=== PATIENT | male | born 1960 | race Caucasian/White ===

== ENCOUNTER → 2016-05-09 | Outpatient (CLI) | payer OTHER ==
[~2016-05-09] MED LIST: AMBI10TA; AMBI10TA OR; AMIT10TA2; AMIT25TA2 OR; AVINZA; AVINZA PO; COUGH MED PO; GABA800T3; GABA800T3 OR; GEMF600T; GEMF600T OR; IBUP80TA PO; LOVA40TA OR; MIRALEX OR; MORP15TA4 OR; MS C30TA2 OR; MULTCAP PO; MULTIVIT; MULTIVIT PO; NEUR300C OR; OMEP20TA7 OR; OMEP20TA7 PO; OXYC5CAP4; OXYC5CAP4 OR; SENN8.6T14; SKEL-29 PO; SKEL800T5; SKEL800T5 OR; SOMA350T; SOMA350T OR; STOOL SOFTNER PO; TIZA2TAB; TIZA4TAB OR; TIZA4TAB3 PO; TRAZ50TA2 PO; TRAZ50TA4 PO; VOLT1GEL TOP; ZOCO80TA; ZOCO80TA OR; [UNRECOGNIZED DRUG - OTHER] PO
--- NOTE | 2016-05-16 01:26 | ECWPNPC ---
PATIENT NAME: OWEN ROSALES : 1960 GENDER: MALE VISIT DATE: 05/09/2016 DISCHARGE DATE: 05/09/16 1029 VISIT LOCKED DATE TIME: PHYSICIAN: BINU ZIMMERMAN RESOURCE: BINU ZIMMERMAN REASON FOR APPOINTMENT 1. WC, NECK HISTORY OF PRESENT ILLNESS HISTORY OF PRESENT ILLNESS: PAIN THE PATIENT DESCRIBES THE PAIN... 56 YEAR OLD MALE PATIENT WITH HISTORY OF CHRONIC NECK PAIN. PATIENT DESCRIBES THE PAIN ACHING, TENDER AND SORE WITH A PAIN SCORE OF 3/10. 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 PATIENT STATING THAT HE WAS LIFTING A 80 LB BOX WHEN HIS NECK WAS INJURED. PATIENT REPORTS THAT HE HAS PAIN STARTING IN HIS NECK AREA GOING DOWN HIS LEFT SHOULDER. PATIENT INDICATES THAT HE HAD A C7-T1 FUSION IN 2005, THE SURGERY HELPED IN THE BEGINNING, BUT THE PAIN STARTED TO COME BACK. PATIENT STATES THAT TWISTING AND LAYING DOWN WRONG INCREASES THE PAIN LEVELS IN HIS NECK AREA WHICH THEN GOES DOWN TO THIS LEFT SHOULDER AREA. PATIENT DENIES UNEXPLAINABLE WEIGHT LOSS, FEVER, CHILLS, NEW CHANGES ON HIS URINARY OR BOWEL CONTROL. FALL RISK SCREENING: SCREENING :NO FALLS IN THE PAST YEAR CURRENT MEDICATIONS TAKING GEMFIBROZIL 600 MG TABLET 1 TABLET ORALLY DAILY TAKING LOVASTATIN 40 MG TABLET 1 TABLET WITH A MEAL ORALLY ONCE A DAY TAKING MULTIVITAL [place] TABLET ORALLY DAILY TAKING OMEPRAZOLE 40 MG CAPSULE DELAYED RELEASE 1 CAPSULE ORALLY ONCE A DAY TAKING MIRALAX PACKET 1 PACKET MIXED WITH 8 OUNCES OF FLUID ORALLY ONCE A DAY NEEDED, NOTES: NONE TAKING GABAPENTIN 400 MG CAPSULE 1 CAPSULE ORALLY THREE TIMES A DAY TAKING TRAZODONE HCL 50 MG TABLET 1 TABLET AT BEDTIME NEEDED ORALLY ONCE A DAY TAKING IBUPROFEN 200 MG TABLET 1 TABLET NEEDED ORALLY DAILY TAKING MORPHINE SULFATE ER 15 MG TABLET EXTENDED RELEASE 1 TABLET ORALLY AT BEDTIME MDD=1 TAKING OXYCODONE HCL 5 MG TABLET 1 TABLET ORALLY EVERY 6-8 HRS PRN PAIN MDD=3 NOT-TAKING METAXALONE 800 MG TABLET 1 TABLET ORALLY BID MEDICATION LIST REVIEWED AND RECONCILED WITH THE PATIENT PAST MEDICAL HISTORY REFLUX HIGH CHOLESTEROL ALLERGIES N.K.D.A. SURGICAL HISTORY TOTAL RIGHT KNEE RIGHT HIP FX REPAIR ABDOMINAL EXPLORATORY SURGERY CERVICAL/THORACIC FUSION FAMILY HISTORY NO FAMILY HISTORY DOCUMENTED. 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 NEW PATIENT PAIN DIARY TODAY'S VISITNOTES FROM 0-10, WHAT LEVEL IS YOUR PAIN TODAY?0 PAIN CLINIC PFS, CLERGY, PUBLIC HEALTH REFERRALS PFS REFERRAL NEEDED?NO CLERGY REFERRAL NEEDED?NO PUBLIC HEALTH REFERRAL NEEDED?NO WAS THE PROVIDER NOTIFIED OF ANY PERTINENT INFO?NO PFS REFERRAL NEEDED?NO CLERGY REFERRAL NEEDED?NO PUBLIC HEALTH REFERRAL NEEDED?NO WAS THE PROVIDER NOTIFIED OF ANY PERTINENT INFO?NO HOSPITALIZATION/MAJOR DIAGNOSTIC PROCEDURE SURGERIES REVIEW OF SYSTEMS CONSTITUTIONAL: ANY CHANGE IN YOUR MEDICAL CONDITION? NO . CHILLS NO . FEVER NO . INFECTION: DO YOU HAVE NEW INFECTIONS? NO . DO YOU HAVE HISTORY OF MRSA? NO . MUSCULOSKELETAL: ANY NEW PATTERNS OF PAIN OR NUMBNESS? YES PT NOTES 1 MONTH HX OF &QUOT;ACHE ING AND NUMBNESS&QUOT; IN LEFT UPPER ARM TO LEFT LOWER ARM/LEFT LAST 3 FINGERS. . GASTROENTEROLOGY: ANY NEW CHANGE IN BOWEL CONTROL? NO . GENITOURINARY: ANY NEW CHANGE IN BLADDER CONTROL? NO . IS THERE A CHANCE YOU COULD BE ? NO . HEMATOLOGY/LYMPH: DO YOU TAKE ANY BLOOD THINNERS? (FOR EXAMPLE- COUMADIN, PLAVIX, AGGRENOX, PLATEL, PRADAXA, OR XARELTO) NO . WHEN WAS YOUR LAST DOSE? DATE: TIME: . NEUROLOGY: HAVE YOU FALLEN IN THE PAST 6 MONTHS? NO . ANY NEW EXTREMITY NUMBNESS OR WEAKNESS? NO . CARDIOLOGY: DO YOU HAVE A PACEMAKER OR DEFIBRILLATOR? NO . RESPIRATORY: HAVE YOU BEEN SICK IN THE PAST WEEK? YES URI X 1 WEEK. . FEVER NO . FLU LIKE SYMPTOMS? NO . COUGH YES, NON-PRODUCTIVE . INTEGUMENTARY: DO YOU HAVE ANY RASHES OR OPEN SORES? NO . ALLERGIC/IMMUNO: ARE YOU ALLERGIC TO SHELLFISH OR IV DYE? NO . ANY NEW ALLERGIES? NO . PSYCHIATRIC: DO YOU HAVE THOUGHTS OF HURTING YOURSELF OR SOMEONE ELSE? NO . ARE YOU ABUSED, NEGLECTED, OR IN AN UNSAFE ENVIRONMENT? NO . ENDOCRINOLOGY: ARE YOU DIABETIC? NO . OTHER: DO YOU NEED ANY PRESCRIPTIONS? YES GABAPENTIN -NEEDS 1-2 WEEK SUPPLY UNTIL SCRIPT ARRIVES FROM [email or web address] ORDER SERVICE. . IF YES, PLEASE LIST: ____ . ANY NEW PROBLEMS WITH YOUR MEDICATIONS? NO . WHEN DID YOU LAST EAT? ____ . WHEN DID YOU LAST DRINK? ____ . WHAT DID YOU LAST DRINK? ____ . NAME OF PERSON DRIVING YOU HOME? ____ . DO YOU HAVE ANY OTHER QUESTIONS OR CONCERNS NO . REVIEWED BY: PROVIDER: BINU ZIMMERMAN MD . VITAL SIGNS WT 236 LBS, HT 69 IN, BMI 34.85 INDEX, BP 149/88 MM HG, HR 87 /MIN, RR 16 /MIN, TEMP 96.1 F, OXYGEN SAT % 95%, NA INITIALS SC09:08, REVIEWED BY: MLF. EXAMINATION : PATIENT IS ALERT O X 3 AND COOPERATIVE. PATIENT STANDS WITH THE LEFT SHOULDER HIGHER THAN THE RIGHT. PATIENT IS ABLE TO FLEX NECK AT 90 DEGREES, AND EXTEND NECK AT 5 DEGREE WITH DIFFICULTIES. THERE IS A SURGICAL SCAR ON THE LEFT ANTERIOR AREA OF THE NECK. THERE IS LATERAL RESTRICTION OF MOVEMENT OF THE NECK TO THE LEFT SIDE. OPERATIONS RESEARCH SCIENTIST OF THE LEFT HAND IS WEAKER COMPARED TO THE RIGHT SIDE. LEFT LEG IS WEAKER THAT THE RIGHT LEG AT FLEXION AND EXTENSION. ASSESSMENTS POSTLAMINECTOMY SYNDROME, NOT ELSEWHERE CLASSIFIED - M96.1 (PRIMARY) SPONDYLOSIS WITHOUT MYELOPATHY OR RADICULOPATHY, CERVICAL REGION - M47.812 CERVICAL DISC DISORDER WITH RADICULOPATHY, HIGH CERVICAL REGION - M50.11 CERVICAL DISC DISORDER AT C4-C5 LEVEL WITH RADICULOPATHY - M50.121 CERVICAL DISC DISORDER AT C5-C6 LEVEL WITH RADICULOPATHY - M50.122 CERVICAL DISC DISORDER AT C6-C7 LEVEL WITH RADICULOPATHY - M50.123 TREATMENT POSTLAMINECTOMY SYNDROME, NOT ELSEWHERE CLASSIFIED NOTES: WE DISCUSSED SEVERAL ISSUES WITH MR. ROSALES'S PAIN MANAGEMENT CASE. PATIENT WILL RECEIVED A MEDICATION REFILL TODAY AND CONTINUE WITH THE SAME MEDICATION REGIMEN BEFORE. PATIENT BROUGHT HIS MEDICATION BOTTLES IN TODAY. PATIENT WAS ADVISED TO SPEAK TO HIS PRIMARY CARE ABOUT THE SLEEPING PILL TIZANIDINE. UTOX ORDERED ON 03-31-2016 SHOWS CONSISTENT RESULTS. COMPLETED THE OPIOID RISK TOOL TODAY. PATIENT TO FOLLOW UP IN 3 TO 4 WEEKS. , INSTRUCTIONS WERE GIVEN, QUESTIONS WERE ANSWERED, PATIENT REPORTS UNDERSTANDING AND AGREES WITH THE PLAN. I, DRAKE GARVEY, DOCUMENTED THE ABOVE INFORMATION ACTING A SCRIBE FOR DR. ZIMMERMAN. I HAVE REVIEWED THE ABOVE DOCUMENT, WRITTEN BY DRAKE WALSH AND I VERIFY THAT IT IS ACCURATE. OTHERS REFILL GABAPENTIN CAPSULE, 400 MG, 1 CAPSULE, ORALLY, THREE TIMES A DAY, 90 DAY(S), 270 CAPSULE, REFILLS 0 REFILL IBUPROFEN TABLET, 800 MG, 1 TABLET NEEDED, ORALLY WITH FOOD, THREE TIMES DAILY NEEDED FOR PAIN, 30 DAY(S), 60, REFILLS 2 REFILL TRAZODONE HCL TABLET, 50 MG, 1 TABLET AT BEDTIME NEEDED, ORALLY, ONCE A DAY, 90 DAY(S), 90 TABLET, REFILLS 0 REFILL MORPHINE SULFATE ER TABLET EXTENDED RELEASE, 15 MG, 1 TABLET, ORALLY, AT BEDTIME MDD=1, 30 DAY(S), 30, REFILLS 0 REFILL OXYCODONE HCL TABLET, 5 MG, 1 TABLET, ORALLY, EVERY 6-8 HRS PRN PAIN MDD=3, 30 DAY(S), 90, REFILLS 0 NOTES: FACET JOINT INJECTION MATERIAL WAS PRINTED. PROCEDURES PN WORKMANS' COMP OPINION IN YOUR OPINION, WAS THE INCIDENT THAT THE PATIENT DESCRIBED THE COMPETENT MEDICAL CAUSE OF THIS INJURY/ILLNESS? YES ARE THE PATIENT'S COMPLAINTS CONSISTENT WITH HIS/HER HISTORY OF THE INJURY/ILLNESS? YES IS THE PATIENT'S HISTORY OF THE INJURY/ILLNESS CONSISTENT WITH YOUR OBJECTIVE FINDING? YES WHAT IS THE PERCENTAGE OF TEMPORARY IMPAIRMENT? MODERATE TO MARKED = 66.7% IS THE PATIENT WORKING? NO DOCTOR ON SITE: BINU WILL MD PROCEDURE CODES FA211 ESTABILISHED PATIENT [facility] CHARGE G8730 PAIN ASSESS POS TOOL F/U PLAN DOC G8427 DOC MEDS VERIFIED W/PT OR RE FOLLOW UP 4 WEEKS ELECTRONICALLY SIGNED BY BINU ZIMMERMAN MD ON 05/15/2016 AT 09:46 AM EST DISCLAIMER : THIS IS A VISIT SUMMARY EXTRACTED FROM THE [employer] CHART. IT IS NOT A COPY OF THE [employer] PROGRESS NOTE. ANALILIA
== END ==
LOC: M PAIN 09:00
PROVIDERS: ATTEND Anesthesiology
DX: M96.1 Postlaminectomy syndrome, not elsewhere classified (principal); M47.812 Spondylosis without myelopathy or radiculopathy, cervical region; M50.11 Cervical disc disorder with radiculopathy, high cervical region; M50.121 Cervical disc disorder at C4-C5 level with radiculopathy; M50.122 Cervical disc disorder at C5-C6 level with radiculopathy; M50.123 Cervical disc disorder at C6-C7 level with radiculopathy; Z79.891 Long term (current) use of opiate analgesic; Z79.899 Other long term (current) drug therapy

== ENCOUNTER → 2016-06-06 | Outpatient (CLI) | payer OTHER ==
[~2016-06-06] MED LIST changes: +BUPIVACAINE HCL 0.25% 30 ML VIAL As Ordered ONE; +ISOVUE-M 300 61% 15ML VIAL (Q9967) As Ordered ONE; +LIDOCAINE 1% SDV INJ 30 ML VIAL As Ordered ONE
--- NOTE | 2016-06-06 12:39 | REP ---
Partial lumbar spine series: Three views. History: Right lumbar facet block for pain. 33 seconds of fluoroscopy time is reported. Findings: A sequence of three last image hold fluoroscopically obtained spot radiographs of the lumbar spine document various needle positions and contrast injections associated with lumbar facet injection procedure. Signed by Nacho Christopher MD 06/06/2016 02:34 P
--- NOTE | 2016-06-07 23:50 | ECWPNPC ---
PATIENT NAME: OWEN ROSALES : 1960 GENDER: MALE VISIT DATE: 06/06/2016 DISCHARGE DATE: 06/06/16 1209 VISIT LOCKED DATE TIME: PHYSICIAN: BINU ZIMMERMAN RESOURCE: BINU ZIMMERMAN REASON FOR APPOINTMENT 1. LFBD L4-5, L5-S1 CURRENT MEDICATIONS TAKING IBUPROFEN 800 MG TABLET 1 TABLET NEEDED ORALLY WITH FOOD THREE TIMES DAILY NEEDED FOR PAIN, NOTES: 06/05/162099 TAKING TRAZODONE HCL 50 MG TABLET 1 TABLET AT BEDTIME NEEDED ORALLY ONCE A DAY, NOTES: 06/05/162099 TAKING GABAPENTIN 400 MG CAPSULE 1 CAPSULE ORALLY THREE TIMES A DAY, NOTES: 06/06/16699 TAKING OXYCODONE HCL 5 MG TABLET 1 TABLET ORALLY EVERY 6-8 HRS PRN PAIN MDD=3, NOTES: 2-3 DAYS TAKING MORPHINE SULFATE ER 15 MG TABLET EXTENDED RELEASE 1 TABLET ORALLY AT BEDTIME MDD=1, NOTES: 06/05/162099 TAKING GEMFIBROZIL 600 MG TABLET 1 TABLET ORALLY DAILY, NOTES: 06/06/16699 TAKING LOVASTATIN 40 MG TABLET 1 TABLET WITH A MEAL ORALLY ONCE A DAY, NOTES: 06/05/162099 TAKING MULTIVITAL MECHOOPDA TABLET ORALLY DAILY, NOTES: 06/06/16699 TAKING OMEPRAZOLE 40 MG CAPSULE DELAYED RELEASE 1 CAPSULE ORALLY ONCE A DAY, NOTES: 06/06/16699 TAKING MIRALAX PACKET 1 PACKET MIXED WITH 8 OUNCES OF FLUID ORALLY ONCE A DAY NEEDED, NOTES: 1 MONTH AGO NOT-TAKING METAXALONE 800 MG TABLET 1 TABLET ORALLY BID MEDICATION LIST REVIEWED AND RECONCILED WITH THE PATIENT PAST MEDICAL HISTORY REFLUX HIGH CHOLESTEROL ALLERGIES N.K.D.A. SURGICAL HISTORY NO SURGICAL HISTORY DOCUMENTED. HOSPITALIZATION/MAJOR DIAGNOSTIC PROCEDURE NO HOSPITALIZATION HISTORY. VITAL SIGNS WT 236 LBS, HT 69 IN, BMI 34.85 INDEX, BP 139/90 MM HG, HR 80 /MIN, RR 16 /MIN, TEMP 96.0 F, OXYGEN SAT % 96, NA INITIALS TL 1052, REVIEWED BY: CORA. ASSESSMENTS SPONDYLOSIS WITHOUT MYELOPATHY OR RADICULOPATHY, LUMBAR REGION - M47.816 (PRIMARY) SPONDYLOSIS WITHOUT MYELOPATHY OR RADICULOPATHY, LUMBOSACRAL REGION - M47.817 PROCEDURES PN WORKMANS' COMP OPINION IN YOUR OPINION, WAS THE INCIDENT THAT THE PATIENT DESCRIBED THE COMPETENT MEDICAL CAUSE OF THIS INJURY/ILLNESS? YES ARE THE PATIENT'S COMPLAINTS CONSISTENT WITH HIS/HER HISTORY OF THE INJURY/ILLNESS? YES IS THE PATIENT'S HISTORY OF THE INJURY/ILLNESS CONSISTENT WITH YOUR OBJECTIVE FINDING? YES WHAT IS THE PERCENTAGE OF TEMPORARY IMPAIRMENT? MODERATE TO MARKED = 66.7% IS THE PATIENT WORKING? NO DOCTOR ON SITE: MD TRAY SEO LUMBAR FACET BLOCK DIAGNOSTIC PRE PROCEDURE DIAGNOSIS LUMBOSACRAL SPONDYLOSIS, LUMBAR SPONDYLOSIS POST PROCEDURE DIAGNOSIS LUMBOSACRAL SPONDYLOSIS, LUMBAR SPONDYLOSIS PROCEDURE RIGHT L4-L5 AND RIGHT L5-S1 FACET BLOCK DIAGNOSTIC NUMBER [address] BINU ZIMMERMAN SAILMAKER NONE ANESTHESIA LOCAL PRE PROCEDURE NOTE THE PATIENT WITH HISTORY OF CHRONIC LOW BACK PAIN. I EVALUATED THE PATIENT AND REVIEWED THE CHART. I WENT OVER THE RISKS, ALTERNATIVES, AND BENEFITS ASSOCIATED WITH THIS PROCEDURE. THE PATIENT WOULD LIKE TO PROCEED AND GAVE CONSENT TO PERFORM THE PROCEDURE. AGREED WITH THE PATIENT WE ARE DOING THIS PROCEDURE TO DETERMINE IF THE PATIENT IS A CANDIDATE FOR A RADIOFREQUENCY ABLATION OF THE FACETS JOINTS. THE PATIENT DENIES UNEXPLAINABLE WEIGHT LOSS, FEVER, CHILLS, OR NEW CHANGES IN URINARY OR BOWEL CONTROL DESCRIPTION OF PROCEDURE THE PATIENT WAS BROUGHT TO THE PROCEDURE ROOM AND PLACED IN THE PRONE POSITION. THE LUMBOSACRAL AREA WAS CLEANED WITH CHLORAPREP SOLUTION AND DRAPED ASEPTICALLY. THE PROCEDURE WAS DONE UNDER STERILE CONDITIONS. I CHECKED LATERALITY AND THE LEVEL WHERE THE PROCEDURE WAS GOING TO BE PERFORMED WITH THE PATIENT AND THE SUPPORTING STAFF AT THE MOMENT OF THE TIME OUT IN THE PROCEDURE ROOM. UNDER FLUOROSCOPIC GUIDANCE, TARGETS WERE SELECTED AT THE INTERSECTION OF THE RIGHT TRANSVERSE PROCESS OF L4, L5 AND ALA OF S1 WITH ITS RESPECTIVE SUPERIOR ARTICULAR PROCESS. LIDOCAINE WAS USED TO NUMB THE SKIN AND THE SUBCUTANEOUS TISSUE BELOW IT. SPINAL NEEDLE, 22-GAUGE WAS ADVANCED UNDER FLUOROSCOPIC GUIDANCE AND FOLLOWING PATIENT FEEDBACK UNTIL THE TARGETS WERE REACHED. POSITION OF THE NEEDLES WAS VERIFIED WITH AP AND LATERAL VIEWS. AFTER PROPER POSITION OF THE NEEDLES WAS ACHIEVED, ISOVUE-M DYE 30% 0.1 ML WAS INJECTED AT EACH SITE SHOWING ADEQUATE SPREAD OF THE DYE. THEN A SOLUTION OF 0.4 ML OF BUPIVACAINE 0.25% WAS INJECTED AT EACH SITE. THERE WAS NO EVIDENCE OF BLOOD, PARESTHESIA OR CEREBROSPINAL FLUID DURING THE PROCEDURE. THE PATIENT WAS SENT TO THE RECOVERY ROOM. THE PATIENT WAS MOVING THE EXTREMITIES AND DOING WELL. THERE WAS NO COMPLICATION DURING THE PROCEDURE. FLUOROSCOPY TIME WAS 33 SECONDS POST PROCEDURE NOTE THE PATIENT WILL DOCUMENT HIS PAIN LEVEL AND RESPONSE TO THIS PROCEDURE EVERY 30 MINUTES. THE PATIENT WILL BE SEEN IN A FOLLOW UP IN THE NEXT FEW WEEKS. FURTHER DETERMINATION FOR HIS CASE WILL BE DONE AT THE NEXT VISIT. INSTRUCTIONS WERE GIVEN, QUESTIONS WERE ANSWERED, AND THE PATIENT EXPRESSED UNDERSTANDING AND AGREED WITH THE PLAN. INSTRUCTIONS WERE GIVEN, QUESTIONS WERE ANSWERED, PATIENT REPORTS UNDERSTANDING AND AGREES WITH THE PLAN. I, DRAKE GARVEY, DOCUMENTED THE ABOVE INFORMATION ACTING A SCRIBE FOR DR. ZIMMERMAN. I HAVE REVIEWED THE ABOVE DOCUMENT, WRITTEN BY DRAKE GARVEY SCRIBE AND I VERIFY THAT IT IS ACCURATE. PROCEDURE CODES 92783 INJ PARAVERT F JNT L/S 1 LEV 47590 INJ PARAVERT F JNT L/S 2 LEV 6045F RADXPS IN END [id number] PXD FOLLOW UP 3 WEEKS ELECTRONICALLY SIGNED BY BINU ZIMMERMAN MD ON 06/07/2016 AT 07:33 PM EST DISCLAIMER : THIS IS A VISIT SUMMARY EXTRACTED FROM THE [employer] CHART. IT IS NOT A COPY OF THE [employer] PROGRESS NOTE. MTDEliza
== END ==
LOC: M PAIN 10:50
PROVIDERS: ATTEND Anesthesiology
DX: G89.29 Other chronic pain (principal); M47.816 Spondylosis without myelopathy or radiculopathy, lumbar region; M47.817 Spondylosis without myelopathy or radiculopathy, lumbosacral region; K21.9 Gastro-esophageal reflux disease without esophagitis; E78.00 Pure hypercholesterolemia, unspecified; Z79.1 Long term (current) use of non-steroidal anti-inflammatories (NSAID); Z79.891 Long term (current) use of opiate analgesic; Z79.899 Other long term (current) drug therapy
CPT/HCPCS: 64493; 64494; Q9967

== ENCOUNTER → 2016-06-08 | Outpatient (CLI) | payer OTHER ==
[~2016-06-08] MED LIST changes: -BUPIVACAINE HCL 0.25% 30 ML VIAL As Ordered ONE; -ISOVUE-M 300 61% 15ML VIAL (Q9967) As Ordered ONE; -LIDOCAINE 1% SDV INJ 30 ML VIAL As Ordered ONE
--- NOTE | 2016-06-09 00:35 | ECWPNPC ---
PATIENT NAME: OWEN ROSALES : 1960 GENDER: MALE VISIT DATE: 06/08/2016 DISCHARGE DATE: 06/08/16 1004 VISIT LOCKED DATE TIME: PHYSICIAN: BINU ZIMMERMAN RESOURCE: BINU ZIMMERMAN REASON FOR APPOINTMENT 1. W/C NECK HISTORY OF PRESENT ILLNESS HISTORY OF PRESENT ILLNESS: PAIN THE PATIENT DESCRIBES THE PAIN... FALL RISK SCREENING: SCREENING :NO FALLS IN THE PAST YEAR CURRENT MEDICATIONS TAKING IBUPROFEN 800 MG TABLET 1 TABLET NEEDED ORALLY WITH FOOD THREE TIMES DAILY NEEDED FOR PAIN, NOTES: 06/05/162099 TAKING TRAZODONE HCL 50 MG TABLET 1 TABLET AT BEDTIME NEEDED ORALLY ONCE A DAY, NOTES: 06/05/162099 TAKING GABAPENTIN 400 MG CAPSULE 1 CAPSULE ORALLY THREE TIMES A DAY, NOTES: 06/06/16699 TAKING OXYCODONE HCL 5 MG TABLET 1 TABLET ORALLY EVERY 6-8 HRS PRN PAIN MDD=3, NOTES: 2-3 DAYS TAKING MORPHINE SULFATE ER 15 MG TABLET EXTENDED RELEASE 1 TABLET ORALLY AT BEDTIME MDD=1, NOTES: 06/05/162099 TAKING GEMFIBROZIL 600 MG TABLET 1 TABLET ORALLY DAILY, NOTES: 06/06/16699 TAKING LOVASTATIN 40 MG TABLET 1 TABLET WITH A MEAL ORALLY ONCE A DAY, NOTES: 06/05/162099 TAKING MULTIVITAL YS[place] DEL SUR TABLET ORALLY DAILY, NOTES: 06/06/16699 TAKING OMEPRAZOLE 40 MG CAPSULE DELAYED RELEASE 1 CAPSULE ORALLY ONCE A DAY, NOTES: 06/06/16699 TAKING MIRALAX PACKET 1 PACKET MIXED WITH 8 OUNCES OF FLUID ORALLY ONCE A DAY NEEDED, NOTES: 1 MONTH AGO NOT-TAKING METAXALONE 800 MG TABLET 1 TABLET ORALLY BID MEDICATION LIST REVIEWED AND RECONCILED WITH THE PATIENT PAST MEDICAL HISTORY REFLUX HIGH CHOLESTEROL ALLERGIES N.K.D.A. 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 NEW PATIENT PAIN DIARY TODAY'S VISITNOTES FROM 0-10, WHAT LEVEL IS YOUR PAIN TODAY?0 PAIN CLINIC PFS, CLERGY, PUBLIC HEALTH REFERRALS PFS REFERRAL NEEDED?NO CLERGY REFERRAL NEEDED?NO PUBLIC HEALTH REFERRAL NEEDED?NO WAS THE PROVIDER NOTIFIED OF ANY PERTINENT INFO?NO PFS REFERRAL NEEDED?NO CLERGY REFERRAL NEEDED?NO PUBLIC HEALTH REFERRAL NEEDED?NO WAS THE PROVIDER NOTIFIED OF ANY PERTINENT INFO?NO REVIEW OF SYSTEMS CONSTITUTIONAL: ANY CHANGE IN YOUR MEDICAL CONDITION? NO . CHILLS NO . FEVER NO . INFECTION: DO YOU HAVE NEW INFECTIONS? NO . DO YOU HAVE HISTORY OF MRSA? NO . MUSCULOSKELETAL: ANY NEW PATTERNS OF PAIN OR NUMBNESS? NO . GASTROENTEROLOGY: ANY NEW CHANGE IN BOWEL CONTROL? NO . GENITOURINARY: ANY NEW CHANGE IN BLADDER CONTROL? NO . IS THERE A CHANCE YOU COULD BE ? NO . HEMATOLOGY/LYMPH: DO YOU TAKE ANY BLOOD THINNERS? (FOR EXAMPLE- COUMADIN, PLAVIX, AGGRENOX, PLATEL, PRADAXA, OR XARELTO) NO . WHEN WAS YOUR LAST DOSE? DATE: TIME: . NEUROLOGY: HAVE YOU FALLEN IN THE PAST 6 MONTHS? NO . ANY NEW EXTREMITY NUMBNESS OR WEAKNESS? NO . CARDIOLOGY: DO YOU HAVE A PACEMAKER OR DEFIBRILLATOR? NO . RESPIRATORY: HAVE YOU BEEN SICK IN THE PAST WEEK? NO . FEVER NO . FLU LIKE SYMPTOMS? NO . COUGH NO . INTEGUMENTARY: DO YOU HAVE ANY RASHES OR OPEN SORES? NO . ALLERGIC/IMMUNO: ARE YOU ALLERGIC TO SHELLFISH OR IV DYE? NO . ANY NEW ALLERGIES? NO . PSYCHIATRIC: DO YOU HAVE THOUGHTS OF HURTING YOURSELF OR SOMEONE ELSE? NO . ARE YOU ABUSED, NEGLECTED, OR IN AN UNSAFE ENVIRONMENT? NO . ENDOCRINOLOGY: ARE YOU DIABETIC? NO . OTHER: DO YOU NEED ANY PRESCRIPTIONS? NO . IF YES, PLEASE LIST: ____ . ANY NEW PROBLEMS WITH YOUR MEDICATIONS? NO . WHEN DID YOU LAST EAT? ____ . WHEN DID YOU LAST DRINK? ____ . WHAT DID YOU LAST DRINK? ____ . NAME OF PERSON DRIVING YOU HOME? ____ . DO YOU HAVE ANY OTHER QUESTIONS OR CONCERNS NO . REVIEWED BY: PROVIDER: . VITAL SIGNS WT 236 LBS, HT 69 IN, BMI 34.85 INDEX, BP 147/89 MM HG, HR 76 /MIN, RR 16 /MIN, TEMP 96.0 F, OXYGEN SAT % 98, NA INITIALS TL 0917, REVIEWED BY: MLF. ASSESSMENTS SPONDYLOSIS WITHOUT MYELOPATHY OR RADICULOPATHY, LUMBAR REGION - M47.816 TREATMENT SPONDYLOSIS WITHOUT MYELOPATHY OR RADICULOPATHY, LUMBAR REGION REFILL OXYCODONE HCL TABLET, 5 MG, 1 TABLET, ORALLY, EVERY 6-8 HRS PRN PAIN MDD=2, 30 DAY(S), 45, REFILLS 0, NOTES: 2-3 DAYS REFILL MORPHINE SULFATE ER TABLET EXTENDED RELEASE, 15 MG, 1 TABLET, ORALLY, AT BEDTIME MDD=1, 30 DAY(S), 25, REFILLS 0, NOTES: 06/05/162099 OTHERS REFILL IBUPROFEN TABLET, 800 MG, 1 TABLET NEEDED, ORALLY WITH FOOD, THREE TIMES DAILY NEEDED FOR PAIN, 30 DAY(S), 60, REFILLS 2, NOTES: 06/05/162099 CONTINUE GABAPENTIN CAPSULE, 400 MG, 1 CAPSULE, ORALLY FOR PAIN, THREE TIMES A DAY, 30 DAY(S), 90 CAPSULE, REFILLS 2, NOTES: 06/06/16 0700 PROCEDURE CODES FA211 ESTABILISHED PATIENT [facility] FACILITY CHARGE ELECTRONICALLY SIGNED BY BINU ZIMMERMAN MD ON 06/08/2016 AT 10:05 AM EST DISCLAIMER : THIS IS A VISIT SUMMARY EXTRACTED FROM THE [employer] CHART. IT IS NOT A COPY OF THE [employer] PROGRESS NOTE. MTDD
== END ==
LOC: M PAIN 09:00
PROVIDERS: ATTEND Anesthesiology
DX: Z09 Encounter for follow-up examination after completed treatment for conditions other than malignant neoplasm (principal); G89.29 Other chronic pain; M50.11 Cervical disc disorder with radiculopathy, high cervical region; M50.13 Cervical disc disorder with radiculopathy, cervicothoracic region; K21.9 Gastro-esophageal reflux disease without esophagitis; E78.00 Pure hypercholesterolemia, unspecified; Z79.1 Long term (current) use of non-steroidal anti-inflammatories (NSAID); Z79.891 Long term (current) use of opiate analgesic; Z79.899 Other long term (current) drug therapy

== ENCOUNTER → 2016-06-08 | Outpatient (CLI) | payer OTHER ==
--- NOTE | 2016-06-17 23:24 | ECWPNPC ---
PATIENT NAME: OWEN ROSALES : 1960 GENDER: MALE VISIT DATE: 06/08/2016 DISCHARGE DATE: 06/08/16 1115 VISIT LOCKED DATE TIME: PHYSICIAN: BINU ZIMMERMAN RESOURCE: BINU ZIMMERMAN REASON FOR APPOINTMENT 1. LOW BACK HISTORY OF PRESENT ILLNESS HISTORY OF PRESENT ILLNESS: PAIN THE PATIENT DESCRIBES THE PAIN... 56 YEAR OLD MALE WITH HISTORY OF CHRONIC MID AND LOW BACK PAIN. PATIENT DESCRIBES THE PAIN ACHING AND SCORE WITH A PAIN SCORE OF 2/10 ON TODAY'S VISIT. PATIENT WAS INJURED IN A WORK RELATED INJURY ON 09/05/1989 WORKING FOR [employer]. PATIENT RECEIVED A RIGHT L4-L5 AND RIGHT L5-S1 FACET BLOCK DIAGNOSTIC BLOCK ON 06/16/2016 AND STATES THAT HIS PAIN WENT FROM A 4/10 TO A 0/10. PATIENT DENIES UNEXPLAINABLE WEIGHT LOSS, FEVER, CHILLS, NEW CHANGES ON HIS URINARY OR BOWEL CONTROL. FALL RISK SCREENING: SCREENING :NO FALLS IN THE PAST YEAR CURRENT MEDICATIONS TAKING TRAZODONE HCL 50 MG TABLET 1 TABLET AT BEDTIME NEEDED ORALLY ONCE A DAY, NOTES: 06/05/162099 TAKING GEMFIBROZIL 600 MG TABLET 1 TABLET ORALLY DAILY, NOTES: 06/06/16699 TAKING LOVASTATIN 40 MG TABLET 1 TABLET WITH A MEAL ORALLY ONCE A DAY, NOTES: 06/05/162099 TAKING MULTIVITAL [place] TABLET ORALLY DAILY, NOTES: 06/06/16699 TAKING OMEPRAZOLE 40 MG CAPSULE DELAYED RELEASE 1 CAPSULE ORALLY ONCE A DAY, NOTES: 06/06/16699 TAKING MIRALAX PACKET 1 PACKET MIXED WITH 8 OUNCES OF FLUID ORALLY ONCE A DAY NEEDED, NOTES: 1 MONTH AGO TAKING OXYCODONE HCL 5 MG TABLET 1 TABLET ORALLY EVERY 6-8 HRS PRN PAIN MDD=2, NOTES: 2-3 DAYS TAKING MORPHINE SULFATE ER 15 MG TABLET EXTENDED RELEASE 1 TABLET ORALLY AT BEDTIME MDD=1, NOTES: 06/05/162099 TAKING IBUPROFEN 800 MG TABLET 1 TABLET NEEDED ORALLY WITH FOOD THREE TIMES DAILY NEEDED FOR PAIN, NOTES: 06/05/162099 TAKING GABAPENTIN 400 MG CAPSULE 1 CAPSULE ORALLY FOR PAIN THREE TIMES A DAY, NOTES: 06/06/16699 NOT-TAKING METAXALONE 800 MG TABLET 1 TABLET ORALLY BID MEDICATION LIST REVIEWED AND RECONCILED WITH THE PATIENT PAST MEDICAL HISTORY REFLUX HIGH CHOLESTEROL ALLERGIES N.K.D.A. SURGICAL HISTORY TOTAL RIGHT KNEE RIGHT HIP FX REPAIR ABDOMINAL EXPLORATORY SURGERY CERVICAL/THORACIC FUSION FAMILY HISTORY NO FAMILY HISTORY DOCUMENTED. 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 NEW PATIENT PAIN DIARY TODAY'S VISITNOTES FROM 0-10, WHAT LEVEL IS YOUR PAIN TODAY?0 PAIN CLINIC PFS, CLERGY, PUBLIC HEALTH REFERRALS PFS REFERRAL NEEDED?NO CLERGY REFERRAL NEEDED?NO PUBLIC HEALTH REFERRAL NEEDED?NO WAS THE PROVIDER NOTIFIED OF ANY PERTINENT INFO?NO PFS REFERRAL NEEDED?NO CLERGY REFERRAL NEEDED?NO PUBLIC HEALTH REFERRAL NEEDED?NO WAS THE PROVIDER NOTIFIED OF ANY PERTINENT INFO?NO HOSPITALIZATION/MAJOR DIAGNOSTIC PROCEDURE SURGERIES REVIEW OF SYSTEMS CONSTITUTIONAL: ANY CHANGE IN YOUR MEDICAL CONDITION? NO . CHILLS NO . FEVER NO . INFECTION: DO YOU HAVE NEW INFECTIONS? NO . DO YOU HAVE HISTORY OF MRSA? NO . MUSCULOSKELETAL: ANY NEW PATTERNS OF PAIN OR NUMBNESS? NO . GASTROENTEROLOGY: ANY NEW CHANGE IN BOWEL CONTROL? NO . GENITOURINARY: ANY NEW CHANGE IN BLADDER CONTROL? NO . IS THERE A CHANCE YOU COULD BE ? NO . HEMATOLOGY/LYMPH: DO YOU TAKE ANY BLOOD THINNERS? (FOR EXAMPLE- COUMADIN, PLAVIX, AGGRENOX, PLATEL, PRADAXA, OR XARELTO) NO . WHEN WAS YOUR LAST DOSE? DATE: TIME: . NEUROLOGY: HAVE YOU FALLEN IN THE PAST 6 MONTHS? NO . ANY NEW EXTREMITY NUMBNESS OR WEAKNESS? NO . CARDIOLOGY: DO YOU HAVE A PACEMAKER OR DEFIBRILLATOR? NO . RESPIRATORY: HAVE YOU BEEN SICK IN THE PAST WEEK? NO . FEVER NO . FLU LIKE SYMPTOMS? NO . COUGH NO . INTEGUMENTARY: DO YOU HAVE ANY RASHES OR OPEN SORES? NO . ALLERGIC/IMMUNO: ARE YOU ALLERGIC TO SHELLFISH OR IV DYE? NO . ANY NEW ALLERGIES? NO . PSYCHIATRIC: DO YOU HAVE THOUGHTS OF HURTING YOURSELF OR SOMEONE ELSE? NO . ARE YOU ABUSED, NEGLECTED, OR IN AN UNSAFE ENVIRONMENT? NO . ENDOCRINOLOGY: ARE YOU DIABETIC? NO . OTHER: DO YOU NEED ANY PRESCRIPTIONS? NO . IF YES, PLEASE LIST: ____ . ANY NEW PROBLEMS WITH YOUR MEDICATIONS? NO . WHEN DID YOU LAST EAT? ____ . WHEN DID YOU LAST DRINK? ____ . WHAT DID YOU LAST DRINK? ____ . NAME OF PERSON DRIVING YOU HOME? ____ . DO YOU HAVE ANY OTHER QUESTIONS OR CONCERNS NO . REVIEWED BY: PROVIDER: BINU ZIMMERMAN MD . VITAL SIGNS WT 236 LBS, HT 69 IN, BMI 34.85 INDEX, BP 147/89 MM HG, HR 76 /MIN, RR 16 /MIN, TEMP 96.0 F, OXYGEN SAT % 98, NA INITIALS TL 1025, REVIEWED BY: MLF. EXAMINATION : PATIENT IS ALERT O X 3 AND COOPERATIVE. PATIENT HAS SOME TENDERNESS IN THE LEFT LUMBAR PARASPINAL MUSCLE GROUP. MRI OF THE LUMBAR SPINE DONE ON 02/26/2014 SHOWS DISC BULGES AND DISC PROTRUSIONS. ASSESSMENTS INTERVERTEBRAL DISC DISORDERS WITH RADICULOPATHY, LUMBAR REGION - M51.16 (PRIMARY) INTERVERTEBRAL DISC DISORDERS WITH RADICULOPATHY, LUMBOSACRAL REGION - M51.17 TREATMENT INTERVERTEBRAL DISC DISORDERS WITH RADICULOPATHY, LUMBAR REGION NOTES: WE DISCUSSED SEVERAL ISSUES WITH MR. ROSALES'S PAIN MANAGEMENT CASE. DUE TO THE PATIENT GETTING EXCELLENT RESULTS WITH THE LUMBAR FACET BLOCK DIAGNOSTIC INJECTION, HE IS A GOOD CANDIDATE FOR A RIGHT L4-L5 AND RIGHT L5-S1 RADIOFREQUENCY. WE DISCUSSED THE RISK, BENEFITS, AND ALTERNATIVES AND THE PATIENT WOULD TO PROCEED. PATIENT WILL BE BOOKED PENDING APPROVAL. PATIENT TO FOLLOW UP WITH ME IN 5 WEEKS. INSTRUCTIONS WERE GIVEN, QUESTIONS WERE ANSWERED, PATIENT REPORTS UNDERSTANDING AND AGREES WITH THE PLAN. I, DRAKE GARVEY, DOCUMENTED THE ABOVE INFORMATION ACTING A SCRIBE FOR DR. ZIMMERMAN. I HAVE REVIEWED THE ABOVE DOCUMENT, WRITTEN BY DRAKE WALSH AND I VERIFY THAT IT IS ACCURATE. PROCEDURES PN WORKMANS' COMP OPINION IN YOUR OPINION, WAS THE INCIDENT THAT THE PATIENT DESCRIBED THE COMPETENT MEDICAL CAUSE OF THIS INJURY/ILLNESS? YES ARE THE PATIENT'S COMPLAINTS CONSISTENT WITH HIS/HER HISTORY OF THE INJURY/ILLNESS? YES IS THE PATIENT'S HISTORY OF THE INJURY/ILLNESS CONSISTENT WITH YOUR OBJECTIVE FINDING? YES WHAT IS THE PERCENTAGE OF TEMPORARY IMPAIRMENT? MODERATE TO MARKED = 66.7% IS THE PATIENT WORKING? NO DOCTOR ON SITE: BINU WILL MD PREVENTIVE MEDICINE PAIN CLINIC TEACHING: PROCEDURE TEACHING RADIO FREQUENCY EDUCATION PROVIDED AND PRE- PROCEDURE EDUCATION. PROCEDURE CODES FA211 ESTABILISHED PATIENT [facility] FACILITY CHARGE [id number] PAIN ASSESS POS TOOL F/U PLAN DOC G8427 DOC MEDS VERIFIED W/PT OR RE DISPOSITION & COMMUNICATION FOLLOW UP RT L4-L5 AND L5-S1 RF PENDING APPROVAL ELECTRONICALLY SIGNED BY BINU ZIMMERMAN MD ON 06/17/2016 AT 09:10 PM EST DISCLAIMER : THIS IS A VISIT SUMMARY EXTRACTED FROM THE [employer] CHART. IT IS NOT A COPY OF THE [employer] PROGRESS NOTE. MTDD
== END ==
LOC: M PAIN 09:20
PROVIDERS: ATTEND Anesthesiology
DX: Z09 Encounter for follow-up examination after completed treatment for conditions other than malignant neoplasm (principal); G89.29 Other chronic pain; M51.16 Intervertebral disc disorders with radiculopathy, lumbar region; M51.17 Intervertebral disc disorders with radiculopathy, lumbosacral region; K21.9 Gastro-esophageal reflux disease without esophagitis; E78.00 Pure hypercholesterolemia, unspecified; Z79.891 Long term (current) use of opiate analgesic; Z79.1 Long term (current) use of non-steroidal anti-inflammatories (NSAID); Z79.899 Other long term (current) drug therapy

== ENCOUNTER → 2016-07-03 | Outpatient (REF) | payer OTHER ==
[2016-07-03 14:17] LABS: ANION GAP 8 MEQ/L (8-16); BLOOD UREA NITROGEN 23 MG/DL (7-18); CARBON DIOXIDE LEVEL 26 MEQ/L (21-32); CHLORIDE LEVEL 110 MEQ/L (98-107); CHOLESTEROL LEVEL 196 MG/DL (<200); CREATININE FOR GFR 1.15 MG/DL (0.70-1.30); GLOMERULAR FILTRATION RATE > 60.0 (>56); GLUCOSE, FASTING 95 MG/DL (70-105); POTASSIUM SERUM 4.3 MEQ/L (3.5-5.1); SODIUM LEVEL 144 MEQ/L (136-145); TRIGLYCERIDES LEVEL 102 MG/DL (<150)
== END ==
LOC: M LABDRAW1 13:06
PROVIDERS: ATTEND Nurse Practitioner Family
DX: E78.5 Hyperlipidemia, unspecified (principal); R73.9 Hyperglycemia, unspecified

== ENCOUNTER → 2016-07-19 | Outpatient (CLI) | payer OTHER ==
--- NOTE | 2016-07-26 02:36 | ECWPNPC ---
PATIENT NAME: OWEN ROSALES : 1960 GENDER: MALE VISIT DATE: 07/19/2016 DISCHARGE DATE: 07/19/16 1603 VISIT LOCKED DATE TIME: PHYSICIAN: BINU ZIMMERMAN RESOURCE: BINU ZIMMERMAN REASON FOR APPOINTMENT 1. W/C NECK HISTORY OF PRESENT ILLNESS HISTORY OF PRESENT ILLNESS: PAIN THE PATIENT DESCRIBES THE PAIN... 56 YEAR OLD MALE PATIENT WITH HISTORY OF CHRONIC NECK AND LOW BACK PAIN. PATIENT DESCRIBES THE PAIN ACHING, TENDER, AND SORE WITH A PAIN SCORE OF 4/10 ON TODAY'S VISIT. 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 PATIENT HAS TRIED PT IN THE PAST FOR HIS BACK BUT CAN NOT RECALL ON HOW IT HELPED WITH HIS PAIN OR NOT. 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 PATIENT REPORTS THAT HE HAD ONE SURGERY IN HIS CERVICAL SPINE. PATIENT STATES THAT HE HAS PT FOR HIS NECK AND THAT IT DID HELP WITH HIS PAIN. PATIENT REPORTS THAT HIS NECK HURTS THE MOST TODAY, AND ON MOST DAYS THE PAIN IS WORST IN HIS NECK THAN HIS BACK. PATIENT REPORTS THAT HE HAS RADIATING PAIN TO SHOULDERS FROM HIS NECK AREA. THE PAIN SOMETIMES CAUSES HIM TO WAKE UP AT NIGHT. PATIENT DENIES UNEXPLAINABLE WEIGHT LOSS, FEVER, CHILLS, NEW CHANGES ON HIS URINARY OR BOWEL CONTROL. FALL RISK SCREENING: SCREENING :NO FALLS IN THE PAST YEAR CURRENT MEDICATIONS TAKING TRAZODONE HCL 50 MG TABLET 1 TABLET AT BEDTIME NEEDED ORALLY ONCE A DAY, NOTES: 06/05/162099 TAKING GEMFIBROZIL 600 MG TABLET 1 TABLET ORALLY DAILY, NOTES: 06/06/16699 TAKING LOVASTATIN 40 MG TABLET 1 TABLET WITH A MEAL ORALLY ONCE A DAY, NOTES: 06/05/162099 TAKING MULTIVITAL [place] TABLET ORALLY DAILY, NOTES: 06/06/16699 TAKING OMEPRAZOLE 40 MG CAPSULE DELAYED RELEASE 1 CAPSULE ORALLY ONCE A DAY, NOTES: 06/06/16699 TAKING MIRALAX PACKET 1 PACKET MIXED WITH 8 OUNCES OF FLUID ORALLY ONCE A DAY NEEDED, NOTES: 1 MONTH AGO TAKING IBUPROFEN 800 MG TABLET 1 TABLET NEEDED ORALLY WITH FOOD THREE TIMES DAILY NEEDED FOR PAIN, NOTES: 06/05/16 2100 TAKING GABAPENTIN 400 MG CAPSULE 1 CAPSULE ORALLY FOR PAIN THREE TIMES A DAY, NOTES: 06/06/16 0700 TAKING MORPHINE SULFATE ER 15 MG TABLET EXTENDED RELEASE 1 TABLET ORALLY AT BEDTIME MDD=1, NOTES: 06/05/16 2100 TAKING OXYCODONE HCL 5 MG TABLET 1 TABLET ORALLY EVERY 6-8 HRS PRN PAIN MDD=2, NOTES: 2-3 DAYS NOT-TAKING METAXALONE 800 MG TABLET 1 TABLET ORALLY BID MEDICATION LIST REVIEWED AND RECONCILED WITH THE PATIENT PAST MEDICAL HISTORY REFLUX HIGH CHOLESTEROL ALLERGIES N.K.D.A. SURGICAL HISTORY TOTAL RIGHT KNEE RIGHT HIP FX REPAIR ABDOMINAL EXPLORATORY SURGERY CERVICAL/THORACIC FUSION FAMILY HISTORY NO FAMILY HISTORY DOCUMENTED. 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 NEW PATIENT PAIN DIARY TODAY'S VISITNOTES FROM 0-10, WHAT LEVEL IS YOUR PAIN TODAY?0 PAIN CLINIC PFS, CLERGY, PUBLIC HEALTH REFERRALS PFS REFERRAL NEEDED?NO CLERGY REFERRAL NEEDED?NO PUBLIC HEALTH REFERRAL NEEDED?NO WAS THE PROVIDER NOTIFIED OF ANY PERTINENT INFO?NO PFS REFERRAL NEEDED?NO CLERGY REFERRAL NEEDED?NO PUBLIC HEALTH REFERRAL NEEDED?NO WAS THE PROVIDER NOTIFIED OF ANY PERTINENT INFO?NO HOSPITALIZATION/MAJOR DIAGNOSTIC PROCEDURE SURGERIES REVIEW OF SYSTEMS CONSTITUTIONAL: ANY CHANGE IN YOUR MEDICAL CONDITION? NO . CHILLS NO . FEVER NO . INFECTION: DO YOU HAVE NEW INFECTIONS? NO . DO YOU HAVE HISTORY OF MRSA? NO . MUSCULOSKELETAL: ANY NEW PATTERNS OF PAIN OR NUMBNESS? NO . GASTROENTEROLOGY: ANY NEW CHANGE IN BOWEL CONTROL? NO . GENITOURINARY: ANY NEW CHANGE IN BLADDER CONTROL? NO . IS THERE A CHANCE YOU COULD BE ? NO . HEMATOLOGY/LYMPH: DO YOU TAKE ANY BLOOD THINNERS? (FOR EXAMPLE- COUMADIN, PLAVIX, AGGRENOX, PLATEL, PRADAXA, OR XARELTO) NO . WHEN WAS YOUR LAST DOSE? DATE: TIME: . NEUROLOGY: HAVE YOU FALLEN IN THE PAST 6 MONTHS? NO . ANY NEW EXTREMITY NUMBNESS OR WEAKNESS? NO . CARDIOLOGY: DO YOU HAVE A PACEMAKER OR DEFIBRILLATOR? NO . RESPIRATORY: HAVE YOU BEEN SICK IN THE PAST WEEK? NO . FEVER NO . FLU LIKE SYMPTOMS? NO . COUGH NO . INTEGUMENTARY: DO YOU HAVE ANY RASHES OR OPEN SORES? NO . ALLERGIC/IMMUNO: ARE YOU ALLERGIC TO SHELLFISH OR IV DYE? NO . ANY NEW ALLERGIES? NO . PSYCHIATRIC: DO YOU HAVE THOUGHTS OF HURTING YOURSELF OR SOMEONE ELSE? NO . ARE YOU ABUSED, NEGLECTED, OR IN AN UNSAFE ENVIRONMENT? NO . ENDOCRINOLOGY: ARE YOU DIABETIC? NO . OTHER: DO YOU NEED ANY PRESCRIPTIONS? NO . IF YES, PLEASE LIST: ____ . ANY NEW PROBLEMS WITH YOUR MEDICATIONS? NO . WHEN DID YOU LAST EAT? ____ . WHEN DID YOU LAST DRINK? ____ . WHAT DID YOU LAST DRINK? ____ . NAME OF PERSON DRIVING YOU HOME? ____ . DO YOU HAVE ANY OTHER QUESTIONS OR CONCERNS NO . REVIEWED BY: PROVIDER: BINU ZIMMERMAN MD . VITAL SIGNS WT 234.6 LBS, HT 69 IN, BMI 34.64 INDEX, BP 131/72 MM HG, HR 68 /MIN, RR 16 /MIN, TEMP 97.6 F, OXYGEN SAT % 97, NA INITIALS [id number], REVIEWED BY: VD. EXAMINATION : PATIENT IS ALERT O X 3 AND COOPERATIVE. PATIENT'S LEFT ARM IS WEAKER AT FLEXION AND EXTENSION. PATIENT'S LEFT HAND MANAGER STYLE IS WEAKER. PATIENT IS ABLE TO EXTEND HIS NECK AT 10 DEGREES AND FLEX AT 15 DEGREES. PATIENT IS ABLE TO LATERALLY ROTATE HIS NECK TO THE RIGHT AND LEFT AT 20 DEGREES. MRI OF THE CERVICAL SPINE DONE ON 05/10/2012 SHOWS CERVICAL FACET ARTHROPATHY CHANGES AND A FUSION AT C7-T1. PATIENT HAS SOME TENDERNESS IN THE LEFT LUMBAR PARASPINAL MUSCLE GROUP. MRI OF THE LUMBAR SPINE DONE ON 02/26/2014 SHOWS DISC BULGES AND DISC PROTRUSIONS. 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 ROSALES'S PAIN MANAGEMENT CASE. I WAS WITH THE PATIENT MORE THAN 30 MINUTES IN THE ENCOUNTER TODAY, MORE THAN HALF THE TIME WAS DEDICATED TO DISCUSSING ALTERNATIVES, COUNSELING, AND PAIN MANAGEMENT NEEDS. AFTER DISCUSSING WITH THE PATIENT, EXAMINING THE PATIENT AND REVIEWING THE MRI, THE PATIENT IS A GOOD CANDIDATE FOR CERVICAL EPIDURAL AT C7-T1. WE DISCUSSED THE RISK, BENEFITS, AND ALTERNATIVES AND THE PATIENT WOULD LIKE TO PROCEED. AT THIS TIME I WILL REFILL IBUPROFEN, GABAPENTIN, MORPHINE, AND OXYCODONE FOR THE PATIENT TODAY. PATIENT DID NOT BRING HIS MEDICATION BOTTLES TODAY AND WAS ADVISED TO DO SO FOR EVERY VISIT. PATIENT STATED THAT HE TAKES A NARCOTIC AT NIGHT, I SHARED MY CONCERNS WITH THE PATIENT ABOUT USING A NARCOTIC AT NIGHT. PATIENT ACKNOWLEDGES MY CONCERNS AND HE IS OKAY WITH CONTINUING THERAPY. PATIENT DENIES ILLEGAL USING THE NARCOTIC MEDICATION AND STATES THAT HE IS ONLY USING THEM FOR PAIN MANAGEMENT. UTOX DONE ON 04/05/2016 SHOWS CONSISTENT RESULTS. PATIENT TO FOLLOW UP WITH ME IN 6 WEEKS. , INSTRUCTIONS WERE GIVEN, QUESTIONS WERE ANSWERED, PATIENT REPORTS UNDERSTANDING AND AGREES WITH THE PLAN. I, DRAKE GARVEY, DOCUMENTED THE ABOVE INFORMATION ACTING A SCRIBE FOR DR. ZIMMERMAN. I HAVE REVIEWED THE ABOVE DOCUMENT, WRITTEN BY DRAKE GARVEY SCRIBStu AND I VERIFY THAT IT IS ACCURATE. OTHERS REFILL IBUPROFEN TABLET, 800 MG, 1 TABLET NEEDED, ORALLY WITH FOOD, THREE TIMES DAILY NEEDED FOR PAIN, 30 DAY(S), 60, REFILLS 2, NOTES: 06/05/16 2100 REFILL GABAPENTIN CAPSULE, 400 MG, 1 CAPSULE, ORALLY FOR PAIN, THREE TIMES A DAY, 30 DAY(S), 90 CAPSULE, REFILLS 2, NOTES: 06/06/16 0700 REFILL MORPHINE SULFATE ER TABLET EXTENDED RELEASE, 15 MG, 1 TABLET, ORALLY, AT BEDTIME MDD=1, 30 DAY(S), 30, REFILLS 0, NOTES: 06/05/16 2100 REFILL OXYCODONE HCL TABLET, 5 MG, 1 TABLET, ORALLY, EVERY 6-8 HRS PRN PAIN MDD=2, 30 DAY(S), 45, REFILLS 0, NOTES: 2-3 DAYS PROCEDURES PN WORKMANS' COMP OPINION IN YOUR OPINION, WAS THE INCIDENT THAT THE PATIENT DESCRIBED THE COMPETENT MEDICAL CAUSE OF THIS INJURY/ILLNESS? YES ARE THE PATIENT'S COMPLAINTS CONSISTENT WITH HIS/HER HISTORY OF THE INJURY/ILLNESS? YES IS THE PATIENT'S HISTORY OF THE INJURY/ILLNESS CONSISTENT WITH YOUR OBJECTIVE FINDING? YES WHAT IS THE PERCENTAGE OF TEMPORARY IMPAIRMENT? MODERATE TO MARKED = 66.7% IS THE PATIENT WORKING? NO DOCTOR ON SITE: BINU WILL MD PROCEDURE CODES FA211 ESTABILISHED PATIENT [facility] FACILITY CHARGE [id number] PAIN ASSESS POS TOOL F/U PLAN DOC 94649 ASSAY OF SEX HORMONE GLOBUL DISPOSITION & COMMUNICATION FOLLOW UP MARK PENDING APPROVAL ELECTRONICALLY SIGNED BY BINU ZIMMERMAN MD ON 07/24/2016 AT 05:48 PM EDT DISCLAIMER : THIS IS A VISIT SUMMARY EXTRACTED FROM THE [employer] CHART. IT IS NOT A COPY OF THE [employer] PROGRESS NOTE. RENETTAD
--- NOTE | 2016-07-27 00:33 | ECWPNPC ---
PATIENT NAME: OWEN ROSALES : 1960 GENDER: MALE VISIT DATE: 07/19/2016 DISCHARGE DATE: 07/19/16 1603 VISIT LOCKED DATE TIME: PHYSICIAN: BINU ZIMMERMAN RESOURCE: BINU ZIMMERMAN REASON FOR APPOINTMENT 1. W/C NECK HISTORY OF PRESENT ILLNESS HISTORY OF PRESENT ILLNESS: PAIN THE PATIENT DESCRIBES THE PAIN... 56 YEAR OLD MALE PATIENT WITH HISTORY OF CHRONIC NECK AND LOW BACK PAIN. PATIENT DESCRIBES THE PAIN ACHING, TENDER, AND SORE WITH A PAIN SCORE OF 4/10 ON TODAY'S VISIT. 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 PATIENT HAS TRIED PT IN THE PAST FOR HIS BACK BUT CAN NOT RECALL ON HOW IT HELPED WITH HIS PAIN OR NOT. 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 PATIENT REPORTS THAT HE HAD ONE SURGERY IN HIS CERVICAL SPINE. PATIENT STATES THAT HE HAS PT FOR HIS NECK AND THAT IT DID HELP WITH HIS PAIN. PATIENT REPORTS THAT HIS NECK HURTS THE MOST TODAY, AND ON MOST DAYS THE PAIN IS WORST IN HIS NECK THAN HIS BACK. PATIENT REPORTS THAT HE HAS RADIATING PAIN TO SHOULDERS FROM HIS NECK AREA. THE PAIN SOMETIMES CAUSES HIM TO WAKE UP AT NIGHT. PATIENT DENIES UNEXPLAINABLE WEIGHT LOSS, FEVER, CHILLS, NEW CHANGES ON HIS URINARY OR BOWEL CONTROL. FALL RISK SCREENING: SCREENING :NO FALLS IN THE PAST YEAR CURRENT MEDICATIONS TAKING TRAZODONE HCL 50 MG TABLET 1 TABLET AT BEDTIME NEEDED ORALLY ONCE A DAY, NOTES: 06/05/162099 TAKING GEMFIBROZIL 600 MG TABLET 1 TABLET ORALLY DAILY, NOTES: 06/06/16699 TAKING LOVASTATIN 40 MG TABLET 1 TABLET WITH A MEAL ORALLY ONCE A DAY, NOTES: 06/05/162099 TAKING MULTIVITAL [place] TABLET ORALLY DAILY, NOTES: 06/06/16699 TAKING OMEPRAZOLE 40 MG CAPSULE DELAYED RELEASE 1 CAPSULE ORALLY ONCE A DAY, NOTES: 06/06/16699 TAKING MIRALAX PACKET 1 PACKET MIXED WITH 8 OUNCES OF FLUID ORALLY ONCE A DAY NEEDED, NOTES: 1 MONTH AGO TAKING IBUPROFEN 800 MG TABLET 1 TABLET NEEDED ORALLY WITH FOOD THREE TIMES DAILY NEEDED FOR PAIN, NOTES: 06/05/16 2100 TAKING GABAPENTIN 400 MG CAPSULE 1 CAPSULE ORALLY FOR PAIN THREE TIMES A DAY, NOTES: 06/06/16 0700 TAKING MORPHINE SULFATE ER 15 MG TABLET EXTENDED RELEASE 1 TABLET ORALLY AT BEDTIME MDD=1, NOTES: 06/05/16 2100 TAKING OXYCODONE HCL 5 MG TABLET 1 TABLET ORALLY EVERY 6-8 HRS PRN PAIN MDD=2, NOTES: 2-3 DAYS NOT-TAKING METAXALONE 800 MG TABLET 1 TABLET ORALLY BID MEDICATION LIST REVIEWED AND RECONCILED WITH THE PATIENT PAST MEDICAL HISTORY REFLUX HIGH CHOLESTEROL ALLERGIES N.K.D.A. SURGICAL HISTORY TOTAL RIGHT KNEE RIGHT HIP FX REPAIR ABDOMINAL EXPLORATORY SURGERY CERVICAL/THORACIC FUSION FAMILY HISTORY NO FAMILY HISTORY DOCUMENTED. 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 NEW PATIENT PAIN DIARY TODAY'S VISITNOTES FROM 0-10, WHAT LEVEL IS YOUR PAIN TODAY?0 PAIN CLINIC PFS, CLERGY, PUBLIC HEALTH REFERRALS PFS REFERRAL NEEDED?NO CLERGY REFERRAL NEEDED?NO PUBLIC HEALTH REFERRAL NEEDED?NO WAS THE PROVIDER NOTIFIED OF ANY PERTINENT INFO?NO PFS REFERRAL NEEDED?NO CLERGY REFERRAL NEEDED?NO PUBLIC HEALTH REFERRAL NEEDED?NO WAS THE PROVIDER NOTIFIED OF ANY PERTINENT INFO?NO HOSPITALIZATION/MAJOR DIAGNOSTIC PROCEDURE SURGERIES REVIEW OF SYSTEMS CONSTITUTIONAL: ANY CHANGE IN YOUR MEDICAL CONDITION? NO . CHILLS NO . FEVER NO . INFECTION: DO YOU HAVE NEW INFECTIONS? NO . DO YOU HAVE HISTORY OF MRSA? NO . MUSCULOSKELETAL: ANY NEW PATTERNS OF PAIN OR NUMBNESS? NO . GASTROENTEROLOGY: ANY NEW CHANGE IN BOWEL CONTROL? NO . GENITOURINARY: ANY NEW CHANGE IN BLADDER CONTROL? NO . IS THERE A CHANCE YOU COULD BE ? NO . HEMATOLOGY/LYMPH: DO YOU TAKE ANY BLOOD THINNERS? (FOR EXAMPLE- COUMADIN, PLAVIX, AGGRENOX, PLATEL, PRADAXA, OR XARELTO) NO . WHEN WAS YOUR LAST DOSE? DATE: TIME: . NEUROLOGY: HAVE YOU FALLEN IN THE PAST 6 MONTHS? NO . ANY NEW EXTREMITY NUMBNESS OR WEAKNESS? NO . CARDIOLOGY: DO YOU HAVE A PACEMAKER OR DEFIBRILLATOR? NO . RESPIRATORY: HAVE YOU BEEN SICK IN THE PAST WEEK? NO . FEVER NO . FLU LIKE SYMPTOMS? NO . COUGH NO . INTEGUMENTARY: DO YOU HAVE ANY RASHES OR OPEN SORES? NO . ALLERGIC/IMMUNO: ARE YOU ALLERGIC TO SHELLFISH OR IV DYE? NO . ANY NEW ALLERGIES? NO . PSYCHIATRIC: DO YOU HAVE THOUGHTS OF HURTING YOURSELF OR SOMEONE ELSE? NO . ARE YOU ABUSED, NEGLECTED, OR IN AN UNSAFE ENVIRONMENT? NO . ENDOCRINOLOGY: ARE YOU DIABETIC? NO . OTHER: DO YOU NEED ANY PRESCRIPTIONS? NO . IF YES, PLEASE LIST: ____ . ANY NEW PROBLEMS WITH YOUR MEDICATIONS? NO . WHEN DID YOU LAST EAT? ____ . WHEN DID YOU LAST DRINK? ____ . WHAT DID YOU LAST DRINK? ____ . NAME OF PERSON DRIVING YOU HOME? ____ . DO YOU HAVE ANY OTHER QUESTIONS OR CONCERNS NO . REVIEWED BY: PROVIDER: BINU ZIMMERMAN MD . VITAL SIGNS WT 234.6 LBS, HT 69 IN, BMI 34.64 INDEX, BP 131/72 MM HG, HR 68 /MIN, RR 16 /MIN, TEMP 97.6 F, OXYGEN SAT % 97, NA INITIALS AW306, REVIEWED BY: VD. EXAMINATION : PATIENT IS ALERT O X 3 AND COOPERATIVE. PATIENT'S LEFT ARM IS WEAKER AT FLEXION AND EXTENSION. 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 PATIENT IS ABLE TO EXTEND HIS NECK AT 10 DEGREES AND FLEX AT 15 DEGREES. PATIENT IS ABLE TO LATERALLY ROTATE HIS NECK TO THE RIGHT AND LEFT AT 20 DEGREES. MRI OF THE CERVICAL SPINE DONE ON 05/10/2012 SHOWS CERVICAL FACET ARTHROPATHY CHANGES AND A FUSION AT C7-T1. PATIENT HAS SOME TENDERNESS IN THE LEFT LUMBAR PARASPINAL MUSCLE GROUP. MRI OF THE LUMBAR SPINE DONE ON 02/26/2014 SHOWS DISC BULGES AND DISC PROTRUSIONS. 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 ROSALES'S PAIN MANAGEMENT CASE. I WAS WITH THE PATIENT MORE THAN 30 MINUTES IN THE ENCOUNTER TODAY, MORE THAN HALF THE TIME WAS DEDICATED TO DISCUSSING ALTERNATIVES, COUNSELING, AND PAIN MANAGEMENT NEEDS. AFTER DISCUSSING WITH THE PATIENT, EXAMINING THE PATIENT AND REVIEWING THE MRI, THE PATIENT IS A GOOD CANDIDATE FOR CERVICAL EPIDURAL AT C7-T1. WE DISCUSSED THE RISK, BENEFITS, AND ALTERNATIVES AND THE PATIENT WOULD LIKE TO PROCEED. AT THIS TIME I WILL REFILL IBUPROFEN, GABAPENTIN, MORPHINE, AND OXYCODONE FOR THE PATIENT TODAY. PATIENT DID NOT BRING HIS MEDICATION BOTTLES TODAY AND WAS ADVISED TO DO SO FOR EVERY VISIT. PATIENT STATED THAT HE TAKES A NARCOTIC AT NIGHT, I SHARED MY CONCERNS WITH THE PATIENT ABOUT USING A NARCOTIC AT NIGHT. PATIENT ACKNOWLEDGES MY CONCERNS AND HE IS OKAY WITH CONTINUING THERAPY. PATIENT DENIES ILLEGAL USING THE NARCOTIC MEDICATION AND STATES THAT HE IS ONLY USING THEM FOR PAIN MANAGEMENT. UTOX DONE ON 04/05/2016 SHOWS CONSISTENT RESULTS. PATIENT TO FOLLOW UP WITH ME IN 6 WEEKS. , INSTRUCTIONS WERE GIVEN, QUESTIONS WERE ANSWERED, PATIENT REPORTS UNDERSTANDING AND AGREES WITH THE PLAN. I, DRAKE GARVEY, DOCUMENTED THE ABOVE INFORMATION ACTING A SCRIBE FOR DR. ZIMMERMAN. I HAVE REVIEWED THE ABOVE DOCUMENT, WRITTEN BY DRAKE GARVEY SCRIBtSu AND I VERIFY THAT IT IS ACCURATE. OTHERS REFILL IBUPROFEN TABLET, 800 MG, 1 TABLET NEEDED, ORALLY WITH FOOD, THREE TIMES DAILY NEEDED FOR PAIN, 30 DAY(S), 60, REFILLS 2, NOTES: 06/05/16 2100 REFILL GABAPENTIN CAPSULE, 400 MG, 1 CAPSULE, ORALLY FOR PAIN, THREE TIMES A DAY, 30 DAY(S), 90 CAPSULE, REFILLS 2, NOTES: 06/06/16 0700 REFILL MORPHINE SULFATE ER TABLET EXTENDED RELEASE, 15 MG, 1 TABLET, ORALLY, AT BEDTIME MDD=1, 30 DAY(S), 30, REFILLS 0, NOTES: 06/05/16 2100 REFILL OXYCODONE HCL TABLET, 5 MG, 1 TABLET, ORALLY, EVERY 6-8 HRS PRN PAIN MDD=2, 30 DAY(S), 45, REFILLS 0, NOTES: 2-3 DAYS PROCEDURES PN WORKMANS' COMP OPINION IN YOUR OPINION, WAS THE INCIDENT THAT THE PATIENT DESCRIBED THE COMPETENT MEDICAL CAUSE OF THIS INJURY/ILLNESS? YES ARE THE PATIENT'S COMPLAINTS CONSISTENT WITH HIS/HER HISTORY OF THE INJURY/ILLNESS? YES IS THE PATIENT'S HISTORY OF THE INJURY/ILLNESS CONSISTENT WITH YOUR OBJECTIVE FINDING? YES WHAT IS THE PERCENTAGE OF TEMPORARY IMPAIRMENT? MODERATE TO MARKED = 66.7% IS THE PATIENT WORKING? NO DOCTOR ON SITE: BINU WILL MD PROCEDURE CODES FA211 ESTABILISHED PATIENT [facility] FACILITY CHARGE G8730 PAIN ASSESS POS TOOL F/U PLAN DOC 49223 ASSAY OF SEX HORMONE GLOBUL DISPOSITION & COMMUNICATION FOLLOW UP MARK PENDING APPROVAL ELECTRONICALLY SIGNED BY BINU ZIMMERMAN MD ON 07/24/2016 AT 05:48 PM EDT DISCLAIMER : THIS IS A VISIT SUMMARY EXTRACTED FROM THE [employer] CHART. IT IS NOT A COPY OF THE [employer] PROGRESS NOTE. RENETTAD
== END ==
LOC: M PAIN 14:40
PROVIDERS: ATTEND Anesthesiology
DX: M50.13 Cervical disc disorder with radiculopathy, cervicothoracic region (principal); M96.1 Postlaminectomy syndrome, not elsewhere classified; M51.16 Intervertebral disc disorders with radiculopathy, lumbar region; M51.17 Intervertebral disc disorders with radiculopathy, lumbosacral region; G89.29 Other chronic pain; Z79.891 Long term (current) use of opiate analgesic; Z79.899 Other long term (current) drug therapy; K21.9 Gastro-esophageal reflux disease without esophagitis; E78.00 Pure hypercholesterolemia, unspecified

== ENCOUNTER → 2016-08-15 | Outpatient (CLI) | payer OTHER ==
[~2016-08-15] MED LIST changes: +ISOVUE-M 300 61% 15ML VIAL (Q9967) As Ordered ONE; +LIDOCAINE 1% SDV INJ 30 ML VIAL As Ordered ONE; +diazePAM 5 MG TAB As Ordered ONE; +methylPREDNISolone SUSP 40 MG/ML (DEPO-medrol) VIAL (J1030) As Ordered ONE; +oxyCODONE 5MG TAB As Ordered ONE
--- NOTE | 2016-08-15 12:39 | REP ---
Partial cervical spine series: Four views. History: Cervical epidural for pain. 15 seconds of fluoroscopy time is reported. Findings: A sequence of four last image hold fluoroscopic spot radiographs of the cervicothoracic junction document needle position and contrast injection associated with cervical epidural injection procedure. Signed by Nacho Christopher MD 08/15/2016 03:38 P
--- NOTE | 2016-08-20 23:49 | ECWPNPC ---
PATIENT NAME: OWEN ROSALES : 1960 GENDER: MALE VISIT DATE: 08/15/2016 DISCHARGE DATE: 08/15/16 1146 VISIT LOCKED DATE TIME: PHYSICIAN: BINU ZIMMERMAN RESOURCE: BINU ZIMMERMAN REASON FOR APPOINTMENT 1. CE HISTORY OF PRESENT ILLNESS HISTORY OF PRESENT ILLNESS: PAIN THE PATIENT DESCRIBES THE PAIN... FALL RISK SCREENING: SCREENING :NO FALLS IN THE PAST YEAR CURRENT MEDICATIONS TAKING IBUPROFEN 800 MG TABLET 1 TABLET NEEDED ORALLY WITH FOOD THREE TIMES DAILY NEEDED FOR PAIN, NOTES: 08-15-16599 TAKING GABAPENTIN 400 MG CAPSULE 1 CAPSULE ORALLY FOR PAIN THREE TIMES A DAY, NOTES: 08-15-16599 TAKING MORPHINE SULFATE ER 15 MG TABLET EXTENDED RELEASE 1 TABLET ORALLY AT BEDTIME MDD=1, NOTES: 08-13-16 TAKING OXYCODONE HCL 5 MG TABLET 1 TABLET ORALLY EVERY 6-8 HRS PRN PAIN MDD=2, NOTES: 08-15-16 0300 TAKING TRAZODONE HCL 50 MG TABLET 1 TABLET AT BEDTIME NEEDED ORALLY ONCE A DAY, NOTES: 08-13-16 TAKING GEMFIBROZIL 600 MG TABLET 1 TABLET ORALLY DAILY, NOTES: 08-15-16599 TAKING LOVASTATIN 40 MG TABLET 1 TABLET WITH A MEAL ORALLY ONCE A DAY, NOTES: 08-13-16 TAKING MULTIVITAL [place] TABLET ORALLY DAILY, NOTES: 08-15-16599 TAKING OMEPRAZOLE 40 MG CAPSULE DELAYED RELEASE 1 CAPSULE ORALLY ONCE A DAY, NOTES: 08-15-16599 TAKING MIRALAX PACKET 1 PACKET MIXED WITH 8 OUNCES OF FLUID ORALLY ONCE A DAY NEEDED, NOTES: 1 MONTH AGO DISCONTINUED GABAPENTIN 400 MG CAPSULE 1 CAPSULE THREE TIMES A DAY ORALLY 90 DAY(S) DISCONTINUED METAXALONE 800 MG TABLET 1 TABLET ORALLY BID MEDICATION LIST REVIEWED AND RECONCILED WITH THE PATIENT PAST MEDICAL HISTORY REFLUX HIGH CHOLESTEROL ALLERGIES N.K.D.A. SOCIAL HISTORY GENERAL: PAIN CLINIC PFS, CLERGY, PUBLIC HEALTH REFERRALS CLERGY REFERRAL NEEDED?NO WAS THE PROVIDER NOTIFIED OF ANY PERTINENT INFO?NO PFS REFERRAL NEEDED?NO PUBLIC HEALTH REFERRAL NEEDED?NO PATIENT: ____. REVIEW OF SYSTEMS CONSTITUTIONAL: ANY CHANGE IN YOUR MEDICAL CONDITION? NO . CHILLS NO . FEVER NO . INFECTION: DO YOU HAVE NEW INFECTIONS? NO . DO YOU HAVE HISTORY OF MRSA? NO . MUSCULOSKELETAL: ANY NEW PATTERNS OF PAIN OR NUMBNESS? NO . GASTROENTEROLOGY: ANY NEW CHANGE IN BOWEL CONTROL? NO . GENITOURINARY: ANY NEW CHANGE IN BLADDER CONTROL? NO . IS THERE A CHANCE YOU COULD BE ? NO . HEMATOLOGY/LYMPH: DO YOU TAKE ANY BLOOD THINNERS? (FOR EXAMPLE- COUMADIN, PLAVIX, AGGRENOX, PLATEL, PRADAXA, OR XARELTO) NO . WHEN WAS YOUR LAST DOSE? DATE: TIME: . NEUROLOGY: HAVE YOU FALLEN IN THE PAST 6 MONTHS? NO . ANY NEW EXTREMITY NUMBNESS OR WEAKNESS? NO . CARDIOLOGY: DO YOU HAVE A PACEMAKER OR DEFIBRILLATOR? NO . RESPIRATORY: HAVE YOU BEEN SICK IN THE PAST WEEK? NO . FEVER NO . FLU LIKE SYMPTOMS? NO . COUGH NO . INTEGUMENTARY: DO YOU HAVE ANY RASHES OR OPEN SORES? NO . ALLERGIC/IMMUNO: ARE YOU ALLERGIC TO SHELLFISH OR IV DYE? NO . ANY NEW ALLERGIES? NO . PSYCHIATRIC: DO YOU HAVE THOUGHTS OF HURTING YOURSELF OR SOMEONE ELSE? NO . ARE YOU ABUSED, NEGLECTED, OR IN AN UNSAFE ENVIRONMENT? NO . ENDOCRINOLOGY: ARE YOU DIABETIC? NO . OTHER: DO YOU NEED ANY PRESCRIPTIONS? YES . IF YES, PLEASE LIST: OXYCODONE . ANY NEW PROBLEMS WITH YOUR MEDICATIONS? NO . WHEN DID YOU LAST EAT? 08-14-16 8PM . WHEN DID YOU LAST DRINK? 08-15-16 0500 . WHAT DID YOU LAST DRINK? BLACK COFFEE . NAME OF PERSON DRIVING YOU HOME? AUSTEN . DO YOU HAVE ANY OTHER QUESTIONS OR CONCERNS NO . REVIEWED BY: PROVIDER: . VITAL SIGNS WT 235 LBS, HT 69 IN, BMI 34.70 INDEX, BP 126/80 MM HG, HR 63 /MIN, RR 16 /MIN, TEMP 96.0 F, OXYGEN SAT % 95%, NA INITIALS AW 0930, REVIEWED BY: CM. ASSESSMENTS CERVICAL DISC DISORDER WITH RADICULOPATHY, CERVICOTHORACIC REGION - M50.13 (PRIMARY) PROCEDURES PN CERVICAL EPIDURAL PRE PROCEDURE DIAGNOSIS CERVICAL POST LAMINECTOMY PAIN SYNDROME POST PROCEDURE DIAGNOSIS CERVICAL POST LAMINECTOMY PAIN SYNDROME PROCEDURE CERVICAL EPIDURAL STEROID INJECTION UNDER FLUOROSCOPIC GUIDANCE SURGEON DR. BINU ZIMMERMAN NUMERICAL CONTROL TOOL PROGRAMMER NONE ANESTHESIA LOCAL PRE PROCEDURE NOTE THE PATIENT HAS A HISTORY OF CHRONIC CERVICAL PAIN. I EVALUATE THE PATIENT AND REVIEWED THE CHART. I WENT OVER THE RISKS, ALTERNATIVES, AND BENEFITS ASSOCIATED WITH THIS PROCEDURE. THE PATIENT WOULD LIKE TO PROCEED AND GIVE CONSENT TO PERFORMED THE PROCEDURE. THE PATIENT DENIES UNEXPLAINABLE WEIGHT LOSS, FEVER, CHILLS, OR NEW CHANGES IN URINARY OR BOWEL CONTROL DESCRIPTION OF PROCEDURE THE PATIENT WAS BROUGHT TO THE PROCEDURE ROOM AND PLACED IN THE PRONE POSITION. THE CERVICOTHORACIC AREA WAS CLEANED WITH BETADINE SOLUTION AND DRAPED ASEPTICALLY. THE PROCEDURE WAS DONE UNDER STERILE CONDITIONS. I CHECKED LATERALITY AND THE LEVEL WHERE THE PROCEDURE WAS GOING TO BE PERFORMED WITH THE PATIENT AND THE SUPPORTING STAFF AT THE MOMENT OF THE TIME OUT IN THE PROCEDURE ROOM. UNDER FLUOROSCOPIC GUIDANCE, THE TARGET WAS SELECTED AT THE INTERLAMINAR LEVEL OF C7-T1. LIDOCAINE WAS USED TO NUMB THE SKIN AND THE SUBCUTANEOUS TISSUE BELOW IT. EPIDURAL TUOHY NEEDLE 17-GAUGE WAS ADVANCED UNDER FLUOROSCOPIC GUIDANCE AND FOLLOWING PATIENT FEEDBACK UNTIL THE EPIDURAL SPACE WAS REACHED 10 CM DEEP INTO THE SKIN BY THE LOSS OF RESISTANCE TECHNIQUE. ISOVUE M DYE 30%, 0.25 ML, WAS INJECTED SHOWING ADEQUATE SPREAD OF THE DYE. THEN, A SOLUTION OF 3 ML OF NORMAL SALINE WITH DEPO-MEDROL 60 MG WAS INJECTED SLOWLY FOLLOWING PATIENT FEEDBACK. THERE WAS NO EVIDENCE OF BLOOD, PARESTHESIA OR CEREBROSPINAL FLUID DURING THE PROCEDURE. THE PATIENT WAS SENT TO THE RECOVERY ROOM. THE PATIENT WAS MOVING THE EXTREMITIES AND DOING WELL. THERE WAS NO COMPLICATION DURING THE PROCEDURE. FLUOROSCOPY TIME WAS 15 SECONDS POST PROCEDURE NOTE THE PATIENT WILL BE SEEN IN A FOLLOW UP IN THE NEXT FEW WEEKS. INSTRUCTIONS WERE GIVEN, QUESTIONS WERE ANSWERED, AND THE PATIENT EXPRESSED UNDERSTANDING AND AGREES WITH THE PLAN. INSTRUCTIONS WERE GIVEN, QUESTIONS WERE ANSWERED, PATIENT REPORTS UNDERSTANDING AND AGREES WITH THE PLAN. I, KYLAH NIELSEN, DOCUMENTED THE ABOVE INFORMATION ACTING A SCRIBE FOR DR. ZIMMERMAN. I HAVE REVIEWED THE ABOVE DOCUMENT, WRITTEN BY KYLAH BELLIBStu AND I VERIFY THAT IT IS ACCURATE DIAGNOSTIC IMAGING [facility] FLUORO GUIDE SPINE INJECTION (PAIN)[id number] PROCEDURE CODES 53095 CERVICAL/THORACIC W/ IMAGING 6045F RADXPS IN END [id number] PXD DISPOSITION & COMMUNICATION FOLLOW UP 3 WEEKS ELECTRONICALLY SIGNED BY BINU ZIMMERMAN MD ON 08/20/2016 AT 05:05 PM EDT DISCLAIMER : THIS IS A VISIT SUMMARY EXTRACTED FROM THE [employer] CHART. IT IS NOT A COPY OF THE [employer] PROGRESS NOTE. MTDD
== END ==
LOC: M PAIN 09:00
PROVIDERS: ATTEND Anesthesiology
DX: G89.29 Other chronic pain (principal); M50.13 Cervical disc disorder with radiculopathy, cervicothoracic region; Z79.891 Long term (current) use of opiate analgesic; Z79.899 Other long term (current) drug therapy; K21.9 Gastro-esophageal reflux disease without esophagitis; E78.00 Pure hypercholesterolemia, unspecified
CPT/HCPCS: 62321; J1030; Q9967

== ENCOUNTER → 2016-08-29 | Outpatient (CLI) | payer MEDICARE ==
[~2016-08-29] MED LIST changes: -ISOVUE-M 300 61% 15ML VIAL (Q9967) As Ordered ONE; -LIDOCAINE 1% SDV INJ 30 ML VIAL As Ordered ONE; -diazePAM 5 MG TAB As Ordered ONE; -methylPREDNISolone SUSP 40 MG/ML (DEPO-medrol) VIAL (J1030) As Ordered ONE; -oxyCODONE 5MG TAB As Ordered ONE
--- NOTE | 2016-08-29 14:22 | REP ---
LEFT KNEE, SIX VIEWS: HISTORY: Pain. COMPARISON: 05/16/2004. There is no acute fracture or dislocation. There is narrowing of the medial knee joint space. A small osteophyte is present on the patella. IMPRESSION: Degenerative change as described above. Signed by Angel Webster MD 08/29/2016 02:33 P
== END ==
LOC: M WUC 09:16
PROVIDERS: ATTEND Nurse Practitioner Family
DX: M25.562 Pain in left knee (principal)

== ENCOUNTER → 2016-08-31 | Outpatient (CLI) | payer OTHER ==
--- NOTE | 2016-09-13 01:18 | ECWPNPC ---
PATIENT NAME: OWEN ROSALES : 1960 GENDER: MALE VISIT DATE: 08/31/2016 DISCHARGE DATE: 08/31/16 1534 VISIT LOCKED DATE TIME: PHYSICIAN: BINU ZIMMERMAN RESOURCE: BINU ZIMMERMAN REASON FOR APPOINTMENT 1. W/C NECK AND BACK HISTORY OF PRESENT ILLNESS HISTORY OF PRESENT ILLNESS: PAIN THE PATIENT DESCRIBES THE PAIN... 56 YEAR OLD MALE PATIENT WITH HISTORY OF CHRONIC LOW BACK PAIN. PATIENT DESCRIBES THE PAIN ON HIS BACK ACHING AND SORE WITH A PAIN SCORE OF 3/10 ON TODAY'S VISIT. 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 PATIENT HAS TRIED PT IN THE PAST FOR HIS BACK BUT CAN NOT RECALL ON HOW IT HELPED WITH HIS PAIN OR NOT. PATIENT REPORTS THE PAIN ON HIS BACK IS MAINLY ON THE RIGHT SIDE AND SOMETIMES HE GETS RADIATING PAIN DOWN TO HIS FEET. PATIENT RECEIVED A RIGHT L4-L5 AND RIGHT L5-S1 FACET BLOCK DIAGNOSTIC BLOCK ON 06/06/2016 AND STATES THAT HE FELT A 90 PERCENT DECREASE IN HIS PAIN LEVELS. PATIENT DENIES UNEXPLAINABLE WEIGHT LOSS, FEVER, CHILLS, NEW CHANGES ON HIS URINARY OR BOWEL CONTROL. FALL RISK SCREENING: SCREENING :NO FALLS IN THE PAST YEAR CURRENT MEDICATIONS TAKING IBUPROFEN 800 MG TABLET 1 TABLET NEEDED ORALLY WITH FOOD THREE TIMES DAILY NEEDED FOR PAIN TAKING GABAPENTIN 400 MG CAPSULE 1 CAPSULE ORALLY FOR PAIN THREE TIMES A DAY TAKING MORPHINE SULFATE ER 15 MG TABLET EXTENDED RELEASE 1 TABLET ORALLY AT BEDTIME MDD=1 TAKING TRAZODONE HCL 50 MG TABLET 1 TABLET AT BEDTIME NEEDED ORALLY ONCE A DAY TAKING GEMFIBROZIL 600 MG TABLET 1 TABLET ORALLY DAILY TAKING LOVASTATIN 40 MG TABLET 2 TABLET ORALLY ONCE A DAY TAKING MULTIVITAL [place] TABLET ORALLY DAILY TAKING OMEPRAZOLE 40 MG CAPSULE DELAYED RELEASE 1 CAPSULE ORALLY ONCE A DAY TAKING MIRALAX PACKET 1 PACKET MIXED WITH 8 OUNCES OF FLUID ORALLY ONCE A DAY NEEDED TAKING OXYCODONE HCL 5 MG TABLET 1 TABLET ORALLY EVERY 6-8 HRS PRN PAIN MDD=2 MEDICATION LIST REVIEWED AND RECONCILED WITH THE PATIENT PAST MEDICAL HISTORY REFLUX HIGH CHOLESTEROL ALLERGIES N.K.D.A. SURGICAL HISTORY TOTAL RIGHT KNEE RIGHT HIP FX REPAIR ABDOMINAL EXPLORATORY SURGERY CERVICAL/THORACIC FUSION FAMILY HISTORY NO FAMILY HISTORY DOCUMENTED. SOCIAL HISTORY GENERAL: PAIN CLINIC PFS, CLERGY, PUBLIC HEALTH REFERRALS CLERGY REFERRAL NEEDED?NO WAS THE PROVIDER NOTIFIED OF ANY PERTINENT INFO?NO PFS REFERRAL NEEDED?NO PUBLIC HEALTH REFERRAL NEEDED?NO PATIENT: ____. HOSPITALIZATION/MAJOR DIAGNOSTIC PROCEDURE SURGERIES REVIEW OF SYSTEMS CONSTITUTIONAL: ANY CHANGE IN YOUR MEDICAL CONDITION? NO . CHILLS NO . FEVER NO . INFECTION: DO YOU HAVE NEW INFECTIONS? NO . DO YOU HAVE HISTORY OF MRSA? NO . MUSCULOSKELETAL: ANY NEW PATTERNS OF PAIN OR NUMBNESS? NO . GASTROENTEROLOGY: ANY NEW CHANGE IN BOWEL CONTROL? NO . GENITOURINARY: ANY NEW CHANGE IN BLADDER CONTROL? NO . IS THERE A CHANCE YOU COULD BE ? NO . HEMATOLOGY/LYMPH: DO YOU TAKE ANY BLOOD THINNERS? (FOR EXAMPLE- COUMADIN, PLAVIX, AGGRENOX, PLATEL, PRADAXA, OR XARELTO) NO . WHEN WAS YOUR LAST DOSE? DATE: TIME: . NEUROLOGY: HAVE YOU FALLEN IN THE PAST 6 MONTHS? NO . ANY NEW EXTREMITY NUMBNESS OR WEAKNESS? NO . CARDIOLOGY: DO YOU HAVE A PACEMAKER OR DEFIBRILLATOR? NO . RESPIRATORY: HAVE YOU BEEN SICK IN THE PAST WEEK? NO . FEVER NO . FLU LIKE SYMPTOMS? NO . COUGH NO . INTEGUMENTARY: DO YOU HAVE ANY RASHES OR OPEN SORES? NO . ALLERGIC/IMMUNO: ARE YOU ALLERGIC TO SHELLFISH OR IV DYE? NO . ANY NEW ALLERGIES? NO . PSYCHIATRIC: DO YOU HAVE THOUGHTS OF HURTING YOURSELF OR SOMEONE ELSE? NO . ARE YOU ABUSED, NEGLECTED, OR IN AN UNSAFE ENVIRONMENT? NO . ENDOCRINOLOGY: ARE YOU DIABETIC? NO . OTHER: DO YOU NEED ANY PRESCRIPTIONS? NO . IF YES, PLEASE LIST: ____ . ANY NEW PROBLEMS WITH YOUR MEDICATIONS? NO . WHEN DID YOU LAST EAT? ____ . WHEN DID YOU LAST DRINK? ____ . WHAT DID YOU LAST DRINK? ____ . NAME OF PERSON DRIVING YOU HOME? ____ . DO YOU HAVE ANY OTHER QUESTIONS OR CONCERNS YES, ONE WEEK AGO LEFT KNEE IN PAIN AND SWOLLEN, SAW PCP, HAD XRAYS. NO RESULTS YET. . REVIEWED BY: PROVIDER: BINU ZIMMERMAN MD . VITAL SIGNS WT 240.0 LBS, HT 69 IN, BMI 35.44 INDEX, BP 133/79 MM HG, HR 88 /MIN, RR 16 /MIN, TEMP 98.2 F, OXYGEN SAT % 98%, NA INITIALS TL 1400, REVIEWED BY: CM. EXAMINATION : PATIENT IS ALERT O X 3 AND COOPERATIVE. PATIENT HAS SOME TENDERNESS IN THE RIGHT LUMBAR PARASPINAL MUSCLE GROUP. MRI OF THE LUMBAR SPINE DONE ON 02/26/2014 SHOWS DISC BULGES AND DISC PROTRUSIONS. ASSESSMENTS SPONDYLOSIS WITHOUT MYELOPATHY OR RADICULOPATHY, LUMBAR REGION - M47.816 (PRIMARY) SPONDYLOSIS WITHOUT MYELOPATHY OR RADICULOPATHY, LUMBOSACRAL REGION - M47.817 TREATMENT OTHERS REFILL OXYCODONE HCL TABLET, 5 MG, 1 TABLET, ORALLY, EVERY 6-8 HRS PRN PAIN MDD=2, 30 DAY(S), 45, REFILLS 0 REFILL MORPHINE SULFATE ER TABLET EXTENDED RELEASE, 15 MG, 1 TABLET, ORALLY, AT BEDTIME MDD=1, 30 DAY(S), 30, REFILLS 0 NOTES: WE DISCUSSED SEVERAL ISSUES WITH MR. ROSALES'S PAIN MANAGEMENT CASE. PATIENT WILL RECEIVE A REFILL OF OXYCODONE AND MORPHINE TODAY. PATIENT IS TAKING THESE MEDICATIONS FOR THE SOMATIC PAIN. AFTER EXAMINING THE PATIENT AND REVIEWING THE MRI OF THE LUMBAR SPINE, WITH GOOD PAIN RELIEF FROM THE LFBD DONE ON 06/06/2016, THE PATIENT IS A GOOD CANDIDATE FOR A RIGHT L4-L5 AND RIGHT L5-S1 LUMBAR FACET BLOCK DIAGNOSTIC INJECTION NUMBER 2. WE DISCUSSED THE RISK, BENEFITS, AND ALTERNATIVES AND THE PATIENT WOULD TO PROCEED. DEPENDING ON THE RESULTS OF THIS SECOND DIAGNOSTIC TEST HE MAY OR MAY NOT BE A CANDIDATE FOR RADIOFREQUENCY. PATIENT WILL BE BOOKED PENDING APPROVAL. PATIENT TO FOLLOW UP WITH ME IN 6 WEEKS. INSTRUCTIONS WERE GIVEN, QUESTIONS WERE ANSWERED, PATIENT REPORTS UNDERSTANDING AND AGREES WITH THE PLAN. I, DRAKE GARVEY, DOCUMENTED THE ABOVE INFORMATION ACTING A SCRIBE FOR DR. ZIMMERMAN. I HAVE REVIEWED THE ABOVE DOCUMENT, WRITTEN BY DRAKE WALSH AND I VERIFY THAT IT IS ACCURATE. PROCEDURES PN WORKMANS' COMP OPINION IN YOUR OPINION, WAS THE INCIDENT THAT THE PATIENT DESCRIBED THE COMPETENT MEDICAL CAUSE OF THIS INJURY/ILLNESS? YES ARE THE PATIENT'S COMPLAINTS CONSISTENT WITH HIS/HER HISTORY OF THE INJURY/ILLNESS? YES IS THE PATIENT'S HISTORY OF THE INJURY/ILLNESS CONSISTENT WITH YOUR OBJECTIVE FINDING? YES WHAT IS THE PERCENTAGE OF TEMPORARY IMPAIRMENT? MODERATE TO MARKED = 66.7% IS THE PATIENT WORKING? NO DOCTOR ON SITE: BINU WILL MD PROCEDURE CODES FA211 ESTABILISHED PATIENT [facility] FACILITY CHARGE G8730 PAIN ASSESS POS TOOL F/U PLAN DOC G8427 DOC MEDS VERIFIED W/PT OR RE DISPOSITION & COMMUNICATION FOLLOW UP 6 WEEKS ELECTRONICALLY SIGNED BY BINU ZIMMERMAN MD ON 09/12/2016 AT 06:55 PM EDT DISCLAIMER : THIS IS A VISIT SUMMARY EXTRACTED FROM THE [employer] CHART. IT IS NOT A COPY OF THE [employer] PROGRESS NOTE. MTDD
== END ==
LOC: M PAIN 13:40
PROVIDERS: ATTEND Anesthesiology
DX: M47.816 Spondylosis without myelopathy or radiculopathy, lumbar region (principal); M47.817 Spondylosis without myelopathy or radiculopathy, lumbosacral region; M54.5 Low back pain; G89.29 Other chronic pain; Z79.891 Long term (current) use of opiate analgesic; Z79.899 Other long term (current) drug therapy

== ENCOUNTER → 2016-10-11 | Outpatient (CLI) | payer OTHER ==
[~2016-10-11] MED LIST changes: -SKEL-29 PO; +SKEL800T97 PO; +TRAZ50TA11 PO; -TRAZ50TA4 PO
--- NOTE | 2016-10-20 01:19 | ECWPNPC ---
PATIENT NAME: OWEN ROSALES : 1960 GENDER: MALE VISIT DATE: 10/11/2016 DISCHARGE DATE: 10/11/16956 VISIT LOCKED DATE TIME: PHYSICIAN: BINU ZIMMERMAN RESOURCE: BINU ZIMMERMAN REASON FOR APPOINTMENT 1. W/C BACK PAIN HISTORY OF PRESENT ILLNESS HISTORY OF PRESENT ILLNESS: PAIN THE PATIENT DESCRIBES THE PAIN... 56 YEAR OLD MALE PATIENT WITH HISTORY OF CHRONIC LOW BACK PAIN. PATIENT DESCRIBES THE PAIN ON HIS BACK ACHING AND SORE WITH A PAIN SCORE OF 3/10 ON TODAY'S VISIT. 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 MR. ROSALES STATES HE HAS NOT HAD ANY BACK SURGERY FROM THIS INJURY. PATIENT REPORTS TRYING PHYSICAL THERAPY IN THE PAST BUT IS UNSURE HOW WELL IT AIDED IN PAIN RELIEF AND FUNCTIONALITY. PATIENT REPORTS THE PAIN ON HIS BACK IS MAINLY ON THE RIGHT SIDE AND SOMETIMES HE GETS RADIATING PAIN DOWN TO HIS FEET. PATIENT RECEIVED A RIGHT L4-L5 AND RIGHT L5-S1 FACET BLOCK DIAGNOSTIC BLOCK ON 06/06/2016 AND STATES THAT HE FELT A 90 PERCENT DECREASE IN HIS PAIN LEVELS. PATIENT DENIES UNEXPLAINABLE WEIGHT LOSS, FEVER, CHILLS, NEW CHANGES ON HIS URINARY OR BOWEL CONTROL. FALL RISK SCREENING: SCREENING :NO FALLS IN THE PAST YEAR CURRENT MEDICATIONS TAKING IBUPROFEN 800 MG TABLET 1 TABLET NEEDED ORALLY WITH FOOD THREE TIMES DAILY NEEDED FOR PAIN TAKING GABAPENTIN 400 MG CAPSULE 1 CAPSULE ORALLY FOR PAIN THREE TIMES A DAY TAKING TRAZODONE HCL 50 MG TABLET 1 TABLET AT BEDTIME NEEDED ORALLY ONCE A DAY TAKING GEMFIBROZIL 600 MG TABLET 1 TABLET ORALLY DAILY TAKING LOVASTATIN 40 MG TABLET 2 TABLET ORALLY ONCE A DAY TAKING MULTIVITAL [place] TABLET ORALLY DAILY TAKING OMEPRAZOLE 40 MG CAPSULE DELAYED RELEASE 1 CAPSULE ORALLY ONCE A DAY TAKING MIRALAX PACKET 1 PACKET MIXED WITH 8 OUNCES OF FLUID ORALLY ONCE A DAY NEEDED TAKING OXYCODONE HCL 5 MG TABLET 1 TABLET ORALLY EVERY 6-8 HRS PRN PAIN MDD=2 TAKING MORPHINE SULFATE ER 15 MG TABLET EXTENDED RELEASE 1 TABLET ORALLY AT BEDTIME MDD=1 MEDICATION LIST REVIEWED AND RECONCILED WITH THE PATIENT PAST MEDICAL HISTORY REFLUX HIGH CHOLESTEROL ALLERGIES N.K.D.A. SURGICAL HISTORY TOTAL RIGHT KNEE RIGHT HIP FX REPAIR ABDOMINAL EXPLORATORY SURGERY CERVICAL/THORACIC FUSION FAMILY HISTORY NO FAMILY HISTORY DOCUMENTED. SOCIAL HISTORY GENERAL: PAIN CLINIC PFS, CLERGY, PUBLIC HEALTH REFERRALS CLERGY REFERRAL NEEDED?NO WAS THE PROVIDER NOTIFIED OF ANY PERTINENT INFO?NO PFS REFERRAL NEEDED?NO PUBLIC HEALTH REFERRAL NEEDED?NO PATIENT: ____. HOSPITALIZATION/MAJOR DIAGNOSTIC PROCEDURE SURGERIES REVIEW OF SYSTEMS REVIEWED BY: PROVIDER: BINU ZIMMERMAN MD . CONSTITUTIONAL: ANY CHANGE IN YOUR MEDICAL CONDITION? NO . CHILLS NO . FEVER NO . INFECTION: DO YOU HAVE NEW INFECTIONS? NO . DO YOU HAVE HISTORY OF MRSA? NO . MUSCULOSKELETAL: ANY NEW PATTERNS OF PAIN OR NUMBNESS? NO . GASTROENTEROLOGY: ANY NEW CHANGE IN BOWEL CONTROL? NO . GENITOURINARY: ANY NEW CHANGE IN BLADDER CONTROL? NO . IS THERE A CHANCE YOU COULD BE ? NO . HEMATOLOGY/LYMPH: DO YOU TAKE ANY BLOOD THINNERS? (FOR EXAMPLE- COUMADIN, PLAVIX, AGGRENOX, PLATEL, PRADAXA, OR XARELTO) NO . WHEN WAS YOUR LAST DOSE? DATE: TIME: . NEUROLOGY: HAVE YOU FALLEN IN THE PAST 6 MONTHS? NO . ANY NEW EXTREMITY NUMBNESS OR WEAKNESS? NO . CARDIOLOGY: DO YOU HAVE A PACEMAKER OR DEFIBRILLATOR? NO . RESPIRATORY: HAVE YOU BEEN SICK IN THE PAST WEEK? YES . FEVER NO . FLU LIKE SYMPTOMS? NO . COUGH YES, NON-PRODUCTIVE . INTEGUMENTARY: DO YOU HAVE ANY RASHES OR OPEN SORES? NO . ALLERGIC/IMMUNO: ARE YOU ALLERGIC TO SHELLFISH OR IV DYE? NO . ANY NEW ALLERGIES? NO . PSYCHIATRIC: DO YOU HAVE THOUGHTS OF HURTING YOURSELF OR SOMEONE ELSE? NO . ARE YOU ABUSED, NEGLECTED, OR IN AN UNSAFE ENVIRONMENT? NO . ENDOCRINOLOGY: ARE YOU DIABETIC? NO . OTHER: DO YOU NEED ANY PRESCRIPTIONS? NO . IF YES, PLEASE LIST: ____ . ANY NEW PROBLEMS WITH YOUR MEDICATIONS? NO . WHEN DID YOU LAST EAT? ____ . WHEN DID YOU LAST DRINK? ____ . WHAT DID YOU LAST DRINK? ____ . NAME OF PERSON DRIVING YOU HOME? ____ . DO YOU HAVE ANY OTHER QUESTIONS OR CONCERNS YES PT HAVING SOME CONCERNS WITH HIS MAIL ORDER PHARMACY AND WOULD LIKE TO DISCUSS THIS WITH YOU. . VITAL SIGNS WT 234.2 LBS, HT 69 IN, BMI 34.58 INDEX, BP 133/82 MM HG, HR 73 /MIN, RR 16 /MIN, TEMP 97.7 F, OXYGEN SAT % 96%, SAFE IN ENV? (Y/N) YES, NA INITIALS OR 08:56, REVIEWED BY: MICHAEL. EXAMINATION : PATIENT IS ALERT O X 3 AND COOPERATIVE. PATIENT HAS SOME TENDERNESS IN THE RIGHT LUMBAR PARASPINAL MUSCLE GROUP. MRI OF THE LUMBAR SPINE DONE ON 02/26/2014 SHOWS DISC BULGES AND DISC PROTRUSIONS. ASSESSMENTS SPONDYLOSIS WITHOUT MYELOPATHY OR RADICULOPATHY, LUMBAR REGION - M47.816 (PRIMARY) SPONDYLOSIS WITHOUT MYELOPATHY OR RADICULOPATHY, LUMBOSACRAL REGION - M47.817 TREATMENT SPONDYLOSIS WITHOUT MYELOPATHY OR RADICULOPATHY, LUMBAR REGION NOTES: WE DISCUSSED SEVERAL ISSUES WITH MR. ROSALES'S PAIN MANAGEMENT CASE. MR. ROSALES WILL CONTINUE WITH THE SAME MEDICATION REGIME BEFORE. PATIENT WILL RECEIVE A REFILL OF OXYCODONE AND MORPHINE FOR THE SOMATIC PAIN. PATIENT DENIES ABUSE OF ANY MEDICATION, DENIES USE OF ILLEGAL SUBSTANCES, AND STATES THAT HE IS ONLY USING THE MEDICATION FOR PAIN MANAGEMENT. URINE TOXICOLOGY REPORT DONE ON 03/31/2016 SHOWS CONSISTENT RESULTS WITH THE PATIENT'S MEDICATION LIST. PATIENT WILL PERFORM A URINE TOXICOLOGY TODAY. DUE TO THE PATIENT HAVING ADEQUATE RESULTS FROM THE FIRST DIAGNOSTIC TEST I WOULD LIKE TO MOVE FORWARD WITH A SECOND INJECTIONS. WE DISCUSSED THE RISKS, BENENFITS, AND ALTNERATIVES OF THE INJECTION AND THE PATIENT WOULD LIKE TO PROCEED. INSTRUCTIONS WERE GIVEN, QUESTIONS WERE ANSWERED, PATIENT REPORTS UNDERSTANDING AND AGREES WITH THE PLAN. I, KYLAH NIELSEN, DOCUMENTED THE ABOVE INFORMATION ACTING A SCRIBE FOR DR. ZIMMERMAN. I HAVE REVIEWED THE ABOVE DOCUMENT, WRITTEN BY KYLAH WALSH AND I VERIFY THAT IT IS ACCURATE. OTHERS REFILL IBUPROFEN TABLET, 800 MG, 1 TABLET NEEDED, ORALLY WITH FOOD, THREE TIMES DAILY NEEDED FOR PAIN, 30 DAY(S), 60, REFILLS 2 REFILL GABAPENTIN CAPSULE, 400 MG, 1 CAPSULE, ORALLY FOR PAIN, THREE TIMES A DAY, 30 DAY(S), 90 CAPSULE, REFILLS 2 REFILL OXYCODONE HCL TABLET, 5 MG, 1 TABLET, ORALLY, EVERY 6-8 HRS PRN PAIN MDD=2, 30 DAY(S), 45, REFILLS 0 REFILL MORPHINE SULFATE ER TABLET EXTENDED RELEASE, 15 MG, 1 TABLET, ORALLY, AT BEDTIME MDD=1, 30 DAY(S), 30, REFILLS 0 PROCEDURES PN WORKMANS' COMP OPINION IN YOUR OPINION, WAS THE INCIDENT THAT THE PATIENT DESCRIBED THE COMPETENT MEDICAL CAUSE OF THIS INJURY/ILLNESS? YES ARE THE PATIENT'S COMPLAINTS CONSISTENT WITH HIS/HER HISTORY OF THE INJURY/ILLNESS? YES IS THE PATIENT'S HISTORY OF THE INJURY/ILLNESS CONSISTENT WITH YOUR OBJECTIVE FINDING? YES WHAT IS THE PERCENTAGE OF TEMPORARY IMPAIRMENT? MODERATE TO MARKED = 66.7% IS THE PATIENT WORKING? NO DOCTOR ON SITE: BINU WILL MD DOCTOR ON SITE: BINU WILL MD DOCTOR ON SITE: BINU WILL MD PROCEDURE CODES FA211 ESTABILISHED PATIENT [facility] FACILITY CHARGE G8427 DOC MEDS VERIFIED W/PT OR RE G8730 PAIN ASSESS POS TOOL F/U PLAN DOC DISPOSITION & COMMUNICATION FOLLOW UP LFBD AFTER APPROVAL ELECTRONICALLY SIGNED BY BINU ZIMMERMAN MD ON 10/19/2016 AT 10:35 AM EDT DISCLAIMER : THIS IS A VISIT SUMMARY EXTRACTED FROM THE [employer] CHART. IT IS NOT A COPY OF THE [employer] PROGRESS NOTE. ANALILIA
== END ==
LOC: M PAIN 08:40
PROVIDERS: ATTEND Anesthesiology
DX: M47.816 Spondylosis without myelopathy or radiculopathy, lumbar region (principal); M47.817 Spondylosis without myelopathy or radiculopathy, lumbosacral region; M54.5 Low back pain; G89.29 Other chronic pain; Z79.891 Long term (current) use of opiate analgesic; Z79.899 Other long term (current) drug therapy

== ENCOUNTER → 2016-11-09 | Outpatient (CLI) | payer OTHER ==
[~2016-11-09] MED LIST changes: +BUPIVACAINE HCL 0.25% 30 ML VIAL As Ordered ONE; +ISOVUE-M 300 61% 15ML VIAL (Q9967) As Ordered ONE; +LIDOCAINE 1% SDV INJ 30 ML VIAL As Ordered ONE
--- NOTE | 2016-11-09 10:52 | REP ---
Partial lumbar spine series: Single view. . History: Injection procedure for pain. 20 seconds of fluoroscopy time is reported. Findings: A sequence of three fluoroscopically obtained last image hold procedural spot radiographs of the lumbar spine document needle position and contrast injection associated with injection procedure. Signed by Nacho Christopher MD 11/09/2016 10:44 A
--- NOTE | 2016-11-21 00:34 | ECWPNPC ---
PATIENT NAME: OWEN ROSALES : 1960 GENDER: MALE VISIT DATE: 11/09/2016 DISCHARGE DATE: 11/09/16 1044 VISIT LOCKED DATE TIME: PHYSICIAN: BINU ZIMMERMAN RESOURCE: BINU ZIMMERMAN REASON FOR APPOINTMENT 1. LFBD #2 HISTORY OF PRESENT ILLNESS HISTORY OF PRESENT ILLNESS: PAIN THE PATIENT DESCRIBES THE PAIN... FALL RISK SCREENING: SCREENING :NO FALLS IN THE PAST YEAR CURRENT MEDICATIONS TAKING TRAZODONE HCL 50 MG TABLET 1 TABLET AT BEDTIME NEEDED ORALLY ONCE A DAY, NOTES: 11-08-162099 TAKING GEMFIBROZIL 600 MG TABLET 1 TABLET ORALLY DAILY, NOTES: 11-08-16899 TAKING LOVASTATIN 40 MG TABLET 2 TABLET ORALLY ONCE A DAY, NOTES: 11-08-162099 TAKING MULTIVITAL [place] TABLET ORALLY DAILY, NOTES: 11-08-16899 TAKING OMEPRAZOLE 40 MG CAPSULE DELAYED RELEASE 1 CAPSULE ORALLY ONCE A DAY, NOTES: 899 TAKING MIRALAX PACKET 1 PACKET MIXED WITH 8 OUNCES OF FLUID ORALLY ONCE A DAY NEEDED, NOTES: 10-09-16899 TAKING IBUPROFEN 800 MG TABLET 1 TABLET NEEDED ORALLY WITH FOOD THREE TIMES DAILY NEEDED FOR PAIN, NOTES: 11-01-16 TAKING GABAPENTIN 400 MG CAPSULE 1 CAPSULE ORALLY FOR PAIN THREE TIMES A DAY, NOTES: 11-08-162099 TAKING OXYCODONE HCL 5 MG TABLET 1 TABLET ORALLY EVERY 6-8 HRS PRN PAIN MDD=2, NOTES: 11-05-162099 TAKING MORPHINE SULFATE ER 15 MG TABLET EXTENDED RELEASE 1 TABLET ORALLY AT BEDTIME MDD=1, NOTES: 11-08-162099 MEDICATION LIST REVIEWED AND RECONCILED WITH THE PATIENT PAST MEDICAL HISTORY REFLUX HIGH CHOLESTEROL ALLERGIES N.K.D.A. REVIEW OF SYSTEMS REVIEWED BY: PROVIDER: . CONSTITUTIONAL: ANY CHANGE IN YOUR MEDICAL CONDITION? NO . CHILLS NO . FEVER NO . INFECTION: DO YOU HAVE NEW INFECTIONS? NO . DO YOU HAVE HISTORY OF MRSA? NO . MUSCULOSKELETAL: ANY NEW PATTERNS OF PAIN OR NUMBNESS? NO . GASTROENTEROLOGY: ANY NEW CHANGE IN BOWEL CONTROL? NO . GENITOURINARY: ANY NEW CHANGE IN BLADDER CONTROL? NO . IS THERE A CHANCE YOU COULD BE ? NO . HEMATOLOGY/LYMPH: DO YOU TAKE ANY BLOOD THINNERS? (FOR EXAMPLE- COUMADIN, PLAVIX, AGGRENOX, PLATEL, PRADAXA, OR XARELTO) NO . WHEN WAS YOUR LAST DOSE? DATE: TIME: . NEUROLOGY: HAVE YOU FALLEN IN THE PAST 6 MONTHS? NO . ANY NEW EXTREMITY NUMBNESS OR WEAKNESS? NO . CARDIOLOGY: DO YOU HAVE A PACEMAKER OR DEFIBRILLATOR? NO . RESPIRATORY: HAVE YOU BEEN SICK IN THE PAST WEEK? NO . FEVER NO . FLU LIKE SYMPTOMS? NO . COUGH NO . INTEGUMENTARY: DO YOU HAVE ANY RASHES OR OPEN SORES? NO . ALLERGIC/IMMUNO: ARE YOU ALLERGIC TO SHELLFISH OR IV DYE? NO . ANY NEW ALLERGIES? NO . PSYCHIATRIC: DO YOU HAVE THOUGHTS OF HURTING YOURSELF OR SOMEONE ELSE? NO . ARE YOU ABUSED, NEGLECTED, OR IN AN UNSAFE ENVIRONMENT? NO . ENDOCRINOLOGY: ARE YOU DIABETIC? NO . OTHER: DO YOU NEED ANY PRESCRIPTIONS? NO . IF YES, PLEASE LIST: ____ . ANY NEW PROBLEMS WITH YOUR MEDICATIONS? NO . WHEN DID YOU LAST EAT? ____8PM LAST NIGHT . WHEN DID YOU LAST DRINK? ____0700 THIS MORNING . WHAT DID YOU LAST DRINK? WATER . NAME OF PERSON DRIVING YOU HOME? ____MEL . DO YOU HAVE ANY OTHER QUESTIONS OR CONCERNS NO . VITAL SIGNS WT 234.2 LBS, HT 69 IN, BMI 34.58 INDEX, BP 134/79 MM HG, HR 75 /MIN, RR 16 /MIN, TEMP 97.8 F, OXYGEN SAT % 97%, NA INITIALS SC 09:07, REVIEWED BY: KG. ASSESSMENTS SPONDYLOSIS WITHOUT MYELOPATHY OR RADICULOPATHY, LUMBAR REGION - M47.816 (PRIMARY) SPONDYLOSIS WITHOUT MYELOPATHY OR RADICULOPATHY, LUMBOSACRAL REGION - M47.817 PROCEDURES PN LUMBAR FACET BLOCK DIAGNOSTIC PRE PROCEDURE DIAGNOSIS LUMBAR SPONDYLOSIS, LUMBOSACRAL SPONDYLOSIS POST PROCEDURE DIAGNOSIS LUMBAR SPONDYLOSIS, LUMBOSACRAL SPONDYLOSIS PROCEDURE RIGHT L4-L5 AND RIGHT L5-S1 FACET BLOCK DIAGNOSTIC NUMBER [address] BINU ZIMMERMAN TALENT DEVELOPMENT ANALYST NONE ANESTHESIA LOCAL PRE PROCEDURE NOTE THE PATIENT WITH HISTORY OF CHRONIC LOW BACK PAIN. I EVALUATED THE PATIENT AND REVIEWED THE CHART. I WENT OVER THE RISKS, ALTERNATIVES, AND BENEFITS ASSOCIATED WITH THIS PROCEDURE. THE PATIENT WOULD LIKE TO PROCEED AND GAVE CONSENT TO PERFORM THE PROCEDURE. AGREED WITH THE PATIENT WE ARE DOING THIS PROCEDURE TO DETERMINE IF THE PATIENT IS A CANDIDATE FOR A RADIOFREQUENCY ABLATION OF THE FACETS JOINTS. THE PATIENT DENIES UNEXPLAINABLE WEIGHT LOSS, FEVER, CHILLS, OR NEW CHANGES IN URINARY OR BOWEL CONTROL DESCRIPTION OF PROCEDURE THE PATIENT WAS BROUGHT TO THE PROCEDURE ROOM AND PLACED IN THE PRONE POSITION. THE LUMBOSACRAL AREA WAS CLEANED WITH CHLORAPREP SOLUTION AND DRAPED ASEPTICALLY. THE PROCEDURE WAS DONE UNDER STERILE CONDITIONS. I CHECKED LATERALITY AND THE LEVEL WHERE THE PROCEDURE WAS GOING TO BE PERFORMED WITH THE PATIENT AND THE SUPPORTING STAFF AT THE MOMENT OF THE TIME OUT IN THE PROCEDURE ROOM. UNDER FLUOROSCOPIC GUIDANCE, TARGETS WERE SELECTED AT THE INTERSECTION OF THE RIGHT TRANSVERSE PROCESS OF L4, L5 AND ALA OF S1 WITH ITS RESPECTIVE SUPERIOR ARTICULAR PROCESS. LIDOCAINE WAS USED TO NUMB THE SKIN AND THE SUBCUTANEOUS TISSUE BELOW IT. SPINAL NEEDLE, 22-GAUGE WAS ADVANCED UNDER FLUOROSCOPIC GUIDANCE AND FOLLOWING PATIENT FEEDBACK UNTIL THE TARGETS WERE REACHED. POSITION OF THE NEEDLES WAS VERIFIED WITH AP AND LATERAL VIEWS. AFTER PROPER POSITION OF THE NEEDLES WAS ACHIEVED, ISOVUE-M DYE 30% 0.1 ML WAS INJECTED AT EACH SITE SHOWING ADEQUATE SPREAD OF THE DYE. THEN A SOLUTION OF 0.4 ML OF BUPIVACAINE 0.25% WAS INJECTED AT EACH SITE. THERE WAS NO EVIDENCE OF BLOOD, PARESTHESIA OR CEREBROSPINAL FLUID DURING THE PROCEDURE. THE PATIENT WAS SENT TO THE RECOVERY ROOM. THE PATIENT WAS MOVING THE EXTREMITIES AND DOING WELL. THERE WAS NO COMPLICATION DURING THE PROCEDURE. FLUOROSCOPY TIME WAS 20 SECONDS POST PROCEDURE NOTE THE PATIENT WILL DOCUMENT HIS PAIN LEVEL AND RESPONSE TO THIS PROCEDURE EVERY 30 MINUTES. THE PATIENT WILL BE SEEN IN A FOLLOW UP IN THE NEXT FEW WEEKS. FURTHER DETERMINATION FOR HIS CASE WILL BE DONE AT THE NEXT VISIT. INSTRUCTIONS WERE GIVEN, QUESTIONS WERE ANSWERED, AND THE PATIENT EXPRESSED UNDERSTANDING AND AGREED WITH THE PLAN. I, KYLAH NIELSEN, DOCUMENTED THE ABOVE INFORMATION ACTING A SCRIBE FOR DR. ZIMMERMAN. I, DR. ZIMMERMAN, HAVE REVIEWED THE ABOVE DOCUMENT, SCRIBED BY KYLAH NIELSEN, AND I VERIFY THAT IT IS ACCURATE PN WORKMANS' COMP OPINION IN YOUR OPINION, WAS THE INCIDENT THAT THE PATIENT DESCRIBED THE COMPETENT MEDICAL CAUSE OF THIS INJURY/ILLNESS? YES ARE THE PATIENT'S COMPLAINTS CONSISTENT WITH HIS/HER HISTORY OF THE INJURY/ILLNESS? YES IS THE PATIENT'S HISTORY OF THE INJURY/ILLNESS CONSISTENT WITH YOUR OBJECTIVE FINDING? YES WHAT IS THE PERCENTAGE OF TEMPORARY IMPAIRMENT? MODERATE TO MARKED = 66.7% IS THE PATIENT WORKING? NO DOCTOR ON SITE: BINU WILL MD DIAGNOSTIC IMAGING [facility] FACET BLOCK (PAIN)[id number] PROCEDURE CODES 81592 INJ PARAVERT F JNT L/S 1 LEV 54449 INJ PARAVERT F JNT L/S 2 LEV 6045F RADXPS IN END [id number] PXD DISPOSITION & COMMUNICATION FOLLOW UP 3 WEEKS ELECTRONICALLY SIGNED BY BINU ZIMMERMAN MD ON 11/20/2016 AT 08:13 PM EDT DISCLAIMER : THIS IS A VISIT SUMMARY EXTRACTED FROM THE [employer] CHART. IT IS NOT A COPY OF THE [employer] PROGRESS NOTE. MTDD
== END ==
LOC: M PAIN 09:00
PROVIDERS: ATTEND Anesthesiology
DX: G89.29 Other chronic pain (principal); M47.816 Spondylosis without myelopathy or radiculopathy, lumbar region; M47.817 Spondylosis without myelopathy or radiculopathy, lumbosacral region; M54.5 Low back pain; Z79.891 Long term (current) use of opiate analgesic; Z79.899 Other long term (current) drug therapy
CPT/HCPCS: 64493; 64494; Q9967

== ENCOUNTER → 2016-12-08 | Outpatient (CLI) | payer OTHER ==
[~2016-12-08] MED LIST changes: -BUPIVACAINE HCL 0.25% 30 ML VIAL As Ordered ONE; -ISOVUE-M 300 61% 15ML VIAL (Q9967) As Ordered ONE; -LIDOCAINE 1% SDV INJ 30 ML VIAL As Ordered ONE
--- NOTE | 2016-12-25 23:58 | ECWPNPC ---
PATIENT NAME: OWEN ROSALES : 1960 GENDER: MALE VISIT DATE: 12/08/2016 DISCHARGE DATE: 12/08/16 1058 VISIT LOCKED DATE TIME: PHYSICIAN: BINU ZIMMERMAN RESOURCE: BINU ZIMMERMAN REASON FOR APPOINTMENT 1. NECK W/C TRAVELERS HISTORY OF PRESENT ILLNESS HISTORY OF PRESENT ILLNESS: PAIN THE PATIENT DESCRIBES THE PAIN... 56 YEAR OLD MALE PATIENT WITH HISTORY OF CHRONIC NECK PAIN. PATIENT DESCRIBES THE PAIN ACHING, TENDER, AND SORE WITH A PAIN SCORE OF 5/10 ON TODAY'S VISIT. 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 PATIENT HAS TRIED PT IN THE PAST BUT CAN NOT RECALL ON HOW IT HELPED WITH HIS PAIN OR NOT. PATIENT WAS INJURED IN ANOTHER WORK RELATED INJURY ON 09/25/2000 WORKING FOR [employer] A [employer]URKEY [employer], PATIENT WAS LIFTING A BOX OF WIRES WHEN HE INJURED HIS NECK. PATIENT REPORTS THAT HE HAD ONE SURGERY IN HIS CERVICAL SPINE. PATIENT RECEIVED A CERVICAL EPIDURAL ON 08/15/16 AND REPORTS HAVING OVER 3 MONTHS OF OVER 50% PAIN RELIEF FROM THE INJECTION WITH INCREASED MOBILITY AND FUNCTIONALITY. PATIENT STATES THAT HE HAS PT FOR HIS NECK AND THAT IT DID HELP WITH HIS PAIN. PATIENT REPORTS THAT HIS NECK HURTS THE MOST TODAY, AND ON MOST DAYS THE PAIN IS WORST IN HIS NECK. PATIENT REPORTS THAT HE HAS RADIATING PAIN TO SHOULDERS FROM HIS NECK AREA. THE PAIN SOMETIMES CAUSES HIM TO WAKE UP AT NIGHT. PATIENT DENIES UNEXPLAINABLE WEIGHT LOSS, FEVER, CHILLS, NEW CHANGES ON HIS URINARY OR BOWEL CONTROL. FALL RISK SCREENING: SCREENING :NO FALLS IN THE PAST YEAR CURRENT MEDICATIONS TAKING IBUPROFEN 800 MG TABLET 1 TABLET NEEDED ORALLY WITH FOOD THREE TIMES DAILY NEEDED FOR PAIN TAKING GABAPENTIN 400 MG CAPSULE 1 CAPSULE ORALLY FOR PAIN THREE TIMES A DAY TAKING OXYCODONE HCL 5 MG TABLET 1 TABLET ORALLY EVERY 6-8 HRS PRN PAIN MDD=2 TAKING MORPHINE SULFATE ER 15 MG TABLET EXTENDED RELEASE 1 TABLET ORALLY AT BEDTIME MDD=1 TAKING TRAZODONE HCL 50 MG TABLET 1 TABLET AT BEDTIME NEEDED ORALLY ONCE A DAY TAKING GEMFIBROZIL 600 MG TABLET 1 TABLET ORALLY DAILY TAKING LOVASTATIN 40 MG TABLET 2 TABLET ORALLY ONCE A DAY TAKING MULTIVITAL [place] TABLET ORALLY DAILY TAKING OMEPRAZOLE 40 MG CAPSULE DELAYED RELEASE 1 CAPSULE ORALLY ONCE A DAY TAKING MIRALAX PACKET 1 PACKET MIXED WITH 8 OUNCES OF FLUID ORALLY ONCE A DAY NEEDED MEDICATION LIST REVIEWED AND RECONCILED WITH THE PATIENT PAST MEDICAL HISTORY REFLUX HIGH CHOLESTEROL ALLERGIES N.K.D.A. REVIEW OF SYSTEMS REVIEWED BY: PROVIDER: BINU ZIMMERMAN MD . CONSTITUTIONAL: ANY CHANGE IN YOUR MEDICAL CONDITION? NO . CHILLS NO . FEVER NO . INFECTION: DO YOU HAVE NEW INFECTIONS? NO . DO YOU HAVE HISTORY OF MRSA? NO . MUSCULOSKELETAL: ANY NEW PATTERNS OF PAIN OR NUMBNESS? NO . GASTROENTEROLOGY: ANY NEW CHANGE IN BOWEL CONTROL? NO . GENITOURINARY: ANY NEW CHANGE IN BLADDER CONTROL? NO . IS THERE A CHANCE YOU COULD BE ? NO . HEMATOLOGY/LYMPH: DO YOU TAKE ANY BLOOD THINNERS? (FOR EXAMPLE- COUMADIN, PLAVIX, AGGRENOX, PLATEL, PRADAXA, OR XARELTO) NO . WHEN WAS YOUR LAST DOSE? DATE: TIME: . NEUROLOGY: HAVE YOU FALLEN IN THE PAST 6 MONTHS? NO . ANY NEW EXTREMITY NUMBNESS OR WEAKNESS? NO . CARDIOLOGY: DO YOU HAVE A PACEMAKER OR DEFIBRILLATOR? NO . RESPIRATORY: HAVE YOU BEEN SICK IN THE PAST WEEK? NO . FEVER NO . FLU LIKE SYMPTOMS? NO . COUGH NO . INTEGUMENTARY: DO YOU HAVE ANY RASHES OR OPEN SORES? NO . ALLERGIC/IMMUNO: ARE YOU ALLERGIC TO SHELLFISH OR IV DYE? NO . ANY NEW ALLERGIES? NO . PSYCHIATRIC: DO YOU HAVE THOUGHTS OF HURTING YOURSELF OR SOMEONE ELSE? NO . ARE YOU ABUSED, NEGLECTED, OR IN AN UNSAFE ENVIRONMENT? NO . ENDOCRINOLOGY: ARE YOU DIABETIC? NO . OTHER: DO YOU NEED ANY PRESCRIPTIONS? NO . IF YES, PLEASE LIST: ____ . ANY NEW PROBLEMS WITH YOUR MEDICATIONS? NO . WHEN DID YOU LAST EAT? ____ . WHEN DID YOU LAST DRINK? ____ . WHAT DID YOU LAST DRINK? ____ . NAME OF PERSON DRIVING YOU HOME? ____ . DO YOU HAVE ANY OTHER QUESTIONS OR CONCERNS NO . VITAL SIGNS WT 237.4 LBS, HT 69 IN, BMI 35.05 INDEX, BP 149/87 MM HG, HR 75 /MIN, RR 16 /MIN, TEMP 98.1 F, OXYGEN SAT % 96%, NA INITIALS SC 10:17, REVIEWED BY: ANGEL. EXAMINATION : PATIENT IS ALERT O X 3 AND COOPERATIVE. PATIENT'S LEFT ARM IS WEAKER AT FLEXION AND EXTENSION. PATIENT'S LEFT HAND CONFORMAL PAD FORMER IS WEAKER. PATIENT IS ABLE TO EXTEND HIS NECK AT 10 DEGREES AND FLEX AT 15 DEGREES. PATIENT IS ABLE TO LATERALLY ROTATE HIS NECK TO THE RIGHT AND LEFT AT 20 DEGREES. THERE IS TENDERNESS OVER THE CERVICAL FACET AREAS. MRI OF THE CERVICAL SPINE DONE ON 05/10/2012 SHOWS CERVICAL FACET ARTHROPATHY CHANGES AND A FUSION AT C7-T1. ASSESSMENTS SPONDYLOSIS WITHOUT MYELOPATHY OR RADICULOPATHY, CERVICAL REGION - M47.812 (PRIMARY) CERVICALGIA - M54.2 POSTLAMINECTOMY SYNDROME, NOT ELSEWHERE CLASSIFIED - M96.1 TREATMENT OTHERS NOTES: WE DISCUSSED SEVERAL ISSUES WITH MR. ROSALES'S PAIN MANAGEMENT CASE. AT THIS TIME THE PATIENT WILL CONTINUE WITH THE SAME MEDICATION REGIME BEFORE. PATIENT IS USING THE IBUPROFEN FOR THE INFLAMMATION, GABAPENTIN FOR THE NEUROPATHIC PAIN, OXYCODONE AND MORPHINE SULPHATE FOR THE SOMATIC PAIN. PATIENT DENIES ABUSE OF ANY MEDICATION, DENIES USE OF ILLEGAL SUBSTANCES, AND STATES THAT HE IS ONLY USING THE MEDICATION FOR PAIN MANAGEMENT. URINE TOXICOLOGY DONE ON 10/11/16 SHOWS CONSISTENT RESULTS WITH THE PATIENT'S MEDICATION LIST. PATIENT REPORTS THAT THE PAIN IS STARTING TO RETURN FROM THE CERVICAL FACETS AREA. THE PHYSICAL EXAMINATION CONFIRMS THIS FINDING. I WOULD LIKE TO MOVE FORWARD WITH A CERVICAL FACET BLOCK. WE DISCUSSED THE RISKS, BENEFITS, AND ALTERNATIVES TO THE INJECTION AND THE PATIENT WOULD LIKE TO PROCEED. INSTRUCTIONS WERE GIVEN, QUESTIONS WERE ANSWERED, PATIENT REPORTS UNDERSTANDING AND AGREES WITH THE PLAN. I, KYLAH NIELSEN, DOCUMENTED THE ABOVE INFORMATION ACTING A SCRIBE FOR DR. ZIMMERMAN. I HAVE REVIEWED THE ABOVE DOCUMENT, WRITTEN BY KYLAH WALSH AND I VERIFY THAT IT IS ACCURATE. PROCEDURES PN WORKMANS' COMP OPINION IN YOUR OPINION, WAS THE INCIDENT THAT THE PATIENT DESCRIBED THE COMPETENT MEDICAL CAUSE OF THIS INJURY/ILLNESS? YES ARE THE PATIENT'S COMPLAINTS CONSISTENT WITH HIS/HER HISTORY OF THE INJURY/ILLNESS? YES IS THE PATIENT'S HISTORY OF THE INJURY/ILLNESS CONSISTENT WITH YOUR OBJECTIVE FINDING? YES WHAT IS THE PERCENTAGE OF TEMPORARY IMPAIRMENT? MODERATE TO MARKED = 66.7% IS THE PATIENT WORKING? NO DOCTOR ON SITE: BINU WILL MD PROCEDURE CODES FA211 ESTABILISHED PATIENT [facility] FACILITY CHARGE G8427 DOC MEDS VERIFIED W/PT OR RE G8730 PAIN ASSESS POS TOOL F/U PLAN DOC DISPOSITION & COMMUNICATION FOLLOW UP CFBT AFTER APPROVAL ELECTRONICALLY SIGNED BY BINU ZIMMERMAN MD ON 12/25/2016 AT 07:14 PM EDT DISCLAIMER : THIS IS A VISIT SUMMARY EXTRACTED FROM THE [employer] CHART. IT IS NOT A COPY OF THE [employer] PROGRESS NOTE. MTDD
== END ==
LOC: M PAIN 10:00
PROVIDERS: ATTEND Anesthesiology
DX: M47.812 Spondylosis without myelopathy or radiculopathy, cervical region (principal); M54.2 Cervicalgia; M96.1 Postlaminectomy syndrome, not elsewhere classified; G89.29 Other chronic pain; K21.9 Gastro-esophageal reflux disease without esophagitis; E78.00 Pure hypercholesterolemia, unspecified; Z79.891 Long term (current) use of opiate analgesic; Z79.899 Other long term (current) drug therapy

== ENCOUNTER → 2016-12-08 | Outpatient (CLI) | payer OTHER ==
--- NOTE | 2016-12-27 01:01 | ECWPNPC ---
PATIENT NAME: OWEN ROSALES : 1960 GENDER: MALE VISIT DATE: 12/08/2016 DISCHARGE DATE: 12/08/16958 VISIT LOCKED DATE TIME: PHYSICIAN: BINU ZIMMERMAN RESOURCE: BINU ZIMMERMAN REASON FOR APPOINTMENT 1. WC LOW BACK HISTORY OF PRESENT ILLNESS HISTORY OF PRESENT ILLNESS: PAIN THE PATIENT DESCRIBES THE PAIN... 56 YEAR OLD MALE PATIENT WITH HISTORY OF CHRONIC LOW BACK PAIN. PATIENT DESCRIBES THE PAIN ON HIS BACK ACHING AND SORE WITH A PAIN SCORE OF 0/10 ON TODAY'S VISIT. 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 MR. ROSALES STATES HE HAS NOT HAD ANY BACK SURGERY FROM THIS INJURY. PATIENT REPORTS TRYING PHYSICAL THERAPY IN THE PAST BUT IS UNSURE HOW WELL IT AIDED IN PAIN RELIEF AND FUNCTIONALITY. PATIENT REPORTS THE PAIN ON HIS BACK IS MAINLY ON THE RIGHT SIDE AND SOMETIMES HE GETS RADIATING PAIN DOWN TO HIS FEET. PATIENT RECEIVED A RIGHT L4-L5 AND RIGHT L5-S1 FACET BLOCK DIAGNOSTIC BLOCK #2 ON 11/09/16 AND STATES THAT HE FELT A 100 PERCENT DECREASE IN HIS PAIN LEVELS. PATIENT REPORTS HAVING INCREASED MOBILITY AND FUNCTIONALITY AND 100% RELIEF FROM THE PAIN IN THE RIGHT SIDE. PATIENT WAS ABLE TO DECREASE MEDICATIONS DUE TO PAIN RELIEF. PATIENT DENIES UNEXPLAINABLE WEIGHT LOSS, FEVER, CHILLS, NEW CHANGES ON HIS URINARY OR BOWEL CONTROL. FALL RISK SCREENING: SCREENING :NO FALLS IN THE PAST YEAR CURRENT MEDICATIONS TAKING TRAZODONE HCL 50 MG TABLET 1 TABLET AT BEDTIME NEEDED ORALLY ONCE A DAY TAKING GEMFIBROZIL 600 MG TABLET 1 TABLET ORALLY DAILY TAKING LOVASTATIN 40 MG TABLET 2 TABLET ORALLY ONCE A DAY TAKING MULTIVITAL TRIBE TABLET ORALLY DAILY TAKING OMEPRAZOLE 40 MG CAPSULE DELAYED RELEASE 1 CAPSULE ORALLY ONCE A DAY TAKING MIRALAX PACKET 1 PACKET MIXED WITH 8 OUNCES OF FLUID ORALLY ONCE A DAY NEEDED TAKING IBUPROFEN 800 MG TABLET 1 TABLET NEEDED ORALLY WITH FOOD THREE TIMES DAILY NEEDED FOR PAIN TAKING GABAPENTIN 400 MG CAPSULE 1 CAPSULE ORALLY FOR PAIN THREE TIMES A DAY TAKING OXYCODONE HCL 5 MG TABLET 1 TABLET ORALLY EVERY 6-8 HRS PRN PAIN MDD=2 TAKING MORPHINE SULFATE ER 15 MG TABLET EXTENDED RELEASE 1 TABLET ORALLY AT BEDTIME MDD=1 MEDICATION LIST REVIEWED AND RECONCILED WITH THE PATIENT PAST MEDICAL HISTORY REFLUX HIGH CHOLESTEROL ALLERGIES N.K.D.A. SURGICAL HISTORY TOTAL RIGHT KNEE RIGHT HIP FX REPAIR ABDOMINAL EXPLORATORY SURGERY CERVICAL/THORACIC FUSION FAMILY HISTORY NO FAMILY HISTORY DOCUMENTED. SOCIAL HISTORY GENERAL: PAIN CLINIC PFS, CLERGY, PUBLIC HEALTH REFERRALS CLERGY REFERRAL NEEDED?NO WAS THE PROVIDER NOTIFIED OF ANY PERTINENT INFO?NO PFS REFERRAL NEEDED?NO PUBLIC HEALTH REFERRAL NEEDED?NO PATIENT: ____. HOSPITALIZATION/MAJOR DIAGNOSTIC PROCEDURE SURGERIES REVIEW OF SYSTEMS REVIEWED BY: PROVIDER: BINU ZIMMERMAN MD . CONSTITUTIONAL: ANY CHANGE IN YOUR MEDICAL CONDITION? NO . CHILLS NO . FEVER NO . INFECTION: DO YOU HAVE NEW INFECTIONS? NO . DO YOU HAVE HISTORY OF MRSA? NO . MUSCULOSKELETAL: ANY NEW PATTERNS OF PAIN OR NUMBNESS? NO . GASTROENTEROLOGY: ANY NEW CHANGE IN BOWEL CONTROL? NO . GENITOURINARY: ANY NEW CHANGE IN BLADDER CONTROL? NO . IS THERE A CHANCE YOU COULD BE ? NO . HEMATOLOGY/LYMPH: DO YOU TAKE ANY BLOOD THINNERS? (FOR EXAMPLE- COUMADIN, PLAVIX, AGGRENOX, PLATEL, PRADAXA, OR XARELTO) NO . WHEN WAS YOUR LAST DOSE? DATE: TIME: . NEUROLOGY: HAVE YOU FALLEN IN THE PAST 6 MONTHS? NO . ANY NEW EXTREMITY NUMBNESS OR WEAKNESS? NO . CARDIOLOGY: DO YOU HAVE A PACEMAKER OR DEFIBRILLATOR? NO . RESPIRATORY: HAVE YOU BEEN SICK IN THE PAST WEEK? NO . FEVER NO . FLU LIKE SYMPTOMS? NO . COUGH NO . INTEGUMENTARY: DO YOU HAVE ANY RASHES OR OPEN SORES? NO . ALLERGIC/IMMUNO: ARE YOU ALLERGIC TO SHELLFISH OR IV DYE? NO . ANY NEW ALLERGIES? NO . PSYCHIATRIC: DO YOU HAVE THOUGHTS OF HURTING YOURSELF OR SOMEONE ELSE? NO . ARE YOU ABUSED, NEGLECTED, OR IN AN UNSAFE ENVIRONMENT? NO . ENDOCRINOLOGY: ARE YOU DIABETIC? NO . OTHER: DO YOU NEED ANY PRESCRIPTIONS? NO . IF YES, PLEASE LIST: ____ . ANY NEW PROBLEMS WITH YOUR MEDICATIONS? NO . WHEN DID YOU LAST EAT? ____ . WHEN DID YOU LAST DRINK? ____ . WHAT DID YOU LAST DRINK? ____ . NAME OF PERSON DRIVING YOU HOME? ____ . DO YOU HAVE ANY OTHER QUESTIONS OR CONCERNS NO . VITAL SIGNS WT 237.4 LBS, HT 69 IN, BMI 35.05 INDEX, BP 149/87 MM HG, HR 75 /MIN, RR 16 /MIN, TEMP 98.1 F, OXYGEN SAT % 96%, NA INITIALS SC 09:33, REVIEWED BY: ANGEL. EXAMINATION : PATIENT IS ALERT O X 3 AND COOPERATIVE. PATIENT HAS SOME TENDERNESS IN THE RIGHT LUMBAR PARASPINAL MUSCLE GROUP. MRI OF THE LUMBAR SPINE DONE ON 02/26/2014 SHOWS DISC BULGES AND DISC PROTRUSIONS. ASSESSMENTS SPONDYLOSIS WITHOUT MYELOPATHY OR RADICULOPATHY, LUMBAR REGION - M47.816 (PRIMARY) SPONDYLOSIS WITHOUT MYELOPATHY OR RADICULOPATHY, LUMBOSACRAL REGION - M47.817 TREATMENT SPONDYLOSIS WITHOUT MYELOPATHY OR RADICULOPATHY, LUMBAR REGION NOTES: WE DISCUSSED SEVERAL ISSUES WITH MR. ROSALES'S PAIN MANAGEMENT CASE. MR. ROSALES WILL CONTINUE WITH THE SAME MEDICATION REGIME BEFORE. PATIENT WILL RECEIVE A REFILL OF OXYCODONE AND MORPHINE FOR THE SOMATIC PAIN. PATIENT DENIES ABUSE OF ANY MEDICATION, DENIES USE OF ILLEGAL SUBSTANCES, AND STATES THAT HE IS ONLY USING THE MEDICATION FOR PAIN MANAGEMENT. URINE TOXICOLOGY REPORT DONE ON 10/17/16 SHOWS CONSISTENT RESULTS WITH THE PATIENT'S MEDICATION LIST. PATIENT RECEIVED A DIAGNOSTIC FACET BLOCK ON 11/09/16 AND REPORTS STILL HAVING OVER 50% RELIEF FROM THE INJECTION WITH INCREASED MOBILITY AND FUNCTIONALITY. PATIENT STATES HE WAS ABLE TO REDUCE THE AMOUNT OF MEDICATIONS DUE TO THE INJECTION. AT THIS TIME NO INTERVENTIONS WILL BE HELD DUE TO THE PATIENT STILL HAVE PAIN RELIEF FROM THE DIAGNOSTIC TEST. PATIENT WILL RETURN TO THE CLINIC IN 2 MONTHS BUT WAS ADVISED TO CALL IF THE PAIN SIGNIFICANTLY INCREASES. INSTRUCTIONS WERE GIVEN, QUESTIONS WERE ANSWERED, PATIENT REPORTS UNDERSTANDING AND AGREES WITH THE PLAN. I, KYLAH NIELSEN, DOCUMENTED THE ABOVE INFORMATION ACTING A SCRIBE FOR DR. ZIMMERMAN. I HAVE REVIEWED THE ABOVE DOCUMENT, WRITTEN BY KYLAH WALSH AND I VERIFY THAT IT IS ACCURATE. OTHERS REFILL IBUPROFEN TABLET, 800 MG, 1 TABLET NEEDED, ORALLY WITH FOOD, THREE TIMES DAILY NEEDED FOR PAIN, 30 DAY(S), 60, REFILLS 2 REFILL GABAPENTIN CAPSULE, 400 MG, 1 CAPSULE, ORALLY FOR PAIN, THREE TIMES A DAY, 30 DAY(S), 90 CAPSULE, REFILLS 2 REFILL OXYCODONE HCL TABLET, 5 MG, 1 TABLET, ORALLY, EVERY 6-8 HRS PRN PAIN MDD=2, 30 DAY(S), 45, REFILLS 0 REFILL MORPHINE SULFATE ER TABLET EXTENDED RELEASE, 15 MG, 1 TABLET, ORALLY, AT BEDTIME MDD=1, 30 DAY(S), 30, REFILLS 0 PROCEDURES PN WORKMANS' COMP OPINION IN YOUR OPINION, WAS THE INCIDENT THAT THE PATIENT DESCRIBED THE COMPETENT MEDICAL CAUSE OF THIS INJURY/ILLNESS? YES ARE THE PATIENT'S COMPLAINTS CONSISTENT WITH HIS/HER HISTORY OF THE INJURY/ILLNESS? YES IS THE PATIENT'S HISTORY OF THE INJURY/ILLNESS CONSISTENT WITH YOUR OBJECTIVE FINDING? YES WHAT IS THE PERCENTAGE OF TEMPORARY IMPAIRMENT? MODERATE TO MARKED = 66.7% IS THE PATIENT WORKING? NO DOCTOR ON SITE: BINU WILL MD PREVENTIVE MEDICINE PAIN CLINIC TEACHING: PROCEDURE TEACHING REVIEWED PROCEDURE/PRE OP TEACHING FOR BILATERAL CERVICAL FACET BLOCK, PT VERBALIZES UNDERSTANDING.. PROCEDURE CODES FA211 ESTABILISHED PATIENT [facility] FACILITY CHARGE G8427 DOC MEDS VERIFIED W/PT OR RE G8730 PAIN ASSESS POS TOOL F/U PLAN DOC DISPOSITION & COMMUNICATION FOLLOW UP RF WHEN PAIN RETURNS ELECTRONICALLY SIGNED BY BINU ZIMMERMAN MD ON 12/25/2016 AT 06:34 PM EDT DISCLAIMER : THIS IS A VISIT SUMMARY EXTRACTED FROM THE [employer] CHART. IT IS NOT A COPY OF THE [employer] PROGRESS NOTE. ANALILIA
== END ==
LOC: M PAIN 09:40
PROVIDERS: ATTEND Anesthesiology
DX: M47.816 Spondylosis without myelopathy or radiculopathy, lumbar region (principal); M47.817 Spondylosis without myelopathy or radiculopathy, lumbosacral region; M54.5 Low back pain; G89.29 Other chronic pain; Z79.891 Long term (current) use of opiate analgesic; Z79.899 Other long term (current) drug therapy

== ENCOUNTER → 2017-02-08 | Outpatient (CLI) | payer OTHER ==
[~2017-02-08] MED LIST changes: +BUPIVACAINE HCL 0.25% 30 ML VIAL As Ordered ONE; +ISOVUE-M 300 61% 15ML VIAL (Q9967) As Ordered ONE; +LIDOCAINE 1% SDV INJ 30 ML VIAL As Ordered ONE; +TRIAMCINOLONE ACETONIDE SUSP 40 MG/ML VIAL (J3301) As Ordered ONE; +diazePAM 5 MG TAB As Ordered ONE; +oxyCODONE 5MG TAB As Ordered ONE
--- NOTE | 2017-02-08 10:52 | REP ---
Cervical spine: Single view. History: Cervical facet block for pain. 27 seconds of fluoroscopy time is reported. The single last image hold fluoroscopic spot radiograph of the cervical spine documents various needle positions and contrast injections associated with cervical facet injection procedure. Signed by Nacho Christopher MD 02/08/2017 11:59 A
--- NOTE | 2017-02-09 00:18 | ECWPNPC ---
PATIENT NAME: OWEN ROSALES : 1960 GENDER: MALE VISIT DATE: 02/08/2017 DISCHARGE DATE: 02/08/17 1104 VISIT LOCKED DATE TIME: PHYSICIAN: BINU ZIMMERMAN RESOURCE: BINU ZIMMERMAN REASON FOR APPOINTMENT 1. CERVICAL FACET BLOCK W/C HISTORY OF PRESENT ILLNESS HISTORY OF PRESENT ILLNESS: PAIN THE PATIENT DESCRIBES THE PAIN... FALL RISK SCREENING: SCREENING :NO FALLS IN THE PAST YEAR CURRENT MEDICATIONS TAKING IBUPROFEN 800 MG TABLET 1 TABLET NEEDED ORALLY WITH FOOD THREE TIMES DAILY NEEDED FOR PAIN, NOTES: 02/07/171999 TAKING TRAZODONE HCL 50 MG TABLET 1 TABLET AT BEDTIME NEEDED ORALLY ONCE A DAY, NOTES: 02/07/171999 TAKING GEMFIBROZIL 600 MG TABLET 1 TABLET ORALLY DAILY, NOTES: 02/07/17699 TAKING LOVASTATIN 40 MG TABLET 2 TABLET ORALLY ONCE A DAY, NOTES: 02/07/171999 TAKING MULTIVITAL [place] TABLET ORALLY DAILY, NOTES: 02/07/17699 TAKING OMEPRAZOLE 40 MG CAPSULE DELAYED RELEASE 1 CAPSULE ORALLY ONCE A DAY, NOTES: 02/07/17699 TAKING MIRALAX PACKET 1 PACKET MIXED WITH 8 OUNCES OF FLUID ORALLY ONCE A DAY NEEDED, NOTES: 02/03/17 TAKING MORPHINE SULFATE ER 15 MG TABLET EXTENDED RELEASE 1 TABLET ORALLY AT BEDTIME MDD=1, NOTES: 02/03/17 TAKING OXYCODONE HCL 5 MG TABLET 1 TABLET ORALLY EVERY 6-8 HRS PRN PAIN MDD=2, NOTES: 02/05/17 TAKING GABAPENTIN 400 MG CAPSULE 1 CAPSULE ORALLY FOR PAIN THREE TIMES A DAY, NOTES: 02/07/171999 MEDICATION LIST REVIEWED AND RECONCILED WITH THE PATIENT PAST MEDICAL HISTORY REFLUX HIGH CHOLESTEROL ALLERGIES N.K.D.A. REVIEW OF SYSTEMS REVIEWED BY: PROVIDER: . CONSTITUTIONAL: ANY CHANGE IN YOUR MEDICAL CONDITION? NO . CHILLS NO . FEVER NO . INFECTION: DO YOU HAVE NEW INFECTIONS? NO . DO YOU HAVE HISTORY OF MRSA? NO . MUSCULOSKELETAL: ANY NEW PATTERNS OF PAIN OR NUMBNESS? NO . GASTROENTEROLOGY: ANY NEW CHANGE IN BOWEL CONTROL? NO . GENITOURINARY: ANY NEW CHANGE IN BLADDER CONTROL? NO . IS THERE A CHANCE YOU COULD BE ? NO . HEMATOLOGY/LYMPH: DO YOU TAKE ANY BLOOD THINNERS? (FOR EXAMPLE- COUMADIN, PLAVIX, AGGRENOX, PLATEL, PRADAXA, OR XARELTO) NO . WHEN WAS YOUR LAST DOSE? DATE: TIME: . NEUROLOGY: HAVE YOU FALLEN IN THE PAST 6 MONTHS? NO . ANY NEW EXTREMITY NUMBNESS OR WEAKNESS? NO . CARDIOLOGY: DO YOU HAVE A PACEMAKER OR DEFIBRILLATOR? NO . RESPIRATORY: HAVE YOU BEEN SICK IN THE PAST WEEK? NO . FEVER NO . FLU LIKE SYMPTOMS? NO . COUGH NO . INTEGUMENTARY: DO YOU HAVE ANY RASHES OR OPEN SORES? NO . ALLERGIC/IMMUNO: ARE YOU ALLERGIC TO SHELLFISH OR IV DYE? NO . ANY NEW ALLERGIES? NO . PSYCHIATRIC: DO YOU HAVE THOUGHTS OF HURTING YOURSELF OR SOMEONE ELSE? NO . ARE YOU ABUSED, NEGLECTED, OR IN AN UNSAFE ENVIRONMENT? NO . ENDOCRINOLOGY: ARE YOU DIABETIC? NO . OTHER: DO YOU NEED ANY PRESCRIPTIONS? NO . IF YES, PLEASE LIST: ____ . ANY NEW PROBLEMS WITH YOUR MEDICATIONS? NO . WHEN DID YOU LAST EAT? ____02/07/17 2400 . WHEN DID YOU LAST DRINK? ____02/08/17 0600 . WHAT DID YOU LAST DRINK? ____BLACK COFFEE . NAME OF PERSON DRIVING YOU HOME? ____MEL . DO YOU HAVE ANY OTHER QUESTIONS OR CONCERNS NO . VITAL SIGNS WT 240 LBS, HT 69 IN, BMI 35.44 INDEX, BP 150/81 MM HG, HR 74 /MIN, RR 18 /MIN, TEMP 97.6 F, OXYGEN SAT % 99%, NA INITIALS SC 09:39, REVIEWED BY: MICHAEL. ASSESSMENTS SPONDYLOSIS OF CERVICAL REGION WITHOUT MYELOPATHY OR RADICULOPATHY - M47.812 (PRIMARY) PROCEDURES PN CERVICAL FACET BLOCK LOW BILATERAL CERVICAL PRE PROCEDURE DIAGNOSIS CERVICAL SPONDYLOSIS POST PROCEDURE DIAGNOSIS CERVICAL SPONDYLOSIS PROCEDURE BILATERAL C3-C4 AND BILATERAL C5-C6 CERVICAL FACET BLOCK THERAPEUTIC SURGEON DR. BINU ZIMMERMAN FRENCH TUTOR NONE ANESTHESIA LOCAL PRE PROCEDURE NOTE THE PATIENT HAS HISTORY OF CHRONIC CERVICAL PAIN. I EVALUATE THE PATIENT AND REVIEWED THE CHART. I WENT OVER THE RISKS, ALTERNATIVES, AND BENEFITS ASSOCIATED WITH THIS PROCEDURE. THE PATIENT WOULD LIKE TO PROCEED AND GIVE CONSENT TO PERFORMED THE PROCEDURE. THE PATIENT DENIES UNEXPLAINABLE WEIGHT LOSS, FEVER, CHILLS, OR NEW CHANGES IN URINARY OR BOWEL CONTROL. DESCRIPTION OF PROCEDURE THE PATIENT WAS BROUGHT TO THE PROCEDURE ROOM AND PLACED IN THE PRONE POSITION. THE CERVICOTHORACIC AREA WAS CLEANED WITH CHLORAPREP SOLUTION AND DRAPED ASEPTICALLY. THE PROCEDURE WAS DONE UNDER STERILE CONDITIONS. I CHECKED LATERALITY AND THE LEVEL WHERE THE PROCEDURE WAS GOING TO BE PERFORMED WITH THE PATIENT AND THE SUPPORTING STAFF AT THE MOMENT OF THE TIME OUT IN THE PROCEDURE ROOM. UNDER FLUOROSCOPIC GUIDANCE, TARGET POINT WAS SELECTED AT THE RIGHT AND LEFT C3-C4 AND RIGHT AND LEFT C5-C6 CERVICAL FACET JOINT. TARGET POINTS WERE SELECTED AFTER LATERAL ROTATION AND TILT OF THE MAGNIFIER OF THE C-ARM. LIDOCAINE 0.5% WAS USED TO NUMB THE SKIN AND THE SUBCUTANEOUS TISSUE BELOW IT. SPINAL NEEDLES, 22-GAUGE, WERE ADVANCED UNDER FLUOROSCOPIC GUIDANCE AND FOLLOWING PATIENT FEEDBACK UNTIL THE TARGETS WERE TOUCHED. THE POSITION OF THE NEEDLES WAS VERIFIED WITH AP AND LATERAL VIEWS. AFTER PROPER POSITION OF THE NEEDLES WAS ACHIEVED, ISOVUE M DYE 30, 0.1 ML WAS INJECTED SHOWING SPREAD OF THE DYE. THEN A SOLUTION OF 0.9 ML OF BUPIVACAINE 0.125% AND KENALOG 10 MG WAS INJECTED AT EACH SITE. THERE WAS NO EVIDENCE OF BLOOD, PARESTHESIA OR CEREBROSPINAL FLUID DURING THE PROCEDURE. THE PATIENT WAS SENT TO THE RECOVERY ROOM. THE PATIENT WAS MOVING THE EXTREMITIES AND DOING WELL. THERE WAS NO COMPLICATION DURING THE PROCEDURE. FLUOROSCOPY TIME WAS 27 SECONDS POST PROCEDURE NOTE THE PATIENT WILL BE SEEN IN A FOLLOW UP IN THE NEXT FEW WEEKS. INSTRUCTIONS WERE GIVEN, QUESTIONS WERE ANSWERED, AND THE PATIENT EXPRESSED UNDERSTANDING AND AGREES WITH THE PLAN. I, KYLAH NIELSEN, DOCUMENTED THE ABOVE INFORMATION ACTING A SCRIBE FOR DR. ZIMMERMAN. I HAVE REVIEWED THE ABOVE DOCUMENT, WRITTEN BY KYLAH WALSH AND I VERIFY THAT IT IS ACCURATE PN WORKMANS' COMP OPINION IN YOUR OPINION, WAS THE INCIDENT THAT THE PATIENT DESCRIBED THE COMPETENT MEDICAL CAUSE OF THIS INJURY/ILLNESS? YES ARE THE PATIENT'S COMPLAINTS CONSISTENT WITH HIS/HER HISTORY OF THE INJURY/ILLNESS? YES IS THE PATIENT'S HISTORY OF THE INJURY/ILLNESS CONSISTENT WITH YOUR OBJECTIVE FINDING? YES WHAT IS THE PERCENTAGE OF TEMPORARY IMPAIRMENT? MODERATE TO MARKED = 66.7% IS THE PATIENT WORKING? NO DOCTOR ON SITE: BINU WILL MD DIAGNOSTIC IMAGING [facility] FACET BLOCK (PAIN)[id number] PROCEDURE CODES 62678 INJ PARAVERT F JNT C/T 1 LEV, MODIFIERS: 50 87995 INJ PARAVERT F JNT C/T 2 LEV, MODIFIERS: 50 6045F RADXPS IN END [id number] PXD DISPOSITION & COMMUNICATION FOLLOW UP 3 WEEKS ELECTRONICALLY SIGNED BY BINU ZIMMERMAN MD ON 02/08/2017 AT 01:03 PM EDT DISCLAIMER : THIS IS A VISIT SUMMARY EXTRACTED FROM THE [employer] CHART. IT IS NOT A COPY OF THE [employer] PROGRESS NOTE. MTDD
== END ==
LOC: M PAIN 09:30
PROVIDERS: ATTEND Anesthesiology
DX: G89.29 Other chronic pain (principal); M47.812 Spondylosis without myelopathy or radiculopathy, cervical region; E78.00 Pure hypercholesterolemia, unspecified; K21.9 Gastro-esophageal reflux disease without esophagitis; Z79.891 Long term (current) use of opiate analgesic; Z79.899 Other long term (current) drug therapy
CPT/HCPCS: 64490; 64491; J3301; Q9967

== ENCOUNTER → 2017-02-27 | Outpatient (CLI) | payer OTHER ==
[~2017-02-27] MED LIST changes: -BUPIVACAINE HCL 0.25% 30 ML VIAL As Ordered ONE; -ISOVUE-M 300 61% 15ML VIAL (Q9967) As Ordered ONE; -LIDOCAINE 1% SDV INJ 30 ML VIAL As Ordered ONE; -TRIAMCINOLONE ACETONIDE SUSP 40 MG/ML VIAL (J3301) As Ordered ONE; -diazePAM 5 MG TAB As Ordered ONE; -oxyCODONE 5MG TAB As Ordered ONE
--- NOTE | 2017-03-26 00:42 | ECWPNPC ---
PATIENT NAME: OWEN ROSALES : 1960 GENDER: MALE VISIT DATE: 02/27/2017 DISCHARGE DATE: 02/27/17 1036 VISIT LOCKED DATE TIME: PHYSICIAN: MARKUS MILLARD RESOURCE: MARKUS MILLARD REASON FOR APPOINTMENT 1. WC, NECK AND BACK HISTORY OF PRESENT ILLNESS HISTORY OF PRESENT ILLNESS: PAIN THE PATIENT DESCRIBES THE PAIN... FALL RISK SCREENING: SCREENING :NO FALLS IN THE PAST YEAR TODAY'S VISIT: NOTES: WC FOLLOWUP FOR NECK AND LOW BACK PAIN. IS S/P BILATERAL CERVICAL FACET BLOCK COMPLETED 02/08/17. REPORTS PAIN LEVEL PRIOR WAS 5/10 AND DECREASED TO 1-2/10 FOR A 60-80% IMPROVEMENT. NOTES AREA IS GRAD INTERN TO TOUCH. TODAY IS A BAD DAY AND PAIN IN NECK REGION IS A 4/10. IS HAVING INCREASED STIFFNESS AND TIGHTNESS IN THIS AREA. NO N/T TO ARMS. ARMS ACHE BUT NO SPECIFIC WEAKNESS. . CURRENT MEDICATIONS TAKING GEMFIBROZIL 600 MG TABLET 1 TABLET ORALLY DAILY TAKING LOVASTATIN 40 MG TABLET 2 TABLET ORALLY ONCE A DAY TAKING MULTIVITAL [place] TABLET ORALLY DAILY TAKING OMEPRAZOLE 40 MG CAPSULE DELAYED RELEASE 1 CAPSULE ORALLY ONCE A DAY TAKING MIRALAX PACKET 1 PACKET MIXED WITH 8 OUNCES OF FLUID ORALLY ONCE A DAY NEEDED TAKING MORPHINE SULFATE ER 15 MG TABLET EXTENDED RELEASE 1 TABLET ORALLY AT BEDTIME MDD=1 TAKING OXYCODONE HCL 5 MG TABLET 1 TABLET ORALLY EVERY 6-8 HRS PRN PAIN MDD=2 TAKING GABAPENTIN 400 MG CAPSULE 1 CAPSULE ORALLY FOR PAIN THREE TIMES A DAY NOT-TAKING IBUPROFEN 800 MG TABLET 1 TABLET NEEDED ORALLY WITH FOOD THREE TIMES DAILY NEEDED FOR PAIN NOT-TAKING TRAZODONE HCL 50 MG TABLET 1 TABLET AT BEDTIME NEEDED ORALLY ONCE A DAY MEDICATION LIST REVIEWED AND RECONCILED WITH THE PATIENT PAST MEDICAL HISTORY REFLUX HIGH CHOLESTEROL ALLERGIES N.K.D.A. SOCIAL HISTORY GENERAL: TOBACCO USE ARE YOU A:NONSMOKER ALCOHOL SCREENING POINTS4 INTERPRETATIONPOSITIVE RECREATIONAL DRUG USE DRUG USE?NO ORTHODOX [id number] YARSANISM LANGUAGE LANGUAGES SPOKEN:NIGERIEN LEARNING BARRIERS / SPECIAL NEEDS BARRIERS TO LEARNING?NO HEARING IMPAIRED?NO VISION IMPAIRED?YES GLASSES FOR READING COGNITIVELY IMPAIRED?NO READINESS TO LEARN?YES LEARNING PREFERENCES?NO LEARNING CAPABILITIES PRESENT?YES EMOTIONAL BARRIERS?NO SPECIAL DEVICES?NO LIFE GUARD NEEDED?NO PAIN CLINIC PFS, CLERGY, PUBLIC HEALTH REFERRALS PFS REFERRAL NEEDED?NO CLERGY REFERRAL NEEDED?NO PUBLIC HEALTH REFERRAL NEEDED?NO WAS THE PROVIDER NOTIFIED OF ANY PERTINENT INFO?NO HAS THE PATIENT BEEN EDUCATED REGARDING HIS/HER PLAN OF CARE?YES HAS THE PATIENT BEEN EDUCATED REGARDING PAIN, THE RISK FOR PAIN, THE IMPORTANCE OF EFFECTIVE PAIN MANAGEMENT, AND THE PAIN ASSESSMENT PROCESS?YES PATIENT: ____. ADVANCE DIRECTIVES HEALTH CARE PROXY?YES NAME OF HCP HARSHA ROSALES CONTACT # FOR HCP [phone] DO YOU HAVE A COPY WITH YOU?NO DO YOU HAVE A DNR?NO WOULD YOU LIKE MORE INFORMATION?NO LIVING WILL?NO WOULD YOU LIKE MORE INFORMATION?NO POWER OF FLIGHT HOSTESS?NO WOULD YOU LIKE MORE INFORMATION?NO REVIEW OF SYSTEMS REVIEWED BY: PROVIDER: MARKUS PRITCHARD . CONSTITUTIONAL: ANY CHANGE IN YOUR MEDICAL CONDITION? NO . CHILLS NO . FEVER NO . INFECTION: DO YOU HAVE NEW INFECTIONS? NO . DO YOU HAVE HISTORY OF MRSA? NO . MUSCULOSKELETAL: ANY NEW PATTERNS OF PAIN OR NUMBNESS? NO . GASTROENTEROLOGY: ANY NEW CHANGE IN BOWEL CONTROL? NO . GENITOURINARY: ANY NEW CHANGE IN BLADDER CONTROL? NO . IS THERE A CHANCE YOU COULD BE ? NO . HEMATOLOGY/LYMPH: DO YOU TAKE ANY BLOOD THINNERS? (FOR EXAMPLE- COUMADIN, PLAVIX, AGGRENOX, PLATEL, PRADAXA, OR XARELTO) NO . WHEN WAS YOUR LAST DOSE? DATE: TIME: . NEUROLOGY: HAVE YOU FALLEN IN THE PAST 6 MONTHS? NO . ANY NEW EXTREMITY NUMBNESS OR WEAKNESS? NO . CARDIOLOGY: DO YOU HAVE A PACEMAKER OR DEFIBRILLATOR? NO . RESPIRATORY: HAVE YOU BEEN SICK IN THE PAST WEEK? NO . FEVER NO . FLU LIKE SYMPTOMS? NO . COUGH NO . INTEGUMENTARY: DO YOU HAVE ANY RASHES OR OPEN SORES? NO . ALLERGIC/IMMUNO: ARE YOU ALLERGIC TO SHELLFISH OR IV DYE? NO . ANY NEW ALLERGIES? NO . PSYCHIATRIC: DO YOU HAVE THOUGHTS OF HURTING YOURSELF OR SOMEONE ELSE? NO . ARE YOU ABUSED, NEGLECTED, OR IN AN UNSAFE ENVIRONMENT? NO . ENDOCRINOLOGY: ARE YOU DIABETIC? NO . OTHER: DO YOU NEED ANY PRESCRIPTIONS? YES . IF YES, PLEASE LIST: MORPHINE AND OXYCODONE . ANY NEW PROBLEMS WITH YOUR MEDICATIONS? NO . WHEN DID YOU LAST EAT? ____ . WHEN DID YOU LAST DRINK? ____ . WHAT DID YOU LAST DRINK? ____ . NAME OF PERSON DRIVING YOU HOME? ____ . DO YOU HAVE ANY OTHER QUESTIONS OR CONCERNS NO . VITAL SIGNS WT 230.0 LBS, HT 69 IN, BMI 33.96 INDEX, BP 145/74 MM HG, HR 69 /MIN, RR 16 /MIN, TEMP 97.5 F, OXYGEN SAT % 98%, SAFE IN ENV? (Y/N) YES, NA INITIALS TL 1000, REVIEWED BY: CS. EXAMINATION GENERAL EXAMINATION: PSYCHALERT , ORIENTED X 3 , APPROPRIATE MOOD AND AFFECT . LUNGS:CLEAR TO AUSCULTATION BILATERALLY. HEART:HEART RATE REGULAR. MUSCULOSKELETAL:MARKED REDUCTION IN CERVICAL ROM, TRIGGER POINTS AND TIGHT FIBROUS BANDS IDENTIFIED OVER CERVICAL PARASPINOUS MUSCLES AND ACROSS TRAPEZIUS MUSCLES. ROM RESTRICED WITH SHOULDER SHRUG AND NECK ROTATION. ASSESSMENTS SPONDYLOSIS WITHOUT MYELOPATHY OR RADICULOPATHY, CERVICAL REGION - M47.812 (PRIMARY) CERVICALGIA - M54.2 POSTLAMINECTOMY SYNDROME, NOT ELSEWHERE CLASSIFIED - M96.1 TREATMENT SPONDYLOSIS WITHOUT MYELOPATHY OR RADICULOPATHY, CERVICAL REGION START TIZANIDINE HCL TABLET, 4 MG, 1/2 TO 1 TABLET, ORALLY, BID, 30 DAY(S), 60, REFILLS 1 REFILL MORPHINE SULFATE ER TABLET EXTENDED RELEASE, 15 MG, 1 TABLET, ORALLY, AT BEDTIME MDD=1, 30 DAY(S), 30, REFILLS 0 REFILL OXYCODONE HCL TABLET, 5 MG, 1 TABLET, ORALLY, EVERY 6-8 HRS PRN PAIN MDD=2, 30 DAY(S), 45, REFILLS 0 NOTES: USE VOLTAREN GEL TO NECK AREA. APPLY HEAT AND OCCASIONAL COLD PACK TO PAINFUL AREA. TRIAL OF TIZANIDINE FOR NECK SPASMS. CLINICAL NOTES: [employer]STOP REGISTRY REVIEWED AND DEMNOSTRATES COMPLLIANCE. (REF # [id number]) BRINGS IN MEDICATIONS WHICH IS APPROPRIATE FOR WHAT WAS DISPENSED. RECENT URINE TOXICOLOGY REVIEWED. NO UNAUTHORIZED MEDICATIONS. NO ILLICIT SUBSTANCES AND PRESCRIBED MEDICATIONS WERE PRESENT. , RISKS AND BENEFITS OF NARCOTIC/OPIOD MEDICATIONS WERE REVIEWED WITH PATIENT - THIS INCLUDES BUT IS NOT LIMITED TO RISK OF DEPENDANCE/DEVELOPMENT OF ADDICTION, MOOD DISTURBANCE AND DEPRESSION, OSTEOPOROSIS, HORMONAL AND LABIDAL CHANGES, RESPIRATORY DEPRESSION AND . PATIENT IS ADVISED NOT TO DRIVE WHILE ON THESE MEDICATIONS. PROCEDURES PN WORKMANS' COMP OPINION IN YOUR OPINION, WAS THE INCIDENT THAT THE PATIENT DESCRIBED THE COMPETENT MEDICAL CAUSE OF THIS INJURY/ILLNESS? YES ARE THE PATIENT'S COMPLAINTS CONSISTENT WITH HIS/HER HISTORY OF THE INJURY/ILLNESS? YES IS THE PATIENT'S HISTORY OF THE INJURY/ILLNESS CONSISTENT WITH YOUR OBJECTIVE FINDING? YES WHAT IS THE PERCENTAGE OF TEMPORARY IMPAIRMENT? MODERATE TO MARKED = 66.7% IS THE PATIENT WORKING? NO DOCTOR ON SITE: BINU WILL MD PROCEDURE CODES FA211 ESTABILISHED PATIENT [facility] CHARGE DISPOSITION & COMMUNICATION FOLLOW UP 1 MONTH (REASON: WC NECK/BACK) ELECTRONICALLY SIGNED BY KENZIE MOLINA ON 03/25/2017 AT 09:44 PM EST DISCLAIMER : THIS IS A VISIT SUMMARY EXTRACTED FROM THE [employer] CHART. IT IS NOT A COPY OF THE [employer] [facility] PROGRESS NOTE. ANALILIA
== END ==
LOC: M PAIN 10:00
PROVIDERS: ATTEND Nurse Practitioner Family
DX: M47.812 Spondylosis without myelopathy or radiculopathy, cervical region (principal); M54.2 Cervicalgia; M96.1 Postlaminectomy syndrome, not elsewhere classified; K21.9 Gastro-esophageal reflux disease without esophagitis; E78.00 Pure hypercholesterolemia, unspecified; Z79.891 Long term (current) use of opiate analgesic; Z79.899 Other long term (current) drug therapy

== ENCOUNTER → 2017-05-02 | Outpatient (REF) | payer OTHER ==
[2017-05-02 12:28] LABS: TOTAL 25(OH) VITAMIN D 29.3 NG/ML (30.0-100.0)
[2017-05-02 12:34] LABS: ALBUMIN 3.9 GM/DL (3.2-5.2); ALBUMIN/GLOBULIN RATIO 1.44 (1.00-1.93); ALKALINE PHOSPHATASE 59 U/L (45-117); ALT/SGPT 53 U/L (12-78); ANION GAP 5 MEQ/L (8-16); AST/SGOT 23 U/L (7-37); BILIRUBIN,TOTAL 0.4 MG/DL (0.2-1.0); BLOOD UREA NITROGEN 19 MG/DL (7-18); CALCIUM LEVEL 8.8 MG/DL (8.5-10.1); CARBON DIOXIDE LEVEL 27 MEQ/L (21-32); CHLORIDE LEVEL 111 MEQ/L (98-107); CHOLESTEROL LEVEL 205 MG/DL (<200); CHOLESTEROL RISK RATIO 3.727 (<5); CREATININE FOR GFR 0.95 MG/DL (0.70-1.30); GLOMERULAR FILTRATION RATE > 60.0 (>56); GLUCOSE, FASTING 96 MG/DL (70-105); HDL CHOLESTEROL 55 MG/DL (>40); LDL CHOLESTEROL 137.2 MG/DL (<100); NON-HDL-C 150 MG/DL; POTASSIUM SERUM 4.1 MEQ/L (3.5-5.1); SODIUM LEVEL 143 MEQ/L (136-145); TOTAL PROTEIN 6.6 GM/DL (6.4-8.2); TRIGLYCERIDES LEVEL 64 MG/DL (<150)
[2017-05-02 13:15] LABS: ESTIMATED AVERAGE GLUCOSE 123 MG/DL (60-110); HEMOGLOBIN A1c 5.9 %
== END ==
LOC: M LABDRAW1 10:44
DX: E55.9 Vitamin D deficiency, unspecified (principal); R73.9 Hyperglycemia, unspecified; R78.5 Finding of other psychotropic drug in blood

== ENCOUNTER → 2017-05-15 | Outpatient (CLI) | payer OTHER | LOC: M PAIN 09:45 | DX: M47.812 Spondylosis without myelopathy or radiculopathy, cervical region (principal); M54.2 Cervicalgia; M96.1 Postlaminectomy syndrome, not elsewhere classified; K21.9 Gastro-esophageal reflux disease without esophagitis; E78.00 Pure hypercholesterolemia, unspecified; Z79.891 Long term (current) use of opiate analgesic; Z79.899 Other long term (current) drug therapy | CPT/HCPCS: G0463 ==

== ENCOUNTER → 2017-06-08 | Outpatient (CLI) | payer OTHER | LOC: M PAIN 09:00 | DX: M47.812 Spondylosis without myelopathy or radiculopathy, cervical region (principal); M54.2 Cervicalgia; M96.1 Postlaminectomy syndrome, not elsewhere classified; K21.9 Gastro-esophageal reflux disease without esophagitis; E78.00 Pure hypercholesterolemia, unspecified; Z79.891 Long term (current) use of opiate analgesic; Z79.899 Other long term (current) drug therapy | CPT/HCPCS: G0463 ==

== ENCOUNTER → 2017-07-17 | Outpatient (CLI) | payer OTHER | LOC: M PAIN 14:15 | DX: M54.81 Occipital neuralgia (principal); M47.812 Spondylosis without myelopathy or radiculopathy, cervical region; M54.2 Cervicalgia; M96.1 Postlaminectomy syndrome, not elsewhere classified; K21.9 Gastro-esophageal reflux disease without esophagitis; E78.00 Pure hypercholesterolemia, unspecified; Z79.891 Long term (current) use of opiate analgesic; Z79.899 Other long term (current) drug therapy | CPT/HCPCS: G0463 ==

== ENCOUNTER → 2017-08-15 | Outpatient (CLI) | payer OTHER ==
[~2017-08-15] MED LIST changes: -AMBI10TA; -AMBI10TA OR; -AMIT10TA2; -AMIT25TA2 OR; -AVINZA; -AVINZA PO; +BUPIVACAINE HCL 0.25% 10 ML VIAL As Ordered; +BUPIVACAINE HCL 0.25% 30 ML VIAL As Ordered; -COUGH MED PO; -GABA800T3; -GABA800T3 OR; -GEMF600T; -GEMF600T OR; -IBUP80TA PO; -LOVA40TA OR; -MIRALEX OR; -MORP15TA4 OR; -MS C30TA2 OR; -MULTCAP PO; -MULTIVIT; -MULTIVIT PO; -NEUR300C OR; -OMEP20TA7 OR; -OMEP20TA7 PO; -OXYC5CAP4; -OXYC5CAP4 OR; -SENN8.6T14; -SKEL800T5; -SKEL800T5 OR; -SKEL800T97 PO; -SOMA350T; -SOMA350T OR; -STOOL SOFTNER PO; -TIZA2TAB; -TIZA4TAB OR; -TIZA4TAB3 PO; -TRAZ50TA11 PO; -TRAZ50TA2 PO; +TRIAMCINOLONE ACETONIDE SUSP 40 MG/ML VIAL (J3301) As Ordered; -VOLT1GEL TOP; -ZOCO80TA; -ZOCO80TA OR; -[UNRECOGNIZED DRUG - OTHER] PO; +diazePAM 5 MG TAB As Ordered; +oxyCODONE 5MG TAB As Ordered
== END | disposition home or self-care (01) ==
LOC: M PAIN 13:45
DX: G89.29 Other chronic pain (principal); M54.81 Occipital neuralgia; K21.9 Gastro-esophageal reflux disease without esophagitis; E78.00 Pure hypercholesterolemia, unspecified; Z79.899 Other long term (current) drug therapy; Z79.891 Long term (current) use of opiate analgesic
CPT/HCPCS: J3301

== ENCOUNTER → 2017-08-29 | Outpatient (CLI) | payer OTHER | LOC: M PAIN 08:45 | DX: M54.81 Occipital neuralgia (principal); M47.812 Spondylosis without myelopathy or radiculopathy, cervical region; M54.2 Cervicalgia; M96.1 Postlaminectomy syndrome, not elsewhere classified; K21.9 Gastro-esophageal reflux disease without esophagitis; E78.00 Pure hypercholesterolemia, unspecified; Z79.891 Long term (current) use of opiate analgesic; Z79.899 Other long term (current) drug therapy; Z96.651 Presence of right artificial knee joint | CPT/HCPCS: G0463 ==

== ENCOUNTER 2017-08-30 15:39 | Emergency (ER) | payer OTHER ==
[2017-08-30] MEDS: PERCOCET 5MG/325MG TAB PO (17:13)
[2017-08-30 17:18] LABS: HEMOGLOBIN 15.7 g/dl (13.5-17.5); MEAN CORPUSCULAR HEMOGLOBIN 28.2 pg (27.0-33.0); MEAN CORPUSCULAR HGB CONC 33.4 g/dl (32.0-36.5); MEAN CORPUSCULAR VOLUME 84.4 fl (80.0-96.0); PLATELET COUNT, AUTOMATED 308 10^3/uL (150-450); RED BLOOD COUNT 5.57 10^6/uL (4.30-6.10); WHITE BLOOD COUNT 7.3 10^3/uL (4.0-10.0)
[2017-08-30 17:48] LABS: ERYTHROCYTE SEDIMENTATION RATE 6 mm/hr (0-20)
[2017-08-30 17:50] LABS: ANION GAP 6 MEQ/L (8-16); BLOOD UREA NITROGEN 16 MG/DL (7-18); C REACTIVE PROTEIN QUANTITATIV 0.36 MG/DL (0.00-0.30); CALCIUM LEVEL 9.5 MG/DL (8.5-10.1); CARBON DIOXIDE LEVEL 28 MEQ/L (21-32); CHLORIDE LEVEL 107 MEQ/L (98-107); CREATININE FOR GFR 1.04 MG/DL (0.70-1.30); GLOMERULAR FILTRATION RATE > 60.0 (>56); GLUCOSE, FASTING 85 MG/DL (70-100); POTASSIUM SERUM 4.2 MEQ/L (3.5-5.1); SODIUM LEVEL 141 MEQ/L (136-145)
[2017-08-30] MEDS ORDERED: ISOVUE-370 76% 100ML VIAL (Q9967) As Ordered (17:53)
== END 2017-08-30 19:38 | disposition home or self-care (01) ==
LOC: M ED 15:39
DX: R59.0 Localized enlarged lymph nodes (principal); Z98.890 Other specified postprocedural states; Z79.899 Other long term (current) drug therapy
CPT/HCPCS: Q9967

== ENCOUNTER → 2017-10-10 | Outpatient (CLI) | payer OTHER | LOC: M PAIN 09:30 | DX: M47.812 Spondylosis without myelopathy or radiculopathy, cervical region (principal); M54.2 Cervicalgia; M96.1 Postlaminectomy syndrome, not elsewhere classified; K21.9 Gastro-esophageal reflux disease without esophagitis; E78.00 Pure hypercholesterolemia, unspecified; Z79.891 Long term (current) use of opiate analgesic; Z79.899 Other long term (current) drug therapy | CPT/HCPCS: G0463 ==

== ENCOUNTER → 2017-11-14 | Outpatient (CLI) | payer OTHER ==
[~2017-11-14] MED LIST changes: -BUPIVACAINE HCL 0.25% 10 ML VIAL As Ordered; -BUPIVACAINE HCL 0.25% 30 ML VIAL As Ordered; -TRIAMCINOLONE ACETONIDE SUSP 40 MG/ML VIAL (J3301) As Ordered
== END ==
LOC: M PAIN 08:30
DX: G89.29 Other chronic pain (principal); M47.812 Spondylosis without myelopathy or radiculopathy, cervical region; K21.9 Gastro-esophageal reflux disease without esophagitis; E78.00 Pure hypercholesterolemia, unspecified; Z79.891 Long term (current) use of opiate analgesic; Z79.899 Other long term (current) drug therapy; Z96.651 Presence of right artificial knee joint
CPT/HCPCS: 64490

== ENCOUNTER → 2017-12-05 | Outpatient (CLI) | payer OTHER | LOC: M PAIN 10:45 | DX: M47.812 Spondylosis without myelopathy or radiculopathy, cervical region (principal); M96.1 Postlaminectomy syndrome, not elsewhere classified; M54.2 Cervicalgia; K21.9 Gastro-esophageal reflux disease without esophagitis; E78.00 Pure hypercholesterolemia, unspecified; Z79.891 Long term (current) use of opiate analgesic; Z79.899 Other long term (current) drug therapy; Z96.651 Presence of right artificial knee joint | CPT/HCPCS: G0463 ==

== ENCOUNTER → 2018-02-07 | Outpatient (CLI) | payer OTHER | LOC: M PAIN 09:15 | DX: M47.812 Spondylosis without myelopathy or radiculopathy, cervical region (principal); Z79.891 Long term (current) use of opiate analgesic; M96.1 Postlaminectomy syndrome, not elsewhere classified; M54.2 Cervicalgia; K21.9 Gastro-esophageal reflux disease without esophagitis; E78.00 Pure hypercholesterolemia, unspecified; M54.81 Occipital neuralgia; Z79.899 Other long term (current) drug therapy | CPT/HCPCS: G0463 ==

== ENCOUNTER → 2018-03-29 | Outpatient (CLI) | payer OTHER | LOC: M PAIN 09:00 | DX: M47.812 Spondylosis without myelopathy or radiculopathy, cervical region (principal); M54.81 Occipital neuralgia; G89.29 Other chronic pain; K21.9 Gastro-esophageal reflux disease without esophagitis; E78.00 Pure hypercholesterolemia, unspecified; E66.01 Morbid (severe) obesity due to excess calories; Z68.37 Body mass index [BMI] 37.0-37.9, adult; Z79.891 Long term (current) use of opiate analgesic; Z79.899 Other long term (current) drug therapy; Z96.651 Presence of right artificial knee joint | CPT/HCPCS: G0463 ==

== ENCOUNTER → 2018-04-04 | Outpatient (REF) | payer BC ==
[2018-04-04 19:25] LABS: BASO # 0.1 10^3/uL (0.0-0.2); BASO % 0.7 % (0.0-1.0); EOS # 0.2 10^3/uL (0.0-0.50); EOS % 2.9 % (0.0-3.0); HEMATOCRIT 44.6 % (42.0-52.0); HEMOGLOBIN 15.2 g/dl (13.5-17.5); IMMATURE GRANULOCYTE % 0.4 % (0-3.0); LYMPH # 1.7 10^3/uL (1.5-4.5); LYMPH % 25.3 % (24.0-44.0); MEAN CORPUSCULAR HGB CONC 34.1 g/dl (32.0-36.5); MEAN CORPUSCULAR VOLUME 85.1 fl (80.0-96.0); MONO # 0.6 10^3/uL (0.0-0.8); MONO % 8.7 % (0.0-5.0); NEUTROPHILS # 4.3 10^3/uL (1.8-7.7); PLATELET COUNT, AUTOMATED 332 10^3/uL (150-450); RED BLOOD COUNT 5.24 10^6/uL (4.30-6.10); RED CELL DISTRIBUTION WIDTH 12.6 % (11.5-14.5); WHITE BLOOD COUNT 6.9 10^3/uL (4.0-10.0)
[2018-04-04 19:38] LABS: ALBUMIN 4.4 GM/DL (3.2-5.2); ALBUMIN/GLOBULIN RATIO 1.47 (1.00-1.93); ALKALINE PHOSPHATASE 70 U/L (45-117); ALT/SGPT 58 U/L (12-78); ANION GAP 8 MEQ/L (8-16); AST/SGOT 36 U/L (7-37); BILIRUBIN,TOTAL 0.3 MG/DL (0.2-1.0); BLOOD UREA NITROGEN 21 MG/DL (7-18); CALCIUM LEVEL 9.2 MG/DL (8.5-10.1); CARBON DIOXIDE LEVEL 24 MEQ/L (21-32); CHLORIDE LEVEL 107 MEQ/L (98-107); CHOLESTEROL LEVEL 228 MG/DL (<200); CHOLESTEROL RISK RATIO 4.653 (<5); CREATININE FOR GFR 1.01 MG/DL (0.70-1.30); GLOMERULAR FILTRATION RATE > 60.0 (>56); GLUCOSE, FASTING 93 MG/DL (70-100); HDL CHOLESTEROL 49 MG/DL (>40); LDL CHOLESTEROL 162 MG/DL (<100); NON-HDL-C 179 MG/DL; POTASSIUM SERUM 4.1 MEQ/L (3.5-5.1); PSA SCREENING 0.9 NG/ML (< 4.0); SODIUM LEVEL 139 MEQ/L (136-145); TOTAL PROTEIN 7.4 GM/DL (6.4-8.2); TRIGLYCERIDES LEVEL 83 MG/DL (<150)
[2018-04-04 19:39] LABS: TOTAL 25(OH) VITAMIN D 39.7 NG/ML (30.0-100.0)
[2018-04-04 19:42] LABS: ESTIMATED AVERAGE GLUCOSE 126 MG/DL (60-110)
== END ==
LOC: M LAB REF 10:31
DX: E78.5 Hyperlipidemia, unspecified (principal); E55.9 Vitamin D deficiency, unspecified; R06.09 Other forms of dyspnea; Z13.9 Encounter for screening, unspecified
CPT/HCPCS: 84443

== ENCOUNTER → 2018-04-11 | Outpatient (CLI) | payer BC | LOC: M LAB 12:29 | DX: K46.9 Unspecified abdominal hernia without obstruction or gangrene (principal); R06.09 Other forms of dyspnea | CPT/HCPCS: 71046 ==

== ENCOUNTER → 2018-05-15 | Outpatient (CLI) | payer OTHER ==
[~2018-05-15] MED LIST changes: +AMBI10TA; +AMBI10TA OR; +AMIT10TA2; +AMIT25TA2 OR; +AVINZA; +AVINZA PO; +BUPIVACAINE HCL 0.25% 30 ML VIAL As Ordered ONE; +COUGH MED PO; +GABA600T4 PO; +GABA800T3; +GABA800T3 OR; +GEMF600T; +GEMF600T OR; +IBUP80TA PO; +ISOVUE-M 300 61% 15ML VIAL (Q9967) As Ordered ONE; +LIDOCAINE 1% SDV INJ 30 ML VIAL As Ordered ONE; +LOVA40TA OR; +MIRALEX OR; +MORP15TA4 OR; +MS C30TA2 OR; +MULTCAP PO; +MULTIVIT; +MULTIVIT PO; +NEUR300C OR; +OMEP20TA7 OR; +OMEP20TA7 PO; +OXYC1TAB23 PO; +OXYC5CAP4; +OXYC5CAP4 OR; +SENN8.6T14; +SKEL800T5; +SKEL800T5 OR; +SKEL800T97 PO; +SOMA350T; +SOMA350T OR; +STOOL SOFTNER PO; +TIZA2TAB; +TIZA4TAB OR; +TIZA4TAB3 PO; +TRAZ-160 PO; +TRAZ50TA2 PO; +TRIAMCINOLONE ACETONIDE SUSP 40 MG/ML VIAL (J3301) As Ordered ONE; +VITA200025 PO; +VOLT1GEL TOP; +ZOCO80TA; +ZOCO80TA OR; +[UNRECOGNIZED DRUG - OTHER] PO; -diazePAM 5 MG TAB As Ordered; +diazePAM 5 MG TAB As Ordered ONE; -oxyCODONE 5MG TAB As Ordered; +oxyCODONE 5MG TAB As Ordered ONE
--- NOTE | 2018-05-15 18:51 | REP ---
Cervical spine series: Limited study five views. History: Left cervical facet joint injection procedure for pain. 1 minute 13 seconds of fluoroscopy time is reported. Findings: A sequence of five last image hold fluoroscopically obtained spot radiographs of the cervical spine documents needle position and contrast injection associated with cervical spine facet joint injection procedure. Electronically Signed by Nacho Christopher MD 05/15/2018 07:47 P
--- NOTE | 2018-06-03 00:35 | ECWPNPC ---
PATIENT NAME: OWEN ROSALES : 1960 GENDER: MALE VISIT DATE: 05/15/2018 DISCHARGE DATE: 05/15/18 1244 VISIT LOCKED DATE TIME: PHYSICIAN: BINU ZIMMERMAN MD RESOURCE: BINU ZIMMERMAN MD REASON FOR APPOINTMENT 1. CFBT HISTORY OF PRESENT ILLNESS HISTORY OF PRESENT ILLNESS: PAIN THE PATIENT DESCRIBES THE PAIN... FALL RISK SCREENING: SCREENING :NO FALLS IN THE PAST YEAR CURRENT MEDICATIONS TAKING GEMFIBROZIL 600 MG TABLET 1 TABLET ORALLY DAILY, NOTES: 05/14/18 TAKING LOVASTATIN 40 MG TABLET 2 TABLET ORALLY ONCE A DAY, NOTES: 05/14/18 TAKING MULTIVITAL KARLUK TABLET ORALLY DAILY, NOTES: 05/14/18 TAKING OMEPRAZOLE 40 MG CAPSULE DELAYED RELEASE 1 CAPSULE ORALLY ONCE A DAY, NOTES: 05/14/18 TAKING MIRALAX PACKET 1 PACKET MIXED WITH 8 OUNCES OF FLUID ORALLY ONCE A DAY NEEDED, NOTES: NONE LATELY TAKING VITAMIN D3 2000 UNIT CAPSULE 1 CAPSULE ORALLY ONCE A DAY, NOTES: 05/14/18 TAKING GABAPENTIN 600 MG TABLET 1 CAPSULE ORALLY THREE TIMES A DAY, NOTES: 05/14/18 TAKING MORPHINE SULFATE ER 15 MG TABLET EXTENDED RELEASE 1 TABLET ORALLY AT BEDTIME MDD=1, NOTES: 05/12/18 TAKING OXYCODONE HCL 5 MG TABLET 1 TABLET ORALLY EVERY 6-8 HRS PRN PAIN MDD=2, NOTES: 05/12/18 NOT-TAKING TIZANIDINE HCL 2 MG TABLET 1 TABLET NEEDED ORALLY FOR SPASMS AND PAIN EVERY 6 HOURS NEEDED MDD3 MEDICATION LIST REVIEWED AND RECONCILED WITH THE PATIENT PAST MEDICAL HISTORY REFLUX HIGH CHOLESTEROL CERVICALGIA BILATERAL OCCIPITAL NEURALGIA ALLERGIES N.K.D.A. SURGICAL HISTORY TOTAL RIGHT KNEE RIGHT HIP FX REPAIR ABDOMINAL EXPLORATORY SURGERY CERVICAL/THORACIC FUSION LEGIMENT AND CARTLIGE REMOVAL RIGHT KNEE 1977 FAMILY HISTORY NO FAMILY HISTORY DOCUMENTED. SOCIAL HISTORY GENERAL: TOBACCO USE ARE YOU A:NONSMOKER ALCOHOL SCREENING DID YOU HAVE A DRINK CONTAINING ALCOHOL IN THE PAST YEAR?YES HOW OFTEN DID YOU HAVE SIX OR MORE DRINKS ON ONE OCCASION IN THE PAST YEAR?LESS THAN MONTHLY (1 POINT) HOW MANY DRINKS DID YOU HAVE ON A TYPICAL DAY WHEN YOU WERE DRINKING IN THE PAST YEAR?5 OR 6 (2 POINTS) HOW OFTEN DID YOU HAVE A DRINK CONTAINING ALCOHOL IN THE PAST YEAR?MONTHLY OR LESS (1 POINT) POINTS4 INTERPRETATIONPOSITIVE RECREATIONAL DRUG USE DRUG USE?NO CAFFEINE CAFFEINE USE?YES HOW OFTEN AND HOW MUCH? FEW CUPS DAILY SCIENTOLOGY [id number] QUAKER LANGUAGE LANGUAGES SPOKEN:KITTITIAN EDUCATION LEVEL OF EDUCATION:HIGH SCHOOL LEARNING BARRIERS / SPECIAL NEEDS BARRIERS TO LEARNING?NO HEARING IMPAIRED?NO VISION IMPAIRED?YES GLASSES FOR READING COGNITIVELY IMPAIRED?NO READINESS TO LEARN?YES LEARNING PREFERENCES?NO LEARNING CAPABILITIES PRESENT?YES EMOTIONAL BARRIERS?NO SPECIAL DEVICES?NO FLASH DRIER OPERATOR NEEDED?NO DOMESTIC VIOLENCE DO YOU FEEL SAFE IN YOUR ENVIRONMENT?YES PAIN CLINIC PFS, CLERGY, PUBLIC HEALTH REFERRALS PFS REFERRAL NEEDED?NO CLERGY REFERRAL NEEDED?NO PUBLIC HEALTH REFERRAL NEEDED?NO WAS THE PROVIDER NOTIFIED OF ANY PERTINENT INFO?NO N/A HAS THE PATIENT BEEN EDUCATED REGARDING HIS/HER PLAN OF CARE?YES HAS THE PATIENT BEEN EDUCATED REGARDING PAIN, THE RISK FOR PAIN, THE IMPORTANCE OF EFFECTIVE PAIN MANAGEMENT, AND THE PAIN ASSESSMENT PROCESS?YES ADVANCE DIRECTIVE ADVANCE DIRECTIVE DISCUSSED WITH PATIENT:YES HAS HCP SON--HARSHA ROSALES [phone](C) REVIEWED NL 03/29/18. HOSPITALIZATION/MAJOR DIAGNOSTIC PROCEDURE SURGERIES REVIEW OF SYSTEMS REVIEWED BY: PROVIDER: . CONSTITUTIONAL: ANY CHANGE IN YOUR MEDICAL CONDITION? NO . CHILLS NO . FEVER NO . INFECTION: DO YOU HAVE NEW INFECTIONS? NO . DO YOU HAVE HISTORY OF MRSA? NO . MUSCULOSKELETAL: ANY NEW PATTERNS OF PAIN OR NUMBNESS? NO . GASTROENTEROLOGY: ANY NEW CHANGE IN BOWEL CONTROL? NO . GENITOURINARY: ANY NEW CHANGE IN BLADDER CONTROL? NO . IS THERE A CHANCE YOU COULD BE ? NO . HEMATOLOGY/LYMPH: DO YOU TAKE ANY BLOOD THINNERS? (FOR EXAMPLE- COUMADIN, PLAVIX, AGGRENOX, PLATEL, PRADAXA, OR XARELTO) NO . WHEN WAS YOUR LAST DOSE? DATE: TIME: . NEUROLOGY: HAVE YOU FALLEN IN THE PAST 12 MONTHS? NO . ANY NEW EXTREMITY NUMBNESS OR WEAKNESS? NO . CARDIOLOGY: DO YOU HAVE A PACEMAKER OR DEFIBRILLATOR? NO . RESPIRATORY: HAVE YOU BEEN SICK IN THE PAST WEEK? NO . FEVER NO . FLU LIKE SYMPTOMS? NO . COUGH NO . INTEGUMENTARY: DO YOU HAVE ANY RASHES OR OPEN SORES? NO . ALLERGIC/IMMUNO: ARE YOU ALLERGIC TO IV DYE? NO . ANY NEW ALLERGIES? NO . PSYCHIATRIC: DO YOU HAVE THOUGHTS OF HURTING YOURSELF OR SOMEONE ELSE? NO . ARE YOU ABUSED, NEGLECTED, OR IN AN UNSAFE ENVIRONMENT? NO . ENDOCRINOLOGY: ARE YOU DIABETIC? NO . OTHER: DO YOU NEED ANY PRESCRIPTIONS? NO . IF YES, PLEASE LIST: ____ . ANY NEW PROBLEMS WITH YOUR MEDICATIONS? NO . WHEN DID YOU LAST EAT? 05/14/181999 . WHEN DID YOU LAST DRINK? 05/14/181999 . WHAT DID YOU LAST DRINK? WATER . NAME OF PERSON DRIVING YOU HOME? AUSTEN . DO YOU HAVE ANY OTHER QUESTIONS OR CONCERNS NO . VITAL SIGNS WT 250.0 LBS, HT 69 IN, BMI 36.91 INDEX, BP 143/83 MM HG, HR 78 /MIN, RR 18 /MIN, TEMP 97.9 F, OXYGEN SAT % 96, NA INITIALS MP 1044, REVIEWED BY: EM. ASSESSMENTS SPONDYLOSIS OF CERVICAL REGION WITHOUT MYELOPATHY OR RADICULOPATHY - M47.812 (PRIMARY) PROCEDURES PN CERVICAL FACET BLOCK LOW BILATERAL CERVICAL PRE PROCEDURE DIAGNOSIS CERVICAL SPONDYLOSIS POST PROCEDURE DIAGNOSIS CERVICAL SPONDYLOSIS PROCEDURE LEFT C3-C4 CERVICAL FACET BLOCK SURGEON DR. BINU ZIMMERMAN GREASE PRESS HELPER NONE ANESTHESIA LOCAL PRE PROCEDURE NOTE THE PATIENT HAS HISTORY OF CHRONIC CERVICAL PAIN. I EVALUATE THE PATIENT AND REVIEWED THE CHART. I WENT OVER THE RISKS, ALTERNATIVES, AND BENEFITS ASSOCIATED WITH THIS PROCEDURE. THE PATIENT WOULD LIKE TO PROCEED AND GIVE CONSENT TO PERFORMED THE PROCEDURE. THE PATIENT DENIES UNEXPLAINABLE WEIGHT LOSS, FEVER, CHILLS, OR NEW CHANGES IN URINARY OR BOWEL CONTROL. DESCRIPTION OF PROCEDURE THE PATIENT WAS BROUGHT TO THE PROCEDURE ROOM AND PLACED IN THE PRONE POSITION. THE CERVICOTHORACIC AREA WAS CLEANED WITH CHLORAPREP SOLUTION AND DRAPED ASEPTICALLY. THE PROCEDURE WAS DONE UNDER STERILE CONDITIONS. I CHECKED LATERALITY AND THE LEVEL WHERE THE PROCEDURE WAS GOING TO BE PERFORMED WITH THE PATIENT AND THE SUPPORTING STAFF AT THE MOMENT OF THE TIME OUT IN THE PROCEDURE ROOM. UNDER FLUOROSCOPIC GUIDANCE, TARGET POINT WAS SELECTED AT THE LEFT C3-C4 CERVICAL FACET JOINT. TARGET POINTS WERE SELECTED AFTER LATERAL ROTATION AND TILT OF THE MAGNIFIER OF THE C-ARM. LIDOCAINE 0.5% WAS USED TO NUMB THE SKIN AND THE SUBCUTANEOUS TISSUE BELOW IT. SPINAL NEEDLES, 22-GAUGE, WERE ADVANCED UNDER FLUOROSCOPIC GUIDANCE AND FOLLOWING PATIENT FEEDBACK UNTIL THE TARGETS WERE TOUCHED. THE POSITION OF THE NEEDLES WAS VERIFIED WITH AP AND LATERAL VIEWS. AFTER PROPER POSITION OF THE NEEDLES WAS ACHIEVED, ISOVUE M DYE 30, 0.1 ML WAS INJECTED SHOWING SPREAD OF THE DYE. THEN A SOLUTION OF 0.9 ML OF BUPIVACAINE 0.125% AND KENALOG 10 MG WAS INJECTED AT EACH SITE. THERE WAS NO EVIDENCE OF BLOOD, PARESTHESIA OR CEREBROSPINAL FLUID DURING THE PROCEDURE. THE PATIENT WAS SENT TO THE RECOVERY ROOM. THE PATIENT WAS MOVING THE EXTREMITIES AND DOING WELL. THERE WAS NO COMPLICATION DURING THE PROCEDURE. FLUOROSCOPY TIME WAS 148 SECONDS POST PROCEDURE NOTE THE PATIENT WILL BE SEEN IN A FOLLOW UP IN THE NEXT FEW WEEKS. INSTRUCTIONS WERE GIVEN, QUESTIONS WERE ANSWERED, AND THE PATIENT EXPRESSED UNDERSTANDING AND AGREES WITH THE PLAN. I, ELIZABETH TAYLOR, DOCUMENTED THE ABOVE INFORMATION ACTING A SCRIBE FOR DR. ZIMMERMAN. I HAVE REVIEWED THE ABOVE DOCUMENT, WRITTEN BY ELIZABEHT TAYLOR SCRIBStu AND I VERIFY THAT IT IS ACCURATE. PN WORKMANS' COMP OPINION IN YOUR OPINION, WAS THE INCIDENT THAT THE PATIENT DESCRIBED THE COMPETENT MEDICAL CAUSE OF THIS INJURY/ILLNESS? YES ARE THE PATIENT'S COMPLAINTS CONSISTENT WITH HIS/HER HISTORY OF THE INJURY/ILLNESS? YES IS THE PATIENT'S HISTORY OF THE INJURY/ILLNESS CONSISTENT WITH YOUR OBJECTIVE FINDING? YES WHAT IS THE PERCENTAGE OF TEMPORARY IMPAIRMENT? MODERATE TO MARKED = 66.7% IS THE PATIENT WORKING? NO DOCTOR ON SITE: BINU WILL MD DIAGNOSTIC IMAGING [facility] FACET BLOCK (PAIN)[id number] PROCEDURE CODES 6045F RADXPS IN END [id number] PXD 72719 INJ PARAVERT F JNT C/T 1 LEV, MODIFIERS: LT DISPOSITION & COMMUNICATION FOLLOW UP 3 WEEKS ELECTRONICALLY SIGNED BY BINU ZIMMERMAN MD, MD ON 06/02/2018 AT 05:17 PM EST DISCLAIMER : THIS IS A VISIT SUMMARY EXTRACTED FROM THE [employer] CHART. IT IS NOT A COPY OF THE [employer] PROGRESS NOTE. MTDD
== END ==
LOC: M PAIN 10:15
PROVIDERS: ATTEND Anesthesiology
DX: G89.29 Other chronic pain (principal); M47.812 Spondylosis without myelopathy or radiculopathy, cervical region; K21.9 Gastro-esophageal reflux disease without esophagitis; E78.00 Pure hypercholesterolemia, unspecified; E66.01 Morbid (severe) obesity due to excess calories; Z68.36 Body mass index [BMI] 36.0-36.9, adult; Z79.891 Long term (current) use of opiate analgesic; Z79.899 Other long term (current) drug therapy; Z96.651 Presence of right artificial knee joint
CPT/HCPCS: 64490; J3301; Q9967

== ENCOUNTER → 2018-05-31 | Outpatient (CLI) | payer OTHER ==
[~2018-05-31] MED LIST changes: -BUPIVACAINE HCL 0.25% 30 ML VIAL As Ordered ONE; -ISOVUE-M 300 61% 15ML VIAL (Q9967) As Ordered ONE; -LIDOCAINE 1% SDV INJ 30 ML VIAL As Ordered ONE; -TRIAMCINOLONE ACETONIDE SUSP 40 MG/ML VIAL (J3301) As Ordered ONE; -diazePAM 5 MG TAB As Ordered ONE; -oxyCODONE 5MG TAB As Ordered ONE
--- NOTE | 2018-06-15 23:57 | ECWPNPC ---
PATIENT NAME: OWEN ROSALES : 1960 GENDER: MALE VISIT DATE: 05/31/2018 DISCHARGE DATE: 05/31/18 1023 VISIT LOCKED DATE TIME: PHYSICIAN: BINU ZIMMERMAN MD RESOURCE: BINU ZIMMERMAN MD REASON FOR APPOINTMENT 1. W/C POST PROC HISTORY OF PRESENT ILLNESS HISTORY OF PRESENT ILLNESS: PAIN THE PATIENT DESCRIBES THE PAIN... 58 YEAR OLD MALE PATIENT WITH A HISTORY OF CHRONIC NECK PAIN. THE PATIENT DESCRIBES THE PAIN ACHING, SORE, TENDER, AND CONTINUOUS WITH A PAIN SCORE OF 2-7/10 DEPENDING ON PHYSICAL ACTIVITY. THE PATIENT WAS HURT IN A WORK RELATED INJURY ON 09/25/2000 WHILE WORK FOR [employer] WHEN HE WAS LIFTING HEAVY WIRES AND HE INJURED HIS NECK. THE PATIENT WAS HERE FOR A LEFT THERAPEUTIC CERVICAL FACET BLOCK ON 05/15/2018 AND REPORTS HAVING MORE THAN 50% PAIN RELIEF FOR SEVERAL WEEKS AND IT HELPED INCREASE HIS MOBILITY AND FUNCTIONALITY. THE PATIENT SAYS THAT THE PAIN ON THE RIGHT SIDE OF HIS NECK HAS BEEN SEVERE OVER THE PAST MONTH. THE PATIENT IS CURRENTLY USING TIZANIDINE FOR SPASMS, BUT SAYS IT HAS NOT BEEN HELPING. THE PATIENT IS ALSO USING GABAPENTIN, MORPHINE, AND OXYCODONE TO AID IN PAIN RELIEF AND SAYS THE USE OF THESE MEDICATIONS HELP HIM REMAIN MOBILE AND FUNCTIONAL. PATIENT DENIES UNEXPLAINABLE WEIGHT LOSS, FEVER, CHILLS, NEW CHANGES ON HIS URINARY OR BOWEL CONTROL. FALL RISK SCREENING: SCREENING :NO FALLS IN THE PAST YEAR CURRENT MEDICATIONS TAKING GEMFIBROZIL 600 MG TABLET 1 TABLET ORALLY DAILY TAKING LOVASTATIN 40 MG TABLET 2 TABLET ORALLY ONCE A DAY TAKING MULTIVITAL IVANOF BAY TABLET ORALLY DAILY TAKING OMEPRAZOLE 40 MG CAPSULE DELAYED RELEASE 1 CAPSULE ORALLY ONCE A DAY TAKING MIRALAX PACKET 1 PACKET MIXED WITH 8 OUNCES OF FLUID ORALLY ONCE A DAY NEEDED TAKING VITAMIN D3 2000 UNIT CAPSULE 1 CAPSULE ORALLY ONCE A DAY TAKING GABAPENTIN 600 MG TABLET 1 CAPSULE ORALLY THREE TIMES A DAY TAKING MORPHINE SULFATE ER 15 MG TABLET EXTENDED RELEASE 1 TABLET ORALLY AT BEDTIME MDD=1 TAKING OXYCODONE HCL 5 MG TABLET 1 TABLET ORALLY EVERY 6-8 HRS PRN PAIN MDD=2 NOT-TAKING TIZANIDINE HCL 2 MG TABLET 1 TABLET NEEDED ORALLY FOR SPASMS AND PAIN EVERY 6 HOURS NEEDED MDD3 MEDICATION LIST REVIEWED AND RECONCILED WITH THE PATIENT PAST MEDICAL HISTORY REFLUX HIGH CHOLESTEROL CERVICALGIA BILATERAL OCCIPITAL NEURALGIA LOW BACK PAIN ALLERGIES N.K.D.A. SURGICAL HISTORY TOTAL RIGHT KNEE 2002 RIGHT HIP FX REPAIR 1985 ABDOMINAL EXPLORATORY SURGERY 1985 CERVICAL/THORACIC FUSION 2005 LEGIMENT AND CARTLIGE REMOVAL RIGHT KNEE 1977 FAMILY HISTORY FATHER: 84 YRS, CONGESTIVE HEART DISEASE, DIAGNOSED WITH HEART DISEASE MOTHER: ALIVE 92 YRS, PACEMAKER, DIAGNOSED WITH HEART DISEASE SOCIAL HISTORY GENERAL: TOBACCO USE ARE YOU A:NONSMOKER ALCOHOL SCREENING DID YOU HAVE A DRINK CONTAINING ALCOHOL IN THE PAST YEAR?YES HOW OFTEN DID YOU HAVE A DRINK CONTAINING ALCOHOL IN THE PAST YEAR?MONTHLY OR LESS (1 POINT) HOW MANY DRINKS DID YOU HAVE ON A TYPICAL DAY WHEN YOU WERE DRINKING IN THE PAST YEAR?5 OR 6 (2 POINTS) HOW OFTEN DID YOU HAVE SIX OR MORE DRINKS ON ONE OCCASION IN THE PAST YEAR?LESS THAN MONTHLY (1 POINT) POINTS4 INTERPRETATIONPOSITIVE RECREATIONAL DRUG USE DRUG USE?NO CAFFEINE CAFFEINE USE?YES HOW OFTEN AND HOW MUCH? FEW CUPS COFFEE DAILY DENOMINATIONAL [id number] [employer]VENT[employer] LANGUAGE LANGUAGES SPOKEN:MONEGASQUE EDUCATION LEVEL OF EDUCATION:HIGH SCHOOL LEARNING BARRIERS / SPECIAL NEEDS BARRIERS TO LEARNING?NO HEARING IMPAIRED?NO TINNITUS VISION IMPAIRED?YES GLASSES FOR READING COGNITIVELY IMPAIRED?NO READINESS TO LEARN?YES LEARNING PREFERENCES?NO LEARNING CAPABILITIES PRESENT?YES EMOTIONAL BARRIERS?NO SPECIAL DEVICES?NO AUTOCAD TECHNICIAN NEEDED?NO DOMESTIC VIOLENCE DO YOU FEEL SAFE IN YOUR ENVIRONMENT?YES DIET: REGULAR. EXERCISE: WALKS AND SWIMS AT Y 3 TIMES A WEEK. PAIN CLINIC PFS, CLERGY, PUBLIC HEALTH REFERRALS PFS REFERRAL NEEDED?NO CLERGY REFERRAL NEEDED?NO PUBLIC HEALTH REFERRAL NEEDED?NO WAS THE PROVIDER NOTIFIED OF ANY PERTINENT INFO?NO N/A HAS THE PATIENT BEEN EDUCATED REGARDING HIS/HER PLAN OF CARE?YES HAS THE PATIENT BEEN EDUCATED REGARDING PAIN, THE RISK FOR PAIN, THE IMPORTANCE OF EFFECTIVE PAIN MANAGEMENT, AND THE PAIN ASSESSMENT PROCESS?YES ADVANCE DIRECTIVE ADVANCE DIRECTIVE DISCUSSED WITH PATIENT:YES HAS HCP SON--HARSHA ROSALES [phone](C) REVIEWED NL 03/29/18. HOSPITALIZATION/MAJOR DIAGNOSTIC PROCEDURE SURGERIES REVIEW OF SYSTEMS REVIEWED BY: PROVIDER: BINU ZIMMERMAN MD . CONSTITUTIONAL: ANY CHANGE IN YOUR MEDICAL CONDITION? NO . CHILLS NO . FEVER NO . INFECTION: DO YOU HAVE NEW INFECTIONS? NO . DO YOU HAVE HISTORY OF MRSA? NO . MUSCULOSKELETAL: ANY NEW PATTERNS OF PAIN OR NUMBNESS? NO . GASTROENTEROLOGY: ANY NEW CHANGE IN BOWEL CONTROL? NO . GENITOURINARY: ANY NEW CHANGE IN BLADDER CONTROL? NO . IS THERE A CHANCE YOU COULD BE ? NO . HEMATOLOGY/LYMPH: DO YOU TAKE ANY BLOOD THINNERS? (FOR EXAMPLE- COUMADIN, PLAVIX, AGGRENOX, PLATEL, PRADAXA, OR XARELTO) NO . WHEN WAS YOUR LAST DOSE? DATE: TIME: . NEUROLOGY: HAVE YOU FALLEN IN THE PAST 12 MONTHS? NO . ANY NEW EXTREMITY NUMBNESS OR WEAKNESS? NO . CARDIOLOGY: DO YOU HAVE A PACEMAKER OR DEFIBRILLATOR? NO . RESPIRATORY: HAVE YOU BEEN SICK IN THE PAST WEEK? NO . FEVER NO . FLU LIKE SYMPTOMS? NO . COUGH NO . INTEGUMENTARY: DO YOU HAVE ANY RASHES OR OPEN SORES? NO . ALLERGIC/IMMUNO: ARE YOU ALLERGIC TO IV DYE? NO . ANY NEW ALLERGIES? NO . PSYCHIATRIC: DO YOU HAVE THOUGHTS OF HURTING YOURSELF OR SOMEONE ELSE? NO . ARE YOU ABUSED, NEGLECTED, OR IN AN UNSAFE ENVIRONMENT? NO . ENDOCRINOLOGY: ARE YOU DIABETIC? NO . OTHER: DO YOU NEED ANY PRESCRIPTIONS? NO . IF YES, PLEASE LIST: ____ . ANY NEW PROBLEMS WITH YOUR MEDICATIONS? NO . WHEN DID YOU LAST EAT? ____ . WHEN DID YOU LAST DRINK? ____ . WHAT DID YOU LAST DRINK? ____ . NAME OF PERSON DRIVING YOU HOME? ____ . DO YOU HAVE ANY OTHER QUESTIONS OR CONCERNS NO . VITAL SIGNS WT 247 LBS, HT 69 IN, BMI 36.47 INDEX, BP 142/93 MM HG, HR 98 /MIN, RR 18 /MIN, TEMP 98.0 F, OXYGEN SAT % 97%, NA INITIALS SC 09:26, REVIEWED BY: CORA. EXAMINATION GENERAL EXAMINATION: PATIENT IS ALERT O X 3 AND COOPERATIVE. PAIN INCREASES OVER THE CERVICAL FACET JOINTS ON THE RIGHT SIDE WITH EXTENSION AND LATERAL ROTATION OF THE NECK. 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 ROSALES'S PAIN MANAGEMENT CASE. DUE TO THE INCREASED PAIN ON THE RIGHT SIDE OF THE NECK, I WOULD LIKE TO MOVE FORWARD WITH A RIGHT C3-C4 THERAPEUTIC CERVICAL FACET BLOCK AT THIS TIME. WE DISCUSSED THE BENEFITS, RISKS, AND ALTERNATIVES OF THE INJECTION AND THE PATIENT WOULD LIKE TO PROCEED. THE PATIENT WILL CONTINUE USING GABAPENTIN FOR THE NEUROPATHIC PAIN, OXYCODONE FOR THE SOMATIC PAIN, AND MORPHINE FOR THE SOMATIC PAIN. ISTOP _[id number] WAS REVIEWED. URINE TOXICOLOGY DONE ON 02/07/2018 SHOWS CONCURRENT RESULTS. THE PATIENT WILL TRY TO REDUCE THE MORPHINE AFTER THE INJECTION. I WILL INCREASE THE TIZANIDINE FOR THE PATIENT'S ACUTE PAIN AND SPASMS. I WILL ALSO REQUEST AN INTERFERENTIAL TENS UNIT. INSTRUCTIONS WERE GIVEN, QUESTIONS WERE ANSWERED, PATIENT REPORTS UNDERSTANDING AND AGREES WITH THE PLAN. I, ELIZABETH TAYLOR, DOCUMENTED THE ABOVE INFORMATION ACTING A SCRIBE FOR DR. ZIMMERMAN. I HAVE REVIEWED THE ABOVE DOCUMENT, WRITTEN BY ELIZABETH EBLLIBStu AND I VERIFY THAT IT IS ACCURATE. OTHERS REFILL OXYCODONE HCL TABLET, 5 MG, 1 TABLET, ORALLY, EVERY 6-8 HRS PRN PAIN MDD=2, 30 DAY(S), 45, REFILLS 0 REFILL MORPHINE SULFATE ER TABLET EXTENDED RELEASE, 15 MG, 1 TABLET, ORALLY, AT BEDTIME MDD=1, 30 DAY(S), 30, REFILLS 0 REFILL TIZANIDINE HCL TABLET, 4 MG, 1 TABLET NEEDED, ORALLY, EVERY 6 HOURS NEEDED MDD3, 15 DAYS, 45, REFILLS 0 PROCEDURES PN WORKMANS' COMP OPINION IN YOUR OPINION, WAS THE INCIDENT THAT THE PATIENT DESCRIBED THE COMPETENT MEDICAL CAUSE OF THIS INJURY/ILLNESS? YES ARE THE PATIENT'S COMPLAINTS CONSISTENT WITH HIS/HER HISTORY OF THE INJURY/ILLNESS? YES IS THE PATIENT'S HISTORY OF THE INJURY/ILLNESS CONSISTENT WITH YOUR OBJECTIVE FINDING? YES WHAT IS THE PERCENTAGE OF TEMPORARY IMPAIRMENT? MODERATE TO MARKED = 66.7% IS THE PATIENT WORKING? NO DOCTOR ON SITE: BINU WILL MD PROCEDURE CODES FA211 ESTABILISHED PATIENT [facility] FACILITY CHARGE G8427 CURRENT MEDS W/DOSAGES DOCUMENTED G8730 PAIN ASSESS POS TOOL F/U PLAN DOC DISPOSITION & COMMUNICATION FOLLOW UP 3 WEEKS ELECTRONICALLY SIGNED BY BINU ZIMMERMAN MD, MD ON 06/15/2018 AT 05:10 PM EST DISCLAIMER : THIS IS A VISIT SUMMARY EXTRACTED FROM THE [employer] CHART. IT IS NOT A COPY OF THE [employer] PROGRESS NOTE. MTDD
== END ==
LOC: M PAIN 09:15
PROVIDERS: ATTEND Anesthesiology
DX: M47.812 Spondylosis without myelopathy or radiculopathy, cervical region (principal); G89.29 Other chronic pain; K21.9 Gastro-esophageal reflux disease without esophagitis; E78.00 Pure hypercholesterolemia, unspecified; Z79.891 Long term (current) use of opiate analgesic; Z79.899 Other long term (current) drug therapy; Z96.651 Presence of right artificial knee joint; Z96.641 Presence of right artificial hip joint

== ENCOUNTER → 2018-06-15 | Outpatient (CLI) | payer MEDICARE ==
--- NOTE | 2018-06-16 10:00 | REP ---
MRI BRAIN (IACS) WITHOUT CONTRAST: 06/15/2018. CLINICAL HISTORY: Sensorineural hearing loss. TECHNIQUE: Axial T1, T2 diffusion-weighted images and ADC mapping sequences along with high-resolution heavily T2-weighted thin section images and T1 axial thin-section images through the IACs. FINDINGS: There are no prior studies. Lateral ventricles are midline, symmetric, and without dilatation or displacement. Third and fourth ventricles also unremarkable. Basal ganglia symmetric and normal. Recinos-white junction differentiation is well maintained. There are a few tiny deep centrum semiovale punctate hyperintense the T2 and FLAIR signal foci on the left adjacent to the lateral ventricle near the corpus callosum. No signal abnormality in the corpus callosum. Cortical stripe is preserved. There is no vascular territory infarct, intracranial hemorrhage, mass, or mass effect. No extra-axial fluid collection. Globes and intraorbital contents symmetric. Some minor mucosal thickening in some of the posterior ethmoid air cells. Frontal sinuses and sphenoid air cells are clear. Visualized maxillary sinuses also clear. Brainstem intact. Cerebellum shows no atrophy or mass. Basal cisterns are intact. Seventh/eighth cranial nerve complexes show no abnormal signal, enlargement, or mass. There is no mastoid signal abnormality in either temporal bone. Corpus callosum, optic chiasm, pituitary are grossly normal. The diffusion-weighted images and ADC mapping sequences show no evidence of restricted water diffusion or acute ischemia. IMPRESSION: 1. Very minimal white matter tract hyperintense T2 and FLAIR foci in the deep central white matter and in periventricular white matter left hemisphere near the corpus callosum and lateral ventricle, which is nonspecific. May reflect some mild small vessel disease. 2. No acute infarct, intracranial hemorrhage, mass or mass effect. No extra-axial fluid collection. 3. Seventh/eighth cranial nerve complexes, mastoids, and the brainstem are without any signal abnormality. I would note that there is a tortuous basilar and vertebral artery with the left vertebral dominant, and it passes by the medulla slightly flattening the anterior left lateral medulla. No aneurysm. No other finding. Electronically Signed by David Calderón MD 06/16/2018 11:36 A
== END ==
LOC: M RAD 11:35
PROVIDERS: ATTEND Otolaryngology
DX: H90.A21 Sensorineural hearing loss, unilateral, right ear, with restricted hearing on the contralateral side (principal)

== ENCOUNTER → 2018-07-11 | Outpatient (CLI) | payer OTHER ==
[~2018-07-11] MED LIST changes: +BUPIVACAINE HCL 0.25% 30 ML VIAL As Ordered ONE; +ISOVUE-M 300 61% 15ML VIAL (Q9967) As Ordered ONE; +LIDOCAINE 1% SDV INJ 30 ML VIAL As Ordered ONE; +TRIAMCINOLONE ACETONIDE SUSP 40 MG/ML VIAL (J3301) As Ordered ONE; +diazePAM 5 MG TAB As Ordered ONE; +oxyCODONE 5MG TAB As Ordered ONE
--- NOTE | 2018-07-11 14:43 | REP ---
FLUOROSCOPIC GUIDANCE FOR CERVICAL FACET BLOCK: 07/11/2018. CLINICAL HISTORY: Right neck pain. FINDINGS: Single image from C-arm fluoroscopy provided to Dr. Scales of the pain clinic for right cervical facet block. That image shows a needle at the C3-4 and another at C4-5. Fluoroscopy time: 34 seconds. Electronically Signed by David Calderón MD 07/11/2018 07:51 P
--- NOTE | 2018-07-24 00:03 | ECWPNPC ---
PATIENT NAME: OWEN ROSALES : 1960 GENDER: MALE VISIT DATE: 07/11/2018 DISCHARGE DATE: 07/11/18 1027 VISIT LOCKED DATE TIME: PHYSICIAN: BINU ZIMMERMAN MD RESOURCE: BINU ZIMMERMAN MD REASON FOR APPOINTMENT 1. RIGHT C3-C4, C4-C5 CFBT HISTORY OF PRESENT ILLNESS HISTORY OF PRESENT ILLNESS: PAIN THE PATIENT DESCRIBES THE PAIN... FALL RISK SCREENING: SCREENING : NO FALLS IN THE PAST YEAR. CURRENT MEDICATIONS TAKING OXYCODONE HCL 5 MG TABLET 1 TABLET ORALLY EVERY 6-8 HRS PRN PAIN MDD=2, NOTES: 07/10/18 TAKING MORPHINE SULFATE ER 15 MG TABLET EXTENDED RELEASE 1 TABLET ORALLY AT BEDTIME MDD=1, NOTES: 07/10/18 TAKING TIZANIDINE HCL 4 MG TABLET 1 TABLET NEEDED ORALLY EVERY 6 HOURS NEEDED MDD3, NOTES: NONE LATELY TAKING GEMFIBROZIL 600 MG TABLET 1 TABLET ORALLY DAILY, NOTES: 07/11/18 TAKING LOVASTATIN 40 MG TABLET 2 TABLET ORALLY ONCE A DAY, NOTES: 07/10/18 TAKING MULTIVITAL KENAITZE TABLET ORALLY DAILY, NOTES: 07/11/18 TAKING OMEPRAZOLE 40 MG CAPSULE DELAYED RELEASE 1 CAPSULE ORALLY ONCE A DAY, NOTES: 07/11/18 TAKING MIRALAX PACKET 1 PACKET MIXED WITH 8 OUNCES OF FLUID ORALLY ONCE A DAY NEEDED, NOTES: NONE LATELY TAKING VITAMIN D3 2000 UNIT CAPSULE 1 CAPSULE ORALLY ONCE A DAY, NOTES: 07/11/18 TAKING GABAPENTIN 600 MG TABLET 1 CAPSULE ORALLY THREE TIMES A DAY, NOTES: 07/11/18 MEDICATION LIST REVIEWED AND RECONCILED WITH THE PATIENT PAST MEDICAL HISTORY REFLUX HIGH CHOLESTEROL CERVICALGIA BILATERAL OCCIPITAL NEURALGIA LOW BACK PAIN ALLERGIES N.K.D.A. SURGICAL HISTORY TOTAL RIGHT KNEE 2002 RIGHT HIP FX REPAIR 1985 ABDOMINAL EXPLORATORY SURGERY 1985 CERVICAL/THORACIC FUSION 2006 LEGIMENT AND CARTLIGE REMOVAL RIGHT KNEE 1976 FAMILY HISTORY FATHER: 84 YRS, CONGESTIVE HEART DISEASE, DIAGNOSED WITH HEART DISEASE MOTHER: ALIVE 92 YRS, PACEMAKER, HEART DISEASE SOCIAL HISTORY GENERAL: TOBACCO USE ARE YOU A:NONSMOKER ALCOHOL SCREENING DID YOU HAVE A DRINK CONTAINING ALCOHOL IN THE PAST YEAR?YES HOW OFTEN DID YOU HAVE SIX OR MORE DRINKS ON ONE OCCASION IN THE PAST YEAR?LESS THAN MONTHLY (1 POINT) HOW MANY DRINKS DID YOU HAVE ON A TYPICAL DAY WHEN YOU WERE DRINKING IN THE PAST YEAR?5 OR 6 (2 POINTS) HOW OFTEN DID YOU HAVE A DRINK CONTAINING ALCOHOL IN THE PAST YEAR?MONTHLY OR LESS (1 POINT) POINTS4 INTERPRETATIONPOSITIVE RECREATIONAL DRUG USE DRUG USE?NO CAFFEINE CAFFEINE USE?YES HOW OFTEN AND HOW MUCH? FEW CUPS COFFEE DAILY [employer] [id number] LANGUAGES SPOKEN:VIETNAMESE EDUCATION LEVEL OF EDUCATION:HIGH SCHOOL LEARNING BARRIERS / SPECIAL NEEDS BARRIERS TO LEARNING?NO HEARING IMPAIRED?NO TINNITUS VISION IMPAIRED?YES GLASSES FOR READING COGNITIVELY IMPAIRED?NO READINESS TO LEARN?YES LEARNING PREFERENCES?NO LEARNING CAPABILITIES PRESENT?YES EMOTIONAL BARRIERS?NO SPECIAL DEVICES?NO CUSTOMER RELATIONS ASSISTANT NEEDED?NO DOMESTIC VIOLENCE DO YOU FEEL SAFE IN YOUR ENVIRONMENT?YES DIET: REGULAR. EXERCISE: WALKS AND SWIMS AT Y 3 TIMES A WEEK. PAIN CLINIC PFS, CLERGY, PUBLIC HEALTH REFERRALS PFS REFERRAL NEEDED?NO CLERGY REFERRAL NEEDED?NO PUBLIC HEALTH REFERRAL NEEDED?NO WAS THE PROVIDER NOTIFIED OF ANY PERTINENT INFO?NO N/A HAS THE PATIENT BEEN EDUCATED REGARDING HIS/HER PLAN OF CARE?YES HAS THE PATIENT BEEN EDUCATED REGARDING PAIN, THE RISK FOR PAIN, THE IMPORTANCE OF EFFECTIVE PAIN MANAGEMENT, AND THE PAIN ASSESSMENT PROCESS?YES ADVANCE DIRECTIVE ADVANCE DIRECTIVE DISCUSSED WITH PATIENT:YES HAS HCP SON--HARSHA ROSALES [phone](C) REVIEWED NL 03/29/18. HOSPITALIZATION/MAJOR DIAGNOSTIC PROCEDURE SURGERIES REVIEW OF SYSTEMS REVIEWED BY: PROVIDER: . CONSTITUTIONAL: ANY CHANGE IN YOUR MEDICAL CONDITION? NO . CHILLS NO . FEVER NO . INFECTION: DO YOU HAVE NEW INFECTIONS? NO . DO YOU HAVE HISTORY OF MRSA? NO . MUSCULOSKELETAL: ANY NEW PATTERNS OF PAIN OR NUMBNESS? NO . GASTROENTEROLOGY: ANY NEW CHANGE IN BOWEL CONTROL? NO . GENITOURINARY: ANY NEW CHANGE IN BLADDER CONTROL? NO . IS THERE A CHANCE YOU COULD BE ? NO . HEMATOLOGY/LYMPH: DO YOU TAKE ANY BLOOD THINNERS? (FOR EXAMPLE- COUMADIN, PLAVIX, AGGRENOX, PLATEL, PRADAXA, OR XARELTO) NO . WHEN WAS YOUR LAST DOSE? DATE: TIME: . NEUROLOGY: HAVE YOU FALLEN IN THE PAST 12 MONTHS? NO . ANY NEW EXTREMITY NUMBNESS OR WEAKNESS? NO . CARDIOLOGY: DO YOU HAVE A PACEMAKER OR DEFIBRILLATOR? NO . RESPIRATORY: HAVE YOU BEEN SICK IN THE PAST WEEK? NO . FEVER NO . FLU LIKE SYMPTOMS? NO . COUGH NO . INTEGUMENTARY: DO YOU HAVE ANY RASHES OR OPEN SORES? NO . ALLERGIC/IMMUNO: ARE YOU ALLERGIC TO IV DYE? NO . ANY NEW ALLERGIES? NO . PSYCHIATRIC: DO YOU HAVE THOUGHTS OF HURTING YOURSELF OR SOMEONE ELSE? NO . ARE YOU ABUSED, NEGLECTED, OR IN AN UNSAFE ENVIRONMENT? NO . ENDOCRINOLOGY: ARE YOU DIABETIC? NO . OTHER: DO YOU NEED ANY PRESCRIPTIONS? NO . IF YES, PLEASE LIST: ____ . ANY NEW PROBLEMS WITH YOUR MEDICATIONS? NO . WHEN DID YOU LAST EAT? 07/10/18 1900 . WHEN DID YOU LAST DRINK? 05/13/18 0600 . WHAT DID YOU LAST DRINK? WATER . NAME OF PERSON DRIVING YOU HOME? AUSTEN . DO YOU HAVE ANY OTHER QUESTIONS OR CONCERNS NO . VITAL SIGNS WT 246.4 LBS, HT 69 IN, BMI 36.38 INDEX, BP 129/75 MM HG, HR 73 /MIN, RR 18 /MIN, TEMP 97.1 F, OXYGEN SAT % 97%, NA INITIALS SC 09:00, REVIEWED BY: EM. ASSESSMENTS SPONDYLOSIS OF CERVICAL REGION WITHOUT MYELOPATHY OR RADICULOPATHY - M47.812 (PRIMARY) PROCEDURES PN CERVICAL FACET BLOCK LOW BILATERAL CERVICAL PRE PROCEDURE DIAGNOSIS CERVICAL SPONDYLOSIS POST PROCEDURE DIAGNOSIS CERVICAL SPONDYLOSIS PROCEDURE RIGHT C3-C4 AND RIGHT C4-C5 CERVICAL FACET BLOCK SURGEON DR. BINU ZIMMERMAN ASSEMBLY MEMBER NONE ANESTHESIA LOCAL PRE PROCEDURE NOTE THE PATIENT HAS HISTORY OF CHRONIC CERVICAL PAIN. I EVALUATE THE PATIENT AND REVIEWED THE CHART. I WENT OVER THE RISKS, ALTERNATIVES, AND BENEFITS ASSOCIATED WITH THIS PROCEDURE. THE PATIENT WOULD LIKE TO PROCEED AND GIVE CONSENT TO PERFORMED THE PROCEDURE. THE PATIENT DENIES UNEXPLAINABLE WEIGHT LOSS, FEVER, CHILLS, OR NEW CHANGES IN URINARY OR BOWEL CONTROL. DESCRIPTION OF PROCEDURE THE PATIENT WAS BROUGHT TO THE PROCEDURE ROOM AND PLACED IN THE PRONE POSITION. THE CERVICOTHORACIC AREA WAS CLEANED WITH CHLORAPREP SOLUTION AND DRAPED ASEPTICALLY. THE PROCEDURE WAS DONE UNDER STERILE CONDITIONS. I CHECKED LATERALITY AND THE LEVEL WHERE THE PROCEDURE WAS GOING TO BE PERFORMED WITH THE PATIENT AND THE SUPPORTING STAFF AT THE MOMENT OF THE TIME OUT IN THE PROCEDURE ROOM. UNDER FLUOROSCOPIC GUIDANCE, TARGET POINT WAS SELECTED AT THE RIGHT C3-C4 AND RIGHT C4-C5 CERVICAL FACET JOINT. TARGET POINTS WERE SELECTED AFTER LATERAL ROTATION AND TILT OF THE MAGNIFIER OF THE C-ARM. LIDOCAINE 0.5% WAS USED TO NUMB THE SKIN AND THE SUBCUTANEOUS TISSUE BELOW IT. SPINAL NEEDLES, 22-GAUGE, WERE ADVANCED UNDER FLUOROSCOPIC GUIDANCE AND FOLLOWING PATIENT FEEDBACK UNTIL THE TARGETS WERE TOUCHED. THE POSITION OF THE NEEDLES WAS VERIFIED WITH AP AND LATERAL VIEWS. AFTER PROPER POSITION OF THE NEEDLES WAS ACHIEVED, ISOVUE M DYE 30, 0.1 ML WAS INJECTED SHOWING SPREAD OF THE DYE. THEN A SOLUTION OF 0.9 ML OF BUPIVACAINE 0.125% AND KENALOG 10 MG WAS INJECTED AT EACH SITE. THERE WAS NO EVIDENCE OF BLOOD, PARESTHESIA OR CEREBROSPINAL FLUID DURING THE PROCEDURE. THE PATIENT WAS SENT TO THE RECOVERY ROOM. THE PATIENT WAS MOVING THE EXTREMITIES AND DOING WELL. THERE WAS NO COMPLICATION DURING THE PROCEDURE. FLUOROSCOPY TIME WAS 34 SECONDS POST PROCEDURE NOTE THE PATIENT WILL BE SEEN IN A FOLLOW UP IN THE NEXT FEW WEEKS. INSTRUCTIONS WERE GIVEN, QUESTIONS WERE ANSWERED, AND THE PATIENT EXPRESSED UNDERSTANDING AND AGREES WITH THE PLAN. I, ELIZABETH TAYLOR, DOCUMENTED THE ABOVE INFORMATION ACTING A SCRIBE FOR DR. ZIMMERMAN. I HAVE REVIEWED THE ABOVE DOCUMENT, WRITTEN BY ELIZABETH BELLIBStu AND I VERIFY THAT IT IS ACCURATE. PN WORKMANS' COMP OPINION IN YOUR OPINION, WAS THE INCIDENT THAT THE PATIENT DESCRIBED THE COMPETENT MEDICAL CAUSE OF THIS INJURY/ILLNESS? YES ARE THE PATIENT'S COMPLAINTS CONSISTENT WITH HIS/HER HISTORY OF THE INJURY/ILLNESS? YES IS THE PATIENT'S HISTORY OF THE INJURY/ILLNESS CONSISTENT WITH YOUR OBJECTIVE FINDING? YES WHAT IS THE PERCENTAGE OF TEMPORARY IMPAIRMENT? MODERATE TO MARKED = 66.7% IS THE PATIENT WORKING? NO DOCTOR ON SITE: BINU WILL MD DIAGNOSTIC IMAGING [facility], [place] FACET BLOCK (PAIN)[id number] PROCEDURE CODES 6045F RADXPS IN END [id number] PXD [id number] INJ PARAVERT F JNT C/T 1 LEV, MODIFIERS: [place] [address]57 INJ PARAVERT F JNT C/T 2 LEV, MODIFIERS: RT DISPOSITION & COMMUNICATION FOLLOW UP 3 WEEKS ELECTRONICALLY SIGNED BY BINU ZIMMERMAN MD, MD ON 07/23/2018 AT 10:53 AM EDT DISCLAIMER : THIS IS A VISIT SUMMARY EXTRACTED FROM THE [employer] CHART. IT IS NOT A COPY OF THE [employer] PROGRESS NOTE. MTDD
== END ==
LOC: M PAIN 08:45
PROVIDERS: ATTEND Anesthesiology
DX: M47.812 Spondylosis without myelopathy or radiculopathy, cervical region (principal); K21.9 Gastro-esophageal reflux disease without esophagitis; E78.00 Pure hypercholesterolemia, unspecified; M54.5 Low back pain; Z79.891 Long term (current) use of opiate analgesic; Z79.899 Other long term (current) drug therapy; Z96.651 Presence of right artificial knee joint; Z98.1 Arthrodesis status
CPT/HCPCS: 64490; 64491; J3301; Q9967

== ENCOUNTER → 2018-07-26 | Outpatient (CLI) | payer OTHER ==
[~2018-07-26] MED LIST changes: -BUPIVACAINE HCL 0.25% 30 ML VIAL As Ordered ONE; -ISOVUE-M 300 61% 15ML VIAL (Q9967) As Ordered ONE; -LIDOCAINE 1% SDV INJ 30 ML VIAL As Ordered ONE; -TRIAMCINOLONE ACETONIDE SUSP 40 MG/ML VIAL (J3301) As Ordered ONE; -diazePAM 5 MG TAB As Ordered ONE; -oxyCODONE 5MG TAB As Ordered ONE
--- NOTE | 2018-08-08 01:18 | ECWPNPC ---
PATIENT NAME: OWEN ROSALES : 1960 GENDER: MALE VISIT DATE: 07/26/2018 DISCHARGE DATE: 07/26/18 1112 VISIT LOCKED DATE TIME: PHYSICIAN: BINU ZIMMERMAN MD RESOURCE: BINU ZIMMERMAN MD REASON FOR APPOINTMENT 1. POST PROC HISTORY OF PRESENT ILLNESS HISTORY OF PRESENT ILLNESS: PAIN THE PATIENT DESCRIBES THE PAIN... 58 YEAR OLD MALE PATIENT WITH A HISTORY OF CHRONIC NECK AND BACK PAIN. THE PATIENT DESCRIBES THE PAIN ACHING, SORE, TENDER, AND CONTINUOUS WITH A PAIN SCORE OF 4-8/10 DEPENDING ON PHYSICAL ACTIVITY. 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 THE PATIENT WAS HERE ON 07/11/2018 FOR A THERAPEUTIC CERVICAL FACET BLOCK AND REPORTS MORE THAN 50% PAIN RELIEF AND AN INCREASES IN MOBILITY AND FUNCTIONALITY. THE PATIENT SAYS THE PAIN IN HIS LOW BACK HAS INCREASED RECENTLY. 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 THE PATIENT IS USING GABAPENTIN, OXYCODONE, AND MORPHINE TO AID IN PAIN RELIEF. PATIENT DENIES UNEXPLAINABLE WEIGHT LOSS, FEVER, CHILLS, NEW CHANGES ON HIS URINARY OR BOWEL CONTROL. FALL RISK SCREENING: SCREENING :NO FALLS REPORTED IN THE LAST YEAR CURRENT MEDICATIONS TAKING GEMFIBROZIL 600 MG TABLET 1 TABLET ORALLY DAILY TAKING LOVASTATIN 40 MG TABLET 2 TABLET ORALLY ONCE A DAY TAKING MULTIVITAL [place] TABLET ORALLY DAILY TAKING OMEPRAZOLE 40 MG CAPSULE DELAYED RELEASE 1 CAPSULE ORALLY ONCE A DAY TAKING MIRALAX PACKET 1 PACKET MIXED WITH 8 OUNCES OF FLUID ORALLY ONCE A DAY NEEDED TAKING VITAMIN D3 2000 UNIT CAPSULE 1 CAPSULE ORALLY ONCE A DAY TAKING GABAPENTIN 600 MG TABLET 1 CAPSULE ORALLY THREE TIMES A DAY TAKING OXYCODONE HCL 5 MG TABLET 1 TABLET ORALLY EVERY 6-8 HRS PRN PAIN MDD=2 TAKING MORPHINE SULFATE ER 15 MG TABLET EXTENDED RELEASE 1 TABLET ORALLY AT BEDTIME MDD=1 NOT-TAKING TIZANIDINE HCL 4 MG TABLET 1 TABLET NEEDED ORALLY EVERY 6 HOURS NEEDED MDD3 MEDICATION LIST REVIEWED AND RECONCILED WITH THE PATIENT PAST MEDICAL HISTORY REFLUX HIGH CHOLESTEROL CERVICALGIA BILATERAL OCCIPITAL NEURALGIA LOW BACK PAIN ALLERGIES N.K.D.A. SURGICAL HISTORY TOTAL RIGHT KNEE 2001 RIGHT HIP FX REPAIR 1985 ABDOMINAL EXPLORATORY SURGERY 1985 CERVICAL/THORACIC FUSION 2006 LEGIMENT AND CARTLIGE REMOVAL RIGHT KNEE 1977 FAMILY HISTORY FATHER: 84 YRS, CONGESTIVE HEART DISEASE, DIAGNOSED WITH HEART DISEASE MOTHER: ALIVE 92 YRS, PACEMAKER, HEART DISEASE SOCIAL HISTORY GENERAL: TOBACCO USE ARE YOU A:NONSMOKER LATEX QUESTIONNAIRE LATEX ALLERGY : HAVE YOU EVER DEVELOPED ANY TYPE OF REACTION AFTER HANDLING LATEX PRODUCTS SUCH RUBBER GLOVES, CONDOMS, DIAPHRAGMS, BALLOONS, SOCKS, OR UNDERWEAR?NO LATEX ALLERGY : HAVE YOU EVER DEVELOPED ANY TYPE OF REACTION DURING OR AFTER DENTAL APPOINTMENT, VAGINAL/RECTAL EXAMINATION, SURGICAL PROCEDURE, OR ANY OTHER EXPOSURE?NO LATEX RISK : HAVE YOU EVER HAD ANY DIFFICULTY BREATHING OR HIVES AFTER EATING OR HANDLING ANY FRUITS, OR VEGETABLES; SUCH KIWI, BANANAS, STONE FRUITS, OR CHESTNUTSNO LATEX RISK : DO YOU HAVE A PREVIOUS PERSONAL HISTORY OF MORE THAN NINE SURGERIES, SPINA BIFIDA, OR REPEATED CATHERTIZATIONS? NO LATEX RISK : ARE YOU FREQUENTLY EXPOSED TO LATEX PRODUCTS IN YOUR OCCUPATION?NO DATE ASKED : 07/26/2018 ALCOHOL SCREENING DID YOU HAVE A DRINK CONTAINING ALCOHOL IN THE PAST YEAR?YES HOW OFTEN DID YOU HAVE A DRINK CONTAINING ALCOHOL IN THE PAST YEAR?MONTHLY OR LESS (1 POINT) HOW MANY DRINKS DID YOU HAVE ON A TYPICAL DAY WHEN YOU WERE DRINKING IN THE PAST YEAR?5 OR 6 (2 POINTS) HOW OFTEN DID YOU HAVE SIX OR MORE DRINKS ON ONE OCCASION IN THE PAST YEAR?LESS THAN MONTHLY (1 POINT) POINTS4 INTERPRETATIONPOSITIVE RECREATIONAL DRUG USE DRUG USE?NO CAFFEINE CAFFEINE USE?YES HOW OFTEN AND HOW MUCH? FEW CUPS COFFEE DAILY [employer] [id number] [employer] LANGUAGES SPOKEN:TAJIK EDUCATION LEVEL OF EDUCATION:HIGH SCHOOL LEARNING BARRIERS / SPECIAL NEEDS BARRIERS TO LEARNING?NO HEARING IMPAIRED?NO TINNITUS VISION IMPAIRED?YES GLASSES FOR READING COGNITIVELY IMPAIRED?NO READINESS TO LEARN?YES LEARNING PREFERENCES?NO LEARNING CAPABILITIES PRESENT?YES EMOTIONAL BARRIERS?NO SPECIAL DEVICES?NO HAND POTTER NEEDED?NO DOMESTIC VIOLENCE DO YOU FEEL SAFE IN YOUR ENVIRONMENT?YES DIET: REGULAR. EXERCISE: WALKS AND SWIMS AT Y 3 TIMES A WEEK. PAIN CLINIC PFS, CLERGY, PUBLIC HEALTH REFERRALS PFS REFERRAL NEEDED?NO CLERGY REFERRAL NEEDED?NO PUBLIC HEALTH REFERRAL NEEDED?NO WAS THE PROVIDER NOTIFIED OF ANY PERTINENT INFO?NO N/A HAS THE PATIENT BEEN EDUCATED REGARDING HIS/HER PLAN OF CARE?YES HAS THE PATIENT BEEN EDUCATED REGARDING PAIN, THE RISK FOR PAIN, THE IMPORTANCE OF EFFECTIVE PAIN MANAGEMENT, AND THE PAIN ASSESSMENT PROCESS?YES ADVANCE DIRECTIVE ADVANCE DIRECTIVE DISCUSSED WITH PATIENT:YES HAS HCP SON--HARSHA ROSALES [phone](C) REVIEWED NL 03/29/18REVIEWED WITH PATIENT 07/26/18 1021 JS. HOSPITALIZATION/MAJOR DIAGNOSTIC PROCEDURE SURGERIES REVIEW OF SYSTEMS REVIEWED BY: PROVIDER: BINU ZIMMERMAN MD . CONSTITUTIONAL: ANY CHANGE IN YOUR MEDICAL CONDITION? NO . CHILLS NO . FEVER NO . INFECTION: DO YOU HAVE NEW INFECTIONS? NO . DO YOU HAVE HISTORY OF MRSA? NO . MUSCULOSKELETAL: ANY NEW PATTERNS OF PAIN OR NUMBNESS? NO . GASTROENTEROLOGY: ANY NEW CHANGE IN BOWEL CONTROL? NO . GENITOURINARY: ANY NEW CHANGE IN BLADDER CONTROL? NO . IS THERE A CHANCE YOU COULD BE ? NO . HEMATOLOGY/LYMPH: DO YOU TAKE ANY BLOOD THINNERS? (FOR EXAMPLE- COUMADIN, PLAVIX, AGGRENOX, PLATEL, PRADAXA, OR XARELTO) NO . WHEN WAS YOUR LAST DOSE? DATE: TIME: . NEUROLOGY: HAVE YOU FALLEN IN THE PAST 12 MONTHS? NO . ANY NEW EXTREMITY NUMBNESS OR WEAKNESS? NO . CARDIOLOGY: DO YOU HAVE A PACEMAKER OR DEFIBRILLATOR? NO . RESPIRATORY: HAVE YOU BEEN SICK IN THE PAST WEEK? NO . FEVER NO . FLU LIKE SYMPTOMS? NO . COUGH NO . INTEGUMENTARY: DO YOU HAVE ANY RASHES OR OPEN SORES? NO . ALLERGIC/IMMUNO: ARE YOU ALLERGIC TO IV DYE? NO . ANY NEW ALLERGIES? NO . PSYCHIATRIC: DO YOU HAVE THOUGHTS OF HURTING YOURSELF OR SOMEONE ELSE? NO . ARE YOU ABUSED, NEGLECTED, OR IN AN UNSAFE ENVIRONMENT? NO . ENDOCRINOLOGY: ARE YOU DIABETIC? NO . OTHER: DO YOU NEED ANY PRESCRIPTIONS? YES . IF YES, PLEASE LIST: ____GABAPENTIN . ANY NEW PROBLEMS WITH YOUR MEDICATIONS? NO . WHEN DID YOU LAST EAT? ____ . WHEN DID YOU LAST DRINK? ____ . WHAT DID YOU LAST DRINK? ____ . NAME OF PERSON DRIVING YOU HOME? ____ . DO YOU HAVE ANY OTHER QUESTIONS OR CONCERNS NO . VITAL SIGNS WT 245 LBS, HT 69 IN, BMI 36.18 INDEX, BP 148/81 MM HG, HR 79 /MIN, RR 18 /MIN, TEMP 98.2 F, OXYGEN SAT % 97%, SAFE IN ENV? (Y/N) YES, NA INITIALS SC 10:10, REVIEWED BY: JS. EXAMINATION GENERAL EXAMINATION: PATIENT IS ALERT O X 3 AND COOPERATIVE. PAIN INCREASES OVER THE LUMBAR FACET JOINTS WITH EXTENSION AND LATERAL ROTATION OF THE BACK. MRI OF THE LUMBAR SPINE DONE ON 02/26/2014 SHOWS FACET ARTHROPATHY CHANGES AT MULTIPLE LEVELS. ASSESSMENTS SPONDYLOSIS OF LUMBAR REGION WITHOUT MYELOPATHY OR RADICULOPATHY - M47.816 (PRIMARY) TREATMENT SPONDYLOSIS OF LUMBAR REGION WITHOUT MYELOPATHY OR RADICULOPATHY CLINICAL NOTES: WE DISCUSSED SEVERAL ISSUES WITH MR. ROSALES'S PAIN MANAGEMENT CASE. DUE TO THE LUMBAR SPONDYLOSIS, I WOULD LIKE TO MOVE FORWARD WITH A RIGHT L4-L5, L5-S1 DIAGNOSTIC LUMBAR FACET BLOCK _#2 TO CONSIDER RADIOFREQUENCY. WE DISCUSSED THE BENEFITS, RISKS, AND ALTERNATIVES OF THE PROCEDURE AND THE PATIENT WOULD LIKE TO PROCEED. THE PATIENT WILL CONTINUE USING GABAPENTIN FOR THE NEUROPATHIC PAIN, OXYCODONE FOR THE SOMATIC PAIN, AND MORPHINE FOR THE SOMATIC PAIN. ISTOP _#[id number] WAS REVIEWED. URINE TOXICOLOGY DONE ON 02/07/2018 SHOWS CONCURRENT RESULTS. I WILL PERFORM A PILL COUNTING TODAY. THE PATIENT WILL CONTINUE TO TRY TO REDUCE THE USE OF HIS MEDICATIONS. THE PATIENT WILL FOLLOW UP IN 3 MONTHS. INSTRUCTIONS WERE GIVEN, QUESTIONS WERE ANSWERED, PATIENT REPORTS UNDERSTANDING AND AGREES WITH THE PLAN. I, ELIZABEHT TAYLOR, DOCUMENTED THE ABOVE INFORMATION ACTING A SCRIBE FOR DR. ZIMMERMAN. I HAVE REVIEWED THE ABOVE DOCUMENT, WRITTEN BY ELIZABETH WALSH AND I VERIFY THAT IT IS ACCURATE. . PROCEDURES PN WORKMANS' COMP OPINION IN YOUR OPINION, WAS THE INCIDENT THAT THE PATIENT DESCRIBED THE COMPETENT MEDICAL CAUSE OF THIS INJURY/ILLNESS? YES ARE THE PATIENT'S COMPLAINTS CONSISTENT WITH HIS/HER HISTORY OF THE INJURY/ILLNESS? YES IS THE PATIENT'S HISTORY OF THE INJURY/ILLNESS CONSISTENT WITH YOUR OBJECTIVE FINDING? YES WHAT IS THE PERCENTAGE OF TEMPORARY IMPAIRMENT? MODERATE TO MARKED = 66.7% IS THE PATIENT WORKING? NO DOCTOR ON SITE: BINU WILL MD PREVENTIVE MEDICINE PAIN CLINIC TEACHING: PROCEDURE TEACHING REVIEWED DIAGNOSTIC FACET BLOCK PROCEDURE INFORMATION WITH PATIENT. ALSO REVIEWED PRE-PROCEDURE INSTRUCTIONS. PATIENT VERBALIZED AN UNDERSTANDING. OCTAVIO MCKEON Jc 07/26/2018 11:19:34 AM > . PROCEDURE CODES FA211 ESTABILISHED PATIENT [facility] FACILITY CHARGE [id number] CURRENT MEDS W/DOSAGES DOCUMENTED G8730 PAIN ASSESS POS TOOL F/U PLAN DOC DISPOSITION & COMMUNICATION FOLLOW UP 3 MONTHS ELECTRONICALLY SIGNED BY BINU ZIMMERMAN MD, ON 08/07/2018 AT 12:33 PM EDT DISCLAIMER : THIS IS A VISIT SUMMARY EXTRACTED FROM THE [employer] CHART. IT IS NOT A COPY OF THE [employer] PROGRESS NOTE. MTDD
== END ==
LOC: M PAIN 10:15
PROVIDERS: ATTEND Anesthesiology
DX: M47.816 Spondylosis without myelopathy or radiculopathy, lumbar region (principal); K21.9 Gastro-esophageal reflux disease without esophagitis; E78.00 Pure hypercholesterolemia, unspecified; M54.81 Occipital neuralgia; M54.2 Cervicalgia; Z96.651 Presence of right artificial knee joint; Z98.1 Arthrodesis status

== ENCOUNTER 2018-08-26 11:44 | Outpatient (RCR) | payer OTHER | END 2018-08-27 | LOC: M PT 11:44 | PROVIDERS: ATTEND Anesthesiology | DX: M54.2 Cervicalgia (principal) ==

== ENCOUNTER 2018-09-04 11:40 | Outpatient (RCR) | payer OTHER ==
[~2018-09-04 11:40] MED LIST changes: -TRAZ-160 PO; +TRAZ-252 PO
== END 2018-09-27 ==
LOC: M PT 11:40
PROVIDERS: ATTEND Anesthesiology
DX: M54.2 Cervicalgia (principal)

== ENCOUNTER → 2018-10-16 | Outpatient (CLI) | payer OTHER ==
[~2018-10-16] MED LIST changes: +BUPIVACAINE HCL 0.25% 30 ML VIAL As Ordered ONE; +ISOVUE-M 300 61% 15ML VIAL (Q9967) As Ordered ONE; +LIDOCAINE 1% SDV INJ 30 ML VIAL As Ordered ONE
--- NOTE | 2018-10-16 14:10 | REP ---
Partial lumbar spine series: Three views. . History: Injection procedure for pain. 31 seconds of fluoroscopy time is reported. Findings: A sequence of three fluoroscopically obtained last image hold procedural spot radiographs of the lumbar spine document needle position and contrast injection associated with injection procedure. Electronically Signed by Nacho Christopher MD 10/16/2018 02:02 P
--- NOTE | 2018-10-28 00:35 | ECWPNPC ---
PATIENT NAME: OWEN ROSALES : 1960 GENDER: MALE VISIT DATE: 10/16/2018 DISCHARGE DATE: 10/16/18 1240 VISIT LOCKED DATE TIME: PHYSICIAN: BINU ZIMMERMAN MD RESOURCE: BINU ZIMMERMAN MD REASON FOR APPOINTMENT 1. RIGHT DIAG FACET BLK WC HISTORY OF PRESENT ILLNESS HISTORY OF PRESENT ILLNESS: PAIN THE PATIENT DESCRIBES THE PAIN... FALL RISK SCREENING: SCREENING :NO FALLS REPORTED IN THE LAST YEAR CURRENT MEDICATIONS TAKING GEMFIBROZIL 600 MG TABLET 1 TABLET ORALLY DAILY, NOTES: 10/17 799 TAKING LOVASTATIN 40 MG TABLET 2 TABLET ORALLY ONCE A DAY, NOTES: 10/15 2099 TAKING MULTIVITAL [place]OWER [place] TABLET ORALLY DAILY, NOTES: 10/17 799 TAKING OMEPRAZOLE 40 MG CAPSULE DELAYED RELEASE 1 CAPSULE ORALLY ONCE A DAY, NOTES: 10/17 799 TAKING MIRALAX PACKET 1 PACKET MIXED WITH 8 OUNCES OF FLUID ORALLY ONCE A DAY NEEDED, NOTES: NONE RECENT TAKING VITAMIN D3 2000 UNIT CAPSULE 1 CAPSULE ORALLY ONCE A DAY, NOTES: 10/17 799 TAKING OXYCODONE HCL 5 MG TABLET 1 TABLET ORALLY EVERY 6-8 HRS PRN PAIN MDD=2, NOTES: 10/15 2349 TAKING MORPHINE SULFATE ER 15 MG TABLET EXTENDED RELEASE 1 TABLET ORALLY AT BEDTIME MDD=1, NOTES: 10/15 2099 TAKING GABAPENTIN 600 MG TABLET 1 CAPSULE ORALLY THREE TIMES A DAY, NOTES: 10/17 799 NOT-TAKING TIZANIDINE HCL 4 MG TABLET 1 TABLET NEEDED ORALLY EVERY 6 HOURS NEEDED MDD3 MEDICATION LIST REVIEWED AND RECONCILED WITH THE PATIENT PAST MEDICAL HISTORY REFLUX HIGH CHOLESTEROL CERVICALGIA BILATERAL OCCIPITAL NEURALGIA LOW BACK PAIN TINNITUS- RIGHT ALLERGIES N.K.D.A. SURGICAL HISTORY TOTAL RIGHT KNEE 2002 RIGHT HIP FX REPAIR 1985 ABDOMINAL EXPLORATORY SURGERY 1985 CERVICAL/THORACIC FUSION 2006 LEGIMENT AND CARTLIGE REMOVAL RIGHT KNEE 1976 FAMILY HISTORY FATHER: 84 YRS, CONGESTIVE HEART DISEASE, DIAGNOSED WITH HEART DISEASE MOTHER: ALIVE 92 YRS, PACEMAKER, HEART DISEASE 2 SON(S) - HEALTHY. SOCIAL HISTORY GENERAL: TOBACCO USE ARE YOU A:NONSMOKER EDUCATION LEVEL OF EDUCATION:HIGH SCHOOL DIET: REGULAR. LANGUAGE LANGUAGES SPOKEN:LATVIAN DOMESTIC VIOLENCE DO YOU FEEL SAFE IN YOUR ENVIRONMENT?YES RECREATIONAL DRUG USE DRUG USE?NO EXERCISE: WALKS AND SWIMS AT Y 3 TIMES A WEEK. LEARNING BARRIERS / SPECIAL NEEDS BARRIERS TO LEARNING?NO HEARING IMPAIRED?NO TINNITUS-CONSTANT IN RIGHT EAR VISION IMPAIRED?YES GLASSES FOR READING COGNITIVELY IMPAIRED?NO READINESS TO LEARN?YES LEARNING PREFERENCES?NO LEARNING CAPABILITIES PRESENT?YES EMOTIONAL BARRIERS?NO SPECIAL DEVICES?NO CONTINUOUS IMPROVEMENT CONSULTANT NEEDED?NO PAIN CLINIC PFS, CLERGY, PUBLIC HEALTH REFERRALS PFS REFERRAL NEEDED?NO CLERGY REFERRAL NEEDED?NO PUBLIC HEALTH REFERRAL NEEDED?NO WAS THE PROVIDER NOTIFIED OF ANY PERTINENT INFO? N/A HAS THE PATIENT BEEN EDUCATED REGARDING HIS/HER PLAN OF CARE?YES HAS THE PATIENT BEEN EDUCATED REGARDING PAIN, THE RISK FOR PAIN, THE IMPORTANCE OF EFFECTIVE PAIN MANAGEMENT, AND THE PAIN ASSESSMENT PROCESS?YES LATEX QUESTIONNAIRE LATEX ALLERGY : HAVE YOU EVER DEVELOPED ANY TYPE OF REACTION AFTER HANDLING LATEX PRODUCTS SUCH RUBBER GLOVES, CONDOMS, DIAPHRAGMS, BALLOONS, SOCKS, OR UNDERWEAR?NO LATEX ALLERGY : HAVE YOU EVER DEVELOPED ANY TYPE OF REACTION DURING OR AFTER DENTAL APPOINTMENT, VAGINAL/RECTAL EXAMINATION, SURGICAL PROCEDURE, OR ANY OTHER EXPOSURE?NO LATEX RISK : HAVE YOU EVER HAD ANY DIFFICULTY BREATHING OR HIVES AFTER EATING OR HANDLING ANY FRUITS, OR VEGETABLES; SUCH KIWI, BANANAS, STONE FRUITS, OR CHESTNUTSNO LATEX RISK : DO YOU HAVE A PREVIOUS PERSONAL HISTORY OF MORE THAN NINE SURGERIES, SPINA BIFIDA, OR REPEATED CATHERTIZATIONS? NO LATEX RISK : ARE YOU FREQUENTLY EXPOSED TO LATEX PRODUCTS IN YOUR OCCUPATION?NO DATE ASKED : 10/16/2018 CAFFEINE CAFFEINE USE?YES HOW OFTEN AND HOW MUCH? FEW CUPS COFFEE DAILY ADVANCE DIRECTIVE ADVANCE DIRECTIVE DISCUSSED WITH PATIENT:YES HAS HCP SON--HARSHA ROSALES [phone](C) LUTHERAN [id number] [facility] ALCOHOL SCREENING DID YOU HAVE A DRINK CONTAINING ALCOHOL IN THE PAST YEAR?YES HOW OFTEN DID YOU HAVE A DRINK CONTAINING ALCOHOL IN THE PAST YEAR?MONTHLY OR LESS (1 POINT) HOW MANY DRINKS DID YOU HAVE ON A TYPICAL DAY WHEN YOU WERE DRINKING IN THE PAST YEAR?5 OR 6 (2 POINTS) HOW OFTEN DID YOU HAVE SIX OR MORE DRINKS ON ONE OCCASION IN THE PAST YEAR?LESS THAN MONTHLY (1 POINT) POINTS4 INTERPRETATIONPOSITIVE REVIEWED NL 03/29/18REVIEWED WITH PATIENT 07/26/18 1021 JS10/16/18 REVIEWED WITH PT. AD. HOSPITALIZATION/MAJOR DIAGNOSTIC PROCEDURE SURGERIES REVIEW OF SYSTEMS REVIEWED BY: PROVIDER: . CONSTITUTIONAL: ANY CHANGE IN YOUR MEDICAL CONDITION? NO . CHILLS NO . FEVER NO . INFECTION: DO YOU HAVE NEW INFECTIONS? NO . DO YOU HAVE HISTORY OF MRSA? NO . MUSCULOSKELETAL: ANY NEW PATTERNS OF PAIN OR NUMBNESS? NO . GASTROENTEROLOGY: ANY NEW CHANGE IN BOWEL CONTROL? NO . GENITOURINARY: ANY NEW CHANGE IN BLADDER CONTROL? NO . IS THERE A CHANCE YOU COULD BE ? NO . HEMATOLOGY/LYMPH: DO YOU TAKE ANY BLOOD THINNERS? (FOR EXAMPLE- COUMADIN, PLAVIX, AGGRENOX, PLATEL, PRADAXA, OR XARELTO) NO . WHEN WAS YOUR LAST DOSE? DATE: TIME: . NEUROLOGY: HAVE YOU FALLEN IN THE PAST 12 MONTHS? NO . ANY NEW EXTREMITY NUMBNESS OR WEAKNESS? NO . CARDIOLOGY: DO YOU HAVE A PACEMAKER OR DEFIBRILLATOR? NO . RESPIRATORY: HAVE YOU BEEN SICK IN THE PAST WEEK? NO . FEVER NO . FLU LIKE SYMPTOMS? NO . COUGH NO . INTEGUMENTARY: DO YOU HAVE ANY RASHES OR OPEN SORES? NO . ALLERGIC/IMMUNO: ARE YOU ALLERGIC TO IV DYE? NO . ANY NEW ALLERGIES? NO . PSYCHIATRIC: DO YOU HAVE THOUGHTS OF HURTING YOURSELF OR SOMEONE ELSE? NO . ARE YOU ABUSED, NEGLECTED, OR IN AN UNSAFE ENVIRONMENT? NO . ENDOCRINOLOGY: ARE YOU DIABETIC? NO . OTHER: DO YOU NEED ANY PRESCRIPTIONS? NO . IF YES, PLEASE LIST: ____ . ANY NEW PROBLEMS WITH YOUR MEDICATIONS? NO . WHEN DID YOU LAST EAT? 10/16/18 0430 . WHEN DID YOU LAST DRINK? 10/16/18 0530 . WHAT DID YOU LAST DRINK? BLACK COFFEE . NAME OF PERSON DRIVING YOU HOME? AUSTEN . DO YOU HAVE ANY OTHER QUESTIONS OR CONCERNS NO . VITAL SIGNS WT 248 LBS, HT 69 IN, BMI 36.62 INDEX, BP 164/73 MM HG, HR 73 /MIN, RR 18 /MIN, TEMP 97.5 F, OXYGEN SAT % 96%, SAFE IN ENV? (Y/N) Y, NA INITIALS MI, REVIEWED BY: AD. ASSESSMENTS SPONDYLOSIS WITHOUT MYELOPATHY OR RADICULOPATHY, LUMBAR REGION - M47.816 (PRIMARY) SPONDYLOSIS OF LUMBOSACRAL REGION WITHOUT MYELOPATHY OR RADICULOPATHY - M47.817 TREATMENT SPONDYLOSIS WITHOUT MYELOPATHY OR RADICULOPATHY, LUMBAR REGION [facility] FACET BLOCK (PAIN)[id number] PROCEDURES PN WORKMANS' COMP OPINION IN YOUR OPINION, WAS THE INCIDENT THAT THE PATIENT DESCRIBED THE COMPETENT MEDICAL CAUSE OF THIS INJURY/ILLNESS? YES ARE THE PATIENT'S COMPLAINTS CONSISTENT WITH HIS/HER HISTORY OF THE INJURY/ILLNESS? YES IS THE PATIENT'S HISTORY OF THE INJURY/ILLNESS CONSISTENT WITH YOUR OBJECTIVE FINDING? YES WHAT IS THE PERCENTAGE OF TEMPORARY IMPAIRMENT? MODERATE TO MARKED = 66.7% IS THE PATIENT WORKING? NO DOCTOR ON SITE: MD TRAY SEO LUMBAR FACET BLOCK DIAGNOSTIC PRE PROCEDURE DIAGNOSIS LUMBAR SPONDYLOSIS, LUMBOSACRAL SPONDYLOSIS POST PROCEDURE DIAGNOSIS LUMBAR SPONDYLOSIS, LUMBOSACRAL SPONDYLOSIS PROCEDURE RIGHT L4-L5 AND RIGHT L5-S1 FACET BLOCK DIAGNOSTIC NUMBER [address] BINU ZIMMERMAN LEASING SPECIALIST NONE ANESTHESIA LOCAL PRE PROCEDURE NOTE THE PATIENT WITH HISTORY OF CHRONIC LOW BACK PAIN. I EVALUATED THE PATIENT AND REVIEWED THE CHART. I WENT OVER THE RISKS, ALTERNATIVES, AND BENEFITS ASSOCIATED WITH THIS PROCEDURE. THE PATIENT WOULD LIKE TO PROCEED AND GAVE CONSENT TO PERFORM THE PROCEDURE. AGREED WITH THE PATIENT WE ARE DOING THIS PROCEDURE TO DETERMINE IF THE PATIENT IS A CANDIDATE FOR A RADIOFREQUENCY ABLATION OF THE FACETS JOINTS. THE PATIENT DENIES UNEXPLAINABLE WEIGHT LOSS, FEVER, CHILLS, OR NEW CHANGES IN URINARY OR BOWEL CONTROL DESCRIPTION OF PROCEDURE THE PATIENT WAS BROUGHT TO THE PROCEDURE ROOM AND PLACED IN THE PRONE POSITION. THE LUMBOSACRAL AREA WAS CLEANED WITH CHLORAPREP SOLUTION AND DRAPED ASEPTICALLY. THE PROCEDURE WAS DONE UNDER STERILE CONDITIONS. I CHECKED LATERALITY AND THE LEVEL WHERE THE PROCEDURE WAS GOING TO BE PERFORMED WITH THE PATIENT AND THE SUPPORTING STAFF AT THE MOMENT OF THE TIME OUT IN THE PROCEDURE ROOM. UNDER FLUOROSCOPIC GUIDANCE, TARGETS WERE SELECTED AT THE INTERSECTION OF THE RIGHT TRANSVERSE PROCESS OF L4, L5 AND ALA OF S1 WITH ITS RESPECTIVE SUPERIOR ARTICULAR PROCESS. LIDOCAINE WAS USED TO NUMB THE SKIN AND THE SUBCUTANEOUS TISSUE BELOW IT. SPINAL NEEDLE, 22-GAUGE WAS ADVANCED UNDER FLUOROSCOPIC GUIDANCE AND FOLLOWING PATIENT FEEDBACK UNTIL THE TARGETS WERE REACHED. POSITION OF THE NEEDLES WAS VERIFIED WITH AP AND LATERAL VIEWS. AFTER PROPER POSITION OF THE NEEDLES WAS ACHIEVED, ISOVUE-M DYE 30% 0.1 ML WAS INJECTED AT EACH SITE SHOWING ADEQUATE SPREAD OF THE DYE. THEN A SOLUTION OF 0.4 ML OF BUPIVACAINE 0.25% WAS INJECTED AT EACH SITE. THERE WAS NO EVIDENCE OF BLOOD, PARESTHESIA OR CEREBROSPINAL FLUID DURING THE PROCEDURE. THE PATIENT WAS SENT TO THE RECOVERY ROOM. THE PATIENT WAS MOVING THE EXTREMITIES AND DOING WELL. THERE WAS NO COMPLICATION DURING THE PROCEDURE. FLUOROSCOPY TIME WAS 31 SECONDS POST PROCEDURE NOTE THE PATIENT WILL DOCUMENT HIS PAIN LEVEL AND RESPONSE TO THIS PROCEDURE EVERY 30 MINUTES. THE PATIENT WILL BE SEEN IN A FOLLOW UP IN THE NEXT FEW WEEKS. FURTHER DETERMINATION FOR HIS CASE WILL BE DONE AT THE NEXT VISIT. INSTRUCTIONS WERE GIVEN, QUESTIONS WERE ANSWERED, AND THE PATIENT EXPRESSED UNDERSTANDING AND AGREED WITH THE PLAN. I, ELIZABETH TAYLOR, DOCUMENTED THE ABOVE INFORMATION ACTING A SCRIBE FOR DR. ZIMMERMAN. I HAVE REVIEWED THE ABOVE DOCUMENT, WRITTEN BY ELIZABETH BELLIBStu AND I VERIFY THAT IT IS ACCURATE. PROCEDURE CODES 6045F RADXPS IN END [id number] PXD [id number] INJ PARAVERT F JNT L/S 1 LEV, MODIFIERS: [place] [id number] INJ PARAVERT F JNT L/S 2 LEV, MODIFIERS: RT DISPOSITION & COMMUNICATION FOLLOW UP 3 WEEKS ELECTRONICALLY SIGNED BY BINU ZIMMERMAN MD, ON 10/27/2018 AT 07:41 PM EDT DISCLAIMER : THIS IS A VISIT SUMMARY EXTRACTED FROM THE [employer] CHART. IT IS NOT A COPY OF THE [employer] PROGRESS NOTE. MTDD
== END ==
LOC: M PAIN 10:15
PROVIDERS: ATTEND Anesthesiology
DX: M47.816 Spondylosis without myelopathy or radiculopathy, lumbar region (principal); M47.817 Spondylosis without myelopathy or radiculopathy, lumbosacral region; K21.9 Gastro-esophageal reflux disease without esophagitis; E78.00 Pure hypercholesterolemia, unspecified; M54.2 Cervicalgia; M54.81 Occipital neuralgia; H93.11 Tinnitus, right ear; Z96.651 Presence of right artificial knee joint; Z98.1 Arthrodesis status; Z79.891 Long term (current) use of opiate analgesic; Z79.899 Other long term (current) drug therapy
CPT/HCPCS: 64493; 64494; Q9967

== ENCOUNTER → 2018-12-03 | Outpatient (CLI) | payer OTHER ==
[~2018-12-03] MED LIST changes: -BUPIVACAINE HCL 0.25% 30 ML VIAL As Ordered ONE; -ISOVUE-M 300 61% 15ML VIAL (Q9967) As Ordered ONE; -LIDOCAINE 1% SDV INJ 30 ML VIAL As Ordered ONE
--- NOTE | 2018-12-11 01:19 | ECWPNPC ---
PATIENT NAME: OWEN ROSALES : 1960 GENDER: MALE VISIT DATE: 12/03/2018 DISCHARGE DATE: 12/03/18 1615 VISIT LOCKED DATE TIME: PHYSICIAN: BINU ZIMMERMAN MD RESOURCE: BINU ZIMMERMAN MD REASON FOR APPOINTMENT 1. WC POST PROC HISTORY OF PRESENT ILLNESS HISTORY OF PRESENT ILLNESS: PAIN THE PATIENT DESCRIBES THE PAIN... 58 YEAR OLD MALE PATIENT WITH A HISTORY OF CHRONIC LOW BACK PAIN. THE PATIENT DESCRIBES THE PAIN ACHING, SORE, TENDER, AND DAILY WITH A PAIN SCORE OF 0-8/10 DEPENDING ON PHYSICAL ACTIVITY. 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 THE PATIENT SAYS HE CAN STAND AND WALK FOR ONLY 5 MINUTES BEFORE NEEDING TO SIT DOWN FOR A BREAK DUE TO THE PAIN. THE PATIENT RECEIVED A RIGHT DIAGNOSTIC LUMBAR FACET BLOCK THAT TOOK HIS PAIN FROM A 7/10 TO A 0/10 PAIN SCORE AND OFFERED MORE THAN 80 PERCENT PAIN RELIEF. THE PATIENT SAYS HE IS USING MORPHINE SULFATE 15 MG AND OXYCODONE 5 MG FOR WHEN HIS PAIN IS SEVERE. THE PATIENT SAYS HE IS GOING TO PHYSICAL THERAPY FOR HIS NECK THAT IS GREATLY HELPING HIS NECK PAIN. THE PATIENT SAYS HE IS VERY HAPPY WITH THE INCREASE OF MOBILITY AND DECREASE OF PAIN FROM THE PHYSICAL THERAPY. PATIENT DENIES UNEXPLAINABLE WEIGHT LOSS, FEVER, CHILLS, NEW CHANGES ON HIS URINARY OR BOWEL CONTROL. FALL RISK SCREENING: SCREENING :NO FALLS REPORTED IN THE LAST YEAR CURRENT MEDICATIONS TAKING GEMFIBROZIL 600 MG TABLET 1 TABLET ORALLY DAILY TAKING LOVASTATIN 40 MG TABLET 2 TABLET ORALLY ONCE A DAY TAKING MULTIVITAL [place] TABLET ORALLY DAILY TAKING OMEPRAZOLE 40 MG CAPSULE DELAYED RELEASE 1 CAPSULE ORALLY ONCE A DAY TAKING MIRALAX PACKET 1 PACKET MIXED WITH 8 OUNCES OF FLUID ORALLY ONCE A DAY NEEDED, NOTES: NONE RECENT TAKING VITAMIN D3 2000 UNIT CAPSULE 1 CAPSULE ORALLY ONCE A DAY TAKING GABAPENTIN 600 MG TABLET 1 CAPSULE ORALLY THREE TIMES A DAY TAKING OXYCODONE HCL 5 MG TABLET 1 TABLET ORALLY EVERY 6-8 HRS PRN PAIN MDD=2 TAKING MORPHINE SULFATE ER 15 MG TABLET EXTENDED RELEASE 1 TABLET ORALLY AT BEDTIME MDD=1, NOTES: 10/15 2099 NOT-TAKING TIZANIDINE HCL 4 MG TABLET 1 TABLET NEEDED ORALLY EVERY 6 HOURS NEEDED MDD3 MEDICATION LIST REVIEWED AND RECONCILED WITH THE PATIENT PAST MEDICAL HISTORY REFLUX HIGH CHOLESTEROL CERVICALGIA BILATERAL OCCIPITAL NEURALGIA LOW BACK PAIN TINNITUS- RIGHT WARTS AND ON RIGHT FOOT ALLERGIES N.K.D.A. SURGICAL HISTORY TOTAL RIGHT KNEE 2001 RIGHT HIP FX REPAIR 1985 ABDOMINAL EXPLORATORY SURGERY 1984 CERVICAL/THORACIC FUSION 2006 LEGIMENT AND CARTLIGE REMOVAL RIGHT KNEE 1977 RIGHT FOOT WARTS REMOVED 2018 FAMILY HISTORY FATHER: 84 YRS, CONGESTIVE HEART DISEASE, DIAGNOSED WITH HEART DISEASE MOTHER: ALIVE 92 YRS, PACEMAKER, HEART DISEASE 2 SON(S) - HEALTHY. SOCIAL HISTORY GENERAL: TOBACCO USE ARE YOU A:NONSMOKER EDUCATION LEVEL OF EDUCATION:HIGH SCHOOL DIET: REGULAR. LANGUAGE LANGUAGES SPOKEN:[place]URKM[place] DOMESTIC VIOLENCE DO YOU FEEL SAFE IN YOUR ENVIRONMENT?YES RECREATIONAL DRUG USE DRUG USE?NO EXERCISE: WALKS AND SWIMS AT Y 3 TIMES A WEEK. LEARNING BARRIERS / SPECIAL NEEDS BARRIERS TO LEARNING?NO HEARING IMPAIRED?NO TINNITUS-CONSTANT IN RIGHT EAR VISION IMPAIRED?YES GLASSES FOR READING COGNITIVELY IMPAIRED?NO READINESS TO LEARN?YES LEARNING PREFERENCES?NO LEARNING CAPABILITIES PRESENT?YES EMOTIONAL BARRIERS?NO SPECIAL DEVICES?NO REVENUE SETTLEMENTS ADMINISTRATOR NEEDED?NO PAIN CLINIC PFS, CLERGY, PUBLIC HEALTH REFERRALS PFS REFERRAL NEEDED?NO CLERGY REFERRAL NEEDED?NO PUBLIC HEALTH REFERRAL NEEDED?NO WAS THE PROVIDER NOTIFIED OF ANY PERTINENT INFO? N/A HAS THE PATIENT BEEN EDUCATED REGARDING HIS/HER PLAN OF CARE?YES HAS THE PATIENT BEEN EDUCATED REGARDING PAIN, THE RISK FOR PAIN, THE IMPORTANCE OF EFFECTIVE PAIN MANAGEMENT, AND THE PAIN ASSESSMENT PROCESS?YES LATEX QUESTIONNAIRE LATEX ALLERGY : HAVE YOU EVER DEVELOPED ANY TYPE OF REACTION AFTER HANDLING LATEX PRODUCTS SUCH RUBBER GLOVES, CONDOMS, DIAPHRAGMS, BALLOONS, SOCKS, OR UNDERWEAR?NO LATEX ALLERGY : HAVE YOU EVER DEVELOPED ANY TYPE OF REACTION DURING OR AFTER DENTAL APPOINTMENT, VAGINAL/RECTAL EXAMINATION, SURGICAL PROCEDURE, OR ANY OTHER EXPOSURE?NO LATEX RISK : HAVE YOU EVER HAD ANY DIFFICULTY BREATHING OR HIVES AFTER EATING OR HANDLING ANY FRUITS, OR VEGETABLES; SUCH KIWI, BANANAS, STONE FRUITS, OR CHESTNUTSNO LATEX RISK : DO YOU HAVE A PREVIOUS PERSONAL HISTORY OF MORE THAN NINE SURGERIES, SPINA BIFIDA, OR REPEATED CATHERIZATIONS? NO LATEX RISK : ARE YOU FREQUENTLY EXPOSED TO LATEX PRODUCTS IN YOUR OCCUPATION?NO DATE ASKED : 10/16/2018 CAFFEINE CAFFEINE USE?YES HOW OFTEN AND HOW MUCH? FEW CUPS COFFEE DAILY ADVANCE DIRECTIVE ADVANCE DIRECTIVE DISCUSSED WITH PATIENT:YES HAS HCP SON--HARSHA ROSALES [phone](C) ZOROASTRIAN [id number] DRUZE ALCOHOL SCREENING DID YOU HAVE A DRINK CONTAINING ALCOHOL IN THE PAST YEAR?YES HOW OFTEN DID YOU HAVE A DRINK CONTAINING ALCOHOL IN THE PAST YEAR?MONTHLY OR LESS (1 POINT) HOW MANY DRINKS DID YOU HAVE ON A TYPICAL DAY WHEN YOU WERE DRINKING IN THE PAST YEAR?5 OR 6 (2 POINTS) HOW OFTEN DID YOU HAVE SIX OR MORE DRINKS ON ONE OCCASION IN THE PAST YEAR?LESS THAN MONTHLY (1 POINT) POINTS4 INTERPRETATIONPOSITIVE REVIEWED NL 03/29/18REVIEWED WITH PATIENT 07/26/18 1021 JS10/16/18 REVIEWED WITH PT. AD. HOSPITALIZATION/MAJOR DIAGNOSTIC PROCEDURE SURGERIES REVIEW OF SYSTEMS REVIEWED BY: PROVIDER: BINU ZIMMERMAN MD . CONSTITUTIONAL: ANY CHANGE IN YOUR MEDICAL CONDITION? NO . CHILLS NO . FEVER NO . INFECTION: DO YOU HAVE NEW INFECTIONS? NO . DO YOU HAVE HISTORY OF MRSA? NO . MUSCULOSKELETAL: ANY NEW PATTERNS OF PAIN OR NUMBNESS? NO . GASTROENTEROLOGY: ANY NEW CHANGE IN BOWEL CONTROL? NO . GENITOURINARY: ANY NEW CHANGE IN BLADDER CONTROL? NO . IS THERE A CHANCE YOU COULD BE ? NO . HEMATOLOGY/LYMPH: DO YOU TAKE ANY BLOOD THINNERS? (FOR EXAMPLE- COUMADIN, PLAVIX, AGGRENOX, PLATEL, PRADAXA, OR XARELTO) NO . WHEN WAS YOUR LAST DOSE? DATE: TIME: . NEUROLOGY: HAVE YOU FALLEN IN THE PAST 12 MONTHS? NO . ANY NEW EXTREMITY NUMBNESS OR WEAKNESS? NO . CARDIOLOGY: DO YOU HAVE A PACEMAKER OR DEFIBRILLATOR? NO . RESPIRATORY: HAVE YOU BEEN SICK IN THE PAST WEEK? NO . FEVER NO . FLU LIKE SYMPTOMS? NO . COUGH NO . INTEGUMENTARY: DO YOU HAVE ANY RASHES OR OPEN SORES? NO . ALLERGIC/IMMUNO: ARE YOU ALLERGIC TO IV DYE? NO . ANY NEW ALLERGIES? NO . PSYCHIATRIC: DO YOU HAVE THOUGHTS OF HURTING YOURSELF OR SOMEONE ELSE? NO . ARE YOU ABUSED, NEGLECTED, OR IN AN UNSAFE ENVIRONMENT? NO . ENDOCRINOLOGY: ARE YOU DIABETIC? NO . OTHER: DO YOU NEED ANY PRESCRIPTIONS? GABAPENTIN . IF YES, PLEASE LIST: ____ . ANY NEW PROBLEMS WITH YOUR MEDICATIONS? NO . WHEN DID YOU LAST EAT? ____ . WHEN DID YOU LAST DRINK? ____ . WHAT DID YOU LAST DRINK? ____ . NAME OF PERSON DRIVING YOU HOME? ____ . DO YOU HAVE ANY OTHER QUESTIONS OR CONCERNS NO . VITAL SIGNS WT 248 LBS, HT 69 IN, BMI 36.62 INDEX, BP 134/79 MM HG, HR 111 /MIN, RR 18 /MIN, TEMP 98.3 F, OXYGEN SAT % 97%, NA INITIALS SC 15:24, REVIEWED BY: KG. EXAMINATION GENERAL EXAMINATION: PATIENT IS ALERT O X 3 AND COOPERATIVE. TENDERNESS IN THE LOW BACK ESPECIALLY ON THE RIGHT SIDE. PAIN INCREASES OVER THE LUMBAR FACET JOINTS WITH EXTENSION AND LATERAL ROTATION OF THE BACK. MRI OF THE LUMBAR SPINE DONE ON 02/26/2014 SHOWS FACET ARTHROPATHY CHANGES. ASSESSMENTS SPONDYLOSIS OF LUMBAR REGION WITHOUT MYELOPATHY OR RADICULOPATHY - M47.816 (PRIMARY) TREATMENT SPONDYLOSIS OF LUMBAR REGION WITHOUT MYELOPATHY OR RADICULOPATHY CLINICAL NOTES: WE DISCUSSED SEVERAL ISSUES WITH MR. ROSALES'S PAIN MANAGEMENT CASE. DUE TO THE LUMBAR SPONDYLOSIS AND THE PATIENT HAVING GOOD PAIN RELIEF FOLLOWING TWO DIAGNOSTIC FACET BLOCKS, I WOULD LIKE TO MOVE FORWARD WITH RIGHT L4-L5, L5-S1 RADIOFREQUENCY ABLATION AT THIS TIME. WE DISCUSSED THE BENEFITS, RISKS, AND ALTERNATIVES OF THE PROCEDURE AND THE PATIENT WOULD LIKE TO PROCEED. I DISCUSSED THE RISKS ASSOCIATED WITH THE USE OF OPIOIDS INCLUDING THE POSSIBLE DEVELOPMENT OF ADDICTION OR TOLERANCE AND THE PATIENT VERBALIZED UNDERSTANDING. THE PATIENT BROUGHT HIS MEDICATIONS IN THEIR ORIGINAL BOTTLES TO TODAY'S VISIT. I REFILLED THE PATIENTS GABAPENTIN 600 MG, OXYCODONE 5 MG, AND MORPHINE SULFATE ER 15 MG AT TODAY'S VISIT. URINE TOXICOLOGY DONE ON 02/07/2018 SHOWS CONCURRENT RESULTS. ISTOP _# [id number] WAS REVIEWED. ANOTHER URINE TOXICOLOGY WILL BE PERFORMED TODAY. THE PATIENT WILL FOLLOW UP WITH THE NURSE PRACTITIONER IN 2 MONTHS. INSTRUCTIONS WERE GIVEN, QUESTIONS WERE ANSWERED, PATIENT REPORTS UNDERSTANDING AND AGREES WITH THE PLAN. I, TRISTAN GEORGE, DOCUMENTED THE ABOVE INFORMATION ACTING A SCRIBE FOR DR. ZIMMERMAN. I HAVE REVIEWED THE ABOVE DOCUMENT, WRITTEN BY TRISTAN WALSH AND I VERIFY THAT IT IS ACCURATE. . OTHERS REFILL GABAPENTIN TABLET, 600 MG, 1 CAPSULE, ORALLY, THREE TIMES A DAY, 30 DAY(S), 90 CAPSULE, REFILLS 1 REFILL OXYCODONE HCL TABLET, 5 MG, 1 TABLET, ORALLY, EVERY 6-8 HRS PRN PAIN MDD=2, 30 DAY(S), 45, REFILLS 0 REFILL MORPHINE SULFATE ER TABLET EXTENDED RELEASE, 15 MG, 1 TABLET, ORALLY, AT BEDTIME MDD=1, 30 DAY(S), 30, REFILLS 0, NOTES: 10/15 2099 PROCEDURES PN WORKMANS' COMP OPINION IN YOUR OPINION, WAS THE INCIDENT THAT THE PATIENT DESCRIBED THE COMPETENT MEDICAL CAUSE OF THIS INJURY/ILLNESS? YES ARE THE PATIENT'S COMPLAINTS CONSISTENT WITH HIS/HER HISTORY OF THE INJURY/ILLNESS? YES IS THE PATIENT'S HISTORY OF THE INJURY/ILLNESS CONSISTENT WITH YOUR OBJECTIVE FINDING? YES WHAT IS THE PERCENTAGE OF TEMPORARY IMPAIRMENT? MODERATE TO MARKED = 66.7% IS THE PATIENT WORKING? NO DOCTOR ON SITE: BINU WILL MD PROCEDURE CODES FA211 ESTABILISHED PATIENT [facility] FACILITY CHARGE [id number] CURRENT MEDS W/DOSAGES DOCUMENTED [id number] PAIN ASSESS POS TOOL F/U PLAN DOC DISPOSITION & COMMUNICATION FOLLOW UP 2 MONTHS (REASON: RT L4-L5, L5-S1 RF, F/U WITH LEAD POURER IN 2 MONTHS) ELECTRONICALLY SIGNED BY BINU ZIMMERMAN MD, MD ON 12/10/2018 AT 01:51 PM EDT DISCLAIMER : THIS IS A VISIT SUMMARY EXTRACTED FROM THE [employer] CHART. IT IS NOT A COPY OF THE [employer] PROGRESS NOTE. MTDD
== END ==
LOC: M PAIN 15:15
PROVIDERS: ATTEND Anesthesiology
DX: M47.816 Spondylosis without myelopathy or radiculopathy, lumbar region (principal); M54.5 Low back pain; Z79.891 Long term (current) use of opiate analgesic; Z79.899 Other long term (current) drug therapy

== ENCOUNTER → 2019-01-22 | Outpatient (CLI) | payer OTHER ==
[~2019-01-22] MED LIST changes: +BUPIVACAINE HCL 0.25% 30 ML VIAL As Ordered ONE; +ISOVUE-M 300 61% 15ML VIAL (Q9967) As Ordered ONE; +LIDOCAINE 1% SDV INJ 30 ML VIAL As Ordered ONE; +TRIAMCINOLONE ACETONIDE SUSP 40 MG/ML VIAL (J3301) As Ordered ONE
--- NOTE | 2019-01-22 14:51 | REP ---
Partial lumbar spine series: Three views . History: Injection procedure for pain. 56 seconds of fluoroscopy time is reported. Findings: A sequence of three fluoroscopically obtained last image hold procedural spot radiographs of the lumbar spine document needle position and contrast injection associated with injection procedure. Electronically Signed by Nacho Christopher MD 01/22/2019 02:43 P
--- NOTE | 2019-02-02 23:55 | ECWPNPC ---
PATIENT NAME: OWEN ROSALES : 1960 GENDER: MALE VISIT DATE: 01/22/2019 DISCHARGE DATE: 01/22/19 1427 VISIT LOCKED DATE TIME: PHYSICIAN: BINU ZIMMERMAN MD RESOURCE: BINU ZIMMERMAN MD REASON FOR APPOINTMENT 1. W/C RT L4-L5, L5-S1 RF HISTORY OF PRESENT ILLNESS HISTORY OF PRESENT ILLNESS: PAIN THE PATIENT DESCRIBES THE PAIN... FALL RISK SCREENING: SCREENING :NO FALLS REPORTED IN THE LAST YEAR CURRENT MEDICATIONS TAKING GABAPENTIN 600 MG TABLET 1 CAPSULE ORALLY THREE TIMES A DAY TAKING GEMFIBROZIL 600 MG TABLET 1 TABLET ORALLY DAILY TAKING LOVASTATIN 40 MG TABLET 2 TABLET ORALLY ONCE A DAY TAKING MULTIVITAL HOONAH TABLET ORALLY DAILY TAKING OMEPRAZOLE 40 MG CAPSULE DELAYED RELEASE 1 CAPSULE ORALLY ONCE A DAY TAKING MIRALAX PACKET 1 PACKET MIXED WITH 8 OUNCES OF FLUID ORALLY ONCE A DAY NEEDED, NOTES: NONE RECENT TAKING VITAMIN D3 2000 UNIT CAPSULE 1 CAPSULE ORALLY ONCE A DAY TAKING OXYCODONE HCL 5 MG TABLET 1 TABLET ORALLY EVERY 6-8 HRS PRN PAIN MDD=2, NOTES: LAST COUPLE DAYS AGO TAKING MORPHINE SULFATE ER 15 MG TABLET EXTENDED RELEASE 1 TABLET ORALLY AT BEDTIME MDD=1, NOTES: LAST 01/21/19 PM NOT-TAKING TIZANIDINE HCL 4 MG TABLET 1 TABLET NEEDED ORALLY EVERY 6 HOURS NEEDED MDD3 MEDICATION LIST REVIEWED AND RECONCILED WITH THE PATIENT PAST MEDICAL HISTORY REFLUX HIGH CHOLESTEROL CERVICALGIA BILATERAL OCCIPITAL NEURALGIA LOW BACK PAIN TINNITUS- RIGHT WARTS AND ON RIGHT FOOT ALLERGIES TEGADERM: RASH/HIVES - SIDE EFFECTS SURGICAL HISTORY TOTAL RIGHT KNEE 2001 RIGHT HIP FX REPAIR 1985 ABDOMINAL EXPLORATORY SURGERY 1984 CERVICAL/THORACIC FUSION 2005 LEGIMENT AND CARTLIGE REMOVAL RIGHT KNEE 1977 RIGHT FOOT WARTS REMOVED 2018 FAMILY HISTORY FATHER: 84 YRS, CONGESTIVE HEART DISEASE, DIAGNOSED WITH UNSPECIFIED HEART DISEASE MOTHER: ALIVE 92 YRS, PACEMAKER, UNSPECIFIED HEART DISEASE 2 SON(S) - HEALTHY. SOCIAL HISTORY GENERAL: TOBACCO USE ARE YOU A:NONSMOKER EDUCATION LEVEL OF EDUCATION:HIGH SCHOOL DIET: REGULAR. LANGUAGE LANGUAGES SPOKEN:ICELANDIC DOMESTIC VIOLENCE DO YOU FEEL SAFE IN YOUR ENVIRONMENT?YES RECREATIONAL DRUG USE DRUG USE?NO EXERCISE: WALKS AND SWIMS AT Y 3 TIMES A WEEK. LEARNING BARRIERS / SPECIAL NEEDS BARRIERS TO LEARNING?NO HEARING IMPAIRED?NO TINNITUS-CONSTANT IN RIGHT EAR VISION IMPAIRED?YES GLASSES FOR READING COGNITIVELY IMPAIRED?NO READINESS TO LEARN?YES LEARNING PREFERENCES?NO LEARNING CAPABILITIES PRESENT?YES EMOTIONAL BARRIERS?NO SPECIAL DEVICES?NO DIABETES CLINICAL MANAGER NEEDED?NO PAIN CLINIC PFS, CLERGY, PUBLIC HEALTH REFERRALS PFS REFERRAL NEEDED?NO CLERGY REFERRAL NEEDED?NO PUBLIC HEALTH REFERRAL NEEDED?NO WAS THE PROVIDER NOTIFIED OF ANY PERTINENT INFO? N/A HAS THE PATIENT BEEN EDUCATED REGARDING HIS/HER PLAN OF CARE?YES HAS THE PATIENT BEEN EDUCATED REGARDING PAIN, THE RISK FOR PAIN, THE IMPORTANCE OF EFFECTIVE PAIN MANAGEMENT, AND THE PAIN ASSESSMENT PROCESS?YES LATEX QUESTIONNAIRE LATEX ALLERGY : HAVE YOU EVER DEVELOPED ANY TYPE OF REACTION AFTER HANDLING LATEX PRODUCTS SUCH RUBBER GLOVES, CONDOMS, DIAPHRAGMS, BALLOONS, SOCKS, OR UNDERWEAR?NO LATEX ALLERGY : HAVE YOU EVER DEVELOPED ANY TYPE OF REACTION DURING OR AFTER DENTAL APPOINTMENT, VAGINAL/RECTAL EXAMINATION, SURGICAL PROCEDURE, OR ANY OTHER EXPOSURE?NO DATE ASKED : 10/16/2018 LATEX RISK : HAVE YOU EVER HAD ANY DIFFICULTY BREATHING OR HIVES AFTER EATING OR HANDLING ANY FRUITS, OR VEGETABLES; SUCH KIWI, BANANAS, STONE FRUITS, OR CHESTNUTSNO LATEX RISK : DO YOU HAVE A PREVIOUS PERSONAL HISTORY OF MORE THAN NINE SURGERIES, SPINA BIFIDA, OR REPEATED CATHERIZATIONS? NO LATEX RISK : ARE YOU FREQUENTLY EXPOSED TO LATEX PRODUCTS IN YOUR OCCUPATION?NO CAFFEINE CAFFEINE USE?YES HOW OFTEN AND HOW MUCH? FEW CUPS COFFEE DAILY ADVANCE DIRECTIVE ADVANCE DIRECTIVE DISCUSSED WITH PATIENT:YES HAS HCP SON--HARSHA ROSALES [phone](C) PRESYBETERIAN [id number] LATTER DAY ALCOHOL SCREENING DID YOU HAVE A DRINK CONTAINING ALCOHOL IN THE PAST YEAR?YES HOW OFTEN DID YOU HAVE SIX OR MORE DRINKS ON ONE OCCASION IN THE PAST YEAR?LESS THAN MONTHLY (1 POINT) HOW MANY DRINKS DID YOU HAVE ON A TYPICAL DAY WHEN YOU WERE DRINKING IN THE PAST YEAR?5 OR 6 (2 POINTS) HOW OFTEN DID YOU HAVE A DRINK CONTAINING ALCOHOL IN THE PAST YEAR?MONTHLY OR LESS (1 POINT) POINTS4 INTERPRETATIONPOSITIVE REVIEWED NL 03/29/18REVIEWED WITH PATIENT 07/26/18 1021 JS10/16/18 REVIEWED WITH PT. ADREVIEWED WITH PT 01/22/19 1136 BV. HOSPITALIZATION/MAJOR DIAGNOSTIC PROCEDURE SURGERIES REVIEW OF SYSTEMS REVIEWED BY: PROVIDER: . CONSTITUTIONAL: ANY CHANGE IN YOUR MEDICAL CONDITION? NO . CHILLS NO . FEVER NO . INFECTION: DO YOU HAVE NEW INFECTIONS? NO . DO YOU HAVE HISTORY OF MRSA? NO . MUSCULOSKELETAL: ANY NEW PATTERNS OF PAIN OR NUMBNESS? NO . GASTROENTEROLOGY: ANY NEW CHANGE IN BOWEL CONTROL? NO . GENITOURINARY: ANY NEW CHANGE IN BLADDER CONTROL? NO . IS THERE A CHANCE YOU COULD BE ? NO . HEMATOLOGY/LYMPH: DO YOU TAKE ANY BLOOD THINNERS? (FOR EXAMPLE- COUMADIN, PLAVIX, AGGRENOX, PLATEL, PRADAXA, OR XARELTO) NO . WHEN WAS YOUR LAST DOSE? DATE: TIME: . NEUROLOGY: HAVE YOU FALLEN IN THE PAST 12 MONTHS? NO . ANY NEW EXTREMITY NUMBNESS OR WEAKNESS? NO . CARDIOLOGY: DO YOU HAVE A PACEMAKER OR DEFIBRILLATOR? NO . RESPIRATORY: HAVE YOU BEEN SICK IN THE PAST WEEK? NO . FEVER NO . FLU LIKE SYMPTOMS? NO . COUGH NO . INTEGUMENTARY: DO YOU HAVE ANY RASHES OR OPEN SORES? NO . ALLERGIC/IMMUNO: ARE YOU ALLERGIC TO IV DYE? NO . ANY NEW ALLERGIES? NO . PSYCHIATRIC: DO YOU HAVE THOUGHTS OF HURTING YOURSELF OR SOMEONE ELSE? NO . ARE YOU ABUSED, NEGLECTED, OR IN AN UNSAFE ENVIRONMENT? NO . ENDOCRINOLOGY: ARE YOU DIABETIC? NO . OTHER: DO YOU NEED ANY PRESCRIPTIONS? NO . IF YES, PLEASE LIST: ____ . ANY NEW PROBLEMS WITH YOUR MEDICATIONS? NO . WHEN DID YOU LAST EAT? 01/21/19 1800 . WHEN DID YOU LAST DRINK? 01/22/19 0700 . WHAT DID YOU LAST DRINK? BLACK COFFEE . NAME OF PERSON DRIVING YOU HOME? AUSTEN . DO YOU HAVE ANY OTHER QUESTIONS OR CONCERNS NO . VITAL SIGNS WT 247.4 LBS, HT 69 IN, BMI 36.53 INDEX, BP 126/77 MM HG, HR 72 /MIN, RR 18 /MIN, TEMP 97.5 F, OXYGEN SAT % 96%, NA INITIALS SC 11:07, REVIEWED BY: BV. ASSESSMENTS SPONDYLOSIS WITHOUT MYELOPATHY OR RADICULOPATHY, LUMBAR REGION - M47.816 (PRIMARY) SPONDYLOSIS WITHOUT MYELOPATHY OR RADICULOPATHY, LUMBOSACRAL REGION - M47.817 TREATMENT SPONDYLOSIS WITHOUT MYELOPATHY OR RADICULOPATHY, LUMBAR REGION SMC FACET BLOCK (PAIN)3752020 PROCEDURES PN RADIOFREQUENCY PRE PROCEDURE DIAGNOSES 1. LUMBAR SPONDYLOSIS. 2. LUMBOSACRAL SPONDYLOSIS POST PROCEDURE DIAGNOSES 1. LUMBAR SPONDYLOSIS. 2. LUMBOSACRAL SPONDYLOSIS PROCEDURE RIGHT L4-L5 AND RIGHT L5-S1 LUMBAR FACET RADIOFREQUENCY SURGEON DR. BINU ZIMMERMAN MANAGER MECHANICAL NONE ANESTHESIA LOCAL PRE PROCEDURE REPORT THE PATIENT HAS HISTORY OF CHRONIC LOW BACK PAIN. I EVALUATED THE PATIENT AND REVIEWED THE CHART. I WENT OVER THE RISKS, ALTERNATIVES, AND BENEFITS ASSOCIATED WITH THIS PROCEDURE. THE PATIENT WOULD LIKE TO PROCEED AND GIVES CONSENT TO PERFORM THE PROCEDURE. THE PATIENT DENIES UNEXPLAINABLE WEIGHT LOSS, FEVER, CHILLS, OR NEW CHANGES IN URINARY OR BOWEL CONTROL DESCRIPTION OF PROCEDURE THE PATIENT WAS BROUGHT TO THE PROCEDURE ROOM AND PLACED IN THE PRONE POSITION. THE LUMBOSACRAL AREA WAS CLEANED WITH CHLORAPREP SOLUTION AND DRAPED ASEPTICALLY. THE PROCEDURE WAS DONE UNDER STERILE CONDITIONS. I CHECKED LATERALITY AND THE LEVEL WHERE THE PROCEDURE WAS GOING TO BE PERFORMED WITH THE PATIENT AND THE SUPPORTING STAFF AT THE MOMENT OF THE TIME OUT IN THE PROCEDURE ROOM. UNDER FLUOROSCOPIC GUIDANCE, TARGETS WERE SELECTED AT THE INTERSECTION OF THE RIGHT TRANSVERSE PROCESS OF L4, L5 AND ALA OF S1 WITH ITS RESPECTIVE SUPERIOR ARTICULAR PROCESS. LIDOCAINE WAS USED TO NUMB THE SKIN AND THE SUBCUTANEOUS TISSUE BELOW IT. RADIOFREQUENCY NEEDLES 22-GAUGE 15 CM LONG WITH 10 MM ACTIVE CURVE TIP WERE ADVANCED UNDER FLUOROSCOPIC GUIDANCE AND FOLLOWING PATIENT FEEDBACK UNTIL THE TARGET AREA WAS REACHED. POSITION OF THE NEEDLES WAS VERIFIED WITH AP AND LATERAL VIEWS. AFTER PROPER POSITION OF THE NEEDLE WAS ACHIEVED, WE WORKED WITH THE RIGHT SELECTED MEDIAN BRANCHES OF L3, L4 AND THE DORSAL RAMI OF L5. WE MEASURED THE CORRESPONDING IMPEDANCES, SENSORY STIMULATION AND MOTOR RESPONSES INDICATED IN THE RADIOFREQUENCY WORKSHEET. POSITION OF THE NEEDLES WAS VERIFIED AGAIN WITH AP AND LATERAL VIEWS. LIDOCAINE 1%, 2 ML, WAS INJECTED AT EACH LEVEL. RADIOFREQUENCY WAS DONE AT EACH LEVEL AT 80 DEGREES FOR 90 SECONDS. AFTER RADIOFREQUENCY WAS DONE, THE PATIENT RECEIVED BUPIVACAINE 0.125% 1 CC WITH KENALOG 5 MG AT EACH SITE. THERE WAS NO EVIDENCE OF BLOOD, PARESTHESIA OR CEREBROSPINAL FLUID DURING THE PROCEDURE. THE PATIENT WAS SENT TO THE RECOVERY ROOM. THE PATIENT WAS MOVING THE EXTREMITIES AND DOING WELL. THERE WAS NO COMPLICATION DURING THE PROCEDURE. FLUOROSCOPY TIME WAS 56 SECONDS POST PROCEDURE NOTE THE PATIENT WILL BE SEEN IN A FOLLOW UP IN THE NEXT FEW WEEKS. INSTRUCTIONS WERE GIVEN, QUESTIONS WERE ANSWERED, AND THE PATIENT EXPRESSED UNDERSTANDING AND AGREES WITH THE PLAN. I, TRISTAN GEORGE, DOCUMENTED THE ABOVE INFORMATION ACTING A SCRIBE FOR DR. ZIMMERMAN. I HAVE REVIEWED THE ABOVE DOCUMENT, WRITTEN BY TRISTAN WALSH AND I VERIFY THAT IT IS ACCURATE. PN WORKMANS' COMP OPINION IN YOUR OPINION, WAS THE INCIDENT THAT THE PATIENT DESCRIBED THE COMPETENT MEDICAL CAUSE OF THIS INJURY/ILLNESS? YES ARE THE PATIENT'S COMPLAINTS CONSISTENT WITH HIS/HER HISTORY OF THE INJURY/ILLNESS? YES IS THE PATIENT'S HISTORY OF THE INJURY/ILLNESS CONSISTENT WITH YOUR OBJECTIVE FINDING? YES WHAT IS THE PERCENTAGE OF TEMPORARY IMPAIRMENT? MODERATE TO MARKED = 66.7% IS THE PATIENT WORKING? NO DOCTOR ON SITE: BINU WILL MD PROCEDURE CODES 05755 DESTROY LUMB/SAC FACET JNT, MODIFIERS: RT 93252 DESTROY L/S FACET JNT ADDL, MODIFIERS: RT 6045F RADXPS IN END [id number] PXD DISPOSITION & COMMUNICATION FOLLOW UP 3 WEEKS ELECTRONICALLY SIGNED BY BINU ZIMMERMAN MD, MD ON 02/02/2019 AT 12:06 PM EDT DISCLAIMER : THIS IS A VISIT SUMMARY EXTRACTED FROM THE [employer] CHART. IT IS NOT A COPY OF THE [employer] PROGRESS NOTE. MTDD
== END ==
LOC: M PAIN 10:45
PROVIDERS: ATTEND Anesthesiology
DX: M47.816 Spondylosis without myelopathy or radiculopathy, lumbar region (principal); M47.817 Spondylosis without myelopathy or radiculopathy, lumbosacral region; K21.9 Gastro-esophageal reflux disease without esophagitis; E78.00 Pure hypercholesterolemia, unspecified; M54.2 Cervicalgia; M54.81 Occipital neuralgia; H93.11 Tinnitus, right ear; Z98.1 Arthrodesis status; Z96.651 Presence of right artificial knee joint; Z79.891 Long term (current) use of opiate analgesic; Z79.899 Other long term (current) drug therapy; Z88.8 Allergy status to other drugs, medicaments and biological substances
CPT/HCPCS: 64635; 64636; J3301; Q9967

== ENCOUNTER → 2019-02-05 | Outpatient (CLI) | payer OTHER ==
[~2019-02-05] MED LIST changes: -BUPIVACAINE HCL 0.25% 30 ML VIAL As Ordered ONE; -ISOVUE-M 300 61% 15ML VIAL (Q9967) As Ordered ONE; -LIDOCAINE 1% SDV INJ 30 ML VIAL As Ordered ONE; -TRIAMCINOLONE ACETONIDE SUSP 40 MG/ML VIAL (J3301) As Ordered ONE
--- NOTE | 2019-02-17 11:35 | ECWPNPC ---
PATIENT NAME: OWEN ROSALES : 1960 GENDER: MALE VISIT DATE: 02/05/2019 DISCHARGE DATE: 02/05/19 1217 VISIT LOCKED DATE TIME: PHYSICIAN: CHRISTAL TRUONG RESOURCE: CHRISTAL TRUONG REASON FOR APPOINTMENT 1. W/C POST PROC HISTORY OF PRESENT ILLNESS HISTORY OF PRESENT ILLNESS: PAIN THE PATIENT DESCRIBES THE PAIN... THE PATIENT DESCRIBES THE PAIN... 58 YEAR OLD MALE PATIENT WITH A HISTORY OF CHRONIC LOW BACK PAIN IN FOR A FOLLOW UP RF PROCEDURE. THE PATIENT DESCRIBES THE PAIN ACHING, SORE, TENDER, AND DAILY WITH A PAIN SCORE OF 2/10 DEPENDING ON PHYSICAL ACTIVITY. 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 THE PATIENT RECEIVED AN RF PROCEDURE ON 01/22/19 THAT TOOK HIS PAIN FROM A 7/10 TO A 0-3/10. THE PATIENT SAYS HE IS USING MORPHINE SULFATE 15 MG AND OXYCODONE 5 MG FOR WHEN HIS PAIN IS SEVERE. FALL RISK SCREENING: SCREENING :NO FALLS REPORTED IN THE LAST YEAR CURRENT MEDICATIONS TAKING GEMFIBROZIL 600 MG TABLET 1 TABLET ORALLY DAILY TAKING LOVASTATIN 40 MG TABLET 2 TABLET ORALLY ONCE A DAY TAKING MULTIVITAL HOOPA TABLET ORALLY DAILY TAKING OMEPRAZOLE 40 MG CAPSULE DELAYED RELEASE 1 CAPSULE ORALLY ONCE A DAY TAKING MIRALAX PACKET 1 PACKET MIXED WITH 8 OUNCES OF FLUID ORALLY ONCE A DAY NEEDED, NOTES: NONE RECENT TAKING VITAMIN D3 2000 UNIT CAPSULE 1 CAPSULE ORALLY ONCE A DAY TAKING OXYCODONE HCL 5 MG TABLET 1 TABLET ORALLY EVERY 6-8 HRS PRN PAIN MDD=2, NOTES: LAST COUPLE DAYS AGO TAKING MORPHINE SULFATE ER 15 MG TABLET EXTENDED RELEASE 1 TABLET ORALLY AT BEDTIME MDD=1, NOTES: LAST 01/21/19 PM TAKING GABAPENTIN 600 MG TABLET 1 CAPSULE ORALLY THREE TIMES A DAY NOT-TAKING TIZANIDINE HCL 4 MG TABLET 1 TABLET NEEDED ORALLY EVERY 6 HOURS NEEDED MDD3 MEDICATION LIST REVIEWED AND RECONCILED WITH THE PATIENT PAST MEDICAL HISTORY REFLUX HIGH CHOLESTEROL CERVICALGIA BILATERAL OCCIPITAL NEURALGIA LOW BACK PAIN TINNITUS- RIGHT WARTS AND ON RIGHT FOOT ALLERGIES TEGADERM: RASH/HIVES - SIDE EFFECTS SURGICAL HISTORY TOTAL RIGHT KNEE 2001 RIGHT HIP FX REPAIR 1985 ABDOMINAL EXPLORATORY SURGERY 1984 CERVICAL/THORACIC FUSION 2006 LEGIMENT AND CARTLIGE REMOVAL RIGHT KNEE 1977 RIGHT FOOT WARTS REMOVED 2018 FAMILY HISTORY FATHER: 84 YRS, CONGESTIVE HEART DISEASE, DIAGNOSED WITH UNSPECIFIED HEART DISEASE MOTHER: ALIVE 92 YRS, PACEMAKER, UNSPECIFIED HEART DISEASE 2 SON(S) - HEALTHY. SOCIAL HISTORY GENERAL: TOBACCO USE ARE YOU A:NONSMOKER EDUCATION LEVEL OF EDUCATION:HIGH SCHOOL DIET: REGULAR. LANGUAGE LANGUAGES SPOKEN:PRYDEINIG DOMESTIC VIOLENCE DO YOU FEEL SAFE IN YOUR ENVIRONMENT?YES RECREATIONAL DRUG USE DRUG USE?NO EXERCISE: WALKS AND SWIMS AT Y 3 TIMES A WEEK. LEARNING BARRIERS / SPECIAL NEEDS BARRIERS TO LEARNING?NO HEARING IMPAIRED?NO TINNITUS-CONSTANT IN RIGHT EAR VISION IMPAIRED?YES GLASSES FOR READING COGNITIVELY IMPAIRED?NO READINESS TO LEARN?YES LEARNING PREFERENCES?NO LEARNING CAPABILITIES PRESENT?YES EMOTIONAL BARRIERS?NO SPECIAL DEVICES?NO ENDOSCOPY RN NEEDED?NO PAIN CLINIC PFS, CLERGY, PUBLIC HEALTH REFERRALS PFS REFERRAL NEEDED?NO CLERGY REFERRAL NEEDED?NO PUBLIC HEALTH REFERRAL NEEDED?NO WAS THE PROVIDER NOTIFIED OF ANY PERTINENT INFO? N/A HAS THE PATIENT BEEN EDUCATED REGARDING HIS/HER PLAN OF CARE?YES HAS THE PATIENT BEEN EDUCATED REGARDING PAIN, THE RISK FOR PAIN, THE IMPORTANCE OF EFFECTIVE PAIN MANAGEMENT, AND THE PAIN ASSESSMENT PROCESS?YES LATEX QUESTIONNAIRE LATEX ALLERGY : HAVE YOU EVER DEVELOPED ANY TYPE OF REACTION AFTER HANDLING LATEX PRODUCTS SUCH RUBBER GLOVES, CONDOMS, DIAPHRAGMS, BALLOONS, SOCKS, OR UNDERWEAR?NO LATEX ALLERGY : HAVE YOU EVER DEVELOPED ANY TYPE OF REACTION DURING OR AFTER DENTAL APPOINTMENT, VAGINAL/RECTAL EXAMINATION, SURGICAL PROCEDURE, OR ANY OTHER EXPOSURE?NO DATE ASKED : 10/16/2018 LATEX RISK : HAVE YOU EVER HAD ANY DIFFICULTY BREATHING OR HIVES AFTER EATING OR HANDLING ANY FRUITS, OR VEGETABLES; SUCH KIWI, BANANAS, STONE FRUITS, OR CHESTNUTSNO LATEX RISK : DO YOU HAVE A PREVIOUS PERSONAL HISTORY OF MORE THAN NINE SURGERIES, SPINA BIFIDA, OR REPEATED CATHERIZATIONS? NO LATEX RISK : ARE YOU FREQUENTLY EXPOSED TO LATEX PRODUCTS IN YOUR OCCUPATION?NO CAFFEINE CAFFEINE USE?YES HOW OFTEN AND HOW MUCH? FEW CUPS COFFEE DAILY ADVANCE DIRECTIVE ADVANCE DIRECTIVE DISCUSSED WITH PATIENT:YES HAS HCP SON--HARSHA ROSALES [phone](C) JUDAISM [id number] CATHOLIC ALCOHOL SCREENING DID YOU HAVE A DRINK CONTAINING ALCOHOL IN THE PAST YEAR?YES HOW OFTEN DID YOU HAVE SIX OR MORE DRINKS ON ONE OCCASION IN THE PAST YEAR?LESS THAN MONTHLY (1 POINT) HOW MANY DRINKS DID YOU HAVE ON A TYPICAL DAY WHEN YOU WERE DRINKING IN THE PAST YEAR?5 OR 6 (2 POINTS) HOW OFTEN DID YOU HAVE A DRINK CONTAINING ALCOHOL IN THE PAST YEAR?MONTHLY OR LESS (1 POINT) POINTS4 INTERPRETATIONPOSITIVE REVIEWED NL 03/29/18REVIEWED WITH PATIENT 07/26/18 1021 JS10/16/18 REVIEWED WITH PT. ADREVIEWED WITH PT 01/22/19 1136 BVREVIEWED WITH PATIENT 02/05/2019 LAS. HOSPITALIZATION/MAJOR DIAGNOSTIC PROCEDURE SURGERIES REVIEW OF SYSTEMS REVIEWED BY: PROVIDER: RAFA ESPINO . CONSTITUTIONAL: ANY CHANGE IN YOUR MEDICAL CONDITION? NO . CHILLS NO . FEVER NO . INFECTION: DO YOU HAVE NEW INFECTIONS? NO . DO YOU HAVE HISTORY OF MRSA? NO . MUSCULOSKELETAL: ANY NEW PATTERNS OF PAIN OR NUMBNESS? NO . GASTROENTEROLOGY: ANY NEW CHANGE IN BOWEL CONTROL? NO . GENITOURINARY: ANY NEW CHANGE IN BLADDER CONTROL? NO . IS THERE A CHANCE YOU COULD BE ? NO . HEMATOLOGY/LYMPH: DO YOU TAKE ANY BLOOD THINNERS? (FOR EXAMPLE- COUMADIN, PLAVIX, AGGRENOX, PLATEL, PRADAXA, OR XARELTO) NO . WHEN WAS YOUR LAST DOSE? DATE: TIME: . NEUROLOGY: HAVE YOU FALLEN IN THE PAST 12 MONTHS? NO . ANY NEW EXTREMITY NUMBNESS OR WEAKNESS? NO . CARDIOLOGY: DO YOU HAVE A PACEMAKER OR DEFIBRILLATOR? NO . RESPIRATORY: HAVE YOU BEEN SICK IN THE PAST WEEK? NO . FEVER NO . FLU LIKE SYMPTOMS? NO . COUGH NO . INTEGUMENTARY: DO YOU HAVE ANY RASHES OR OPEN SORES? NO . ALLERGIC/IMMUNO: ARE YOU ALLERGIC TO IV DYE? NO . ANY NEW ALLERGIES? NO . PSYCHIATRIC: DO YOU HAVE THOUGHTS OF HURTING YOURSELF OR SOMEONE ELSE? NO . ARE YOU ABUSED, NEGLECTED, OR IN AN UNSAFE ENVIRONMENT? NO . ENDOCRINOLOGY: ARE YOU DIABETIC? NO . OTHER: DO YOU NEED ANY PRESCRIPTIONS? NO . IF YES, PLEASE LIST: ____ . ANY NEW PROBLEMS WITH YOUR MEDICATIONS? NO . WHEN DID YOU LAST EAT? ____ . WHEN DID YOU LAST DRINK? ____ . WHAT DID YOU LAST DRINK? ____ . NAME OF PERSON DRIVING YOU HOME? ____ . DO YOU HAVE ANY OTHER QUESTIONS OR CONCERNS NO . VITAL SIGNS WT 247 LBS, HT 69 IN, BMI 36.47 INDEX, BP 137/84 MM HG, HR 73 /MIN, RR 18 /MIN, TEMP 97.0 F, OXYGEN SAT % 96%, NA INITIALS AW 1156. EXAMINATION GENERAL EXAMINATION: GENERALNO ACUTE DISTRESS, WELL NOURISHED AND HYDRATED. PSYCHAPPROPRIATE MOOD AND AFFECT . LUNGS:CLEAR TO AUSCULTATION BILATERALLY, NO WHEEZES, RHONCHI, RALES. HEART:NO MURMURS, REGULAR RATE AND RHYTHM. ASSESSMENTS INTERVERTEBRAL DISC DISORDERS WITH RADICULOPATHY, LUMBAR REGION - M51.16 (PRIMARY) TREATMENT INTERVERTEBRAL DISC DISORDERS WITH RADICULOPATHY, LUMBAR REGION CLINICAL NOTES: 59-YEAR-OLD MALE IN FOR FOLLOW-UP RF PROCEDURE. GIVEN PRESENTING SYMPTOMS AND RESULTS OF PHYSICAL EXAMINATION RECOMMENDED FOLLOW-UP IN 2 MONTHS. INFORMED PATIENT SHOULD PAIN RETURN PRIOR TO THAT HE CAN CALL THE OFFICE. PATIENT HAS EXPRESSED UNDERSTANDING OF AND WAS IN AGREEMENT WITH TREATMENT PLAN. GIVEN TIME TO ASK QUESTIONS AND EXPRESS CONCERNS., ISTOP REGISTRY REVIEWED AND DEMONSTRATES COMPLLIANCE. (REF # [id number] ) BRINGS IN MEDICATIONS WHICH IS APPROPRIATE FOR WHAT WAS DISPENSED. RECENT URINE TOXICOLOGY REVIEWED. NO UNAUTHORIZED MEDICATIONS. NO ILLICIT SUBSTANCES AND PRESCRIBED MEDICATIONS WERE PRESENT. PROCEDURES PN WORKMANS' COMP OPINION IN YOUR OPINION, WAS THE INCIDENT THAT THE PATIENT DESCRIBED THE COMPETENT MEDICAL CAUSE OF THIS INJURY/ILLNESS? YES ARE THE PATIENT'S COMPLAINTS CONSISTENT WITH HIS/HER HISTORY OF THE INJURY/ILLNESS? YES IS THE PATIENT'S HISTORY OF THE INJURY/ILLNESS CONSISTENT WITH YOUR OBJECTIVE FINDING? YES WHAT IS THE PERCENTAGE OF TEMPORARY IMPAIRMENT? MODERATE TO MARKED = 66.7% IS THE PATIENT WORKING? NO DOCTOR ON SITE: BINU WILL MD PROCEDURE CODES FA211 ESTABILISHED PATIENT [facility] FACILITY CHARGE DISPOSITION & COMMUNICATION FOLLOW UP 2 MONTHS (REASON: W/C CHRONIC PAIN ) ELECTRONICALLY SIGNED BY FRANCHESKA GERARD ON 02/06/2019 AT 09:25 AM EDT DISCLAIMER : THIS IS A VISIT SUMMARY EXTRACTED FROM THE [employer] CHART. IT IS NOT A COPY OF THE [employer] PROGRESS NOTE. MTDD
== END ==
LOC: M PAIN 10:45
PROVIDERS: ATTEND Family Medicine
DX: M51.16 Intervertebral disc disorders with radiculopathy, lumbar region (principal); G89.29 Other chronic pain; K21.9 Gastro-esophageal reflux disease without esophagitis; Z96.651 Presence of right artificial knee joint; Z91.09 Other allergy status, other than to drugs and biological substances; Z79.891 Long term (current) use of opiate analgesic; Z79.899 Other long term (current) drug therapy

== ENCOUNTER → 2019-04-09 | Outpatient (CLI) | payer OTHER ==
--- NOTE | 2019-04-11 04:17 | ECWPNPC ---
PATIENT NAME: OWEN ROSALES : 1960 GENDER: MALE VISIT DATE: 04/09/2019 DISCHARGE DATE: 04/09/19 1132 VISIT LOCKED DATE TIME: PHYSICIAN: CHRISTAL TRUONG RESOURCE: CHRISTAL TRUONG REASON FOR APPOINTMENT 1. 2 MONTHS, W/C HISTORY OF PRESENT ILLNESS HISTORY OF PRESENT ILLNESS: PAIN THE PATIENT DESCRIBES THE PAIN... 58 YEAR OLD MALE PATIENT WITH A HISTORY OF CHRONIC LOW BACK PAIN. THE PATIENT DESCRIBES THE PAIN ACHING, SORE, TENDER, AND DAILY WITH A PAIN SCORE OF 4/10 DEPENDING ON PHYSICAL ACTIVITY. 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 THE PATIENT WAS HURT IN A SECOND WORK RELATED INJURY ON 09/25/2000 WHILE WORKING FOR [employer] A SOLAR SALES ASSESSOR WHEN HE WAS LIFTING HEAVY WIRES AND INJURED HIS NECK. 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 THE PATIENT RECEIVED AN RF PROCEDURE ON 01/22/19 THAT TOOK HIS PAIN FROM A 7/10 TO A 0-3/10. THE PATIENT SAYS HE IS USING MORPHINE SULFATE 15 MG AND OXYCODONE 5 MG FOR WHEN HIS PAIN IS SEVERE. HE WOULD LIKE TO DISCUSS A REPEAT RF PROCEDURE WITH THE GOAL OF INCREASED FUNCTIONALITY AND DECREASED PAIN. FALL RISK SCREENING: SCREENING :NO FALLS REPORTED IN THE LAST YEAR CURRENT MEDICATIONS TAKING GEMFIBROZIL 600 MG TABLET 1 TABLET ORALLY DAILY TAKING LOVASTATIN 40 MG TABLET 2 TABLET ORALLY ONCE A DAY TAKING MULTIVITAL KONG[place]K TABLET ORALLY DAILY TAKING OMEPRAZOLE 40 MG CAPSULE DELAYED RELEASE 1 CAPSULE ORALLY ONCE A DAY TAKING MIRALAX PACKET 1 PACKET MIXED WITH 8 OUNCES OF FLUID ORALLY ONCE A DAY NEEDED, NOTES: NONE RECENT TAKING VITAMIN D3 2000 UNIT CAPSULE 1 CAPSULE ORALLY ONCE A DAY TAKING GABAPENTIN 600 MG TABLET 1 CAPSULE ORALLY THREE TIMES A DAY TAKING OXYCODONE HCL 5 MG TABLET 1 TABLET ORALLY EVERY 6-8 HRS PRN PAIN MDD=2, NOTES: LAST COUPLE DAYS AGO TAKING MORPHINE SULFATE ER 15 MG TABLET EXTENDED RELEASE 1 TABLET ORALLY AT BEDTIME MDD=1, NOTES: LAST 01/21/19 PM NOT-TAKING TIZANIDINE HCL 4 MG TABLET 1 TABLET NEEDED ORALLY EVERY 6 HOURS NEEDED MDD3 MEDICATION LIST REVIEWED AND RECONCILED WITH THE PATIENT PAST MEDICAL HISTORY REFLUX HIGH CHOLESTEROL CERVICALGIA BILATERAL OCCIPITAL NEURALGIA LOW BACK PAIN TINNITUS- RIGHT WARTS AND ON RIGHT FOOT ALLERGIES N.K.D.A. SURGICAL HISTORY TOTAL RIGHT KNEE 2001 RIGHT HIP FX REPAIR 1984 ABDOMINAL EXPLORATORY SURGERY 1984 CERVICAL/THORACIC FUSION 2005 LEGIMENT AND CARTLIGE REMOVAL RIGHT KNEE 1977 RIGHT FOOT WARTS REMOVED 2018 FAMILY HISTORY FATHER: 84 YRS, CONGESTIVE HEART DISEASE, DIAGNOSED WITH UNSPECIFIED HEART DISEASE MOTHER: ALIVE 92 YRS, PACEMAKER, UNSPECIFIED HEART DISEASE 2 SON(S) - HEALTHY. SOCIAL HISTORY GENERAL: TOBACCO USE ARE YOU A:NONSMOKER EDUCATION LEVEL OF EDUCATION:HIGH SCHOOL DIET: REGULAR. LANGUAGE LANGUAGES SPOKEN:KHMER DOMESTIC VIOLENCE DO YOU FEEL SAFE IN YOUR ENVIRONMENT?YES RECREATIONAL DRUG USE DRUG USE?NO EXERCISE: WALKS AND SWIMS AT Y 3 TIMES A WEEK. LEARNING BARRIERS / SPECIAL NEEDS BARRIERS TO LEARNING?NO HEARING IMPAIRED?NO TINNITUS-CONSTANT IN RIGHT EAR VISION IMPAIRED?YES GLASSES FOR READING COGNITIVELY IMPAIRED?NO READINESS TO LEARN?YES LEARNING PREFERENCES?NO LEARNING CAPABILITIES PRESENT?YES EMOTIONAL BARRIERS?NO SPECIAL DEVICES?NO PRINCIPAL BIOSTATISTICIAN NEEDED?NO PAIN CLINIC PFS, CLERGY, PUBLIC HEALTH REFERRALS PFS REFERRAL NEEDED?NO CLERGY REFERRAL NEEDED?NO PUBLIC HEALTH REFERRAL NEEDED?NO WAS THE PROVIDER NOTIFIED OF ANY PERTINENT INFO? N/A HAS THE PATIENT BEEN EDUCATED REGARDING HIS/HER PLAN OF CARE?YES HAS THE PATIENT BEEN EDUCATED REGARDING PAIN, THE RISK FOR PAIN, THE IMPORTANCE OF EFFECTIVE PAIN MANAGEMENT, AND THE PAIN ASSESSMENT PROCESS?YES LATEX QUESTIONNAIRE LATEX ALLERGY : HAVE YOU EVER DEVELOPED ANY TYPE OF REACTION AFTER HANDLING LATEX PRODUCTS SUCH RUBBER GLOVES, CONDOMS, DIAPHRAGMS, BALLOONS, SOCKS, OR UNDERWEAR?NO LATEX ALLERGY : HAVE YOU EVER DEVELOPED ANY TYPE OF REACTION DURING OR AFTER DENTAL APPOINTMENT, VAGINAL/RECTAL EXAMINATION, SURGICAL PROCEDURE, OR ANY OTHER EXPOSURE?NO DATE ASKED : 10/16/2018 LATEX RISK : HAVE YOU EVER HAD ANY DIFFICULTY BREATHING OR HIVES AFTER EATING OR HANDLING ANY FRUITS, OR VEGETABLES; SUCH KIWI, BANANAS, STONE FRUITS, OR CHESTNUTSNO LATEX RISK : DO YOU HAVE A PREVIOUS PERSONAL HISTORY OF MORE THAN NINE SURGERIES, SPINA BIFIDA, OR REPEATED CATHERIZATIONS? NO LATEX RISK : ARE YOU FREQUENTLY EXPOSED TO LATEX PRODUCTS IN YOUR OCCUPATION?NO CAFFEINE CAFFEINE USE?YES HOW OFTEN AND HOW MUCH? FEW CUPS COFFEE DAILY ADVANCE DIRECTIVE ADVANCE DIRECTIVE DISCUSSED WITH PATIENT:YES HAS HCP SON--HARSHA ROSALES [phone](C) ANABAPTISM [id number] MOS[place] ALCOHOL SCREENING DID YOU HAVE A DRINK CONTAINING ALCOHOL IN THE PAST YEAR?YES HOW OFTEN DID YOU HAVE SIX OR MORE DRINKS ON ONE OCCASION IN THE PAST YEAR?LESS THAN MONTHLY (1 POINT) HOW MANY DRINKS DID YOU HAVE ON A TYPICAL DAY WHEN YOU WERE DRINKING IN THE PAST YEAR?5 OR 6 (2 POINTS) HOW OFTEN DID YOU HAVE A DRINK CONTAINING ALCOHOL IN THE PAST YEAR?MONTHLY OR LESS (1 POINT) POINTS4 INTERPRETATIONPOSITIVE REVIEWED NL 03/29/18REVIEWED WITH PATIENT 07/26/18 1021 JS10/16/18 REVIEWED WITH PT. ADREVIEWED WITH PT 01/22/19 1136 BVREVIEWED WITH PATIENT 02/05/2019 LASREVIEWED WITH PATIENT 04/09/19 1057 NLJ. HOSPITALIZATION/MAJOR DIAGNOSTIC PROCEDURE SURGERIES REVIEW OF SYSTEMS REVIEWED BY: PROVIDER: RAFA ESPINO . CONSTITUTIONAL: ANY CHANGE IN YOUR MEDICAL CONDITION? NO . CHILLS NO . FEVER NO . INFECTION: DO YOU HAVE NEW INFECTIONS? NO . DO YOU HAVE HISTORY OF MRSA? NO . MUSCULOSKELETAL: ANY NEW PATTERNS OF PAIN OR NUMBNESS? YES- STATES THAT IF HE HAS BEEN SITTING FOR A TIME HIS LOWER BACK HURTS "SO BAD AND HIS LOWER LEGS ALSO HURT" . GASTROENTEROLOGY: ANY NEW CHANGE IN BOWEL CONTROL? NO . GENITOURINARY: ANY NEW CHANGE IN BLADDER CONTROL? NO . IS THERE A CHANCE YOU COULD BE ? NO . HEMATOLOGY/LYMPH: DO YOU TAKE ANY BLOOD THINNERS? (FOR EXAMPLE- COUMADIN, PLAVIX, AGGRENOX, PLATEL, PRADAXA, OR XARELTO) NO . WHEN WAS YOUR LAST DOSE? DATE: TIME: . NEUROLOGY: HAVE YOU FALLEN IN THE PAST 12 MONTHS? NO . ANY NEW EXTREMITY NUMBNESS OR WEAKNESS? YES- STATES THAT HE HAS FELT INCREASED TINGLING AND WEAKNESS IN HIS BLE . CARDIOLOGY: DO YOU HAVE A PACEMAKER OR DEFIBRILLATOR? NO . RESPIRATORY: HAVE YOU BEEN SICK IN THE PAST WEEK? YES- STATES THAT HE HAS BEEN ON AN ANTIBIOTIC FOR COUGH, HAS FINISHED ANTIBIOTIC, PT ALSO STATES HE WAS BIT BY A TIC ABOUT 1 1/2 WEEKS AGO, STATES THAT HE WAS SEEN IN URGENT CARE AFTER AND WILL BE SEEN BY HIS PCP TOMORROW- DENIES ANY RELATED SYMPTOMS AT THIS TIME . FEVER NO . FLU LIKE SYMPTOMS? NO . COUGH NO . INTEGUMENTARY: DO YOU HAVE ANY RASHES OR OPEN SORES? NO . ALLERGIC/IMMUNO: ARE YOU ALLERGIC TO IV DYE? NO . ANY NEW ALLERGIES? NO . PSYCHIATRIC: DO YOU HAVE THOUGHTS OF HURTING YOURSELF OR SOMEONE ELSE? NO . ARE YOU ABUSED, NEGLECTED, OR IN AN UNSAFE ENVIRONMENT? NO . ENDOCRINOLOGY: ARE YOU DIABETIC? NO . OTHER: DO YOU NEED ANY PRESCRIPTIONS? YES . IF YES, PLEASE LIST: GABAPENTIN . ANY NEW PROBLEMS WITH YOUR MEDICATIONS? NO . WHEN DID YOU LAST EAT? ____ . WHEN DID YOU LAST DRINK? ____ . WHAT DID YOU LAST DRINK? ____ . NAME OF PERSON DRIVING YOU HOME? ____ . DO YOU HAVE ANY OTHER QUESTIONS OR CONCERNS YES- HAD FLU AND PNEUMONIA VACCINE THE LAST WEEK OF FEBRUARY . VITAL SIGNS WT 249.0 LBS, HT 69 IN, BMI 36.77 INDEX, BP 137/91 MM HG, HR 97 /MIN, RR 18 /MIN, TEMP 97.5 F, OXYGEN SAT % 97%, SAFE IN ENV? (Y/N) YES, NA INITIALS AW 1101, REVIEWED BY: FARHAN. EXAMINATION GENERAL EXAMINATION: GENERALNO ACUTE DISTRESS, WELL NOURISHED AND HYDRATED. PSYCHAPPROPRIATE MOOD AND AFFECT . LUNGS:CLEAR TO AUSCULTATION BILATERALLY, NO WHEEZES, RHONCHI, RALES. HEART:NO MURMURS, REGULAR RATE AND RHYTHM. BACK:POINT TENDER ALONG LUMBAR SPINE, SURROUNDING SKIN SHOWS NO ERYTHEMA, ECCHYMOSIS, INCREASED WARMTH, AND/OR SKIN ERUPTIONS NOTED. POSITIVE MODIFIED SLR ON THE LEFT SIDE. . MUSCULOSKELETAL:EQUAL STRENGTH OF LOWER EXTREMITIES BILATERALLY . ASSESSMENTS INTERVERTEBRAL DISC DISORDERS WITH RADICULOPATHY, LUMBAR REGION - M51.16 (PRIMARY) TREATMENT INTERVERTEBRAL DISC DISORDERS WITH RADICULOPATHY, LUMBAR REGION REFILL GABAPENTIN TABLET, 600 MG, 1 CAPSULE, ORALLY, THREE TIMES A DAY, 30 DAY(S), 90 CAPSULE, REFILLS 1 NOTES: DIAGNOSTIC FACET BLOCK #2 L4-L5 L5-S1 LEFT SIDE. CLINICAL NOTES: 59-YEAR-OLD MALE IN FOR WORK[employer] COMP. CHRONIC PAIN FOLLOW-UP. GIVEN PRESENTING SYMPTOMS AND RESULTS OF PHYSICAL EXAMINATION RECOMMENDED DIAGNOSTIC FACET BLOCK #2 L4-L5 L5-S1 LEFT SIDE WITH POSTPROCEDURAL FOLLOW-UP. PATIENT HAS EXPRESSED UNDERSTANDING OF AND WAS IN AGREEMENT WITH TREATMENT PLAN. GIVEN TIME TO ASK QUESTIONS AND EXPRESS CONCERNS., ISTOP REGISTRY REVIEWED AND DEMONSTRATES COMPLLIANCE. (REF # [id number] ) BRINGS IN MEDICATIONS WHICH IS APPROPRIATE FOR WHAT WAS DISPENSED. RECENT URINE TOXICOLOGY REVIEWED. NO UNAUTHORIZED MEDICATIONS. NO ILLICIT SUBSTANCES AND PRESCRIBED MEDICATIONS WERE PRESENT. OTHERS NOTES: FACET JOINT INJECTION MATERIAL WAS PRINTED AND REVIEWED WITH PT, PT KARTHIKEYAN UNDERSTANDING OF INSTRUCTIONS WELL PRE PROCEDURE INSTRUCTIONS REVIEWED 04/09/19 1127 NLJ. PROCEDURES PN WORKMANS' COMP OPINION IN YOUR OPINION, WAS THE INCIDENT THAT THE PATIENT DESCRIBED THE COMPETENT MEDICAL CAUSE OF THIS INJURY/ILLNESS? YES ARE THE PATIENT'S COMPLAINTS CONSISTENT WITH HIS/HER HISTORY OF THE INJURY/ILLNESS? YES IS THE PATIENT'S HISTORY OF THE INJURY/ILLNESS CONSISTENT WITH YOUR OBJECTIVE FINDING? YES WHAT IS THE PERCENTAGE OF TEMPORARY IMPAIRMENT? MODERATE TO MARKED = 66.7% IS THE PATIENT WORKING? NO DOCTOR ON SITE: BINU WILL MD PROCEDURE CODES FA211 ESTABILISHED PATIENT [facility] CHARGE DISPOSITION & COMMUNICATION FOLLOW UP POSTPROCEDURE (REASON: DIAGNOSTIC FACET BLOCK #2 L4-L5 L5-S1 LEFT SIDE) ELECTRONICALLY SIGNED BY FRANCHESKA GERARD ON 04/10/2019 AT 08:42 AM EST DISCLAIMER : THIS IS A VISIT SUMMARY EXTRACTED FROM THE [employer] CHART. IT IS NOT A COPY OF THE [employer] PROGRESS NOTE. ANALILIA
== END ==
LOC: M PAIN 10:30
PROVIDERS: ATTEND Family Medicine
DX: M51.16 Intervertebral disc disorders with radiculopathy, lumbar region (principal); G89.29 Other chronic pain; K21.9 Gastro-esophageal reflux disease without esophagitis; Z96.651 Presence of right artificial knee joint; Z79.891 Long term (current) use of opiate analgesic; Z79.899 Other long term (current) drug therapy

== ENCOUNTER → 2019-05-08 | Outpatient (CLI) | payer OTHER ==
[~2019-05-08] MED LIST changes: +BUPIVACAINE HCL 0.25% 30 ML VIAL As Ordered ONE; +ISOVUE-M 300 61% 15ML VIAL (Q9967) As Ordered ONE; +LIDOCAINE 1% SDV INJ 30 ML VIAL As Ordered ONE
--- NOTE | 2019-05-08 12:35 | REP ---
Partial lumbar spine series: Two views . History: Injection procedure for pain. 18 seconds of fluoroscopy time is reported. Findings: A sequence of two fluoroscopically obtained last image hold procedural spot radiographs of the lumbar spine document needle position and contrast injection associated with injection procedure. Electronically Signed by Nacho Christopher MD 05/08/2019 12:27 P
--- NOTE | 2019-05-21 03:47 | ECWPNPC ---
PATIENT NAME: OWEN ROSALES : 1960 GENDER: MALE VISIT DATE: 05/08/2019 DISCHARGE DATE: 05/08/19 1018 VISIT LOCKED DATE TIME: PHYSICIAN: BINU ZIMMERMAN MD RESOURCE: BINU ZIMMERMAN MD REASON FOR APPOINTMENT 1. W/C DIAGNOSTIC FACET BLOCK #2 L4-L5 L5-S1 LEFT SIDE HISTORY OF PRESENT ILLNESS HISTORY OF PRESENT ILLNESS: PAIN THE PATIENT DESCRIBES THE PAIN... FALL RISK SCREENING: SCREENING :NO FALLS REPORTED IN THE LAST YEAR CURRENT MEDICATIONS TAKING GEMFIBROZIL 600 MG TABLET 1 TABLET ORALLY DAILY, NOTES: 05/08/19699 TAKING LOVASTATIN 40 MG TABLET 2 TABLET ORALLY ONCE A DAY, NOTES: 05/07/19 TAKING MULTIVITAL [place] TABLET ORALLY DAILY, NOTES: 05/08/19699 TAKING OMEPRAZOLE 40 MG CAPSULE DELAYED RELEASE 1 CAPSULE ORALLY ONCE A DAY, NOTES: 05/08/19699 TAKING MIRALAX PACKET 1 PACKET MIXED WITH 8 OUNCES OF FLUID ORALLY ONCE A DAY NEEDED, NOTES: NONE RECENT TAKING VITAMIN D3 2000 UNIT CAPSULE 1 CAPSULE ORALLY ONCE A DAY, NOTES: 05/08/19699 TAKING GABAPENTIN 600 MG TABLET 1 CAPSULE ORALLY THREE TIMES A DAY, NOTES: 05/08/19 07 TAKING OXYCODONE HCL 5 MG TABLET 1 TABLET ORALLY EVERY 6-8 HRS PRN PAIN MDD=2, NOTES: 05/07/19 1900 TAKING MORPHINE SULFATE ER 15 MG TABLET EXTENDED RELEASE 1 TABLET ORALLY AT BEDTIME MDD=1, NOTES: 05/07/19 NOT-TAKING TIZANIDINE HCL 4 MG TABLET 1 TABLET NEEDED ORALLY EVERY 6 HOURS NEEDED MDD3 MEDICATION LIST REVIEWED AND RECONCILED WITH THE PATIENT PAST MEDICAL HISTORY REFLUX HIGH CHOLESTEROL CERVICALGIA BILATERAL OCCIPITAL NEURALGIA LOW BACK PAIN TINNITUS- RIGHT WARTS AND ON RIGHT FOOT ALLERGIES N.K.D.A. SURGICAL HISTORY TOTAL RIGHT KNEE 2001 RIGHT HIP FX REPAIR 1985 ABDOMINAL EXPLORATORY SURGERY 1985 CERVICAL/THORACIC FUSION 2006 LIGAMENT AND CARTLIGE REMOVAL RIGHT KNEE 1977 RIGHT FOOT WARTS REMOVED 2018 FAMILY HISTORY FATHER: 84 YRS, CONGESTIVE HEART DISEASE, DIAGNOSED WITH UNSPECIFIED HEART DISEASE MOTHER: ALIVE 92 YRS, PACEMAKER, UNSPECIFIED HEART DISEASE 2 SON(S) - HEALTHY. SOCIAL HISTORY GENERAL: TOBACCO USE ARE YOU A:NONSMOKER EDUCATION LEVEL OF EDUCATION:HIGH SCHOOL DIET: REGULAR. LANGUAGE LANGUAGES SPOKEN:SWAZI DOMESTIC VIOLENCE DO YOU FEEL SAFE IN YOUR ENVIRONMENT?YES RECREATIONAL DRUG USE DRUG USE?NO EXERCISE: WALKS AND SWIMS AT Y 3 TIMES A WEEK. LEARNING BARRIERS / SPECIAL NEEDS BARRIERS TO LEARNING?NO HEARING IMPAIRED?NO TINNITUS-CONSTANT IN RIGHT EAR VISION IMPAIRED?YES GLASSES FOR READING COGNITIVELY IMPAIRED?NO READINESS TO LEARN?YES LEARNING PREFERENCES?NO LEARNING CAPABILITIES PRESENT?YES EMOTIONAL BARRIERS?NO SPECIAL DEVICES?NO FINANCIAL SUPERVISOR NEEDED?NO PAIN CLINIC PFS, CLERGY, PUBLIC HEALTH REFERRALS PFS REFERRAL NEEDED?NO CLERGY REFERRAL NEEDED?NO PUBLIC HEALTH REFERRAL NEEDED?NO WAS THE PROVIDER NOTIFIED OF ANY PERTINENT INFO? N/A HAS THE PATIENT BEEN EDUCATED REGARDING HIS/HER PLAN OF CARE?YES HAS THE PATIENT BEEN EDUCATED REGARDING PAIN, THE RISK FOR PAIN, THE IMPORTANCE OF EFFECTIVE PAIN MANAGEMENT, AND THE PAIN ASSESSMENT PROCESS?YES LATEX QUESTIONNAIRE LATEX ALLERGY : HAVE YOU EVER DEVELOPED ANY TYPE OF REACTION AFTER HANDLING LATEX PRODUCTS SUCH RUBBER GLOVES, CONDOMS, DIAPHRAGMS, BALLOONS, SOCKS, OR UNDERWEAR?NO LATEX ALLERGY : HAVE YOU EVER DEVELOPED ANY TYPE OF REACTION DURING OR AFTER DENTAL APPOINTMENT, VAGINAL/RECTAL EXAMINATION, SURGICAL PROCEDURE, OR ANY OTHER EXPOSURE?NO DATE ASKED : 10/16/2018 LATEX RISK : HAVE YOU EVER HAD ANY DIFFICULTY BREATHING OR HIVES AFTER EATING OR HANDLING ANY FRUITS, OR VEGETABLES; SUCH KIWI, BANANAS, STONE FRUITS, OR CHESTNUTSNO LATEX RISK : DO YOU HAVE A PREVIOUS PERSONAL HISTORY OF MORE THAN NINE SURGERIES, SPINA BIFIDA, OR REPEATED CATHERIZATIONS? NO LATEX RISK : ARE YOU FREQUENTLY EXPOSED TO LATEX PRODUCTS IN YOUR OCCUPATION?NO CAFFEINE CAFFEINE USE?YES HOW OFTEN AND HOW MUCH? FEW CUPS COFFEE DAILY ADVANCE DIRECTIVE ADVANCE DIRECTIVE DISCUSSED WITH PATIENT:YES HAS HCP SON--HARSHA ROSALES [phone](C) YARSANI [id number] RELIGION ALCOHOL SCREENING DID YOU HAVE A DRINK CONTAINING ALCOHOL IN THE PAST YEAR?YES HOW OFTEN DID YOU HAVE SIX OR MORE DRINKS ON ONE OCCASION IN THE PAST YEAR?LESS THAN MONTHLY (1 POINT) HOW MANY DRINKS DID YOU HAVE ON A TYPICAL DAY WHEN YOU WERE DRINKING IN THE PAST YEAR?5 OR 6 (2 POINTS) HOW OFTEN DID YOU HAVE A DRINK CONTAINING ALCOHOL IN THE PAST YEAR?MONTHLY OR LESS (1 POINT) POINTS4 INTERPRETATIONPOSITIVE REVIEWED NL 03/29/18REVIEWED WITH PATIENT 07/26/18 1021 JS10/16/18 REVIEWED WITH PT. ADREVIEWED WITH PT 01/22/19 1136 BVREVIEWED WITH PATIENT 02/05/2019 LASREVIEWED WITH PATIENT 04/09/19 1057 NLJPRE PROCEDURE PHONE CALL COMPLETED 05/06/19 1712 NLJ. HOSPITALIZATION/MAJOR DIAGNOSTIC PROCEDURE SURGERIES REVIEW OF SYSTEMS REVIEWED BY: PROVIDER: . CONSTITUTIONAL: ANY CHANGE IN YOUR MEDICAL CONDITION? NO . CHILLS NO . FEVER NO . INFECTION: DO YOU HAVE NEW INFECTIONS? NO . DO YOU HAVE HISTORY OF MRSA? NO . MUSCULOSKELETAL: ANY NEW PATTERNS OF PAIN OR NUMBNESS? NO . GASTROENTEROLOGY: ANY NEW CHANGE IN BOWEL CONTROL? NO . GENITOURINARY: ANY NEW CHANGE IN BLADDER CONTROL? NO . IS THERE A CHANCE YOU COULD BE ? NO . HEMATOLOGY/LYMPH: DO YOU TAKE ANY BLOOD THINNERS? (FOR EXAMPLE- COUMADIN, PLAVIX, AGGRENOX, PLATEL, PRADAXA, OR XARELTO) NO . WHEN WAS YOUR LAST DOSE? DATE: TIME: . NEUROLOGY: HAVE YOU FALLEN IN THE PAST 12 MONTHS? NO . ANY NEW EXTREMITY NUMBNESS OR WEAKNESS? NO . CARDIOLOGY: DO YOU HAVE A PACEMAKER OR DEFIBRILLATOR? NO . RESPIRATORY: HAVE YOU BEEN SICK IN THE PAST WEEK? PT STATES HE HAD A MILD COLD ABOUT 2 WEEKS AGO, STATES HE HAS BEEN FEELING BETTER THIS PAST WEEK . FEVER NO . FLU LIKE SYMPTOMS? NO . COUGH PT STATES HE HAD A MILD COUGH ABOUT 2 WEEKS AGO, STATES HE HAS BEEN BETTER THIS PAST WEEK . INTEGUMENTARY: DO YOU HAVE ANY RASHES OR OPEN SORES? NO . ALLERGIC/IMMUNO: ARE YOU ALLERGIC TO IV DYE? NO . ANY NEW ALLERGIES? NO . PSYCHIATRIC: DO YOU HAVE THOUGHTS OF HURTING YOURSELF OR SOMEONE ELSE? NO . ARE YOU ABUSED, NEGLECTED, OR IN AN UNSAFE ENVIRONMENT? NO . ENDOCRINOLOGY: ARE YOU DIABETIC? NO . OTHER: DO YOU NEED ANY PRESCRIPTIONS? NO . IF YES, PLEASE LIST: ____ . ANY NEW PROBLEMS WITH YOUR MEDICATIONS? NO . WHEN DID YOU LAST EAT? 05/07/19 1900 . WHEN DID YOU LAST DRINK? 05/08/19 0700 . WHAT DID YOU LAST DRINK? WATER . NAME OF PERSON DRIVING YOU HOME? AUSTEN . DO YOU HAVE ANY OTHER QUESTIONS OR CONCERNS NO . VITAL SIGNS WT 249.2 LBS, HT 69 IN, BMI 36.80 INDEX, BP 129/88 MM HG, HR 75 /MIN, RR 18 /MIN, TEMP 97.2 F, OXYGEN SAT % 96%, NA INITIALS SC 09:14, REVIEWED BY: BV. ASSESSMENTS INTERVERTEBRAL DISC DISORDERS WITH RADICULOPATHY, LUMBAR REGION - M51.16 (PRIMARY) INTERVERTEBRAL DISC DISORDERS WITH RADICULOPATHY, LUMBOSACRAL REGION - M51.17 TREATMENT INTERVERTEBRAL DISC DISORDERS WITH RADICULOPATHY, LUMBAR REGION [facility] FACET BLOCK (PAIN)[id number] PROCEDURES PN WORKMANS' COMP OPINION IN YOUR OPINION, WAS THE INCIDENT THAT THE PATIENT DESCRIBED THE COMPETENT MEDICAL CAUSE OF THIS INJURY/ILLNESS? YES ARE THE PATIENT'S COMPLAINTS CONSISTENT WITH HIS/HER HISTORY OF THE INJURY/ILLNESS? YES IS THE PATIENT'S HISTORY OF THE INJURY/ILLNESS CONSISTENT WITH YOUR OBJECTIVE FINDING? YES WHAT IS THE PERCENTAGE OF TEMPORARY IMPAIRMENT? MODERATE TO MARKED = 66.7% IS THE PATIENT WORKING? YES DOCTOR ON SITE: BINU WILL MD PN LUMBAR FACET BLOCK DIAGNOSTIC PRE PROCEDURE DIAGNOSIS LUMBAR SPONDYLOSIS, LUMBOSACRAL SPONDYLOSIS POST PROCEDURE DIAGNOSIS LUMBAR SPONDYLOSIS, LUMBOSACRAL SPONDYLOSIS PROCEDURE LEFT L4-L5 AND LEFT L5-S1 FACET BLOCK DIAGNOSTIC NUMBER [address] BINU ZIMMERMAN RIDES ATTENDANT NONE ANESTHESIA LOCAL PRE PROCEDURE NOTE THE PATIENT WITH HISTORY OF CHRONIC LOW BACK PAIN. I EVALUATED THE PATIENT AND REVIEWED THE CHART. I WENT OVER THE RISKS, ALTERNATIVES, AND BENEFITS ASSOCIATED WITH THIS PROCEDURE. THE PATIENT WOULD LIKE TO PROCEED AND GAVE CONSENT TO PERFORM THE PROCEDURE. AGREED WITH THE PATIENT WE ARE DOING THIS PROCEDURE TO DETERMINE IF THE PATIENT IS A CANDIDATE FOR A RADIOFREQUENCY ABLATION OF THE FACETS JOINTS. THE PATIENT DENIES UNEXPLAINABLE WEIGHT LOSS, FEVER, CHILLS, OR NEW CHANGES IN URINARY OR BOWEL CONTROL DESCRIPTION OF PROCEDURE THE PATIENT WAS BROUGHT TO THE PROCEDURE ROOM AND PLACED IN THE PRONE POSITION. THE LUMBOSACRAL AREA WAS CLEANED WITH CHLORAPREP SOLUTION AND DRAPED ASEPTICALLY. THE PROCEDURE WAS DONE UNDER STERILE CONDITIONS. I CHECKED LATERALITY AND THE LEVEL WHERE THE PROCEDURE WAS GOING TO BE PERFORMED WITH THE PATIENT AND THE SUPPORTING STAFF AT THE MOMENT OF THE TIME OUT IN THE PROCEDURE ROOM. UNDER FLUOROSCOPIC GUIDANCE, TARGETS WERE SELECTED AT THE INTERSECTION OF THE LEFT TRANSVERSE PROCESS OF L4, L5 AND ALA OF S1 WITH ITS RESPECTIVE SUPERIOR ARTICULAR PROCESS. LIDOCAINE WAS USED TO NUMB THE SKIN AND THE SUBCUTANEOUS TISSUE BELOW IT. SPINAL NEEDLE, 22-GAUGE WAS ADVANCED UNDER FLUOROSCOPIC GUIDANCE AND FOLLOWING PATIENT FEEDBACK UNTIL THE TARGETS WERE REACHED. POSITION OF THE NEEDLES WAS VERIFIED WITH AP AND LATERAL VIEWS. AFTER PROPER POSITION OF THE NEEDLES WAS ACHIEVED, ISOVUE-M DYE 30% 0.1 ML WAS INJECTED AT EACH SITE SHOWING ADEQUATE SPREAD OF THE DYE. THEN A SOLUTION OF 0.4 ML OF BUPIVACAINE 0.25% WAS INJECTED AT EACH SITE. THERE WAS NO EVIDENCE OF BLOOD, PARESTHESIA OR CEREBROSPINAL FLUID DURING THE PROCEDURE. THE PATIENT WAS SENT TO THE RECOVERY ROOM. THE PATIENT WAS MOVING THE EXTREMITIES AND DOING WELL. THERE WAS NO COMPLICATION DURING THE PROCEDURE. FLUOROSCOPY TIME WAS 18 SECONDS POST PROCEDURE NOTE THE PATIENT WILL DOCUMENT HIS PAIN LEVEL AND RESPONSE TO THIS PROCEDURE EVERY 30 MINUTES. THE PATIENT WILL BE SEEN IN A FOLLOW UP IN THE NEXT FEW WEEKS. FURTHER DETERMINATION FOR HIS CASE WILL BE DONE AT THE NEXT VISIT. INSTRUCTIONS WERE GIVEN, QUESTIONS WERE ANSWERED, AND THE PATIENT EXPRESSED UNDERSTANDING AND AGREED WITH THE PLAN. I, TRISTAN GEORGE, DOCUMENTED THE ABOVE INFORMATION ACTING A SCRIBE FOR DR. ZIMMERMAN. I HAVE REVIEWED THE ABOVE DOCUMENT, WRITTEN BY TRISTAN GEORGE SCRIBStu AND I VERIFY THAT IT IS ACCURATE. PROCEDURE CODES 71385 INJ PARAVERT F JNT L/S 1 LEV, [place]: [place] [id number] INJ PARAVERT F JNT L/S 2 LEV, MODIFIERS: LT [id number] RADXPS IN END [id number] PXD DISPOSITION & COMMUNICATION FOLLOW UP 3 WEEKS ELECTRONICALLY SIGNED BY BINU ZIMMERMAN MD, MD ON 05/20/2019 AT 12:10 PM EST DISCLAIMER : THIS IS A VISIT SUMMARY EXTRACTED FROM THE [employer] CHART. IT IS NOT A COPY OF THE [employer] PROGRESS NOTE. MTDD
== END ==
LOC: M PAIN 09:00
PROVIDERS: ATTEND Anesthesiology
DX: M51.16 Intervertebral disc disorders with radiculopathy, lumbar region (principal); M51.17 Intervertebral disc disorders with radiculopathy, lumbosacral region; K21.9 Gastro-esophageal reflux disease without esophagitis; Z96.651 Presence of right artificial knee joint; Z79.891 Long term (current) use of opiate analgesic; Z79.899 Other long term (current) drug therapy
CPT/HCPCS: 64493; 64494; Q9967

== ENCOUNTER → 2019-05-23 | Outpatient (CLI) | payer OTHER ==
[~2019-05-23] MED LIST changes: -BUPIVACAINE HCL 0.25% 30 ML VIAL As Ordered ONE; -ISOVUE-M 300 61% 15ML VIAL (Q9967) As Ordered ONE; -LIDOCAINE 1% SDV INJ 30 ML VIAL As Ordered ONE
--- NOTE | 2019-05-27 02:02 | ECWPNPC ---
PATIENT NAME: OWEN ROSALES : 1960 GENDER: MALE VISIT DATE: 05/23/2019 DISCHARGE DATE: 05/23/19 1000 VISIT LOCKED DATE TIME: PHYSICIAN: CHRISTAL TRUONG RESOURCE: CHRISTAL TRUONG REASON FOR APPOINTMENT 1. W/C POST FACET BLK HISTORY OF PRESENT ILLNESS HISTORY OF PRESENT ILLNESS: PAIN THE PATIENT DESCRIBES THE PAIN... SEVERITY - PAIN SCORE OF4/10 LOCATIONSNECK, LOWER BACK QUALITYACHING , BURNING, TENDER, SORE PAIN IS INCREASED BY:ACTIVITIES, PROLONGED STANDING PAIN IS DECREASED BY:USE OF PAIN MEDICATIONS 59-YEAR-OLD MALE IN FOR WORKER'S COMP. POST DIAGNOSTIC FACET BLOCK FOLLOW-UP. PATIENT FEELS THE PROCEDURE WORKED WELL OVERALL RATING HIS PAIN PREPROCEDURE AT A 78 OUT OF 10 AND POSTPROCEDURE AT A 2 OUT OF 10. HE FURTHER STATES THE PROCEDURE CONTINUES TO HELP HIM TODAY. 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 THE PATIENT RECEIVED AN RF PROCEDURE ON 01/22/19 THAT TOOK HIS PAIN FROM A 7/10 TO A 0-3/10. THE PATIENT SAYS HE IS USING MORPHINE SULFATE 15 MG AND OXYCODONE 5 MG FOR WHEN HIS PAIN IS SEVERE. FALL RISK SCREENING: SCREENING :NO FALLS REPORTED IN THE LAST YEAR CURRENT MEDICATIONS TAKING GEMFIBROZIL 600 MG TABLET 1 TABLET ORALLY DAILY TAKING LOVASTATIN 40 MG TABLET 2 TABLET ORALLY ONCE A DAY TAKING MULTIVITAL [place]ODDY [place] TABLET ORALLY DAILY TAKING OMEPRAZOLE 40 MG CAPSULE DELAYED RELEASE 1 CAPSULE ORALLY ONCE A DAY TAKING MIRALAX PACKET 1 PACKET MIXED WITH 8 OUNCES OF FLUID ORALLY ONCE A DAY NEEDED TAKING VITAMIN D3 2000 UNIT CAPSULE 1 CAPSULE ORALLY ONCE A DAY TAKING GABAPENTIN 600 MG TABLET 1 CAPSULE ORALLY THREE TIMES A DAY TAKING OXYCODONE HCL 5 MG TABLET 1 TABLET ORALLY EVERY 6-8 HRS PRN PAIN MDD=2 TAKING MORPHINE SULFATE ER 15 MG TABLET EXTENDED RELEASE 1 TABLET ORALLY AT BEDTIME MDD=1 NOT-TAKING TIZANIDINE HCL 4 MG TABLET 1 TABLET NEEDED ORALLY EVERY 6 HOURS NEEDED MDD3 MEDICATION LIST REVIEWED AND RECONCILED WITH THE PATIENT PAST MEDICAL HISTORY REFLUX HIGH CHOLESTEROL CERVICALGIA BILATERAL OCCIPITAL NEURALGIA LOW BACK PAIN TINNITUS- RIGHT WARTS AND ON RIGHT FOOT ALLERGIES N.K.D.A. SURGICAL HISTORY TOTAL RIGHT KNEE 2001 RIGHT HIP FX REPAIR 1985 ABDOMINAL EXPLORATORY SURGERY 1984 CERVICAL/THORACIC FUSION 2005 LIGAMENT AND CARTLIGE REMOVAL RIGHT KNEE 1977 RIGHT FOOT WARTS REMOVED 2019 FAMILY HISTORY FATHER: 84 YRS, CONGESTIVE HEART DISEASE, DIAGNOSED WITH UNSPECIFIED HEART DISEASE MOTHER: ALIVE 92 YRS, PACEMAKER, UNSPECIFIED HEART DISEASE 2 SON(S) - HEALTHY. SOCIAL HISTORY GENERAL: TOBACCO USE ARE YOU A:NONSMOKER EDUCATION LEVEL OF EDUCATION:HIGH SCHOOL DIET: REGULAR. LANGUAGE LANGUAGES SPOKEN:[place] DOMESTIC VIOLENCE DO YOU FEEL SAFE IN YOUR ENVIRONMENT?YES RECREATIONAL DRUG USE DRUG USE?NO EXERCISE: WALKS AND SWIMS AT Y 3 TIMES A WEEK. LEARNING BARRIERS / SPECIAL NEEDS BARRIERS TO LEARNING?NO HEARING IMPAIRED?NO TINNITUS-CONSTANT IN RIGHT EAR VISION IMPAIRED?YES :CORRECTIVE LENSES READING COGNITIVELY IMPAIRED?NO READINESS TO LEARN?YES LEARNING PREFERENCES?NO LEARNING CAPABILITIES PRESENT?YES EMOTIONAL BARRIERS?NO SPECIAL DEVICES?NO INVESTIGATIVE ANALYST NEEDED?NO PAIN CLINIC PFS, CLERGY, PUBLIC HEALTH REFERRALS PFS REFERRAL NEEDED?NO CLERGY REFERRAL NEEDED?NO PUBLIC HEALTH REFERRAL NEEDED?NO WAS THE PROVIDER NOTIFIED OF ANY PERTINENT INFO?YES N/A HAS THE PATIENT BEEN EDUCATED REGARDING HIS/HER PLAN OF CARE?YES HAS THE PATIENT BEEN EDUCATED REGARDING PAIN, THE RISK FOR PAIN, THE IMPORTANCE OF EFFECTIVE PAIN MANAGEMENT, AND THE PAIN ASSESSMENT PROCESS?YES LATEX QUESTIONNAIRE LATEX ALLERGY : HAVE YOU EVER DEVELOPED ANY TYPE OF REACTION AFTER HANDLING LATEX PRODUCTS SUCH RUBBER GLOVES, CONDOMS, DIAPHRAGMS, BALLOONS, SOCKS, OR UNDERWEAR?NO LATEX ALLERGY : HAVE YOU EVER DEVELOPED ANY TYPE OF REACTION DURING OR AFTER DENTAL APPOINTMENT, VAGINAL/RECTAL EXAMINATION, SURGICAL PROCEDURE, OR ANY OTHER EXPOSURE?NO LATEX RISK : HAVE YOU EVER HAD ANY DIFFICULTY BREATHING OR HIVES AFTER EATING OR HANDLING ANY FRUITS, OR VEGETABLES; SUCH KIWI, BANANAS, STONE FRUITS, OR CHESTNUTSNO LATEX RISK : DO YOU HAVE A PREVIOUS PERSONAL HISTORY OF MORE THAN NINE SURGERIES, SPINA BIFIDA, OR REPEATED CATHERIZATIONS? NO LATEX RISK : ARE YOU FREQUENTLY EXPOSED TO LATEX PRODUCTS IN YOUR OCCUPATION?NO DATE ASKED : 05/23/2019 CAFFEINE CAFFEINE USE?YES HOW OFTEN AND HOW MUCH? FEW CUPS COFFEE DAILY ADVANCE DIRECTIVE ADVANCE DIRECTIVE DISCUSSED WITH PATIENT:YES HAS HCP SON--HARSHA ROSALES [phone](C) LATTER-DAY [id number] RESTORATION ALCOHOL SCREENING DID YOU HAVE A DRINK CONTAINING ALCOHOL IN THE PAST YEAR?YES HOW OFTEN DID YOU HAVE SIX OR MORE DRINKS ON ONE OCCASION IN THE PAST YEAR?LESS THAN MONTHLY (1 POINT) HOW MANY DRINKS DID YOU HAVE ON A TYPICAL DAY WHEN YOU WERE DRINKING IN THE PAST YEAR?5 OR 6 (2 POINTS) HOW OFTEN DID YOU HAVE A DRINK CONTAINING ALCOHOL IN THE PAST YEAR?MONTHLY OR LESS (1 POINT) POINTS4 INTERPRETATIONPOSITIVE REVIEWED NL 03/29/18REVIEWED WITH PATIENT 07/26/18 1021 JS10/16/18 REVIEWED WITH PT. ADREVIEWED WITH PT 01/22/19 1136 BVREVIEWED WITH PATIENT 02/05/2019 LASREVIEWED WITH PATIENT 04/09/19 1057 NLJPRE PROCEDURE PHONE CALL COMPLETED 05/06/19 1712 NLJREVIEWED WITH PATIENT 05/23/2019 DS. HOSPITALIZATION/MAJOR DIAGNOSTIC PROCEDURE SURGERIES REVIEW OF SYSTEMS REVIEWED BY: PROVIDER: RAFA ESPINO . CONSTITUTIONAL: ANY CHANGE IN YOUR MEDICAL CONDITION? NO . CHILLS NO . FEVER NO . INFECTION: DO YOU HAVE NEW INFECTIONS? NO . DO YOU HAVE HISTORY OF MRSA? NO . MUSCULOSKELETAL: ANY NEW PATTERNS OF PAIN OR NUMBNESS? YES, STATES ARM AND HAND ACHE AND GO NUMB LEFT SIDE ONLY . GASTROENTEROLOGY: ANY NEW CHANGE IN BOWEL CONTROL? NO . GENITOURINARY: ANY NEW CHANGE IN BLADDER CONTROL? NO . IS THERE A CHANCE YOU COULD BE ? NO . HEMATOLOGY/LYMPH: DO YOU TAKE ANY BLOOD THINNERS? (FOR EXAMPLE- COUMADIN, PLAVIX, AGGRENOX, PLATEL, PRADAXA, OR XARELTO) NO . WHEN WAS YOUR LAST DOSE? DATE: TIME: . NEUROLOGY: HAVE YOU FALLEN IN THE PAST 12 MONTHS? NO . ANY NEW EXTREMITY NUMBNESS OR WEAKNESS? NO . CARDIOLOGY: DO YOU HAVE A PACEMAKER OR DEFIBRILLATOR? NO . RESPIRATORY: HAVE YOU BEEN SICK IN THE PAST WEEK? NO . FEVER NO . FLU LIKE SYMPTOMS? NO . COUGH NO . INTEGUMENTARY: DO YOU HAVE ANY RASHES OR OPEN SORES? NO . ALLERGIC/IMMUNO: ARE YOU ALLERGIC TO IV DYE? NO . ANY NEW ALLERGIES? NO . PSYCHIATRIC: DO YOU HAVE THOUGHTS OF HURTING YOURSELF OR SOMEONE ELSE? NO . ARE YOU ABUSED, NEGLECTED, OR IN AN UNSAFE ENVIRONMENT? NO . ENDOCRINOLOGY: ARE YOU DIABETIC? NO . OTHER: DO YOU NEED ANY PRESCRIPTIONS? NO . IF YES, PLEASE LIST: ____ . ANY NEW PROBLEMS WITH YOUR MEDICATIONS? NO . WHEN DID YOU LAST EAT? ____ . WHEN DID YOU LAST DRINK? ____ . WHAT DID YOU LAST DRINK? ____ . NAME OF PERSON DRIVING YOU HOME? ____ . DO YOU HAVE ANY OTHER QUESTIONS OR CONCERNS NO . VITAL SIGNS WT 246 LBS, HT 69 IN, BMI 36.32 INDEX, BP 132/77 MM HG, HR 79 /MIN, RR 18 /MIN, TEMP 98.2 F, OXYGEN SAT % 96, SAFE IN ENV? (Y/N) BALTAZAR. CECILIA NELSON, BRANDON II @ 0920. EXAMINATION GENERAL EXAMINATION: GENERALNO ACUTE DISTRESS, WELL NOURISHED AND HYDRATED. PSYCHAPPROPRIATE MOOD AND AFFECT . LUNGS:CLEAR TO AUSCULTATION BILATERALLY, NO WHEEZES, RHONCHI, RALES. HEART:NO MURMURS, REGULAR RATE AND RHYTHM. BACK:POINT TENDER ALONG LUMBAR SPINE, SURROUNDING SKIN SHOWS NO ERYTHEMA, ECCHYMOSIS, INCREASED WARMTH, AND/OR SKIN ERUPTIONS NOTED. . ASSESSMENTS SPONDYLOSIS WITHOUT MYELOPATHY OR RADICULOPATHY, LUMBAR REGION - M47.816 (PRIMARY) TREATMENT SPONDYLOSIS WITHOUT MYELOPATHY OR RADICULOPATHY, LUMBAR REGION NOTES: COOL RF LEFT SIDE L4-L5 L5-S1. CLINICAL NOTES: 5-YEAR-OLD MALE IN FOR WORKER'S COMP. CHRONIC PAIN FOLLOW-UP. GIVEN PRESENTING SYMPTOMS AND RESULTS OF PHYSICAL EXAMINATION RECOMMENDED SCHEDULING COOL RF LEFT SIDE L4-L5 L5-S1 WITH POSTPROCEDURAL FOLLOW-UP. PATIENT HAS EXPRESSED UNDERSTANDING OF AND WAS IN AGREEMENT WITH TREATMENT PLAN. GIVEN TIME TO ASK QUESTIONS AND EXPRESS CONCERNS. PROCEDURES PN WORKMANS' COMP OPINION IN YOUR OPINION, WAS THE INCIDENT THAT THE PATIENT DESCRIBED THE COMPETENT MEDICAL CAUSE OF THIS INJURY/ILLNESS? YES ARE THE PATIENT'S COMPLAINTS CONSISTENT WITH HIS/HER HISTORY OF THE INJURY/ILLNESS? YES IS THE PATIENT'S HISTORY OF THE INJURY/ILLNESS CONSISTENT WITH YOUR OBJECTIVE FINDING? YES WHAT IS THE PERCENTAGE OF TEMPORARY IMPAIRMENT? MODERATE TO MARKED = 66.7% IS THE PATIENT WORKING? YES DOCTOR ON SITE: BINU WILL MD PREVENTIVE MEDICINE PAIN CLINIC TEACHING: THE PATIENT HAS BEEN EDUCATED REGARDING PAIN, THE RISK FOR PAIN, THE IMPORTANCE OF EFFECTIVE PAIN MANAGEMENT, AND THE PAIN ASSESSMENT PROCESS. : REVIEWED AND DISCUSSED TREATMENT PLAN WITH PATIENT, REVIEWED WRITTENT AND VERBAL INSTRUCTIONS FOR PRE-PROCEDURE TEACHING, PT ACKNOWLEDGED UNDERSTANDING,. DS PROCEDURE CODES FA211 ESTABILISHED PATIENT [facility] CHARGE DISPOSITION & COMMUNICATION FOLLOW UP POSTPROCEDURE (REASON: COOL RF LEFT SIDE L4-L5 L5-S1) ELECTRONICALLY SIGNED BY FRANCHESKA GERARD ON 05/26/2019 AT 08:27 AM EST DISCLAIMER : THIS IS A VISIT SUMMARY EXTRACTED FROM THE [email or web address] CHART. IT IS NOT A COPY OF THE [email or web address] PROGRESS NOTE. ANALILIA
== END ==
LOC: M PAIN 09:00
PROVIDERS: ATTEND Family Medicine
DX: M47.816 Spondylosis without myelopathy or radiculopathy, lumbar region (principal)

== ENCOUNTER → 2019-09-22 | Outpatient (CLI) | payer OTHER | LOC: M LABSMTC 14:22 | PROVIDERS: ATTEND Anesthesiology | DX: Z03.818 Encounter for observation for suspected exposure to other biological agents ruled out (principal) ==

== ENCOUNTER → 2019-09-23 | Outpatient (CLI) | payer OTHER ==
[~2019-09-23] MED LIST changes: +BUPIVACAINE HCL 0.25% 30ML VIAL As Ordered ONE; +LIDOCAINE 1% SDV 30ML VIAL As Ordered ONE; +dexameTHASONE 10MG/1ML VIAL PRES.FREE (J1100 PER 1MG) As Ordered ONE; +diazePAM 5 MG TAB As Ordered ONE; +oxyCODONE 5MG TAB As Ordered ONE
--- NOTE | 2019-09-23 16:09 | REP ---
C-ARM VIEWS OF THE LOWER LUMBAR SPINE: CLINICAL HISTORY: Pain. Three C-arm views of the lower lumbar spine performed during injection performed by Dr. Scales. [place] are seen along the lower lumbar spine region. 49 seconds of fluoroscopy time utilized. Electronically Signed by Justen Recinos MD 09/23/2019 04:39 P
--- NOTE | 2019-09-24 02:57 | ECWPNPC ---
PATIENT NAME: OWEN ROSALES : 1960 GENDER: MALE VISIT DATE: 09/23/2019 DISCHARGE DATE: 09/23/19 1253 VISIT LOCKED DATE TIME: PHYSICIAN: BINU ZIMMERMAN MD RESOURCE: BINU ZIMMERMAN MD REASON FOR APPOINTMENT 1. LEFT COOL RF L4/L5, L5/S1 [place] AWARE HISTORY OF PRESENT ILLNESS HISTORY OF PRESENT ILLNESS: PAIN THE PATIENT DESCRIBES THE PAIN... FALL RISK SCREENING: SCREENING :NO FALLS REPORTED IN THE LAST YEAR CURRENT MEDICATIONS TAKING GEMFIBROZIL 600 MG TABLET 1 TABLET ORALLY DAILY, NOTES: 09/22 7AM TAKING LOVASTATIN 40 MG TABLET 2 TABLET ORALLY ONCE A DAY, NOTES: 09/21 9PM TAKING MULTIVITAL TE-MOAK TABLET ORALLY DAILY, NOTES: 09/22 7AM TAKING OMEPRAZOLE 40 MG CAPSULE DELAYED RELEASE 1 CAPSULE ORALLY ONCE A DAY, NOTES: 09/22 7AM TAKING MIRALAX PACKET 1 PACKET MIXED WITH 8 OUNCES OF FLUID ORALLY ONCE A DAY NEEDED, NOTES: MONTHS AGO TAKING VITAMIN D3 2000 UNIT CAPSULE 1 CAPSULE ORALLY ONCE A DAY, NOTES: 09/22 7A TAKING GABAPENTIN 600 MG TABLET 1 CAPSULE ORALLY THREE TIMES A DAY, NOTES: 09/22 7A TAKING MORPHINE SULFATE ER 15 MG TABLET EXTENDED RELEASE 1 TABLET ORALLY AT BEDTIME MDD=1, NOTES: 09/21 9P TAKING OXYCODONE HCL 5 MG TABLET 1 TABLET ORALLY EVERY 6-8 HRS PRN PAIN MDD=2, NOTES: 2 DAYS AGO NOT-TAKING TIZANIDINE HCL 4 MG TABLET 1 TABLET NEEDED ORALLY EVERY 6 HOURS NEEDED MDD3 MEDICATION LIST REVIEWED AND RECONCILED WITH THE PATIENT PAST MEDICAL HISTORY REFLUX HIGH CHOLESTEROL CERVICALGIA BILATERAL OCCIPITAL NEURALGIA LOW BACK PAIN TINNITUS- RIGHT WARTS AND ON RIGHT FOOT ALLERGIES N.K.D.A. SURGICAL HISTORY TOTAL RIGHT KNEE 2002 RIGHT HIP FX REPAIR 1985 ABDOMINAL EXPLORATORY SURGERY 1985 CERVICAL/THORACIC FUSION 2006 LIGAMENT AND CARTLIGE REMOVAL RIGHT KNEE 1977 RIGHT FOOT WARTS REMOVED 2018 FAMILY HISTORY FATHER: 84 YRS, CONGESTIVE HEART DISEASE, DIAGNOSED WITH UNSPECIFIED HEART DISEASE MOTHER: ALIVE 92 YRS, PACEMAKER, UNSPECIFIED HEART DISEASE 2 SON(S) - HEALTHY. SOCIAL HISTORY GENERAL: TOBACCO USE ARE YOU A:NONSMOKER LATEX QUESTIONNAIRE LATEX ALLERGY : HAVE YOU EVER DEVELOPED ANY TYPE OF REACTION AFTER HANDLING LATEX PRODUCTS SUCH RUBBER GLOVES, CONDOMS, DIAPHRAGMS, BALLOONS, SOCKS, OR UNDERWEAR?NO LATEX ALLERGY : HAVE YOU EVER DEVELOPED ANY TYPE OF REACTION DURING OR AFTER DENTAL APPOINTMENT, VAGINAL/RECTAL EXAMINATION, SURGICAL PROCEDURE, OR ANY OTHER EXPOSURE?NO LATEX RISK : HAVE YOU EVER HAD ANY DIFFICULTY BREATHING OR HIVES AFTER EATING OR HANDLING ANY FRUITS, OR VEGETABLES; SUCH KIWI, BANANAS, STONE FRUITS, OR CHESTNUTSNO LATEX RISK : DO YOU HAVE A PREVIOUS PERSONAL HISTORY OF MORE THAN NINE SURGERIES, SPINA BIFIDA, OR REPEATED CATHERIZATIONS? NO LATEX RISK : ARE YOU FREQUENTLY EXPOSED TO LATEX PRODUCTS IN YOUR OCCUPATION?NO DATE ASKED : 09/19/2019 ALCOHOL SCREENING DID YOU HAVE A DRINK CONTAINING ALCOHOL IN THE PAST YEAR?YES HOW OFTEN DID YOU HAVE SIX OR MORE DRINKS ON ONE OCCASION IN THE PAST YEAR?LESS THAN MONTHLY (1 POINT) HOW MANY DRINKS DID YOU HAVE ON A TYPICAL DAY WHEN YOU WERE DRINKING IN THE PAST YEAR?5 OR 6 (2 POINTS) HOW OFTEN DID YOU HAVE A DRINK CONTAINING ALCOHOL IN THE PAST YEAR?MONTHLY OR LESS (1 POINT) POINTS4 INTERPRETATIONPOSITIVE RECREATIONAL DRUG USE DRUG USE?NO CAFFEINE CAFFEINE USE?YES HOW OFTEN AND HOW MUCH? FEW CUPS COFFEE DAILY AMISH [id number] YAZIDI LANGUAGE LANGUAGES SPOKEN:NEPALI EDUCATION LEVEL OF EDUCATION:HIGH SCHOOL LEARNING BARRIERS / SPECIAL NEEDS BARRIERS TO LEARNING?NO HEARING IMPAIRED?NO TINNITUS-CONSTANT IN RIGHT EAR VISION IMPAIRED?YES COGNITIVELY IMPAIRED?NO :CORRECTIVE LENSES READING READINESS TO LEARN?YES LEARNING PREFERENCES?NO LEARNING CAPABILITIES PRESENT?YES EMOTIONAL BARRIERS?NO SPECIAL DEVICES?NO WORKING SUPERVISOR NEEDED?NO DOMESTIC VIOLENCE DO YOU FEEL SAFE IN YOUR ENVIRONMENT?YES DIET: REGULAR. EXERCISE: WALKS AND SWIMS AT Y 3 TIMES A WEEK. NEW PATIENT PAIN DIARY TODAY'S VISIT 09/23/2019 PATIENT DESCRIBES PAIN :ACHING, HAVE IT ALL THE TIME, TENDER, SORE FROM 0-10, WHAT LEVEL IS YOUR PAIN TODAY?7 WALKING, BENDING, PROLONGED SITTING IN ONE POSITION PRECIPITATING FACTORS RESTING, MEDS, STRETCHING, RF PROCEDURE PAIN CLINIC PFS, CLERGY, PUBLIC HEALTH REFERRALS PFS REFERRAL NEEDED?NO CLERGY REFERRAL NEEDED?NO PUBLIC HEALTH REFERRAL NEEDED?NO WAS THE PROVIDER NOTIFIED OF ANY PERTINENT INFO?YES N/A HAS THE PATIENT BEEN EDUCATED REGARDING HIS/HER PLAN OF CARE?YES HAS THE PATIENT BEEN EDUCATED REGARDING PAIN, THE RISK FOR PAIN, THE IMPORTANCE OF EFFECTIVE PAIN MANAGEMENT, AND THE PAIN ASSESSMENT PROCESS?YES ADVANCE DIRECTIVE ADVANCE DIRECTIVE DISCUSSED WITH PATIENT:YES HAS HCP SON--HARSHA ROSALES [phone](C) HOSPITALIZATION/MAJOR DIAGNOSTIC PROCEDURE SURGERIES REVIEW OF SYSTEMS REVIEWED BY: PROVIDER: BINU ZIMMERMAN MD . CONSTITUTIONAL: ANY CHANGE IN YOUR MEDICAL CONDITION? NO . CHILLS NO . FEVER NO . INFECTION: DO YOU HAVE NEW INFECTIONS? NO . DO YOU HAVE HISTORY OF MRSA? NO . MUSCULOSKELETAL: ANY NEW PATTERNS OF PAIN OR NUMBNESS? NO . GASTROENTEROLOGY: ANY NEW CHANGE IN BOWEL CONTROL? NO . GENITOURINARY: ANY NEW CHANGE IN BLADDER CONTROL? NO . IS THERE A CHANCE YOU COULD BE ? NO . HEMATOLOGY/LYMPH: DO YOU TAKE ANY BLOOD THINNERS? (FOR EXAMPLE- COUMADIN, PLAVIX, AGGRENOX, PLATEL, PRADAXA, OR XARELTO) NO . WHEN WAS YOUR LAST DOSE? DATE: TIME: . NEUROLOGY: HAVE YOU FALLEN IN THE PAST 12 MONTHS? NO . ANY NEW EXTREMITY NUMBNESS OR WEAKNESS? NO . CARDIOLOGY: DO YOU HAVE A PACEMAKER OR DEFIBRILLATOR? NO . RESPIRATORY: HAVE YOU BEEN SICK IN THE PAST WEEK? NO . FEVER NO . FLU LIKE SYMPTOMS? NO . COUGH NO . INTEGUMENTARY: DO YOU HAVE ANY RASHES OR OPEN SORES? NO . ALLERGIC/IMMUNO: ARE YOU ALLERGIC TO IV DYE? NO . ANY NEW ALLERGIES? NO . PSYCHIATRIC: DO YOU HAVE THOUGHTS OF HURTING YOURSELF OR SOMEONE ELSE? NO . ARE YOU ABUSED, NEGLECTED, OR IN AN UNSAFE ENVIRONMENT? NO . ENDOCRINOLOGY: ARE YOU DIABETIC? NO . OTHER: DO YOU NEED ANY PRESCRIPTIONS? NO . IF YES, PLEASE LIST: ____ . ANY NEW PROBLEMS WITH YOUR MEDICATIONS? NO . WHEN DID YOU LAST EAT? 09/21 8P . WHEN DID YOU LAST DRINK? 09/22 7AM . WHAT DID YOU LAST DRINK? WATER . NAME OF PERSON DRIVING YOU HOME? AUSTEN . DO YOU HAVE ANY OTHER QUESTIONS OR CONCERNS NO . VITAL SIGNS WT 245.4 LBS, HT 69 IN, BMI 36.24 INDEX, BP 144/87 MM HG, HR 76 /MIN, RR 18 /MIN, TEMP 96.8 F, OXYGEN SAT % 98%, SAFE IN ENV? (Y/N) Y, NA INITIALS MS 1001, REVIEWED BY: DS. EXAMINATION GENERAL EXAMINATION: THE PATIENT IS ALERT, ORIENTED TIMES THREE AND COOPERATIVE. HEART SHOWS REGULAR RHYTHM, NO MURMURS AND NO GALLOPS. LUNGS ARE CLEAR TO AUSCULTATION. ASSESSMENTS SPONDYLOSIS WITHOUT MYELOPATHY OR RADICULOPATHY, LUMBAR REGION - M47.816 (PRIMARY) SPONDYLOSIS WITHOUT MYELOPATHY OR RADICULOPATHY, LUMBOSACRAL REGION - M47.817 TREATMENT SPONDYLOSIS WITHOUT MYELOPATHY OR RADICULOPATHY, LUMBAR REGION [facility] FACET BLOCK (PAIN)[id number] PROCEDURES PN WORKMANS' COMP OPINION IN YOUR OPINION, WAS THE INCIDENT THAT THE PATIENT DESCRIBED THE COMPETENT MEDICAL CAUSE OF THIS INJURY/ILLNESS? YES ARE THE PATIENT'S COMPLAINTS CONSISTENT WITH HIS/HER HISTORY OF THE INJURY/ILLNESS? YES IS THE PATIENT'S HISTORY OF THE INJURY/ILLNESS CONSISTENT WITH YOUR OBJECTIVE FINDING? YES WHAT IS THE PERCENTAGE OF TEMPORARY IMPAIRMENT? MODERATE TO MARKED = 66.7% . IS THE PATIENT WORKING? NO . DOCTOR ON SITE: BINU WILL MD PRE PROCEDURE DIAGNOSES: 1. LUMBAR SPONDYLOSIS. 2. LUMBOSACRAL SPONDYLOSIS. POST PROCEDURE DIAGNOSES: 1. LUMBAR SPONDYLOSIS. 2. LUMBOSACRAL SPONDYLOSIS. PROCEDURE: LEFT L4-L5 AND LEFT L5-S1 LUMBAR FACET RADIOFREQUENCY. SURGEON: DR. BINU ZIMMERMAN. SOCK LINER: NONE. ANESTHESIA: LOCAL. PRE PROCEDURE REPORT: THE PATIENT HAS HISTORY OF CHRONIC LOW BACK PAIN. I EVALUATED THE PATIENT AND REVIEWED THE CHART. I WENT OVER THE RISKS, ALTERNATIVES, AND BENEFITS ASSOCIATED WITH THIS PROCEDURE. I DISCUSSED THAT THE USE OF STEROIDS MAY CONTRIBUTE TO IMMUNOSUPPRESSION OF THE PATIENT'S BODY AGAINST INFECTIONS SUCH THE CABALLERO VIRUS, COVID-19. THE PATIENT IS AWARE OF THE POTENTIAL COMPLICATIONS ASSOCIATED WITH AN INFECTION OF THIS VIRUS INCLUDING . THE PATIENT WOULD LIKE TO PROCEED AND GIVE CONSENT TO PERFORMED THE PROCEDURE. THE PATIENT DENIES UNEXPLAINABLE WEIGHT LOSS, FEVER, CHILLS, OR NEW CHANGES IN URINARY OR BOWEL CONTROL. DESCRIPTION OF PROCEDURE: THE PATIENT WAS BROUGHT TO THE PROCEDURE ROOM AND PLACED IN THE PRONE POSITION. THE LUMBOSACRAL AREA WAS CLEANED WITH CHLORAPREP SOLUTION AND DRAPED ASEPTICALLY. THE PROCEDURE WAS DONE UNDER STERILE CONDITIONS. I CHECKED LATERALITY AND THE LEVEL WHERE THE PROCEDURE WAS GOING TO BE PERFORMED WITH THE PATIENT AND THE SUPPORTING STAFF AT THE MOMENT OF THE TIME OUT IN THE PROCEDURE ROOM. UNDER FLUOROSCOPIC GUIDANCE, TARGETS WERE SELECTED AT THE INTERSECTION OF THE LEFT TRANSVERSE PROCESS OF L4, L5 AND ALA OF S1 WITH ITS RESPECTIVE SUPERIOR ARTICULAR PROCESS. LIDOCAINE WAS USED TO NUMB THE SKIN AND THE SUBCUTANEOUS TISSUE BELOW IT. RADIOFREQUENCY CANNULAS, 17-GAUGE, 10 CM LONG WITH 4 MM ACTIVE TIP, WERE ADVANCED UNDER FLUOROSCOPIC GUIDANCE AND FOLLOWING PATIENT FEEDBACK UNTIL THE TARGET AREA WAS REACHED. POSITION OF THE CANNULAS WAS VERIFIED WITH AP AND LATERAL VIEWS. AFTER PROPER POSITION OF THE NEEDLE WAS ACHIEVED, WE WORKED WITH THE LEFT SELECTED MEDIAN BRANCHES OF L3, L4 AND THE DORSAL RAMI OF L5. WE MEASURED THE CORRESPONDING IMPEDANCES AND MOTOR RESPONSES INDICATED IN THE RADIOFREQUENCY WORKSHEET. POSITION OF THE CANNULAS WAS VERIFIED AGAIN WITH AP AND LATERAL VIEWS. LIDOCAINE 1%, 2 ML, WAS INJECTED AT EACH LEVEL. RADIOFREQUENCY WAS DONE AT EACH LEVEL USING THE [employer] SYSTEM-- COOLED RF-- WITH A SETTING AT THE MACHINE OF 60 DEGREES WITH A TARGET TISSUE TEMPERATURE OF 80 TO 90 DEGREES FOR A MINIMUM OF 150 SECONDS. AFTER RADIOFREQUENCY WAS DONE, THE PATIENT RECEIVED BUPIVACAINE 0.125%, 1 ML, WITH DEXAMETHASONE 2 MG AT EACH SITE. THERE WAS NO EVIDENCE OF BLOOD, PARESTHESIA OR CEREBROSPINAL FLUID DURING THE PROCEDURE. THE PATIENT WAS SENT TO THE RECOVERY ROOM. THE PATIENT WAS MOVING THE EXTREMITIES AND DOING WELL. THERE WERE NO COMPLICATIONS DURING THE PROCEDURE. FLUOROSCOPY TIME WAS 49 SECONDS. POST PROCEDURE NOTE: THE PATIENT WILL BE SEEN IN A FOLLOW UP IN THE NEXT FEW WEEKS. INSTRUCTIONS WERE GIVEN, QUESTIONS WERE ANSWERED, AND THE PATIENT EXPRESSED UNDERSTANDING AND AGREES WITH THE PLAN. THE PATIENT IS AWARE TO STAY HOME FOR THE NEXT WEEK, IF POSSIBLE, DUE TO COVID-19. I, PATRICK EARL, DOCUMENTED THE ABOVE INFORMATION ACTING A SCRIBE FOR DR. ZIMMERMAN. I HAVE REVIEWED THE ABOVE DOCUMENT, WRITTEN BY PATRICK EARL, MAINTENANCE ENGINEER, AND I VERIFY THAT IT IS ACCURATE. PROCEDURE CODES [id number] DESTROY LUMB/SAC FACET JNT, [place]: [place] [id number] DESTROY L/S FACET JNT ADDL, MODIFIERS: LT DISPOSITION & COMMUNICATION FOLLOW UP F/UP WITH POT PUNCHER POST COOL RF (REASON: ALSO, F/UP NEXT WEEK WITH DR. Hyman FOR NECK PLEASE. W/C) ELECTRONICALLY SIGNED BY BINU ZIMMERMAN MD, MD ON 09/23/2019 AT 05:12 PM EDT DISCLAIMER : THIS IS A VISIT SUMMARY EXTRACTED FROM THE [employer] CHART. IT IS NOT A COPY OF THE [employer] PROGRESS NOTE. RENETTAD
== END ==
LOC: M PAIN 10:15
PROVIDERS: ATTEND Anesthesiology
DX: M47.816 Spondylosis without myelopathy or radiculopathy, lumbar region (principal); M47.817 Spondylosis without myelopathy or radiculopathy, lumbosacral region
CPT/HCPCS: 64635; 64636; J1100

== ENCOUNTER → 2019-09-30 | Outpatient (CLI) | payer OTHER ==
[~2019-09-30] MED LIST changes: -BUPIVACAINE HCL 0.25% 30ML VIAL As Ordered ONE; -LIDOCAINE 1% SDV 30ML VIAL As Ordered ONE; -dexameTHASONE 10MG/1ML VIAL PRES.FREE (J1100 PER 1MG) As Ordered ONE; -diazePAM 5 MG TAB As Ordered ONE; -oxyCODONE 5MG TAB As Ordered ONE
--- NOTE | 2019-10-01 00:02 | ECWPNPC ---
PATIENT NAME: OWEN ROSALES : 1960 GENDER: MALE VISIT DATE: 09/30/2019 DISCHARGE DATE: 09/30/19 1444 VISIT LOCKED DATE TIME: PHYSICIAN: BINU ZIMMERMAN MD RESOURCE: BINU ZIMMERMAN MD REASON FOR APPOINTMENT 1. FOLLOW UP FOR NECK HISTORY OF PRESENT ILLNESS GENERAL: 59-YEAR-OLD MALE PATIENT WITH A HISTORY OF CHRONIC NECK PAIN. THE PATIENT DESCRIBES THE PAIN ACHING AND SEVERE WITH A PAIN SCORE RANGING FROM 6-10/10 DEPENDING ON PHYSICAL ACTIVITY. THE PATIENT WAS HURT IN A WORK RELATED INJURY ON 09/25/2000 WHILE WORKING FOR [employer] WHEN HE WAS LIFTING A BOX WEIGHING ABOUT 80 TO 90 POUNDS AND INJURED HIS NECK. THE PATIENT STATES HE HAS PAIN WITH MOVEMENT OF HIS NECK. THE PATIENT HAS RESTRICTION OF MOVEMENT OF THE NECK. THE PATIENT STATES THAT THE PAIN IS CONSTANT. PATIENT DENIES UNEXPLAINABLE WEIGHT LOSS, FEVER, CHILLS, NEW CHANGES ON HIS URINARY OR BOWEL CONTROL. -. FALL RISK SCREENING: SCREENING :NO FALLS REPORTED IN THE LAST YEAR PAIN SCREENING: PATIENT HAS A COMPLAINT OF ACUTE OR CHRONIC PAIN :YES LOCATION OF PAIN:HEAD, LOW BACK INTENSITY OF PAIN (SCALE OF 1 TO 10):1 PAIN IN LOW BACK 1/10, PAIN IN NECK 7-8/10 WHAT DOES YOUR PAIN FEEL LIKE:ACHING, BURNING, CONTINOUS, THROBBING DURATION:CONSTANT, ALL DAY, AWAKENS FROM SLEEP PAIN IS INCREASED BY:ACTIVITIES PAIN IS DECREASED BY:OTHERS MEDICATIONS OFFER MILD RELIEF NURSING NOTE: -. PAIN CENTER INTAKE QUESTIONS: DO YOU HAVE A HISTORY OF MRSA? :NO DO YOU TAKE A BLOOD THINNERS? :NO DO YOU HAVE ANY BLEEDING DISORDERS? :NO ANY NEW NUMBNESS OR WEAKNESS IN YOUR LEGS OR ARMS? :NO ANY PACEMAKER,DEFIBRILLATOR, OR DORSAL COLUMN STIMULATOR? :NO DO YOU HAVE ANY RASHES OR OPEN SORES? :NO ARE YOU ALLERGIC TO IV DYE? :NO ARE YOU DIABETIC? :NO ANY NEW PROBLEMS WITH YOUR MEDICATIONS? :NO HAVE YOU RECEIVED A VACCINE IN THE PAST 30 DAYS? :NO DO YOU PLAN TO RECEIVE A VACCINE IN THE NEXT 21 DAYS? :NO DO YOU NEED ANY PRESCRIPTION? :YES OXYCODONE, MORPHINE AND GABAPENTIN DO YOU TAKE ANY IMMUNOSUPPRESSIVE MEDICATIONS? :NO CURRENT MEDICATIONS TAKING GEMFIBROZIL 600 MG TABLET 1 TABLET ORALLY DAILY TAKING LOVASTATIN 40 MG TABLET 2 TABLET ORALLY ONCE A DAY TAKING MULTIVITAL POINT LAY IRA TABLET ORALLY DAILY TAKING OMEPRAZOLE 40 MG CAPSULE DELAYED RELEASE 1 CAPSULE ORALLY ONCE A DAY TAKING MIRALAX PACKET 1 PACKET MIXED WITH 8 OUNCES OF FLUID ORALLY ONCE A DAY NEEDED TAKING VITAMIN D3 2000 UNIT CAPSULE 1 CAPSULE ORALLY ONCE A DAY TAKING GABAPENTIN 600 MG TABLET 1 CAPSULE ORALLY THREE TIMES A DAY TAKING MORPHINE SULFATE ER 15 MG TABLET EXTENDED RELEASE 1 TABLET ORALLY AT BEDTIME MDD=1 TAKING OXYCODONE HCL 5 MG TABLET 1 TABLET ORALLY EVERY 6-8 HRS PRN PAIN MDD=2 NOT-TAKING TIZANIDINE HCL 4 MG TABLET 1 TABLET NEEDED ORALLY EVERY 6 HOURS NEEDED MDD3 MEDICATION LIST REVIEWED AND RECONCILED WITH THE PATIENT PAST MEDICAL HISTORY REFLUX HIGH CHOLESTEROL CERVICALGIA BILATERAL OCCIPITAL NEURALGIA LOW BACK PAIN TINNITUS- RIGHT WARTS AND ON RIGHT FOOT ALLERGIES N.K.D.A. SURGICAL HISTORY TOTAL RIGHT KNEE 2001 RIGHT HIP FX REPAIR 1984 ABDOMINAL EXPLORATORY SURGERY 1984 CERVICAL/THORACIC FUSION 2005 LIGAMENT AND CARTLIGE REMOVAL RIGHT KNEE 1977 RIGHT FOOT WARTS REMOVED 2019 FAMILY HISTORY FATHER: 84 YRS, CONGESTIVE HEART DISEASE, DIAGNOSED WITH UNSPECIFIED HEART DISEASE MOTHER: ALIVE 92 YRS, PACEMAKER, UNSPECIFIED HEART DISEASE 2 SON(S) - HEALTHY. SOCIAL HISTORY GENERAL: TOBACCO USE ARE YOU A:NONSMOKER LATEX QUESTIONNAIRE LATEX ALLERGY : HAVE YOU EVER DEVELOPED ANY TYPE OF REACTION AFTER HANDLING LATEX PRODUCTS SUCH RUBBER GLOVES, CONDOMS, DIAPHRAGMS, BALLOONS, SOCKS, OR UNDERWEAR?NO LATEX ALLERGY : HAVE YOU EVER DEVELOPED ANY TYPE OF REACTION DURING OR AFTER DENTAL APPOINTMENT, VAGINAL/RECTAL EXAMINATION, SURGICAL PROCEDURE, OR ANY OTHER EXPOSURE?NO LATEX RISK : HAVE YOU EVER HAD ANY DIFFICULTY BREATHING OR HIVES AFTER EATING OR HANDLING ANY FRUITS, OR VEGETABLES; SUCH KIWI, BANANAS, STONE FRUITS, OR CHESTNUTSNO LATEX RISK : DO YOU HAVE A PREVIOUS PERSONAL HISTORY OF MORE THAN NINE SURGERIES, SPINA BIFIDA, OR REPEATED CATHERIZATIONS? NO LATEX RISK : ARE YOU FREQUENTLY EXPOSED TO LATEX PRODUCTS IN YOUR OCCUPATION?NO DATE ASKED : 09/30/2019 ALCOHOL SCREENING DID YOU HAVE A DRINK CONTAINING ALCOHOL IN THE PAST YEAR?YES HOW OFTEN DID YOU HAVE SIX OR MORE DRINKS ON ONE OCCASION IN THE PAST YEAR?LESS THAN MONTHLY (1 POINT) HOW MANY DRINKS DID YOU HAVE ON A TYPICAL DAY WHEN YOU WERE DRINKING IN THE PAST YEAR?5 OR 6 (2 POINTS) HOW OFTEN DID YOU HAVE A DRINK CONTAINING ALCOHOL IN THE PAST YEAR?MONTHLY OR LESS (1 POINT) POINTS4 INTERPRETATIONPOSITIVE RECREATIONAL DRUG USE DRUG USE?NO CAFFEINE CAFFEINE USE?YES HOW OFTEN AND HOW MUCH? FEW CUPS COFFEE DAILY MUSLIM [id number] [employer] LANGUAGE LANGUAGES SPOKEN:BULGARIAN EDUCATION LEVEL OF EDUCATION:HIGH SCHOOL LEARNING BARRIERS / SPECIAL NEEDS BARRIERS TO LEARNING?NO HEARING IMPAIRED?NO TINNITUS-CONSTANT IN RIGHT EAR VISION IMPAIRED?YES COGNITIVELY IMPAIRED?NO :CORRECTIVE LENSES READING READINESS TO LEARN?YES LEARNING PREFERENCES?NO LEARNING CAPABILITIES PRESENT?YES EMOTIONAL BARRIERS?NO SPECIAL DEVICES?NO ELECTRIC SHAVER MECHANIC NEEDED?NO DOMESTIC VIOLENCE DO YOU FEEL SAFE IN YOUR ENVIRONMENT?YES DIET: REGULAR. EXERCISE: WALKS AND SWIMS AT Y 3 TIMES A WEEK. NEW PATIENT PAIN DIARY PATIENT DESCRIBES PAIN :ACHING, HAVE IT ALL THE TIME, TENDER, SORE FROM 0-10, WHAT LEVEL IS YOUR PAIN TODAY?7 WALKING, BENDING, PROLONGED SITTING IN ONE POSITION PRECIPITATING FACTORS RESTING, MEDS, STRETCHING, RF PROCEDURE PAIN CLINIC PFS, CLERGY, PUBLIC HEALTH REFERRALS PFS REFERRAL NEEDED?NO CLERGY REFERRAL NEEDED?NO PUBLIC HEALTH REFERRAL NEEDED?NO WAS THE PROVIDER NOTIFIED OF ANY PERTINENT INFO?YES N/A HAS THE PATIENT BEEN EDUCATED REGARDING HIS/HER PLAN OF CARE?YES HAS THE PATIENT BEEN EDUCATED REGARDING PAIN, THE RISK FOR PAIN, THE IMPORTANCE OF EFFECTIVE PAIN MANAGEMENT, AND THE PAIN ASSESSMENT PROCESS?YES ADVANCE DIRECTIVE ADVANCE DIRECTIVE DISCUSSED WITH PATIENT:YES HAS HCP SON--HARSHA ROSALES [phone](C) HOSPITALIZATION/MAJOR DIAGNOSTIC PROCEDURE SURGERIES REVIEW OF SYSTEMS CONSTITUTIONAL: ANY RECENT FEVER OR ILLNESS NO . CHILLS NO . GASTROENTEROLOGY: BOWEL INCONTINENCE NO . ANY NEW CHANGE IN BOWEL CONTROL? NO . ABDOMINAL PAIN NO . CONSTIPATION NO . GENITOURINARY: ANY NEW CHANGE IN BLADDER CONTROL? NO . IS THERE A CHANCE YOU COULD BE ? NO . URINARY INCONTINENCE NO . CARDIOLOGY: CHEST PRESSURE NO . CHEST PAIN NO . RESPIRATORY: COUGH NO . SHORTNESS OF BREATH NO . VITAL SIGNS WT 244.6 LBS, HT 69 IN, BMI 36.12 INDEX, BP 134/74 MM HG, HR 86 /MIN, RR 18 /MIN, TEMP 97.7 F, OXYGEN SAT % 100%, SAFE IN ENV? (Y/N) Y, NA INITIALS AW 1255, REVIEWED BY: DS. EXAMINATION GENERAL EXAMINATION: THE PATIENT IS ALERT, ORIENTED TIMES THREE AND COOPERATIVE. THERE IS INCREASING PAIN AT NECK WITH EXTENSION AND LATERAL ROTATION. THERE IS TENDERNESS OVER THE CERVICAL FACET JOINTS WITH EXTENSION AND LATERAL ROTATION. MRI OF THE CERVICAL SPINE DATED MAY 31, 2017 SHOWS STATUS POST ANTERIOR CERVICAL DISCECTOMY AND FUSION (ACDF) FROM C7 TO T1 AND SPONDYLOSIS. 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 ROSALES REGARDING HIS TREATMENT OPTIONS AND CARE. THE PATIENT IS A CANDIDATE FOR A CERVICAL RADIOFREQUENCY. I AM GOING TO REQUEST AUTHORIZATION FOR A LEFT C3-C4 AND LEFT C4-C5 CERVICAL FACET BLOCK DIAGNOSTIC NUMBER 1. THE PATIENT KNOWS TO CALL THE OFFICE IF HE HAS ANY QUESTIONS OR CONCERNS. THE PATIENT UNDERSTANDS AND IS IN AGREEMENT WITH THE TREATMENT PLAN. I, PATRICK EARL, DOCUMENTED THE ABOVE INFORMATION ACTING A SCRIBE FOR DR. ZIMMERMAN. I HAVE REVIEWED THE ABOVE DOCUMENT, WRITTEN BY PATRICK EARL, B2B SALES REPRESENTATIVE, AND I VERIFY THAT IT IS ACCURATE. PROCEDURES PN WORKMANS' COMP OPINION IN YOUR OPINION, WAS THE INCIDENT THAT THE PATIENT DESCRIBED THE COMPETENT MEDICAL CAUSE OF THIS INJURY/ILLNESS? YES ARE THE PATIENT'S COMPLAINTS CONSISTENT WITH HIS/HER HISTORY OF THE INJURY/ILLNESS? YES IS THE PATIENT'S HISTORY OF THE INJURY/ILLNESS CONSISTENT WITH YOUR OBJECTIVE FINDING? YES WHAT IS THE PERCENTAGE OF TEMPORARY IMPAIRMENT? MODERATE TO MARKED = 66.7% . IS THE PATIENT WORKING? NO . DOCTOR ON SITE: BINU WILL MD PREVENTIVE MEDICINE PAIN CLINIC TEACHING: PROCEDURE TEACHING PRE-PROCEDURE INSTRUCITONS REVIEWED WITH PT. VERBALIZED UNDERSTANDING.. PROCEDURE CODES FA211 ESTABILISHED PATIENT [facility] FACILITY CHARGE [id number] OFFICE/OUTPATIENT VISIT EST DISPOSITION & COMMUNICATION FOLLOW UP REQUEST CERVICAL FACET BLOCK LEFT C3-C4, C4-C5 DIAGNOSTIC #1 (REASON: REQUEST CERVICAL FACET BLOCK LEFT C3-C4, C4-C5 DIAGNOSTIC #1) ELECTRONICALLY SIGNED BY BINU ZIMMERMAN MD, MD ON 09/30/2019 AT 04:35 PM EDT DISCLAIMER : THIS IS A VISIT SUMMARY EXTRACTED FROM THE [employer] CHART. IT IS NOT A COPY OF THE [employer] PROGRESS NOTE. ANALILIA
== END ==
LOC: M PAIN 14:00
PROVIDERS: ATTEND Anesthesiology
DX: M47.812 Spondylosis without myelopathy or radiculopathy, cervical region (principal); M96.1 Postlaminectomy syndrome, not elsewhere classified; Z79.891 Long term (current) use of opiate analgesic; Z79.899 Other long term (current) drug therapy

== ENCOUNTER → 2019-10-12 | Outpatient (CLI) | payer OTHER | LOC: M LABSMTC 11:40 | PROVIDERS: ATTEND Anesthesiology | DX: Z03.818 Encounter for observation for suspected exposure to other biological agents ruled out (principal); Z11.59 Encounter for screening for other viral diseases | CPT/HCPCS: C9803; U0003 ==

== ENCOUNTER → 2019-10-14 | Outpatient (CLI) | payer OTHER ==
--- NOTE | 2019-10-16 03:33 | ECWPNPC ---
PATIENT NAME: OWEN ROSALES : 1960 GENDER: MALE VISIT DATE: 10/14/2019 DISCHARGE DATE: 10/14/19 0943 VISIT LOCKED DATE TIME: PHYSICIAN: CHRISTAL TRUONG RESOURCE: CHRISTAL TRUONG REASON FOR APPOINTMENT 1. POST PROC HISTORY OF PRESENT ILLNESS GENERAL: - 59-YEAR-OLD MALE IN FOR POST RF PROCEDURE FOLLOW-UP. HE RATES HIS PAIN CURRENTLY AT A 3 OUT OF 10 AND DESCRIBES IT ACHING AND STABBING. HE RATES HIS PAIN PREPROCEDURE AT A 7 OUT OF 10 AND POSTPROCEDURE AT A 0-3 OUT OF 10. HE FURTHER STATES THE PROCEDURE CONTINUES TO HELP HIM TODAY. 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 THE PATIENT WAS HURT IN A SECOND WORK RELATED INJURY ON 09/25/2000 WHILE WORKING FOR [employer] A RETAIL AGENT WHEN HE WAS LIFTING HEAVY WIRES AND INJURED HIS NECK. FALL RISK SCREENING: SCREENING :NO FALLS REPORTED IN THE LAST YEAR PAIN SCREENING: PATIENT HAS A COMPLAINT OF ACUTE OR CHRONIC PAIN :YES [id number]-6/10, [id number]-4-3/10 LOCATION OF PAIN:NECK, LOW BACK LEFT LOWER BACK-0/10, RIGHT LOWER BACK-4/10, NECK-8/10 INTENSITY OF PAIN (SCALE OF 1 TO 10):3 WHAT DOES YOUR PAIN FEEL LIKE:ACHING, STABBING DURATION:CONTINOUS, CONSTANT, ALL DAY PAIN IS INCREASED BY:ACTIVITIES, PROLONGED STANDING PAIN IS DECREASED BY:USE OF PAIN MEDICATIONS, SITTING PAIN HAS INTERFERED WITH THE FOLLOWING:MOOD, HOUSEWORK, RELATIONSHIP WITH OTHERS, ENJOYMENT OF LIFE PLAN/GOALS/TREATMENT/INTERVENTION/FOLLOW UP:SEE PLAN NURSING NOTE: -. PAIN CENTER INTAKE QUESTIONS: DO YOU HAVE A HISTORY OF MRSA? :NO DO YOU TAKE A BLOOD THINNERS? :NO DO YOU HAVE ANY BLEEDING DISORDERS? :NO ANY NEW NUMBNESS OR WEAKNESS IN YOUR LEGS OR ARMS? :NO ANY PACEMAKER,DEFIBRILLATOR, OR DORSAL COLUMN STIMULATOR? :NO DO YOU HAVE ANY RASHES OR OPEN SORES? :NO ARE YOU ALLERGIC TO IV DYE? :NO ARE YOU DIABETIC? :NO ANY NEW PROBLEMS WITH YOUR MEDICATIONS? :NO HAVE YOU RECEIVED A VACCINE IN THE PAST 30 DAYS? :NO DO YOU PLAN TO RECEIVE A VACCINE IN THE NEXT 21 DAYS? :NO DO YOU NEED ANY PRESCRIPTION? :NO DO YOU TAKE ANY IMMUNOSUPPRESSIVE MEDICATIONS? :NO IS THERE A CHANCE YOU COULD BE ? :NO ARE YOU BREAST FEEDING? :NO CURRENT MEDICATIONS TAKING GEMFIBROZIL 600 MG TABLET 1 TABLET ORALLY DAILY TAKING LOVASTATIN 40 MG TABLET 2 TABLET ORALLY ONCE A DAY TAKING MULTIVITAL [place] TABLET ORALLY DAILY TAKING OMEPRAZOLE 40 MG CAPSULE DELAYED RELEASE 1 CAPSULE ORALLY ONCE A DAY TAKING MIRALAX PACKET 1 PACKET MIXED WITH 8 OUNCES OF FLUID ORALLY ONCE A DAY NEEDED TAKING VITAMIN D3 2000 UNIT CAPSULE 1 CAPSULE ORALLY ONCE A DAY TAKING GABAPENTIN 600 MG TABLET 1 CAPSULE ORALLY THREE TIMES A DAY TAKING MORPHINE SULFATE ER 15 MG TABLET EXTENDED RELEASE 1 TABLET ORALLY AT BEDTIME MDD=1 TAKING OXYCODONE HCL 5 MG TABLET 1 TABLET ORALLY EVERY 6-8 HRS PRN PAIN MDD=2 NOT-TAKING TIZANIDINE HCL 4 MG TABLET 1 TABLET NEEDED ORALLY EVERY 6 HOURS NEEDED MDD3 MEDICATION LIST REVIEWED AND RECONCILED WITH THE PATIENT PAST MEDICAL HISTORY REFLUX HIGH CHOLESTEROL CERVICALGIA BILATERAL OCCIPITAL NEURALGIA LOW BACK PAIN TINNITUS- RIGHT WARTS AND ON RIGHT FOOT ALLERGIES N.K.D.A. SURGICAL HISTORY TOTAL RIGHT KNEE 2002 RIGHT HIP FX REPAIR 1985 ABDOMINAL EXPLORATORY SURGERY 1985 CERVICAL/THORACIC FUSION 2006 LIGAMENT AND CARTLIGE REMOVAL RIGHT KNEE 1977 RIGHT FOOT WARTS REMOVED 2019 FAMILY HISTORY FATHER: 84 YRS, CONGESTIVE HEART DISEASE, DIAGNOSED WITH UNSPECIFIED HEART DISEASE MOTHER: ALIVE 92 YRS, PACEMAKER, UNSPECIFIED HEART DISEASE 2 SON(S) - HEALTHY. SOCIAL HISTORY GENERAL: TOBACCO USE ARE YOU A:NONSMOKER LATEX QUESTIONNAIRE LATEX ALLERGY : HAVE YOU EVER DEVELOPED ANY TYPE OF REACTION AFTER HANDLING LATEX PRODUCTS SUCH RUBBER GLOVES, CONDOMS, DIAPHRAGMS, BALLOONS, SOCKS, OR UNDERWEAR?NO LATEX ALLERGY : HAVE YOU EVER DEVELOPED ANY TYPE OF REACTION DURING OR AFTER DENTAL APPOINTMENT, VAGINAL/RECTAL EXAMINATION, SURGICAL PROCEDURE, OR ANY OTHER EXPOSURE?NO LATEX RISK : HAVE YOU EVER HAD ANY DIFFICULTY BREATHING OR HIVES AFTER EATING OR HANDLING ANY FRUITS, OR VEGETABLES; SUCH KIWI, BANANAS, STONE FRUITS, OR CHESTNUTSNO LATEX RISK : DO YOU HAVE A PREVIOUS PERSONAL HISTORY OF MORE THAN NINE SURGERIES, SPINA BIFIDA, OR REPEATED CATHERIZATIONS? NO LATEX RISK : ARE YOU FREQUENTLY EXPOSED TO LATEX PRODUCTS IN YOUR OCCUPATION?NO DATE ASKED : 10/14/2019 ALCOHOL SCREENING DID YOU HAVE A DRINK CONTAINING ALCOHOL IN THE PAST YEAR?YES HOW OFTEN DID YOU HAVE SIX OR MORE DRINKS ON ONE OCCASION IN THE PAST YEAR?LESS THAN MONTHLY (1 POINT) HOW MANY DRINKS DID YOU HAVE ON A TYPICAL DAY WHEN YOU WERE DRINKING IN THE PAST YEAR?5 OR 6 (2 POINTS) HOW OFTEN DID YOU HAVE A DRINK CONTAINING ALCOHOL IN THE PAST YEAR?MONTHLY OR LESS (1 POINT) POINTS4 INTERPRETATIONPOSITIVE RECREATIONAL DRUG USE DRUG USE?NO CAFFEINE CAFFEINE USE?YES HOW OFTEN AND HOW MUCH? FEW CUPS COFFEE DAILY YARSANI [id number] [employer] LANGUAGE LANGUAGES SPOKEN:LUXEMBOURGER EDUCATION LEVEL OF EDUCATION:HIGH SCHOOL LEARNING BARRIERS / SPECIAL NEEDS BARRIERS TO LEARNING?NO HEARING IMPAIRED?NO TINNITUS-CONSTANT IN RIGHT EAR VISION IMPAIRED?YES COGNITIVELY IMPAIRED?NO :CORRECTIVE LENSES READING READINESS TO LEARN?YES LEARNING PREFERENCES?NO LEARNING CAPABILITIES PRESENT?YES EMOTIONAL BARRIERS?NO SPECIAL DEVICES?NO WILLOW WORKER NEEDED?NO DOMESTIC VIOLENCE DO YOU FEEL SAFE IN YOUR ENVIRONMENT?YES DIET: REGULAR. EXERCISE: WALKS AND SWIMS AT Y 3 TIMES A WEEK. NEW PATIENT PAIN DIARY PATIENT DESCRIBES PAIN :ACHING, HAVE IT ALL THE TIME, TENDER, SORE FROM 0-10, WHAT LEVEL IS YOUR PAIN TODAY?7 WALKING, BENDING, PROLONGED SITTING IN ONE POSITION PRECIPITATING FACTORS RESTING, MEDS, STRETCHING, RF PROCEDURE PAIN CLINIC PFS, CLERGY, PUBLIC HEALTH REFERRALS PFS REFERRAL NEEDED?NO CLERGY REFERRAL NEEDED?NO PUBLIC HEALTH REFERRAL NEEDED?NO WAS THE PROVIDER NOTIFIED OF ANY PERTINENT INFO?YES N/A HAS THE PATIENT BEEN EDUCATED REGARDING HIS/HER PLAN OF CARE?YES HAS THE PATIENT BEEN EDUCATED REGARDING PAIN, THE RISK FOR PAIN, THE IMPORTANCE OF EFFECTIVE PAIN MANAGEMENT, AND THE PAIN ASSESSMENT PROCESS?YES ADVANCE DIRECTIVE ADVANCE DIRECTIVE DISCUSSED WITH PATIENT:YES HAS HCP SON--HARSHA ROSALES [phone](C) HOSPITALIZATION/MAJOR DIAGNOSTIC PROCEDURE SURGERIES REVIEW OF SYSTEMS CONSTITUTIONAL: ANY RECENT FEVER OR ILLNESS NO . CHILLS NO . GASTROENTEROLOGY: BOWEL INCONTINENCE NO . ANY NEW CHANGE IN BOWEL CONTROL? NO . ABDOMINAL PAIN NO . CONSTIPATION NO . GENITOURINARY: ANY NEW CHANGE IN BLADDER CONTROL? NO . URINARY INCONTINENCE NO . CARDIOLOGY: CHEST PRESSURE NO . CHEST PAIN NO . RESPIRATORY: COUGH NO . SHORTNESS OF BREATH NO . VITAL SIGNS WT 247.2 LBS, HT 69 IN, BMI 36.50 INDEX, BP 135/80 MM HG, HR 73 /MIN, RR 18 /MIN, TEMP 97.7 F, OXYGEN SAT % 98%, SAFE IN ENV? 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 EXAMINATION GENERAL EXAMINATION: GENERALNO ACUTE DISTRESS, WELL NOURISHED AND HYDRATED. PSYCHAPPROPRIATE MOOD AND AFFECT . LUNGS:CLEAR TO AUSCULTATION BILATERALLY, NO WHEEZES, RHONCHI, RALES. HEART:NO MURMURS, REGULAR RATE AND RHYTHM. ASSESSMENTS SPONDYLOSIS OF LUMBOSACRAL REGION WITHOUT MYELOPATHY OR RADICULOPATHY - M47.817 (PRIMARY) TREATMENT SPONDYLOSIS OF LUMBOSACRAL REGION WITHOUT MYELOPATHY OR RADICULOPATHY CLINICAL NOTES: [id number] MALE IN FOR POST RF PROCEDURE FOLLOW-UP. GIVEN PRESENTING SYMPTOMS RECOMMEND FOLLOW-UP IN 2 MONTHS. PATIENT HAS EXPRESSED UNDERSTANDING OF AND WAS IN AGREEMENT WITH TREATMENT PLAN. GIVEN TIME TO ASK QUESTIONS AND EXPRESS CONCERNS. , ISTOP REGISTRY REVIEWED AND DEMONSTRATES COMPLLIANCE. (REF # [id number] ) BRINGS IN MEDICATIONS WHICH IS APPROPRIATE FOR WHAT WAS DISPENSED. RECENT URINE TOXICOLOGY REVIEWED. NO UNAUTHORIZED MEDICATIONS. NO ILLICIT SUBSTANCES AND PRESCRIBED MEDICATIONS WERE PRESENT. PROCEDURES PN WORKMANS' COMP OPINION IN YOUR OPINION, WAS THE INCIDENT THAT THE PATIENT DESCRIBED THE COMPETENT MEDICAL CAUSE OF THIS INJURY/ILLNESS? YES ARE THE PATIENT'S COMPLAINTS CONSISTENT WITH HIS/HER HISTORY OF THE INJURY/ILLNESS? YES IS THE PATIENT'S HISTORY OF THE INJURY/ILLNESS CONSISTENT WITH YOUR OBJECTIVE FINDING? YES WHAT IS THE PERCENTAGE OF TEMPORARY IMPAIRMENT? MODERATE TO MARKED = 66.7% . IS THE PATIENT WORKING? NO . DOCTOR ON SITE: BINU WILL MD , BINU WILL MD PROCEDURE CODES FA211 ESTABILISHED PATIENT [facility] CHARGE DISPOSITION & COMMUNICATION FOLLOW UP 2 MONTHS (REASON: BACK PAIN) ELECTRONICALLY SIGNED BY FRANCHESKA GERARD ON 10/15/2019 AT 08:54 AM EDT DISCLAIMER : THIS IS A VISIT SUMMARY EXTRACTED FROM THE [employer] CHART. IT IS NOT A COPY OF THE [employer] PROGRESS NOTE. ANALILIA
== END ==
LOC: M PAIN 09:00
PROVIDERS: ATTEND Family Medicine
DX: M47.817 Spondylosis without myelopathy or radiculopathy, lumbosacral region (principal)

== ENCOUNTER → 2019-10-15 | Outpatient (CLI) | payer OTHER ==
[~2019-10-15] MED LIST changes: +BUPIVACAINE HCL 0.25% 30ML VIAL As Ordered ONE; +ISOVUE-M 300 61% 15ML VIAL As Ordered ONE; +LIDOCAINE 1% SDV 30ML VIAL As Ordered ONE
--- NOTE | 2019-10-15 12:59 | REP ---
CERVICAL SPINE LIMITED STUDY SINGLE VIEW: HISTORY: Pain. Cervical facet block. 9 minutes 55 seconds of fluoroscopy time is reported. FINDINGS: A single lateral view of the cervical spine obtained portably documents various needle positions associated with injection procedure. Electronically Signed by Nacho Christopher MD 10/15/2019 05:14 P
--- NOTE | 2019-10-16 01:04 | ECWPNPC ---
PATIENT NAME: OWEN ROSALES : 1960 GENDER: MALE VISIT DATE: 10/15/2019 DISCHARGE DATE: 10/15/19 1025 VISIT LOCKED DATE TIME: PHYSICIAN: BINU ZIMMERMAN MD RESOURCE: BINU ZIMMERMAN MD REASON FOR APPOINTMENT 1. LEFT DIAGNOSTIC CERVICAL FACET BLOCK C3/C4, C4/C5 PAT DONE HISTORY OF PRESENT ILLNESS GENERAL: -. FALL RISK SCREENING: SCREENING :NO FALLS REPORTED IN THE LAST YEAR PAIN SCREENING: PATIENT HAS A COMPLAINT OF ACUTE OR CHRONIC PAIN :YES LOCATION OF PAIN:NECK INTENSITY OF PAIN (SCALE OF 1 TO 10):7 WHAT DOES YOUR PAIN FEEL LIKE:ACHING, CONTINOUS, SHARP, STABBING, TENDER, THROBBING, SORE, SHOOTING DURATION:CONSTANT, STEADY NURSING NOTE: -. PAIN CENTER INTAKE QUESTIONS: DO YOU HAVE A HISTORY OF MRSA? :NO DO YOU TAKE A BLOOD THINNERS? :NO DO YOU HAVE ANY BLEEDING DISORDERS? :NO ANY NEW NUMBNESS OR WEAKNESS IN YOUR LEGS OR ARMS? :YES PT STATES THAT HE HAS INTERMITTENT NUMBNESS IN BOTH ARMS AT TIMES, PRIMARILY WHEN SLEEPING ANY PACEMAKER,DEFIBRILLATOR, OR DORSAL COLUMN STIMULATOR? :NO DO YOU HAVE ANY RASHES OR OPEN SORES? :NO ARE YOU ALLERGIC TO IV DYE? :NO ARE YOU DIABETIC? :NO ANY NEW PROBLEMS WITH YOUR MEDICATIONS? :NO HAVE YOU RECEIVED A VACCINE IN THE PAST 30 DAYS? :NO DO YOU PLAN TO RECEIVE A VACCINE IN THE NEXT 21 DAYS? :NO DO YOU TAKE ANY IMMUNOSUPPRESSIVE MEDICATIONS? :NO ANY HISTORY OF SEIZURES? :NO ANY HISTORY OF CARDIAC ISSUES OR EVENTS? :NO DO YOU HAVE SLEEP APNEA? : NO. ANY RECENT HEAD INJURY? :NO DO YOU HAVE ANY NEW INFECTIONS? :NO IS THERE A CHANCE YOU COULD BE ? :NO ARE YOU BREAST FEEDING? :NO WHEN DID YOU LAST EAT? : -10/13 7P WHEN DID YOU LAST DRINK? : -10/14 6A WHAT DID YOU LAST DRINK? : -BLACK COFFEE NAME OF PERSON DRIVING YOU HOME? : -AUSTEN DO YOU HAVE ANY OTHER QUESTIONS OR CONCERNS? : -COVID TESTING COMPLETE - NEGATIVE CURRENT MEDICATIONS TAKING GEMFIBROZIL 600 MG TABLET 1 TABLET ORALLY DAILY, NOTES: 10/13 7A TAKING LOVASTATIN 40 MG TABLET 2 TABLET ORALLY ONCE A DAY, NOTES: 10/13 9P TAKING MULTIVITAL SELDOVIA TABLET ORALLY DAILY, NOTES: 10/13 7A TAKING OMEPRAZOLE 40 MG CAPSULE DELAYED RELEASE 1 CAPSULE ORALLY ONCE A DAY, NOTES: 10/13 7A TAKING MIRALAX PACKET 1 PACKET MIXED WITH 8 OUNCES OF FLUID ORALLY ONCE A DAY NEEDED, NOTES: 2 MONTHS TAKING VITAMIN D3 2000 UNIT CAPSULE 1 CAPSULE ORALLY ONCE A DAY, NOTES: 10/13 7A TAKING GABAPENTIN 600 MG TABLET 1 CAPSULE ORALLY THREE TIMES A DAY, NOTES: 10/13 9P TAKING MORPHINE SULFATE ER 15 MG TABLET EXTENDED RELEASE 1 TABLET ORALLY AT BEDTIME MDD=1, NOTES: 10/13 9P TAKING OXYCODONE HCL 5 MG TABLET 1 TABLET ORALLY EVERY 6-8 HRS PRN PAIN MDD=2, NOTES: 2 DAYS NOT-TAKING TIZANIDINE HCL 4 MG TABLET 1 TABLET NEEDED ORALLY EVERY 6 HOURS NEEDED MDD3 MEDICATION LIST REVIEWED AND RECONCILED WITH THE PATIENT PAST MEDICAL HISTORY REFLUX HIGH CHOLESTEROL CERVICALGIA BILATERAL OCCIPITAL NEURALGIA LOW BACK PAIN TINNITUS- RIGHT WARTS AND ON RIGHT FOOT ALLERGIES N.K.D.A. SURGICAL HISTORY TOTAL RIGHT KNEE 2001 RIGHT HIP FX REPAIR 1984 ABDOMINAL EXPLORATORY SURGERY 1984 CERVICAL/THORACIC FUSION 2005 LIGAMENT AND CARTLIGE REMOVAL RIGHT KNEE 1977 RIGHT FOOT WARTS REMOVED 2019 FAMILY HISTORY FATHER: 84 YRS, CONGESTIVE HEART DISEASE, DIAGNOSED WITH UNSPECIFIED HEART DISEASE MOTHER: ALIVE 92 YRS, PACEMAKER, UNSPECIFIED HEART DISEASE 2 SON(S) - HEALTHY. SOCIAL HISTORY GENERAL: TOBACCO USE ARE YOU A:NONSMOKER LATEX QUESTIONNAIRE LATEX ALLERGY : HAVE YOU EVER DEVELOPED ANY TYPE OF REACTION AFTER HANDLING LATEX PRODUCTS SUCH RUBBER GLOVES, CONDOMS, DIAPHRAGMS, BALLOONS, SOCKS, OR UNDERWEAR?NO LATEX ALLERGY : HAVE YOU EVER DEVELOPED ANY TYPE OF REACTION DURING OR AFTER DENTAL APPOINTMENT, VAGINAL/RECTAL EXAMINATION, SURGICAL PROCEDURE, OR ANY OTHER EXPOSURE?NO LATEX RISK : HAVE YOU EVER HAD ANY DIFFICULTY BREATHING OR HIVES AFTER EATING OR HANDLING ANY FRUITS, OR VEGETABLES; SUCH KIWI, BANANAS, STONE FRUITS, OR CHESTNUTSNO LATEX RISK : DO YOU HAVE A PREVIOUS PERSONAL HISTORY OF MORE THAN NINE SURGERIES, SPINA BIFIDA, OR REPEATED CATHERIZATIONS? NO LATEX RISK : ARE YOU FREQUENTLY EXPOSED TO LATEX PRODUCTS IN YOUR OCCUPATION?NO DATE ASKED : 10/14/2019 ALCOHOL SCREENING DID YOU HAVE A DRINK CONTAINING ALCOHOL IN THE PAST YEAR?YES HOW OFTEN DID YOU HAVE SIX OR MORE DRINKS ON ONE OCCASION IN THE PAST YEAR?LESS THAN MONTHLY (1 POINT) HOW MANY DRINKS DID YOU HAVE ON A TYPICAL DAY WHEN YOU WERE DRINKING IN THE PAST YEAR?5 OR 6 (2 POINTS) HOW OFTEN DID YOU HAVE A DRINK CONTAINING ALCOHOL IN THE PAST YEAR?MONTHLY OR LESS (1 POINT) POINTS4 INTERPRETATIONPOSITIVE RECREATIONAL DRUG USE DRUG USE?NO CAFFEINE CAFFEINE USE?YES HOW OFTEN AND HOW MUCH? FEW CUPS COFFEE DAILY MOSQUE [id number] [employer]NA[employer]APTISM LANGUAGE LANGUAGES SPOKEN:ANGUILLAN EDUCATION LEVEL OF EDUCATION:HIGH SCHOOL LEARNING BARRIERS / SPECIAL NEEDS BARRIERS TO LEARNING?NO HEARING IMPAIRED?NO TINNITUS-CONSTANT IN RIGHT EAR VISION IMPAIRED?YES COGNITIVELY IMPAIRED?NO :CORRECTIVE LENSES READING READINESS TO LEARN?YES LEARNING PREFERENCES?NO LEARNING CAPABILITIES PRESENT?YES EMOTIONAL BARRIERS?NO SPECIAL DEVICES?NO ELECTRONIC DEVICE REPAIRER NEEDED?NO DOMESTIC VIOLENCE DO YOU FEEL SAFE IN YOUR ENVIRONMENT?YES DIET: REGULAR. EXERCISE: WALKS AND SWIMS AT Y 3 TIMES A WEEK. PAIN CLINIC PFS, CLERGY, PUBLIC HEALTH REFERRALS PFS REFERRAL NEEDED?NO CLERGY REFERRAL NEEDED?NO PUBLIC HEALTH REFERRAL NEEDED?NO WAS THE PROVIDER NOTIFIED OF ANY PERTINENT INFO?YES N/A HAS THE PATIENT BEEN EDUCATED REGARDING HIS/HER PLAN OF CARE?YES HAS THE PATIENT BEEN EDUCATED REGARDING PAIN, THE RISK FOR PAIN, THE IMPORTANCE OF EFFECTIVE PAIN MANAGEMENT, AND THE PAIN ASSESSMENT PROCESS?YES ADVANCE DIRECTIVE ADVANCE DIRECTIVE DISCUSSED WITH PATIENT:YES HAS HCP SON--HARSHA ROSALES [phone](C) HOSPITALIZATION/MAJOR DIAGNOSTIC PROCEDURE SURGERIES VITAL SIGNS WT 245.0 LBS, HT 69 IN, BMI 36.18 INDEX, BP 136/88 MM HG, HR 72 /MIN, RR 18 /MIN, TEMP 97.8 F, OXYGEN SAT % 96%, SAFE IN ENV? (Y/N) Y, NA INITIALS SC 08:53, REVIEWED BY: [employer]. EXAMINATION GENERAL EXAMINATION: THE PATIENT IS ALERT, ORIENTED TIMES THREE AND COOPERATIVE. HEART SHOWS REGULAR RHYTHM, NO MURMURS AND NO GALLOPS. LUNGS ARE CLEAR TO AUSCULTATION. ASSESSMENTS SPONDYLOSIS WITHOUT MYELOPATHY OR RADICULOPATHY, CERVICAL REGION - M47.812 (PRIMARY) FACET ARTHROPATHY, CERVICAL - M47.812 TREATMENT FACET ARTHROPATHY, CERVICAL SMC FACET BLOCK (PAIN)[id number] PROCEDURES PAIN NURSING RECORD PRE-PROCEDURE IV SITE RIGHT HAND, IV STARTED # 22, IV STARTED BY: Gennaro MACIAS RN, IV ATTEMPTS 1, PRE-PROCEDURE ORAL MEDICATIONS N/A PROCEDURE IN ROOM 0915, PHYSICIAN IN ROOM 0927, START 0946, FINISH 1006, PHYSICIAN OUT OF ROOM 1010, OUT OF ROOM 1025, STEROID N/A, O2 RA, ECG NORMAL SINUS, PATIENT SHIELDED YES, SAFETY STRAP YES, PREP CHLOROPREP, IV INFUSED N/A, DRESSING TEGADERM LOC: WINNIE ARMENTA RN 10/15/2019 9:28:26 AM > 1. ALERT, ORIENTED RESP: WINNIE ARMENTA RN 10/15/2019 9:28:33 AM > 1. REGULAR, NO DYSPNEA COLOR: WINNIE ARMENTA RN 10/15/2019 9:28:39 AM > 1. PINK SKIN: WINNIE ARMENTA RN 10/15/2019 9:28:51 AM > 1. WARM, DRY POSITION: WINNIE ARMENTA RN 10/15/2019 9:29:01 AM > 1. LATERAL VITALS: WINNIE ARMENTA RN 10/15/2019 9:29:14 AM > 123/59, 61, 16, 97% WINNIE ARMENTA RN 10/15/2019 9:44:24 AM > 164/60, 62, 16, 96% WINNIE ARMENTA RN 10/15/2019 9:59:21 AM > 138/65, 65, 16, 96% WINNIE ARMENTA RN 10/15/2019 10:25:57 AM > 157/76, 70, 16, 99% DISCHARGE: POST PAIN 5/10, DRESSING SITE DRY AND INTACT, IV DISCONTINUED, SITE CLEAR, CATHETER INTACT, GAIT STEADY, TEACHING COMPLETED, PATIENT ACKNOWLEDGES UNDERSTANDING YES, PATIENT DISCHARGED AT 1025 PN WORKMANS' COMP OPINION IN YOUR OPINION, WAS THE INCIDENT THAT THE PATIENT DESCRIBED THE COMPETENT MEDICAL CAUSE OF THIS INJURY/ILLNESS? YES ARE THE PATIENT'S COMPLAINTS CONSISTENT WITH HIS/HER HISTORY OF THE INJURY/ILLNESS? YES IS THE PATIENT'S HISTORY OF THE INJURY/ILLNESS CONSISTENT WITH YOUR OBJECTIVE FINDING? YES WHAT IS THE PERCENTAGE OF TEMPORARY IMPAIRMENT? MODERATE TO MARKED = 66.7% . IS THE PATIENT WORKING? NO . DOCTOR ON SITE: BINU WILL MD PRE PROCEDURE DIAGNOSIS CERVICAL SPONDYLOSIS. POST PROCEDURE DIAGNOSIS CERVICAL SPONDYLOSIS. PROCEDURE LEFT C3-C4 AND LEFT C4-C5 DIAGNOSTIC CERVICAL FACET BLOCK NUMBER 1. SURGEON DR. BINU ZIMMERMAN. RISK ASSESSMENT CONSULTANT NONE. ANESTHESIA LOCAL. PRE PROCEDURE NOTE THE PATIENT HAS HISTORY OF CHRONIC CERVICAL PAIN. I EVALUATED THE PATIENT AND REVIEWED THE CHART. I WENT OVER THE RISKS, ALTERNATIVES, AND BENEFITS ASSOCIATED WITH THIS PROCEDURE. THE PATIENT WOULD LIKE TO PROCEED AND GIVE CONSENT TO PERFORMED THE PROCEDURE. AGREED WITH THE PATIENT, WE ARE DOING THIS PROCEDURE TO DETERMINE IF THE PATIENT IS A CANDIDATE FOR A RADIOFREQUENCY ABLATION OF THE FACETS JOINTS. THE PATIENT DENIES UNEXPLAINABLE WEIGHT LOSS, FEVER, CHILLS, OR NEW CHANGES IN URINARY OR BOWEL CONTROL. THE PATIENT IS COVID-19 NEGATIVE. DESCRIPTION OF PROCEDURE THE PATIENT WAS BROUGHT TO THE PROCEDURE ROOM AND PLACED IN THE PRONE POSITION. THE CERVICOTHORACIC AREA WAS CLEANED WITH CHLORAPREP SOLUTION AND DRAPED ASEPTICALLY. THE PROCEDURE WAS DONE UNDER STERILE CONDITIONS. A TIMEOUT WAS PERFORMED WHERE LATERALITY AND THE SITE OF THE PROCEDURE WERE CHECKED AND CONFIRMED WITH EVERYONE IN THE ROOM. UNDER FLUOROSCOPIC GUIDANCE, TARGET POINTS WERE SELECTED AT THE MID AND LATERAL POINTS OF THE LEFT ARTICULAR PILLARS OF LEFT C3, LEFT C4 AND LEFT C5 VERTEBRAL BODIES. TARGET POINTS WERE SELECTED AFTER LATERAL ROTATION AND TILT OF THE MAGNIFIER OF THE C-ARM. LIDOCAINE 0.5% WAS USED TO NUMB THE SKIN AND THE SUBCUTANEOUS TISSUE BELOW IT. SPINAL NEEDLES, 22-GAUGE, WERE ADVANCED UNDER FLUOROSCOPIC GUIDANCE AND FOLLOWING PATIENT FEEDBACK UNTIL THE TARGETS WERE TOUCHED. THE POSITION OF THE NEEDLES WAS VERIFIED WITH AP AND LATERAL VIEWS. AFTER PROPER POSITION OF THE NEEDLES WAS ACHIEVED, ISOVUE-M DYE 30%, 0.2 ML, WAS INJECTED SHOWING SPREAD OF THE DYE. THEN A SOLUTION OF 0.25 ML OF BUPIVACAINE 0.25% WAS INJECTED AT EACH SITE. THERE WAS NO EVIDENCE OF BLOOD, PARESTHESIA OR CEREBROSPINAL FLUID DURING THE PROCEDURE. THE PATIENT WAS SENT TO THE RECOVERY ROOM. THE PATIENT WAS MOVING THE EXTREMITIES AND DOING WELL. THERE WERE NO COMPLICATIONS DURING THE PROCEDURE. EBL LESS THAN 5 ML. FLUOROSCOPY TIME WAS 9 MINUTES 55 SECONDS. POST PROCEDURE NOTE I WAS HAVING A HARD TIME LOCATING THE TARGETS. IT TOOK SOME TIME TO FIND THE CORRECT POSITIONING OF THE C-ARM AND THE PATIENT. THE PATIENT WILL DOCUMENT PAIN LEVEL AND RESPONSE TO THIS PROCEDURE EVERY HOUR. THE PATIENT WILL BE SEEN IN A FOLLOW UP IN THE NEXT FEW WEEKS. FURTHER DETERMINATION FOR THE PATIENT'S CASE WILL BE DONE AT THE NEXT VISIT. THE PATIENT WILL BE SEEN IN A FOLLOW UP IN THE NEXT FEW WEEKS. I AM LOOKING FOR LONG LASTING RELIEF FOR THE PATIENT WITH THIS INTERVENTION. INSTRUCTIONS WERE GIVEN, QUESTIONS WERE ANSWERED, AND THE PATIENT EXPRESSED UNDERSTANDING AND AGREES WITH THE PLAN. I, PATRICK EARL, DOCUMENTED THE ABOVE INFORMATION ACTING A SCRIBE FOR DR. ZIMMERMAN. I HAVE REVIEWED THE ABOVE DOCUMENT, WRITTEN BY PATRICK EARL, CORN HUSK BALER, AND I VERIFY THAT IT IS ACCURATE. PREVENTIVE MEDICINE PAIN CLINIC TEACHING: THE PATIENT HAS BEEN EDUCATED REGARDING HIS/HER PLAN OF CARE : REVIEWED WRITTEN AND VERBAL DISCHARGE AND PLAN OF CARE INSTRUCTIONS WITH PATIENT. PROCEDURE CODES 90149 INJ PARAVERT F JNT C/T 1 LEV, [place]: [place] [address] INJ PARAVERT F JNT C/T 2 LEV, MODIFIERS: LT DISPOSITION & COMMUNICATION FOLLOW UP F/UP WITH SEWER BUILDER (REASON: POST LT CFBD #1 C3-C4, C4-C5) ELECTRONICALLY SIGNED BY BINU ZIMMERMAN MD, MD ON 10/15/2019 AT 05:28 PM EDT DISCLAIMER : THIS IS A VISIT SUMMARY EXTRACTED FROM THE [employer] CHART. IT IS NOT A COPY OF THE [employer] PROGRESS NOTE. ANALILIA
== END ==
LOC: M PAIN 08:30
PROVIDERS: ATTEND Anesthesiology
DX: M47.812 Spondylosis without myelopathy or radiculopathy, cervical region (principal)
CPT/HCPCS: 64490; 64491; Q9967

== ENCOUNTER → 2019-10-22 | Outpatient (REF) | payer MEDICARE ==
[~2019-10-22] MED LIST changes: -BUPIVACAINE HCL 0.25% 30ML VIAL As Ordered ONE; -ISOVUE-M 300 61% 15ML VIAL As Ordered ONE; -LIDOCAINE 1% SDV 30ML VIAL As Ordered ONE
[2019-10-22 19:25] LABS: BASO # 0.1 10^3/uL (0.0-0.2); BASO % 1.2 % (0.0-1.0); EOS # 0.3 10^3/uL (0.0-0.5); EOS % 4.7 % (0.0-3.0); HEMOGLOBIN 14.4 g/dl (13.5-17.5); LYMPH # 1.6 10^3/uL (1.5-5.0); LYMPH % 23.7 % (24.0-44.0); MEAN CORPUSCULAR HEMOGLOBIN 28.1 pg (27.0-33.0); MEAN CORPUSCULAR HGB CONC 32.7 g/dl (32.0-36.5); MEAN CORPUSCULAR VOLUME 85.9 fl (80.0-96.0); MONO # 0.7 10^3/uL (0.0-0.8); MONO % 9.6 % (0.0-5.0); NEUTROPHILS # 4.1 10^3/uL (1.5-8.5); NEUTROPHILS % 60.5 % (36.0-66.0); PLATELET COUNT, AUTOMATED 326 10^3/uL (150-450); RED BLOOD COUNT 5.12 10^6/uL (4.30-6.10); WHITE BLOOD COUNT 6.8 10^3/uL (4.0-10.0)
[2019-10-22 19:38] LABS: HEMOGLOBIN A1c 6.1 %
[2019-10-22 19:42] LABS: ALBUMIN 3.9 GM/DL (3.2-5.2); ALT/SGPT 66 U/L (12-78); BILIRUBIN,TOTAL 0.5 MG/DL (0.2-1.0); BLOOD UREA NITROGEN 19 MG/DL (7-18); CALCIUM LEVEL 9.2 MG/DL (8.8-10.2); CARBON DIOXIDE LEVEL 25 MEQ/L (21-32); CHLORIDE LEVEL 109 MEQ/L (98-107); CHOLESTEROL LEVEL 231 MG/DL (<200); CHOLESTEROL RISK RATIO 4.714 (<5); GLOMERULAR FILTRATION RATE > 60.0 (>49); GLUCOSE, FASTING 79 MG/DL (70-100); HDL CHOLESTEROL 49 MG/DL (>40); LDL CHOLESTEROL 154 MG/DL (<100); NON-HDL-C 182 MG/DL; POTASSIUM SERUM 4.2 MEQ/L (3.5-5.1); SODIUM LEVEL 139 MEQ/L (136-145); TOTAL PROTEIN 7.2 GM/DL (6.4-8.2); TRIGLYCERIDES LEVEL 141 MG/DL (<150)
== END ==
LOC: M LAB REF 17:05
PROVIDERS: ATTEND Nurse Practitioner Adult Health
DX: Z13.9 Encounter for screening, unspecified (principal); E78.00 Pure hypercholesterolemia, unspecified
CPT/HCPCS: 80053; 80061; 83036; 85025; G0103

== ENCOUNTER → 2019-10-29 | Outpatient (CLI) | payer OTHER ==
--- NOTE | 2019-10-31 01:12 | ECWPNPC ---
PATIENT NAME: OWEN ROSALES : 1960 GENDER: MALE VISIT DATE: 10/29/2019 DISCHARGE DATE: 10/29/19 1015 VISIT LOCKED DATE TIME: PHYSICIAN: CHRISTAL TRUONG RESOURCE: CHRISTAL TRUONG REASON FOR APPOINTMENT 1. W/C POST LEFT CFBD HISTORY OF PRESENT ILLNESS GENERAL: 60 MINUTES FOR CERVICAL FACET BLOCK DIAGNOSTIC FOLLOW-UP. PATIENT STATES THE PROCEDURE HELPED FOR APPROXIMATELY 6 HOURS STATUS POST. HE RATES HIS PAIN CURRENTLY AT A 4/10 AND DESCRIBES IT ACHING AND CONTINOUS. 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 -. PAIN CENTER INTAKE QUESTIONS: DO YOU HAVE A HISTORY OF MRSA? :NO DO YOU TAKE A BLOOD THINNERS? :NO DO YOU HAVE ANY BLEEDING DISORDERS? :NO ANY NEW NUMBNESS OR WEAKNESS IN YOUR LEGS OR ARMS? :NO ANY PACEMAKER,DEFIBRILLATOR, OR DORSAL COLUMN STIMULATOR? :NO DO YOU HAVE ANY RASHES OR OPEN SORES? :NO ARE YOU ALLERGIC TO IV DYE? :NO ARE YOU DIABETIC? :NO ANY NEW PROBLEMS WITH YOUR MEDICATIONS? :NO HAVE YOU RECEIVED A VACCINE IN THE PAST 30 DAYS? :NO DO YOU PLAN TO RECEIVE A VACCINE IN THE NEXT 21 DAYS? :NO DO YOU NEED ANY PRESCRIPTION? :NO DO YOU TAKE ANY IMMUNOSUPPRESSIVE MEDICATIONS? :NO IS THERE A CHANCE YOU COULD BE ? :NO ARE YOU BREAST FEEDING? :NO FALL RISK SCREENING: SCREENING :NO FALLS REPORTED IN THE LAST YEAR PAIN SCREENING: PATIENT HAS A COMPLAINT OF ACUTE OR CHRONIC PAIN :YES LOCATION OF PAIN:NECK INTENSITY OF PAIN (SCALE OF 1 TO 10):4 WHAT DOES YOUR PAIN FEEL LIKE:ACHING, CONTINOUS DURATION:CONTINOUS PAIN IS INCREASED BY:ACTIVITIES PAIN IS DECREASED BY:USE OF PAIN MEDICATIONS PAIN MEDS HELP, EXERCISES DO HELP THAT WERE INSTRUCTED BY PT NURSING NOTE: -. CURRENT MEDICATIONS TAKING GEMFIBROZIL 600 MG TABLET 1 TABLET ORALLY DAILY TAKING LOVASTATIN 40 MG TABLET 2 TABLET ORALLY ONCE A DAY TAKING MULTIVITAL [place] TABLET ORALLY DAILY TAKING OMEPRAZOLE 40 MG CAPSULE DELAYED RELEASE 1 CAPSULE ORALLY ONCE A DAY TAKING MIRALAX PACKET 1 PACKET MIXED WITH 8 OUNCES OF FLUID ORALLY ONCE A DAY NEEDED TAKING VITAMIN D3 2000 UNIT CAPSULE 1 CAPSULE ORALLY ONCE A DAY TAKING GABAPENTIN 600 MG TABLET 1 CAPSULE ORALLY THREE TIMES A DAY TAKING MORPHINE SULFATE ER 15 MG TABLET EXTENDED RELEASE 1 TABLET ORALLY AT BEDTIME MDD=1 TAKING OXYCODONE HCL 5 MG TABLET 1 TABLET ORALLY EVERY 6-8 HRS PRN PAIN MDD=2 NOT-TAKING TIZANIDINE HCL 4 MG TABLET 1 TABLET NEEDED ORALLY EVERY 6 HOURS NEEDED MDD3 MEDICATION LIST REVIEWED AND RECONCILED WITH THE PATIENT PAST MEDICAL HISTORY REFLUX HIGH CHOLESTEROL CERVICALGIA BILATERAL OCCIPITAL NEURALGIA LOW BACK PAIN TINNITUS- RIGHT WARTS AND ON RIGHT FOOT ALLERGIES N.K.D.A. SURGICAL HISTORY TOTAL RIGHT KNEE 2001 RIGHT HIP FX REPAIR 1984 ABDOMINAL EXPLORATORY SURGERY 1984 CERVICAL/THORACIC FUSION 2006 LIGAMENT AND CARTLIGE REMOVAL RIGHT KNEE 1977 RIGHT FOOT WARTS REMOVED 2018 FAMILY HISTORY FATHER: 84 YRS, CONGESTIVE HEART DISEASE, DIAGNOSED WITH UNSPECIFIED HEART DISEASE MOTHER: ALIVE 92 YRS, PACEMAKER, UNSPECIFIED HEART DISEASE 2 SON(S) - HEALTHY. SOCIAL HISTORY GENERAL: TOBACCO USE ARE YOU A:NONSMOKER LATEX QUESTIONNAIRE LATEX ALLERGY : HAVE YOU EVER DEVELOPED ANY TYPE OF REACTION AFTER HANDLING LATEX PRODUCTS SUCH RUBBER GLOVES, CONDOMS, DIAPHRAGMS, BALLOONS, SOCKS, OR UNDERWEAR?NO LATEX ALLERGY : HAVE YOU EVER DEVELOPED ANY TYPE OF REACTION DURING OR AFTER DENTAL APPOINTMENT, VAGINAL/RECTAL EXAMINATION, SURGICAL PROCEDURE, OR ANY OTHER EXPOSURE?NO LATEX RISK : HAVE YOU EVER HAD ANY DIFFICULTY BREATHING OR HIVES AFTER EATING OR HANDLING ANY FRUITS, OR VEGETABLES; SUCH KIWI, BANANAS, STONE FRUITS, OR CHESTNUTSNO LATEX RISK : DO YOU HAVE A PREVIOUS PERSONAL HISTORY OF MORE THAN NINE SURGERIES, SPINA BIFIDA, OR REPEATED CATHERIZATIONS? NO LATEX RISK : ARE YOU FREQUENTLY EXPOSED TO LATEX PRODUCTS IN YOUR OCCUPATION?NO DATE ASKED : 10/29/2019 ALCOHOL SCREENING DID YOU HAVE A DRINK CONTAINING ALCOHOL IN THE PAST YEAR?YES HOW OFTEN DID YOU HAVE SIX OR MORE DRINKS ON ONE OCCASION IN THE PAST YEAR?LESS THAN MONTHLY (1 POINT) HOW MANY DRINKS DID YOU HAVE ON A TYPICAL DAY WHEN YOU WERE DRINKING IN THE PAST YEAR?5 OR 6 (2 POINTS) HOW OFTEN DID YOU HAVE A DRINK CONTAINING ALCOHOL IN THE PAST YEAR?MONTHLY OR LESS (1 POINT) POINTS4 INTERPRETATIONPOSITIVE RECREATIONAL DRUG USE DRUG USE?NO CAFFEINE CAFFEINE USE?YES HOW OFTEN AND HOW MUCH? FEW CUPS COFFEE DAILY FAITH [id number] JEWISH LANGUAGE LANGUAGES SPOKEN:THAI EDUCATION LEVEL OF EDUCATION:HIGH SCHOOL LEARNING BARRIERS / SPECIAL NEEDS BARRIERS TO LEARNING?NO HEARING IMPAIRED?NO TINNITUS-CONSTANT IN RIGHT EAR VISION IMPAIRED?YES COGNITIVELY IMPAIRED?NO :CORRECTIVE LENSES READING READINESS TO LEARN?YES LEARNING PREFERENCES?NO LEARNING CAPABILITIES PRESENT?YES EMOTIONAL BARRIERS?NO SPECIAL DEVICES?NO ENGLISH AND READING INSTRUCTOR NEEDED?NO DOMESTIC VIOLENCE DO YOU FEEL SAFE IN YOUR ENVIRONMENT?YES DIET: REGULAR. EXERCISE: WALKS AND SWIMS AT Y 3 TIMES A WEEK. PAIN CLINIC PFS, CLERGY, PUBLIC HEALTH REFERRALS PFS REFERRAL NEEDED?NO CLERGY REFERRAL NEEDED?NO PUBLIC HEALTH REFERRAL NEEDED?NO WAS THE PROVIDER NOTIFIED OF ANY PERTINENT INFO?YES N/A HAS THE PATIENT BEEN EDUCATED REGARDING HIS/HER PLAN OF CARE?YES HAS THE PATIENT BEEN EDUCATED REGARDING PAIN, THE RISK FOR PAIN, THE IMPORTANCE OF EFFECTIVE PAIN MANAGEMENT, AND THE PAIN ASSESSMENT PROCESS?YES ADVANCE DIRECTIVE ADVANCE DIRECTIVE DISCUSSED WITH PATIENT:YES HAS HCP SON--HARSHA ROSALES [phone](C) HOSPITALIZATION/MAJOR DIAGNOSTIC PROCEDURE SURGERIES REVIEW OF SYSTEMS CONSTITUTIONAL: ANY RECENT FEVER NO . CHILLS NO . WEIGHT CHANGE OF UNKNOWN REASONS NO . GASTROENTEROLOGY: NEW UNEXPLAINABLE CHANGES IN BOWEL CONTROL NO . CONSTIPATION NO . GENITOURINARY: ANY NEW CHANGE IN BLADDER CONTROL? NO . NEUROLOGY: NEW ONSET DIZZINESS OR NEUROLOGICAL CHANGES NOT MENTIONED NO . NEW NUMBNESS OR PAIN PATTERNS NOT MENTIONED AND PERTINENT TO TODAY'S VISIT NO . CARDIOLOGY: NEW CHEST PRESSURE NO . NEW CHEST PAIN NO . RESPIRATORY: UNEXPLAINABLE COUGH NO . NEW SHORTNESS OF BREATH NO . VITAL SIGNS WT 246 LBS, HT 69 IN, BMI 36.32 INDEX, BP 134/77 MM HG, HR 71 /MIN, RR 18 /MIN, TEMP 97.8 F, OXYGEN SAT % 97%, SAFE IN ENV? (Y/N) YES, NA INITIALS AW 0948, REVIEWED BY: FARHAN. EXAMINATION GENERAL EXAMINATION: GENERALNO ACUTE DISTRESS, WELL NOURISHED AND HYDRATED. PSYCHAPPROPRIATE MOOD AND AFFECT . NECK:DENIES POINT TENDERNESS ALONG CERVICAL SPINE, SURROUNDING SKIN SHOWS NO ERYTHEMA, ECCHYMOSIS, INCREASED WARMTH, AND/OR SKIN ERUPTIONS NOTED. . LUNGS:CLEAR TO AUSCULTATION BILATERALLY, NO WHEEZES, RHONCHI, RALES. HEART:NO MURMURS, REGULAR RATE AND RHYTHM. ASSESSMENTS SPONDYLOSIS OF CERVICAL REGION WITHOUT MYELOPATHY OR RADICULOPATHY - M47.812 (PRIMARY) TREATMENT SPONDYLOSIS OF CERVICAL REGION WITHOUT MYELOPATHY OR RADICULOPATHY NOTES: DIAGNOSTIC CERVICAL FACET BLOCK #2 LEFT SIDE C3-C4 C4-C5. CLINICAL NOTES: 59-YEAR-OLD MALE IN FOR POST DIAGNOSTIC CERVICAL FACET BLOCK FOLLOW-UP. GIVEN PRESENTING SYMPTOMS RECOMMENDED DIAGNOSTIC CERVICAL FACET BLOCK #2 C3-C4 C4-C5 LEFT SIDE WITH POSTPROCEDURAL FOLLOW-UP. PATIENT HAS EXPRESSED UNDERSTANDING OF AND WAS IN AGREEMENT WITH TREATMENT PLAN. GIVEN TIME TO ASK QUESTIONS AND EXPRESS CONCERNS. PROCEDURES PN WORKMANS' COMP OPINION IN YOUR OPINION, WAS THE INCIDENT THAT THE PATIENT DESCRIBED THE COMPETENT MEDICAL CAUSE OF THIS INJURY/ILLNESS? YES ARE THE PATIENT'S COMPLAINTS CONSISTENT WITH HIS/HER HISTORY OF THE INJURY/ILLNESS? YES IS THE PATIENT'S HISTORY OF THE INJURY/ILLNESS CONSISTENT WITH YOUR OBJECTIVE FINDING? YES WHAT IS THE PERCENTAGE OF TEMPORARY IMPAIRMENT? MODERATE TO MARKED = 66.7% . IS THE PATIENT WORKING? NO . DOCTOR ON SITE: BINU WILL MD , BINU WILL MD PREVENTIVE MEDICINE PAIN CLINIC TEACHING: PROCEDURE TEACHING DIAGNOSTIC FACET BLOCK PROCEDURE INFORMATION PRINTED AND REVIEWED WITH PATIENT. PATIENT VERBLAIZES UNDERSTANDING OF PROCEDURE AND OF PRE PROCEDURE INSTRUCTIONS REVIEWED. 10/29/2019 1005 NLJ. PROCEDURE CODES FA211 ESTABILISHED PATIENT [facility] FACILITY CHARGE DISPOSITION & COMMUNICATION FOLLOW UP POSTPROCEDURE (REASON: AGNOSTIC CERVICAL FACET BLOCK #2 LEFT SIDE C3-C4 C4-C5) ELECTRONICALLY SIGNED BY FRANCHESKA GERARD ON 10/30/2019 AT 08:25 AM EDT DISCLAIMER : THIS IS A VISIT SUMMARY EXTRACTED FROM THE [employer] CHART. IT IS NOT A COPY OF THE [employer] PROGRESS NOTE. ANALILIA
== END ==
LOC: M PAIN 09:30
PROVIDERS: ATTEND Family Medicine
DX: M47.812 Spondylosis without myelopathy or radiculopathy, cervical region (principal)

== ENCOUNTER → 2019-11-20 | Outpatient (CLI) | payer OTHER | LOC: M LABSMTC 10:07 | PROVIDERS: ATTEND Anesthesiology | DX: Z20.828 Contact with and (suspected) exposure to other viral communicable diseases (principal); Z11.59 Encounter for screening for other viral diseases ==

== ENCOUNTER → 2019-11-25 | Outpatient (POV) | payer OTHER ==
[~2019-11-25] MED LIST changes: +BUPIVACAINE HCL 0.25% 30ML VIAL ONE; +ISOVUE-M 300 61% 15ML VIAL ONE; +LIDOCAINE 1% SDV 30ML VIAL ONE
--- NOTE | 2020-01-19 09:46 | REP ---
CERVICAL SPINE: SINGLE VIEW HISTORY: Injection procedure for pain. 5 minutes 16 seconds of fluoroscopy time is reported. FINDINGS: A single last image hold fluoroscopically obtained spot radiograph of the cervical spine documents various needle positions associated with cervical injection procedure. RENETTAD
== END ==
LOC: M PAIN 10:15
PROVIDERS: ATTEND Anesthesiology
DX: M47.812 Spondylosis without myelopathy or radiculopathy, cervical region (principal)
CPT/HCPCS: 64490; 64491; 77003; Q9967

== ENCOUNTER → 2019-12-16 | Outpatient (CLI) | payer OTHER ==
[~2019-12-16] MED LIST changes: -BUPIVACAINE HCL 0.25% 30ML VIAL ONE; -ISOVUE-M 300 61% 15ML VIAL ONE; -LIDOCAINE 1% SDV 30ML VIAL ONE
== END ==
LOC: M PAIN 08:15
PROVIDERS: ATTEND Family Medicine
DX: M47.812 Spondylosis without myelopathy or radiculopathy, cervical region (principal)

== ENCOUNTER → 2020-01-14 | Outpatient (REF) | payer OTHER ==
[2020-01-14 17:01] LABS: HEMOGLOBIN A1c 5.7 %
== END ==
LOC: M LAB REF 16:10
PROVIDERS: ATTEND Nurse Practitioner Adult Health
DX: Z13.9 Encounter for screening, unspecified (principal)

== ENCOUNTER → 2020-02-26 | Outpatient (CLI) | payer OTHER ==
[~2020-02-26] MED LIST changes: +BUPIVACAINE HCL 0.25% 30ML VIAL As Ordered ONE; +LIDOCAINE 1% SDV 30ML VIAL As Ordered ONE; +dexameTHASONE 10MG/1ML VIAL PRES.FREE (J1100 PER 1MG) As Ordered ONE; +diazePAM 5 MG TAB As Ordered ONE; +oxyCODONE 5MG TAB As Ordered ONE
--- NOTE | 2020-02-26 14:41 | REP ---
INDICATION: LEFT SIDED CERVICAL RADIOFREQUENCY C3/C4; C4/C5. COMPARISON: None. TECHNIQUE: Two views. 77.6 seconds of fluoroscopy time is reported. FINDINGS: A series of 2 last image hold fluoroscopically obtained spot radiograph(s) of the cervical spine document(s) needle position(s) and contrast injection associated with injection procedure. IMPRESSION: Procedural imaging. <Electronically signed by Berto Christopher > 02/26/20 [id number]
--- NOTE | 2020-03-09 09:36 | ECWPNPC ---
PATIENT NAME: OWEN ROSALES : 1960 GENDER: MALE VISIT DATE: 02/26/2020 DISCHARGE DATE: 02/26/20 1417 VISIT LOCKED DATE TIME: PHYSICIAN: BINU ZIMMERMAN MD RESOURCE: BIUN ZIMMERMAN MD REASON FOR APPOINTMENT 1. W/C COOL RF LEFT C3/C4, C4/C5 HISTORY OF PRESENT ILLNESS GENERAL: -. FALL RISK SCREENING: SCREENING :NO FALLS REPORTED IN THE LAST YEAR PAIN SCREENING: PATIENT HAS A COMPLAINT OF ACUTE OR CHRONIC PAIN :YES LOCATION OF PAIN:NECK INTENSITY OF PAIN (SCALE OF 1 TO 10):8 WHAT DOES YOUR PAIN FEEL LIKE:ACHING, BURNING, SHARP, THROBBING, SHOOTING, SORE PATIENT REPORTS PAIN , "SORE TO THE TOUCH." DURATION:CONTINOUS, CONSTANT PAIN IS INCREASED BY:ACTIVITIES PAIN IS DECREASED BY:USE OF PAIN MEDICATIONS TREATMENT/MEDICATIONS USED TO MANAGE PAIN:OPIOIDS LEVEL OF RELIEF FROM PAIN TREATMENTS IN THE PAST:50% PAIN HAS INTERFERED WITH THE FOLLOWING:WALKING ABILITY, SLEEP NURSING NOTE: -. PAIN CENTER INTAKE QUESTIONS: DO YOU HAVE A HISTORY OF MRSA? :NO DO YOU TAKE A BLOOD THINNERS? :NO DO YOU HAVE ANY BLEEDING DISORDERS? :NO ANY NEW NUMBNESS OR WEAKNESS IN YOUR LEGS OR ARMS? :NO ANY PACEMAKER,DEFIBRILLATOR, OR DORSAL COLUMN STIMULATOR? :NO DO YOU HAVE ANY RASHES OR OPEN SORES? :NO ARE YOU ALLERGIC TO IV DYE? :NO ARE YOU DIABETIC? :NO ANY NEW PROBLEMS WITH YOUR MEDICATIONS? :NO HAVE YOU RECEIVED A VACCINE IN THE PAST 30 DAYS? :NO DO YOU PLAN TO RECEIVE A VACCINE IN THE NEXT 21 DAYS? :NO DO YOU TAKE ANY IMMUNOSUPPRESSIVE MEDICATIONS? :NO ANY HISTORY OF SEIZURES? :NO ANY HISTORY OF CARDIAC ISSUES OR EVENTS? :NO DO YOU HAVE SLEEP APNEA? :NO ANY RECENT HEAD INJURY? :NO DO YOU HAVE ANY NEW INFECTIONS? :NO IS THERE A CHANCE YOU COULD BE ? :NO ARE YOU BREAST FEEDING? :NO WHEN DID YOU LAST EAT? : 02/25/20 1900 WHEN DID YOU LAST DRINK? : 02/26/20 0630 WHAT DID YOU LAST DRINK? : SIPS OF WATER WITH AM MEDICATIONS NAME OF PERSON DRIVING YOU HOME? : AUSTEN (GF) DO YOU HAVE ANY OTHER QUESTIONS OR CONCERNS? : NO CURRENT MEDICATIONS TAKING GEMFIBROZIL 600 MG TABLET 1 TABLET ORALLY DAILY, NOTES: 02/25 630 TAKING LOVASTATIN 40 MG TABLET 2 TABLET ORALLY ONCE A DAY, NOTES: 02/24 2100 TAKING MULTIVITAL [place] TABLET ORALLY DAILY, NOTES: 02/25 630 TAKING OMEPRAZOLE 40 MG CAPSULE DELAYED RELEASE 1 CAPSULE ORALLY ONCE A DAY, NOTES: 02/24 AM TAKING MIRALAX PACKET 1 PACKET MIXED WITH 8 OUNCES OF FLUID ORALLY ONCE A DAY NEEDED, NOTES: NOT RECENTLY TAKING VITAMIN D3 2000 UNIT CAPSULE 1 CAPSULE ORALLY ONCE A DAY, NOTES: 02/25 630 TAKING GABAPENTIN 600 MG TABLET 1 CAPSULE ORALLY THREE TIMES A DAY, NOTES: 02/25 630 TAKING MORPHINE SULFATE ER 15 MG TABLET EXTENDED RELEASE 1 TABLET ORALLY AT BEDTIME MDD=1, NOTES: 02/24 2100 TAKING OXYCODONE HCL 5 MG TABLET 1 TABLET ORALLY EVERY 6-8 HRS PRN PAIN MDD=2, NOTES: 02/24 2330 NOT-TAKING TIZANIDINE HCL 4 MG TABLET 1 TABLET NEEDED ORALLY EVERY 6 HOURS NEEDED MDD3 MEDICATION LIST REVIEWED AND RECONCILED WITH THE PATIENT PAST MEDICAL HISTORY REFLUX HIGH CHOLESTEROL CERVICALGIA BILATERAL OCCIPITAL NEURALGIA LOW BACK PAIN TINNITUS- RIGHT WARTS AND ON RIGHT FOOT ALLERGIES N.K.D.A. SURGICAL HISTORY TOTAL RIGHT KNEE 2001 RIGHT HIP FX REPAIR 1985 ABDOMINAL EXPLORATORY SURGERY 1985 CERVICAL/THORACIC FUSION 2006 LIGAMENT AND CARTLIGE REMOVAL RIGHT KNEE 1977 RIGHT FOOT WARTS REMOVED 2019 FAMILY HISTORY FATHER: 84 YRS, CONGESTIVE HEART DISEASE, DIAGNOSED WITH UNSPECIFIED HEART DISEASE MOTHER: ALIVE 92 YRS, PACEMAKER, UNSPECIFIED HEART DISEASE 2 SON(S) - HEALTHY. SOCIAL HISTORY GENERAL: TOBACCO USE ARE YOU A:NONSMOKER LATEX QUESTIONNAIRE LATEX ALLERGY : HAVE YOU EVER DEVELOPED ANY TYPE OF REACTION AFTER HANDLING LATEX PRODUCTS SUCH RUBBER GLOVES, CONDOMS, DIAPHRAGMS, BALLOONS, SOCKS, OR UNDERWEAR?NO LATEX ALLERGY : HAVE YOU EVER DEVELOPED ANY TYPE OF REACTION DURING OR AFTER DENTAL APPOINTMENT, VAGINAL/RECTAL EXAMINATION, SURGICAL PROCEDURE, OR ANY OTHER EXPOSURE?NO LATEX RISK : HAVE YOU EVER HAD ANY DIFFICULTY BREATHING OR HIVES AFTER EATING OR HANDLING ANY FRUITS, OR VEGETABLES; SUCH KIWI, BANANAS, STONE FRUITS, OR CHESTNUTSNO LATEX RISK : DO YOU HAVE A PREVIOUS PERSONAL HISTORY OF MORE THAN NINE SURGERIES, SPINA BIFIDA, OR REPEATED CATHERIZATIONS? NO LATEX RISK : ARE YOU FREQUENTLY EXPOSED TO LATEX PRODUCTS IN YOUR OCCUPATION?NO DATE ASKED : 02/26/2020 ALCOHOL SCREENING DID YOU HAVE A DRINK CONTAINING ALCOHOL IN THE PAST YEAR?YES HOW OFTEN DID YOU HAVE SIX OR MORE DRINKS ON ONE OCCASION IN THE PAST YEAR?LESS THAN MONTHLY (1 POINT) HOW MANY DRINKS DID YOU HAVE ON A TYPICAL DAY WHEN YOU WERE DRINKING IN THE PAST YEAR?5 OR 6 (2 POINTS) HOW OFTEN DID YOU HAVE A DRINK CONTAINING ALCOHOL IN THE PAST YEAR?MONTHLY OR LESS (1 POINT) POINTS4 INTERPRETATIONPOSITIVE RECREATIONAL DRUG USE DRUG USE?NO CAFFEINE CAFFEINE USE?YES HOW OFTEN AND HOW MUCH? 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 DIET: REGULAR. EXERCISE: WALKS AND SWIMS AT Y 3 TIMES A WEEK. MARITAL STATUS: . PAIN CLINIC PFS, CLERGY, PUBLIC HEALTH REFERRALS PFS REFERRAL NEEDED?NO CLERGY REFERRAL NEEDED?NO PUBLIC HEALTH REFERRAL NEEDED?NO WAS THE PROVIDER NOTIFIED OF ANY PERTINENT INFO?YES N/A HAS THE PATIENT BEEN EDUCATED REGARDING HIS/HER PLAN OF CARE?YES HAS THE PATIENT BEEN EDUCATED REGARDING PAIN, THE RISK FOR PAIN, THE IMPORTANCE OF EFFECTIVE PAIN MANAGEMENT, AND THE PAIN ASSESSMENT PROCESS?YES ADVANCE DIRECTIVE ADVANCE DIRECTIVE DISCUSSED WITH PATIENT:YES HAS HCP SON--HARSHA ROSALES [phone](C) HOSPITALIZATION/MAJOR DIAGNOSTIC PROCEDURE SURGERIES VITAL SIGNS WT 254.4 LBS, HT 69 IN, BMI 37.56 INDEX, BP 139/79 MM HG, HR 80 /MIN, RR 18 /MIN, TEMP 98.3 F, OXYGEN SAT % 94%, SAFE IN ENV? (Y/N) YES, NA INITIALS AW 1035, REVIEWED BY: CIARAN BARROW RN BSN. EXAMINATION GENERAL EXAMINATION: THE PATIENT IS ALERT, ORIENTED TIMES THREE AND COOPERATIVE. HEART SHOWS REGULAR RHYTHM, NO MURMURS AND NO GALLOPS. LUNGS ARE CLEAR TO AUSCULTATION. ASSESSMENTS SPONDYLOSIS WITHOUT MYELOPATHY OR RADICULOPATHY, CERVICAL REGION - M47.812 (PRIMARY), RISK: (NULL) TREATMENT SPONDYLOSIS WITHOUT MYELOPATHY OR RADICULOPATHY, CERVICAL REGION [facility] FACET BLOCK (PAIN)[id number] SALINE LOCKTALA BARROW 02/26/2020 11:10:03 AM > ACKNOWLEDGED, SEE PROCEDURE SECTION. MEDICATION: VALIUM TAB 10MG ORALLY (DIAZEPAM)TALA BARROW 02/26/2020 11:08:10 AM > LOT #: [id number] EXP: 07/2020. OCTAVIO MCKEON 02/26/2020 11:09:44 AM > VERIFIED TALA BARROW 02/26/2020 11:13:37 AM > ADMINISTERED. MEDICATION: OXYCODONE HCL TAB 10MG ORALLYTALA BARROW 02/26/2020 11:08:40 AM > LOT # [id number] EXP: 05/2021. OCTAVIO MCKEON 02/26/2020 11:10:10 AM > VERIFIED TALA BARROW 02/26/2020 11:13:52 AM > ADMINISTERED. OTHERS NOTES: 02/25 20 FILIPPO SR DRAFTER TOOL DESIGN. PROCEDURES PAIN NURSING RECORD PRE-PROCEDURE IV SITE LEFT FOREARM, IV STARTED # 20, IV STARTED BY: Concepcion BARROW RN, IV ATTEMPTS 1, PRE-PROCEDURE ORAL MEDICATIONS YES PROCEDURE IN ROOM 1200, PHYSICIAN IN ROOM 1256, START 1316, FINISH 1357, PHYSICIAN OUT OF ROOM 1359, OUT OF ROOM 1405, STEROID DEXAMETHASONE, O2 RA, ECG NORMAL SINUS, PATIENT SHIELDED YES, SAFETY STRAP YES, PREP CHLOROPREP DR. ZIMMERMAN, IV INFUSED N/A, DRESSING TEGADERM DR. ZIMMERMAN LOC: TALA BARROW 02/26/2020 12:00:01 PM > 1. ALERT, ORIENTED RESP: TALA BARROW 02/26/2020 12:00:01 PM > 1. REGULAR, NO DYSPNEA COLOR: TALA BARROW 02/26/2020 12:00:01 PM > 1. PINK SKIN: TALA BARROW 02/26/2020 12:00:01 PM > 1. WARM, DRY POSITION: TALA BARROW 02/26/2020 12:00:01 PM > 1. PRONE VITALS: TALA BARROW 02/26/2020 12:00:01 PM > 129/83, 72, 94% RA, 16. TALA BARROW 02/26/2020 12:15:06 PM > 126/78, 72, 95% RA, 16. TALA BARROW 02/26/2020 12:30:53 PM > 129/83, 67, 95% RA, 16. TALA BARROW 02/26/2020 12:45:54 PM > 134/87, 65, 95% RA, 16. TALA ABRROW 02/26/2020 13:00:25 PM > 167/85, 73, 96% RA, 16. TALA BARROW 02/26/2020 13:15:49 PM > 205/94, 73, 96% RA, 16. TALA BARROW 02/26/2020 13:30:49 PM > 198/97, 67, 97% RA, 16. TALA BARROW 02/26/2020 13:45:49 PM > 210/98, 68, 96% RA, 16. TALA BARROW 02/26/2020 14:00:15 PM > 197/88, 77, 96% RA, 16. DANIALTALA 02/26/2020 14:08:08 PM > POST PROCEDURE 144/78, 80, 97% RA, 16. DISCHARGE: POST PAIN 09/06, DRESSING SITE DRY AND INTACT, IV DISCONTINUED, SITE CLEAR, CATHETER INTACT BLEEDING CONTROLLED, DSD APPLIED., GAIT STEADY, TEACHING COMPLETED, PATIENT ACKNOWLEDGES UNDERSTANDING YES, PATIENT DISCHARGED AT 1415 PN RADIOFREQUENCY DATE OF PROCEDURE 02/26/2020 THERMO LESION RADIOFREQUENCY > 80 DEGREES : COOL - AVANOS SYSTEM SET AT 60* WITH TISSUE TARGET TEMP > 80* OR MORE. STRAIGHT NEEDLE SIDE: : LEFT NEEDLE/CATHETER/GAUGE: : 17 CANULA LENGTH: : 50 MM . ACTIVE TIP: : 2 MM GROUNDING PAD PLACED ON AFFECTED SIDE (MUSCULAR AREA): : CERVIAL (LATERAL FLANK) . 1 ST LEVEL: : C3,INITAL POSTIVE SENSORY RESPONE (50 HZ) 1.8,MOTOR RESPONSE (2 HZ-UP TO 3 VOLTS) 3.0 ,PRE-LOCAL IMPEDENCE READING OHMS 880 ,POST-LOCAL IMPEDENCE READING OHMS 405 ,DURING RF IMPEDENCE READING OHMS 409 , 2 ND LEVEL: : C4,INITIAL POSITIVE SENSORY RESPONSE (50 HZ) 2.2,MOTOR RESPONSE (2 HZ- UP TO 3 VOLTS) 3.0 ,PRE-LOCAL IMPEDENCE READING OHMS 990 ,POST-LOCAL IMEPEDENCE READING OHMS 486 ,DURING RF IMPEDENCE READING OHMS 513 , 3 RD LEVEL: : C5,INITIAL POSITIVE SENSORY RESPONSE (50 HZ) 1.5,MOTOR RESPONSE (2HZ- UP TO 3 VOLTS) 3.0 ,PRE- LOCAL IMPEDENCE READING OHMS 770 ,POST-LOCAL IMPEDENCE READING OHMS 472 ,DURING RF IMPEDENCE READING OHMS 460 , SURGEON DR. BINU ZIMMERMAN SAP BI ARCHITECT NONE PN WORKMANS' COMP OPINION IN YOUR OPINION, WAS THE INCIDENT THAT THE PATIENT DESCRIBED THE COMPETENT MEDICAL CAUSE OF THIS INJURY/ILLNESS? YES ARE THE PATIENT'S COMPLAINTS CONSISTENT WITH HIS/HER HISTORY OF THE INJURY/ILLNESS? YES IS THE PATIENT'S HISTORY OF THE INJURY/ILLNESS CONSISTENT WITH YOUR OBJECTIVE FINDING? YES WHAT IS THE PERCENTAGE OF TEMPORARY IMPAIRMENT? MODERATE TO MARKED = 66.7% . IS THE PATIENT WORKING? NO . DOCTOR ON SITE: BINU WILL MD PRE PROCEDURE DIAGNOSIS CERVICAL SPONDYLOSIS POST PROCEDURE DIAGNOSIS CERVICAL SPONDYLOSIS PROCEDURE LEFT C3-C4 AND LEFT C4-C5 CERVICAL FACET COOL RADIOFREQUENCY SURGEON DR. BINU ZIMMERMAN SAP BI ARCHITECT NONE ANESTHESIA LOCAL PRE PROCEDURE NOTE THE PATIENT HAS A HISTORY OF CHRONIC NECK PAIN. I EVALUATED THE PATIENT AND REVIEWED THE CHART. I WENT OVER THE RISKS, BENEFITS AND ALTERNATIVES ASSOCIATED WITH THIS PROCEDURE. I EXPLAINED TO THE PATIENT THAT THERE IS A CHANCE OF DEVELOPING NEURALGIA AFTER THE RADIOFREQUENCY. I EXPLAINED THAT IF THAT HAPPENS, I WILL GIVE THE PATIENT GABAPENTIN. I DISCUSSED THAT THE USE OF STEROIDS MAY CONTRIBUTE TO IMMUNOSUPPRESSION OF THE PATIENT'S BODY AGAINST INFECTIONS SUCH COVID-19. THE PATIENT IS AWARE OF THE POTENTIAL COMPLICATIONS ASSOCIATED WITH THIS VIRUS, INCLUDING, BUT NOT LIMITED TO, . THE PATIENT WOULD LIKE TO PROCEED AND GIVES CONSENT TO PERFORM THE PROCEDURE. THE PATIENT DENIES UNEXPLAINABLE WEIGHT LOSS, FEVER, CHILLS OR NEW CHANGES IN URINARY OR BOWEL CONTROL. THE PATIENT IS COVID-19 NEGATIVE DESCRIPTION OF PROCEDURE THE PATIENT WAS BROUGHT TO THE PROCEDURE ROOM AND PLACED IN THE RIGHT LATERAL DECUBITUS POSITION. THE CERVICOTHORACIC AREA WAS CLEANED WITH CHLORAPREP SOLUTION AND DRAPED ASEPTICALLY. THE PROCEDURE WAS DONE UNDER STERILE CONDITIONS. A TIMEOUT WAS PERFORMED WHERE LATERALITY AND THE SITE OF THE PROCEDURE WERE CHECKED AND CONFIRMED WITH EVERYONE IN THE ROOM. UNDER FLUOROSCOPIC GUIDANCE, THE TARGET POINT WAS SELECTED AT THE MID POINT OF THE LATERAL ARTICULAR PROCESS OF LEFT C3, LEFT C4 AND LEFT C5. I CONFIRMED THE TARGET WITH EVERYONE IN THE ROOM. LIDOCAINE WAS USED TO NUMB THE SKIN AND THE SUBCUTANEOUS TISSUE BELOW IT. RADIOFREQUENCY CANNULAS, 17-GAUGE 50 MM LONG WITH 2 MM ACTIVE TIP, WERE ADVANCED UNDER FLUOROSCOPIC GUIDANCE AND FOLLOWING PATIENT FEEDBACK UNTIL THE TARGET WAS REACHED. POSITION OF THE CANNULAS WAS VERIFIED WITH AP AND LATERAL VIEWS. WE MEASURED THE CORRESPONDING IMPEDANCE, SENSORY STIMULATION AND MOTOR RESPONSES INDICATED IN THE RADIOFREQUENCY WORKSHEET. POSITION OF THE CANNULAS WAS VERIFIED AGAIN WITH AP AND LATERAL VIEWS. LIDOCAINE 1%, 4 ML, WAS INJECTED AT EACH LEVEL. RADIOFREQUENCY WAS DONE AT EACH LEVEL USING THE Sleep Number SYSTEM-COOLED RF-WITH A SETTING AT THE MACHINE OF 60 DEGREES WITH A TARGET TISSUE TEMPERATURE OF 80 TO 90 DEGREES FOR A MINIMUM OF 150 SECONDS. AFTER RADIOFREQUENCY WAS DONE, DEXAMETHASONE 3 MG WAS INJECTED AT EACH SITE. THEN, THE NEEDLES WERE FLUSHED WITH 3 ML OF BUPIVACAINE 0.125%. THE MEDICATIONS WERE VERIFIED WITH THE NURSE. THERE WAS NO EVIDENCE OF BLOOD, PARESTHESIA OR CEREBROSPINAL FLUID DURING THE PROCEDURE. THE PATIENT WAS SENT TO THE RECOVERY ROOM. THE PATIENT WAS MOVING THE EXTREMITIES AND DOING WELL. THERE WERE NO COMPLICATIONS DURING THE PROCEDURE. ESTIMATED BLOOD LOSS WAS LESS THAN 5 ML. FLUOROSCOPIC TIME WAS 1 MINUTE 29 SECONDS. POST PROCEDURE NOTE THE PATIENT WILL BE SEEN IN A FOLLOW UP IN THE NEXT FEW WEEKS. I AM LOOKING FOR LONG LASTING RELIEF FOR THE PATIENT WITH THIS INTERVENTION. INSTRUCTIONS WERE GIVEN, QUESTIONS WERE ANSWERED AND THE PATIENT EXPRESSED UNDERSTANDING AND AGREES WITH THE PAIN. I, PATRICK EARL, DOCUMENTED THE ABOVE INFORMATION ACTING A SCRIBE FOR DR. ZIMMERMAN. I HAVE REVIEWED THE ABOVE DOCUMENT WRITTEN BY PATRICK EARL, EQUIPMENT MAINTENANCE SUPERINTENDENT, AND I VERIFY THAT IT IS ACCURATE. PROCEDURE CODES 89519 DESTROY CERV/THOR FACET JNT, [place]IF[place]: [place] [address]381 DESTROY C/TH FACET JNT ADDL, MODIFIERS: LT DISPOSITION & COMMUNICATION FOLLOW UP FOLLOW UP WITH PERSONAL FINANCIAL PLANNER (REASON: W/C POST COOL LEFT C3-C4, C4-C5) ELECTRONICALLY SIGNED BY BINU ZIMMERMAN MD, MD ON 03/08/2020 AT 12:26 PM EST DISCLAIMER : THIS IS A VISIT SUMMARY EXTRACTED FROM THE [employer] CHART. IT IS NOT A COPY OF THE [employer] PROGRESS NOTE. ANALILIA
== END ==
LOC: M PAIN 10:30
PROVIDERS: ATTEND Anesthesiology
DX: M47.812 Spondylosis without myelopathy or radiculopathy, cervical region (principal); K21.9 Gastro-esophageal reflux disease without esophagitis; E78.00 Pure hypercholesterolemia, unspecified; M54.81 Occipital neuralgia; Z79.891 Long term (current) use of opiate analgesic; Z79.899 Other long term (current) drug therapy
CPT/HCPCS: 64633; 64634; J1100

== ENCOUNTER → 2020-03-23 | Outpatient (CLI) | payer OTHER ==
[~2020-03-23] MED LIST changes: -BUPIVACAINE HCL 0.25% 30ML VIAL As Ordered ONE; -LIDOCAINE 1% SDV 30ML VIAL As Ordered ONE; -dexameTHASONE 10MG/1ML VIAL PRES.FREE (J1100 PER 1MG) As Ordered ONE; -diazePAM 5 MG TAB As Ordered ONE; -oxyCODONE 5MG TAB As Ordered ONE
--- NOTE | 2020-03-24 23:04 | ECWPNPC ---
PATIENT NAME: OWEN ROSALES : 1960 GENDER: MALE VISIT DATE: 03/23/2020 DISCHARGE DATE: 03/23/20 1014 VISIT LOCKED DATE TIME: PHYSICIAN: CHRISTAL TRUONG RESOURCE: CHRISTAL TRUONG REASON FOR APPOINTMENT 1. W/C POST COOL RF LEFT C3/C4, C4/C5 HISTORY OF PRESENT ILLNESS PAIN CENTER INTAKE QUESTIONS: 60-YEAR-OLD MALE IN FOR POST COOL RF FOLLOW-UP. HE RATES HIS PAIN PREPROCEDURE AT AN 8 OUT OF 10 AND POSTPROCEDURE AT A 4 OUT OF 10. 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 GENERAL: -. FALL RISK SCREENING: SCREENING :NO FALLS REPORTED IN THE LAST YEAR PAIN SCREENING: PATIENT HAS A COMPLAINT OF ACUTE OR CHRONIC PAIN :YES LOCATION OF PAIN:NECK INTENSITY OF PAIN (SCALE OF 1 TO 10):4 WHAT DOES YOUR PAIN FEEL LIKE:ACHING, SORE DURATION:CONSTANT PAIN IS INCREASED BY:ACTIVITIES PAIN IS DECREASED BY:OTHERS SUPPORTING HEAD WITH PILLOWS ETC. NURSING NOTE: -. CURRENT MEDICATIONS TAKING GEMFIBROZIL 600 MG TABLET 1 TABLET ORALLY DAILY, NOTES: 02/25 630 TAKING LOVASTATIN 40 MG TABLET 2 TABLET ORALLY ONCE A DAY, NOTES: 02/24 2100 TAKING MULTIVITAL [place] TABLET ORALLY DAILY, NOTES: 02/25 630 TAKING OMEPRAZOLE 40 MG CAPSULE DELAYED RELEASE 1 CAPSULE ORALLY ONCE A DAY, NOTES: 02/24 AM TAKING MIRALAX PACKET 1 PACKET MIXED WITH 8 OUNCES OF FLUID ORALLY ONCE A DAY NEEDED, NOTES: NOT RECENTLY TAKING VITAMIN D3 2000 UNIT CAPSULE 1 CAPSULE ORALLY ONCE A DAY, NOTES: 02/25 630 TAKING GABAPENTIN 600 MG TABLET 1 CAPSULE ORALLY THREE TIMES A DAY, NOTES: 02/25 630 TAKING MORPHINE SULFATE ER 15 MG TABLET EXTENDED RELEASE 1 TABLET ORALLY AT BEDTIME MDD=1, NOTES: 02/24 2100 TAKING OXYCODONE HCL 5 MG TABLET 1 TABLET ORALLY EVERY 6-8 HRS PRN PAIN MDD=2, NOTES: 02/24 2330 NOT-TAKING TIZANIDINE HCL 4 MG TABLET 1 TABLET NEEDED ORALLY EVERY 6 HOURS NEEDED MDD3 MEDICATION LIST REVIEWED AND RECONCILED WITH THE PATIENT PAST MEDICAL HISTORY REFLUX HIGH CHOLESTEROL CERVICALGIA BILATERAL OCCIPITAL NEURALGIA LOW BACK PAIN TINNITUS- RIGHT WARTS AND ON RIGHT FOOT ALLERGIES N.K.D.A. SURGICAL HISTORY TOTAL RIGHT KNEE 2001 RIGHT HIP FX REPAIR 1985 ABDOMINAL EXPLORATORY SURGERY 1984 CERVICAL/THORACIC FUSION 2005 LIGAMENT AND CARTLIGE REMOVAL RIGHT KNEE 1977 RIGHT FOOT WARTS REMOVED 2019 FAMILY HISTORY FATHER: 84 YRS, CONGESTIVE HEART DISEASE, DIAGNOSED WITH UNSPECIFIED HEART DISEASE MOTHER: ALIVE 92 YRS, PACEMAKER, UNSPECIFIED HEART DISEASE 2 SON(S) - HEALTHY. SOCIAL HISTORY GENERAL: TOBACCO USE ARE YOU A:NONSMOKER LATEX QUESTIONNAIRE LATEX ALLERGY : HAVE YOU EVER DEVELOPED ANY TYPE OF REACTION AFTER HANDLING LATEX PRODUCTS SUCH RUBBER GLOVES, CONDOMS, DIAPHRAGMS, BALLOONS, SOCKS, OR UNDERWEAR?NO LATEX ALLERGY : HAVE YOU EVER DEVELOPED ANY TYPE OF REACTION DURING OR AFTER DENTAL APPOINTMENT, VAGINAL/RECTAL EXAMINATION, SURGICAL PROCEDURE, OR ANY OTHER EXPOSURE?NO LATEX RISK : HAVE YOU EVER HAD ANY DIFFICULTY BREATHING OR HIVES AFTER EATING OR HANDLING ANY FRUITS, OR VEGETABLES; SUCH KIWI, BANANAS, STONE FRUITS, OR CHESTNUTSNO LATEX RISK : DO YOU HAVE A PREVIOUS PERSONAL HISTORY OF MORE THAN NINE SURGERIES, SPINA BIFIDA, OR REPEATED CATHERIZATIONS? NO LATEX RISK : ARE YOU FREQUENTLY EXPOSED TO LATEX PRODUCTS IN YOUR OCCUPATION?NO DATE ASKED : 03/23/2020 ALCOHOL SCREENING DID YOU HAVE A DRINK CONTAINING ALCOHOL IN THE PAST YEAR?YES HOW OFTEN DID YOU HAVE A DRINK CONTAINING ALCOHOL IN THE PAST YEAR?MONTHLY OR LESS (1 POINT) HOW MANY DRINKS DID YOU HAVE ON A TYPICAL DAY WHEN YOU WERE DRINKING IN THE PAST YEAR?5 OR 6 (2 POINTS) HOW OFTEN DID YOU HAVE SIX OR MORE DRINKS ON ONE OCCASION IN THE PAST YEAR?LESS THAN MONTHLY (1 POINT) POINTS4 INTERPRETATIONPOSITIVE RECREATIONAL DRUG USE DRUG USE?NO CAFFEINE CAFFEINE USE?YES HOW OFTEN AND HOW MUCH? 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 DIET: REGULAR. EXERCISE: WALKS AND SWIMS AT Y 3 TIMES A WEEK. MARITAL STATUS: . PAIN CLINIC PFS, CLERGY, PUBLIC HEALTH REFERRALS PFS REFERRAL NEEDED?NO CLERGY REFERRAL NEEDED?NO PUBLIC HEALTH REFERRAL NEEDED?NO WAS THE PROVIDER NOTIFIED OF ANY PERTINENT INFO?YES N/A HAS THE PATIENT BEEN EDUCATED REGARDING HIS/HER PLAN OF CARE?YES HAS THE PATIENT BEEN EDUCATED REGARDING PAIN, THE RISK FOR PAIN, THE IMPORTANCE OF EFFECTIVE PAIN MANAGEMENT, AND THE PAIN ASSESSMENT PROCESS?YES ADVANCE DIRECTIVE ADVANCE DIRECTIVE DISCUSSED WITH PATIENT:YES HAS HCP SON--HARSHA ROSALES [phone](C) HOSPITALIZATION/MAJOR DIAGNOSTIC PROCEDURE SURGERIES REVIEW OF SYSTEMS CONSTITUTIONAL: ANY RECENT FEVER NO . CHILLS NO . WEIGHT CHANGE OF UNKNOWN REASONS NO . GASTROENTEROLOGY: NEW UNEXPLAINABLE CHANGES IN BOWEL CONTROL NO . CONSTIPATION NO . GENITOURINARY: ANY NEW CHANGE IN BLADDER CONTROL? NO . NEUROLOGY: NEW ONSET DIZZINESS OR NEUROLOGICAL CHANGES NOT MENTIONED NO . NEW NUMBNESS OR PAIN PATTERNS NOT MENTIONED AND PERTINENT TO TODAY'S VISIT NO . CARDIOLOGY: NEW CHEST PRESSURE NO . NEW CHEST PAIN NO . RESPIRATORY: UNEXPLAINABLE COUGH NO . NEW SHORTNESS OF BREATH NO . VITAL SIGNS WT 255.8 LBS, HT 69 IN, BMI 37.77 INDEX, BP 132/83 MM HG, HR 107 /MIN, RR 18 /MIN, TEMP 97.7 F, OXYGEN SAT % 98%, NA INITIALS AW 0940. EXAMINATION GENERAL EXAMINATION: GENERALNO ACUTE DISTRESS, WELL NOURISHED AND HYDRATED. PSYCHAPPROPRIATE MOOD AND AFFECT . LUNGS:CLEAR TO AUSCULTATION BILATERALLY, NO WHEEZES, RHONCHI, RALES. HEART:NO MURMURS, REGULAR RATE AND RHYTHM. ASSESSMENTS OTHER CHRONIC POSTPROCEDURAL PAIN - G89.28 (PRIMARY) SPONDYLOSIS WITHOUT MYELOPATHY OR RADICULOPATHY, CERVICAL REGION - M47.812 TREATMENT OTHER CHRONIC POSTPROCEDURAL PAIN LAB: PAIN CENTER URINE TOX (SEND OUT) PAIN PROCEDURE LOGDATE OF [id number]/29/2020PROCEDURE:W/C COOL RF LEFT C3/C4, C4/Z3UNJFDP OF PRE SEDATEVALIUM 10 OXYCODONE 10RESULT:PRE 12/07 POST 08/07 NOTES: 60-YEAR-OLD MALE IN FOR POST RF FOLLOW-UP. GIVEN PRESENTING SYMPTOMS RECOMMEND FOLLOW-UP IN 2 MONTHS. PATIENT HAS EXPRESSED UNDERSTANDING OF AND WAS IN AGREEMENT WITH TREATMENT PLAN. GIVEN TIME TO ASK QUESTIONS AND EXPRESS CONCERNS. , [employer]STOP REGISTRY REVIEWED AND DEMONSTRATES COMPLLIANCE. (REF # [id number] ) BRINGS IN MEDICATIONS WHICH IS APPROPRIATE FOR WHAT WAS DISPENSED. RECENT URINE TOXICOLOGY REVIEWED. NO UNAUTHORIZED MEDICATIONS. NO ILLICIT SUBSTANCES AND PRESCRIBED MEDICATIONS WERE PRESENT. PROCEDURE CODES FA211 ESTABILISHED PATIENT [facility] CHARGE DISPOSITION & COMMUNICATION FOLLOW UP 2 MONTHS (REASON: NECK PAIN ) ELECTRONICALLY SIGNED BY FRANCHESKA GERARD ON 03/24/2020 AT 08:46 AM EST ADDENDUM: 03/24/2020 08:47 AM [facility] > [facility] [employer] [facility] OPINION: IN YOUR OPINION, WAS THE INCIDENT THAT THE PATIENT DESCRIBED THE COMPETENT MEDICAL CAUSE OF THIS INJURY/ILLNESS? YES ARE THE PATIENT'S COMPLAINTS CONSISTENT WITH HIS/HER HISTORY OF THE INJURY/ILLNESS? YES IS THE PATIENT'S HISTORY OF THE INJURY/ILLNESS CONSISTENT WITH YOUR OBJECTIVE FINDING? YES WHAT IS THE PERCENTAGE OF TEMPORARY IMPAIRMENT? MODERATE TO MARKED = 66.7% IS THE PATIENT WORKING? NO DOCTOR ON SITE: BINU WILL MD , BINU WILL MD. DISCLAIMER : THIS IS A VISIT SUMMARY EXTRACTED FROM THE [employer] CHART. IT IS NOT A COPY OF THE [employer] PROGRESS NOTE. MTDD
== END ==
LOC: M PAIN 09:30
PROVIDERS: ATTEND Family Medicine
DX: M47.812 Spondylosis without myelopathy or radiculopathy, cervical region (principal); G89.29 Other chronic pain; K21.9 Gastro-esophageal reflux disease without esophagitis; Z96.651 Presence of right artificial knee joint; Z79.891 Long term (current) use of opiate analgesic; Z79.899 Other long term (current) drug therapy

== ENCOUNTER → 2020-05-24 | Outpatient (CLI) | payer OTHER ==
--- NOTE | 2020-05-26 04:15 | ECWPNPC ---
PATIENT NAME: OWEN ROSALES : 1960 GENDER: MALE VISIT DATE: 05/24/2020 DISCHARGE DATE: 05/24/20 1005 VISIT LOCKED DATE TIME: PHYSICIAN: CHRISTAL TRUONG RESOURCE: CHRISTAL TRUONG REASON FOR APPOINTMENT 1. W/C NECK PAIN HISTORY OF PRESENT ILLNESS DEPRESSION SCREENIN-YEAR-OLD MALE IN FOR WORKER'S COMP. CHRONIC PAIN FOLLOW-UP. HE FEELS HIS MEDICATIONS ARE HELPFUL AND DENIES MED SIDE EFFECTS AT THIS TIME. PATIENT HAS HAD RF PROCEDURE IS PERFORMED IN THE PAST WITH GOOD RESULTS AND WE WILL DISCUSS REPEAT PROCEDURES TODAY. HIS PREVIOUS GOALS WERE INCREASED FUNCTIONALITY AND A DECREASE IN PAIN AND OUR GOALS FOR REPEATING THE PROCEDURE ARE THE SAME. 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 THE PATIENT WAS HURT IN A SECOND WORK RELATED INJURY ON 09/25/2000 WHILE WORKING FOR [employer] A ADMINISTRATION VICE PRESIDENT WHEN HE WAS LIFTING HEAVY WIRES AND INJURED HIS NECK. PHQ-2 (2015 EDITION) LITTLE INTEREST OR PLEASURE IN DOING THINGS?NOT AT ALL FEELING DOWN, DEPRESSED, OR HOPELESS?NOT AT ALL TOTAL SCORE0 GENERAL: -. FALL RISK SCREENING: SCREENING :NO FALLS REPORTED IN THE LAST YEAR PAIN SCREENING: PATIENT HAS A COMPLAINT OF ACUTE OR CHRONIC PAIN :YES LOCATION OF PAIN:HEAD INTENSITY OF PAIN (SCALE OF 1 TO 10):5 WHAT DOES YOUR PAIN FEEL LIKE:ACHING, TENDER, SORE DURATION:CONTINOUS, CONSTANT, ALL DAY PAIN IS INCREASED BY:ACTIVITIES PAIN IS DECREASED BY:USE OF PAIN MEDICATIONS RELAXING TREATMENT/MEDICATIONS USED TO MANAGE PAIN:OPIOIDS LEVEL OF RELIEF FROM PAIN TREATMENTS IN THE PAST:25% PAIN HAS INTERFERED WITH THE FOLLOWING:BATHING/DRESSING, WALKING ABILITY, SLEEP NURSING NOTE: -. PAIN CENTER INTAKE QUESTIONS: DO YOU HAVE A HISTORY OF MRSA? :NO DO YOU TAKE A BLOOD THINNERS? :NO DO YOU HAVE ANY BLEEDING DISORDERS? :NO ANY NEW NUMBNESS OR WEAKNESS IN YOUR LEGS OR ARMS? :NO ANY PACEMAKER,DEFIBRILLATOR, OR DORSAL COLUMN STIMULATOR? :NO DO YOU HAVE ANY RASHES OR OPEN SORES? :NO ARE YOU ALLERGIC TO IV DYE? :NO ARE YOU DIABETIC? :NO ANY NEW PROBLEMS WITH YOUR MEDICATIONS? :NO HAVE YOU RECEIVED A VACCINE IN THE PAST 30 DAYS? :NO DO YOU PLAN TO RECEIVE A VACCINE IN THE NEXT 21 DAYS? :YES IF SO WHAT VACCINE AND WHEN? MAYBE SHINGLES VACCINE DO YOU NEED ANY PRESCRIPTION? :NO DO YOU TAKE ANY IMMUNOSUPPRESSIVE MEDICATIONS? :NO IS THERE A CHANCE YOU COULD BE ? :NO ARE YOU BREAST FEEDING? :NO CURRENT MEDICATIONS TAKING GEMFIBROZIL 600 MG TABLET 1 TABLET ORALLY DAILY TAKING LOVASTATIN 40 MG TABLET 2 TABLET ORALLY ONCE A DAY TAKING MULTIVITAL KAIBAB TABLET ORALLY DAILY TAKING OMEPRAZOLE 40 MG CAPSULE DELAYED RELEASE 1 CAPSULE ORALLY ONCE A DAY TAKING MIRALAX PACKET 1 PACKET MIXED WITH 8 OUNCES OF FLUID ORALLY ONCE A DAY NEEDED TAKING VITAMIN D3 2000 UNIT CAPSULE 1 CAPSULE ORALLY ONCE A DAY TAKING MORPHINE SULFATE ER 15 MG TABLET EXTENDED RELEASE 1 TABLET ORALLY AT BEDTIME MDD=1 TAKING OXYCODONE HCL 5 MG TABLET 1 TABLET ORALLY EVERY 6-8 HRS PRN PAIN MDD=2 TAKING GABAPENTIN 600 MG TABLET 1 CAPSULE ORALLY THREE TIMES A DAY NOT-TAKING TIZANIDINE HCL 4 MG TABLET 1 TABLET NEEDED ORALLY EVERY 6 HOURS NEEDED MDD3 MEDICATION LIST REVIEWED AND RECONCILED WITH THE PATIENT ALLERGIES NO[ALLERGIES VERIFIED] SOCIAL HISTORY GENERAL: TOBACCO USE ARE YOU A:NONSMOKER LATEX QUESTIONNAIRE LATEX ALLERGY : HAVE YOU EVER DEVELOPED ANY TYPE OF REACTION AFTER HANDLING LATEX PRODUCTS SUCH RUBBER GLOVES, CONDOMS, DIAPHRAGMS, BALLOONS, SOCKS, OR UNDERWEAR?NO LATEX ALLERGY : HAVE YOU EVER DEVELOPED ANY TYPE OF REACTION DURING OR AFTER DENTAL APPOINTMENT, VAGINAL/RECTAL EXAMINATION, SURGICAL PROCEDURE, OR ANY OTHER EXPOSURE?NO LATEX RISK : HAVE YOU EVER HAD ANY DIFFICULTY BREATHING OR HIVES AFTER EATING OR HANDLING ANY FRUITS, OR VEGETABLES; SUCH KIWI, BANANAS, STONE FRUITS, OR CHESTNUTSNO LATEX RISK : DO YOU HAVE A PREVIOUS PERSONAL HISTORY OF MORE THAN NINE SURGERIES, SPINA BIFIDA, OR REPEATED CATHERIZATIONS? NO LATEX RISK : ARE YOU FREQUENTLY EXPOSED TO LATEX PRODUCTS IN YOUR OCCUPATION?NO DATE ASKED : 05/24/2020 ALCOHOL USE: YES, SOMETIMES. ALCOHOL SCREENING DID YOU HAVE A DRINK CONTAINING ALCOHOL IN THE PAST YEAR?YES HOW OFTEN DID YOU HAVE SIX OR MORE DRINKS ON ONE OCCASION IN THE PAST YEAR?LESS THAN MONTHLY (1 POINT) HOW MANY DRINKS DID YOU HAVE ON A TYPICAL DAY WHEN YOU WERE DRINKING IN THE PAST YEAR?5 OR 6 (2 POINTS) HOW OFTEN DID YOU HAVE A DRINK CONTAINING ALCOHOL IN THE PAST YEAR?MONTHLY OR LESS (1 POINT) POINTS4 INTERPRETATIONPOSITIVE RECREATIONAL DRUG USE DRUG USE?NO CAFFEINE CAFFEINE USE?YES HOW OFTEN AND HOW MUCH? 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 DIET: REGULAR. EXERCISE: WALKS AND SWIMS AT Y 3 TIMES A WEEK. MARITAL STATUS: . - PFS REFERRAL NEEDED?NO CLERGY REFERRAL NEEDED?NO PUBLIC HEALTH REFERRAL NEEDED?NO WAS THE PROVIDER NOTIFIED OF ANY PERTINENT INFO?YES N/A HAS THE PATIENT BEEN EDUCATED REGARDING HIS/HER PLAN OF CARE?YES HAS THE PATIENT BEEN EDUCATED REGARDING PAIN, THE RISK FOR PAIN, THE IMPORTANCE OF EFFECTIVE PAIN MANAGEMENT, AND THE PAIN ASSESSMENT PROCESS?YES ADVANCE DIRECTIVE ADVANCE DIRECTIVE DISCUSSED WITH PATIENT:YES HAS HCP SON--HARSHA ROSALES [phone](C) REVIEW OF SYSTEMS CONSTITUTIONAL: ANY RECENT FEVER NO . CHILLS NO . WEIGHT CHANGE OF UNKNOWN REASONS NO . GASTROENTEROLOGY: NEW UNEXPLAINABLE CHANGES IN BOWEL CONTROL NO . CONSTIPATION NO . GENITOURINARY: ANY NEW CHANGE IN BLADDER CONTROL? NO . NEUROLOGY: NEW ONSET DIZZINESS OR NEUROLOGICAL CHANGES NOT MENTIONED NO . NEW NUMBNESS OR PAIN PATTERNS NOT MENTIONED AND PERTINENT TO TODAY'S VISIT NO . CARDIOLOGY: NEW CHEST PRESSURE NO . NEW CHEST PAIN NO . RESPIRATORY: UNEXPLAINABLE COUGH NO . NEW SHORTNESS OF BREATH NO . VITAL SIGNS WT 260 LBS, HT 69 IN, BMI 38.39 INDEX, BP 136/79 MM HG, HR 74 /MIN, RR 18 /MIN, TEMP 97.6 F, OXYGEN SAT % 98%, SAFE IN ENV? (Y/N) YEST.LEXI JACKSON. EXAMINATION GENERAL EXAMINATION: GENERALNO ACUTE DISTRESS, WELL NOURISHED AND HYDRATED. PSYCHAPPROPRIATE MOOD AND AFFECT . NECK:POINT TENDER ALONG CERVICAL SPINE, STARTING SKIN SHOWS NO ERYTHEMA, ECCHYMOSIS, INCREASED WARMTH, AND/OR SKIN ERUPTIONS NOTED. PATIENT DOES ENDORSE INCREASED PAIN WITH FACET LOADING. . LUNGS:CLEAR TO AUSCULTATION BILATERALLY, NO WHEEZES, RHONCHI, RALES. HEART:NO MURMURS, REGULAR RATE AND RHYTHM. ASSESSMENTS SPONDYLOSIS WITHOUT MYELOPATHY OR RADICULOPATHY, CERVICAL REGION - M47.812 (PRIMARY), RISK: (NULL) TREATMENT SPONDYLOSIS WITHOUT MYELOPATHY OR RADICULOPATHY, CERVICAL REGION [facility] MRI SPINE, CERVICAL WITH [id number] NOTES: 60-YEAR-OLD MALE IN FOR WORKER'S COMP. CHRONIC PAIN FOLLOW-UP. GIVEN PRESENTING SYMPTOMS RECOMMEND CERVICAL DIAGNOSTIC FACET BLOCK #2 RIGHT SIDE C3-C4 C4-C5 WITH POSTPROCEDURAL FOLLOW-UP. WE'LL GET UPDATED MRI PRIOR TO PROCEDURE. PATIENT HAS EXPRESSED HER STANDING OF AND WAS IN AGREEMENT WITH TREATMENT PLAN. GIVEN TIME TO ASK QUESTIONS AND EXPRESS CONCERNS. , ISTOP REGISTRY REVIEWED AND DEMONSTRATES COMPLLIANCE. (REF # [id number] ) BRINGS IN MEDICATIONS WHICH IS APPROPRIATE FOR WHAT WAS DISPENSED. RECENT URINE TOXICOLOGY REVIEWED. NO UNAUTHORIZED MEDICATIONS. NO ILLICIT SUBSTANCES AND PRESCRIBED MEDICATIONS WERE PRESENT. PRE-PROCEDURE INSTRUCTIONS GIVEN AND REVIEWED WITH PATIENT. Claudia MCKEON RN. OTHERS CONTINUE MORPHINE SULFATE ER TABLET EXTENDED RELEASE, 15 MG, 1 TABLET, ORALLY, AT BEDTIME MDD=1, 30 DAY(S), 30, REFILLS 0 CONTINUE OXYCODONE HCL TABLET, 5 MG, 1 TABLET, ORALLY, EVERY 6-8 HRS PRN PAIN MDD=2, 30 DAY(S), 45, REFILLS 0 PROCEDURES PN WORKMANS' COMP OPINION IN YOUR OPINION, WAS THE INCIDENT THAT THE PATIENT DESCRIBED THE COMPETENT MEDICAL CAUSE OF THIS INJURY/ILLNESS? YES ARE THE PATIENT'S COMPLAINTS CONSISTENT WITH HIS/HER HISTORY OF THE INJURY/ILLNESS? YES IS THE PATIENT'S HISTORY OF THE INJURY/ILLNESS CONSISTENT WITH YOUR OBJECTIVE FINDING? YES WHAT IS THE PERCENTAGE OF TEMPORARY IMPAIRMENT? MODERATE TO MARKED = 66.7% . IS THE PATIENT WORKING? NO . DOCTOR ON SITE: BINU WILL MD , BINU WILL MD PROCEDURE CODES FA211 ESTABILISHED PATIENT [facility] FACILITY CHARGE DISPOSITION & COMMUNICATION FOLLOW UP POST PROCEDURE (REASON: CERVICAL DIAGNOSTIC FACET BLOCK #2 C3-C4, C4-C5 MRI C-SPINE WITH CONTRAST) ELECTRONICALLY SIGNED BY FRANCHESKA GERARD ON 05/25/2020 AT 12:53 PM EST DISCLAIMER : THIS IS A VISIT SUMMARY EXTRACTED FROM THE [employer] CHART. IT IS NOT A COPY OF THE [employer] PROGRESS NOTE. ANALILIA
== END ==
LOC: M PAIN 09:30
PROVIDERS: ATTEND Family Medicine
DX: M47.812 Spondylosis without myelopathy or radiculopathy, cervical region (principal); Z79.891 Long term (current) use of opiate analgesic; Z79.899 Other long term (current) drug therapy

== ENCOUNTER → 2020-07-02 | Outpatient (REF) | payer MEDICARE, OTHER ==
[2020-07-02 17:24] LABS: BASO # 0.1 10^3/uL (0.0-0.2); BASO % 1.2 % (0.0-1.0); EOS # 0.3 10^3/uL (0.0-0.5); EOS % 5.1 % (0.0-3.0); HEMOGLOBIN 14.7 g/dl (13.5-17.5); LYMPH # 1.3 10^3/uL (1.5-5.0); LYMPH % 19.7 % (24.0-44.0); MEAN CORPUSCULAR HEMOGLOBIN 27.6 pg (27.0-33.0); MEAN CORPUSCULAR VOLUME 86.5 fl (80.0-96.0); MONO # 0.7 10^3/uL (0.0-0.8); MONO % 11.1 % (2.0-8.0); NEUTROPHILS # 4.1 10^3/uL (1.5-8.5); NEUTROPHILS % 62.4 % (36.0-66.0); PLATELET COUNT, AUTOMATED 305 10^3/uL (150-450); RED BLOOD COUNT 5.32 10^6/uL (4.30-6.10); WHITE BLOOD COUNT 6.5 10^3/uL (4.0-10.0)
[2020-07-02 17:49] LABS: ALBUMIN 4.2 GM/DL (3.2-5.2); ALT/SGPT 52 U/L (12-78); BILIRUBIN,TOTAL 0.3 MG/DL (0.2-1.0); BLOOD UREA NITROGEN 16 MG/DL (7-18); CALCIUM LEVEL 9.3 MG/DL (8.8-10.2); CARBON DIOXIDE LEVEL 27 MEQ/L (21-32); CHLORIDE LEVEL 107 MEQ/L (98-107); CHOLESTEROL LEVEL 219 MG/DL (<200); CHOLESTEROL RISK RATIO 4.866 (<5); CREATININE FOR GFR 1.06 MG/DL (0.70-1.30); GLOMERULAR FILTRATION RATE > 60.0 (>49); GLUCOSE, FASTING 113 MG/DL (70-100); HDL CHOLESTEROL 45 MG/DL (>40); LDL CHOLESTEROL 133 MG/DL (<100); NON-HDL-C 174 MG/DL; POTASSIUM SERUM 4.3 MEQ/L (3.5-5.1); SODIUM LEVEL 139 MEQ/L (136-145); TOTAL 25(OH) VITAMIN D 33.5 NG/ML (30.0-100.0); TOTAL PROTEIN 7.1 GM/DL (6.4-8.2); TRIGLYCERIDES LEVEL 204 MG/DL (<150)
[2020-07-02 17:59] LABS: APPEARANCE, URINE CLEAR (CLEAR); BACTERIA, URINE AUTO NEGATIVE (NEGATIVE); BILIRUBIN, URINE AUTO NEGATIVE (NEGATIVE); BLOOD, URINE BLOOD NEGATIVE (NEGATIVE); COLOR, URINE YELLOW (YELLOW); GLUCOSE, URINE (UA) AUTO NEGATIVE (NEGATIVE); KETONE, URINE AUTO NEGATIVE (NEGATIVE); LEUKOCYTE ESTERASE, URINE AUTO NEGATIVE (NEGATIVE); MUCUS, URINE SMALL (NEGATIVE); NITRITE, URINE AUTO NEGATIVE (NEGATIVE); PROTEIN, URINE AUTO NEGATIVE (NEGATIVE); RBC, URINE AUTO 0 /HPF (0-3); SPECIFIC GRAVITY URINE AUTO 1.017 (1.002-1.035); SQUAMOUS EPITHELIAL CELL UR AU 0 /HPF (0-6); UROBILINOGEN, URINE AUTO 0.2 mg/dL (0.0-2.0); WBC, URINE AUTO 0 /HPF (0-3)
== END ==
LOC: M LAB REF 16:13
PROVIDERS: ATTEND Pediatrics
DX: R03.0 Elevated blood-pressure reading, without diagnosis of hypertension (principal); E55.9 Vitamin D deficiency, unspecified; E78.5 Hyperlipidemia, unspecified; Z79.899 Other long term (current) drug therapy

== ENCOUNTER → 2020-07-26 | Outpatient (CLI) | payer MEDICARE ==
[~2020-07-26] MED LIST changes: +PROHANCE 279.3MG/ML 15ML VIAL As Ordered ONE; +PROHANCE 279.3MG/ML 5ML VIAL As Ordered ONE
--- NOTE | 2020-07-26 11:21 | REPVR ---
PROCEDURE INFORMATION: Exam: MR Cervical Spine With Contrast Exam date and time: 07/26/2020 11:06 AM Age: 60 years old Clinical indication: Neck pain; Prior surgery; Surgery date: 6+ months; Surgery type: Partial cervical and thoracic fusion 3 years prior; Additional info: Spondylosis, radiculopathy TECHNIQUE: Imaging protocol: Multiplanar magnetic resonance images of the cervical spine with contrast. Contrast material: PROHANCE; Contrast volume: 20 ml; Contrast route: INTRAVENOUS (IV); COMPARISON: XA FLUORO GUIDE SPINE INJECTION 08/15/2016 10:04 AM FINDINGS: Vertebrae: A right convex spinal curve is observed. Spinal cord: The spinal cord is normal. C2-C3: No significant disc disease. No significant spinal stenosis. C3-C4: No significant disc disease. No significant spinal stenosis. C4-C5: No significant disc disease. No significant spinal stenosis. C5-C6: No significant disc disease. No significant spinal stenosis. C6-C7: No significant disc disease. No significant spinal stenosis. C7-T1: There is an ACDF from C7-T1. Soft tissues: Unremarkable. Brain: There are no regions of abnormal enhancement. Thyroid: The thyroid gland is normal. Vertebral arteries: Expected flow voids in the vertebral arteries. IMPRESSION: There are no regions of abnormal enhancement. Electronically signed by: Titi Tello On 07/26/2020 11:21:31 AM
== END ==
LOC: M RAD 09:52
PROVIDERS: ATTEND Family Medicine
DX: M47.812 Spondylosis without myelopathy or radiculopathy, cervical region (principal)
CPT/HCPCS: 72142; A9576

== ENCOUNTER → 2020-07-27 | Outpatient (REF) | payer MEDICARE ==
[~2020-07-27] MED LIST changes: -PROHANCE 279.3MG/ML 15ML VIAL As Ordered ONE; -PROHANCE 279.3MG/ML 5ML VIAL As Ordered ONE
== END ==
LOC: M LAB REF 12:37
PROVIDERS: ATTEND Pediatrics
DX: K21.9 Gastro-esophageal reflux disease without esophagitis (principal)

== ENCOUNTER → 2020-07-30 | Outpatient (CLI) | payer MEDICARE, OTHER | LOC: M LABSMTC 10:24 | PROVIDERS: ATTEND Anesthesiology | DX: Z11.52 Encounter for screening for COVID-19 (principal) ==

== ENCOUNTER → 2020-08-04 | Outpatient (CLI) | payer OTHER ==
[~2020-08-04] MED LIST changes: +BUPIVACAINE HCL 0.25% 30ML VIAL As Ordered ONE; +ISOVUE-M 300 61% 15ML VIAL As Ordered ONE; +LIDOCAINE 1% SDV 30ML VIAL As Ordered ONE
--- NOTE | 2020-08-05 10:48 | REP ---
INDICATION: DIAGNOSTIC CERVICAL FACET BLOCK. COMPARISON: 02/26/2020. TECHNIQUE: C-arm views cervical spine performed. FINDINGS: [place] are seen along the posterior cervical facet joints. IMPRESSION: 115 seconds fluoroscopy time utilized. <Electronically signed by Justen Recinos > 08/05/20 1041
--- NOTE | 2020-08-12 01:34 | ECWPNPC ---
PATIENT NAME: OWEN ROSALES : 1960 GENDER: MALE VISIT DATE: 08/04/2020 DISCHARGE DATE: 08/04/20 1225 VISIT LOCKED DATE TIME: PHYSICIAN: BINU ZIMMERMAN MD RESOURCE: BINU ZIMMERMAN MD REASON FOR APPOINTMENT 1. RIGHT DIAGNOSTIC CERVICAL FACET BLOCK # 1 C3-C4, C4-C5 HISTORY OF PRESENT ILLNESS GENERAL: -. FALL RISK SCREENING: SCREENING : NO FALLS REPORTED IN THE LAST YEAR. PAIN SCREENING: PATIENT HAS A COMPLAINT OF ACUTE OR CHRONIC PAIN :YES LOCATION OF PAIN:NECK INTENSITY OF PAIN (SCALE OF 1 TO 10):8 WHAT DOES YOUR PAIN FEEL LIKE:ACHING, CONTINOUS DURATION:CONTINOUS PAIN IS INCREASED BY:ACTIVITIES PAIN IS DECREASED BY:OTHERS NOTHING REALLY HELPS RIGHT NOW NURSING NOTE: -. PAIN CENTER INTAKE QUESTIONS: DO YOU HAVE A HISTORY OF MRSA? :NO DO YOU TAKE A BLOOD THINNERS? :NO DO YOU HAVE ANY BLEEDING DISORDERS? :NO ANY NEW NUMBNESS OR WEAKNESS IN YOUR LEGS OR ARMS? :NO ANY PACEMAKER,DEFIBRILLATOR, OR DORSAL COLUMN STIMULATOR? :NO DO YOU HAVE ANY RASHES OR OPEN SORES? :NO ARE YOU ALLERGIC TO IV DYE? :NO ARE YOU DIABETIC? :NO ANY NEW PROBLEMS WITH YOUR MEDICATIONS? :NO HAVE YOU RECEIVED A VACCINE IN THE PAST 30 DAYS? :NO DO YOU PLAN TO RECEIVE A VACCINE IN THE NEXT 21 DAYS? :YES IF SO WHAT VACCINE AND WHEN? WOULD LIKE COVID VACCINE WHEN ELIGIBLE- EDUCATED TO WAIT 2 WEEKS POST PROCEURE DO YOU TAKE ANY IMMUNOSUPPRESSIVE MEDICATIONS? :NO ANY HISTORY OF SEIZURES? :NO ANY HISTORY OF CARDIAC ISSUES OR EVENTS? :NO DO YOU HAVE ANY KIDNEY OR LIVER DISEASE? :NO DO YOU HAVE SLEEP APNEA? :NO ANY RECENT HEAD INJURY? :NO DO YOU HAVE ANY NEW INFECTIONS? :NO IS THERE A CHANCE YOU COULD BE ? :NO ARE YOU BREAST FEEDING? :NO WHEN DID YOU LAST EAT? : 08/03/20 1900 WHEN DID YOU LAST DRINK? : 0900 WHAT DID YOU LAST DRINK? : WATER NAME OF PERSON DRIVING YOU HOME? : ROSHAN DO YOU HAVE ANY OTHER QUESTIONS OR CONCERNS? : NO CURRENT MEDICATIONS TAKING GEMFIBROZIL 600 MG TABLET 1 TABLET ORALLY DAILY TAKING LOVASTATIN 40 MG TABLET 2 TABLET ORALLY ONCE A DAY TAKING MULTIVITAL [place] TABLET ORALLY DAILY TAKING OMEPRAZOLE 40 MG CAPSULE DELAYED RELEASE 1 CAPSULE ORALLY ONCE A DAY TAKING VITAMIN D3 2000 UNIT CAPSULE 1 CAPSULE ORALLY ONCE A DAY TAKING GABAPENTIN 600 MG TABLET 1 CAPSULE ORALLY THREE TIMES A DAY, NOTES: 0900 TAKING MORPHINE SULFATE ER 15 MG TABLET EXTENDED RELEASE 1 TABLET ORALLY AT BEDTIME MDD=1, NOTES: 08/03/200 TAKING OXYCODONE HCL 5 MG TABLET 1 TABLET ORALLY EVERY 6-8 HRS PRN PAIN MDD=2, NOTES: COUPLE DAYS AGO TAKING FAMOTIDINE 40 MG TABLET 1 TABLET AT BEDTIME ORALLY ONCE A DAY TAKING ATORVASTATIN CALCIUM 80 MG TABLET 1 TABLET ORALLY ONCE A DAY NOT-TAKING MIRALAX PACKET 1 PACKET MIXED WITH 8 OUNCES OF FLUID ORALLY ONCE A DAY NEEDED NOT-TAKING TIZANIDINE HCL 4 MG TABLET 1 TABLET NEEDED ORALLY EVERY 6 HOURS NEEDED MDD3 MEDICATION LIST REVIEWED AND RECONCILED WITH THE PATIENT PAST MEDICAL HISTORY REFLUX HIGH CHOLESTEROL CERVICALGIA BILATERAL OCCIPITAL NEURALGIA LOW BACK PAIN TINNITUS- RIGHT WARTS AND ON RIGHT FOOT ALLERGIES N.K.D.A. SOCIAL HISTORY GENERAL: TOBACCO USE ARE YOU A:NONSMOKER LATEX QUESTIONNAIRE LATEX ALLERGY : HAVE YOU EVER DEVELOPED ANY TYPE OF REACTION AFTER HANDLING LATEX PRODUCTS SUCH RUBBER GLOVES, CONDOMS, DIAPHRAGMS, BALLOONS, SOCKS, OR UNDERWEAR?NO LATEX ALLERGY : HAVE YOU EVER DEVELOPED ANY TYPE OF REACTION DURING OR AFTER DENTAL APPOINTMENT, VAGINAL/RECTAL EXAMINATION, SURGICAL PROCEDURE, OR ANY OTHER EXPOSURE?NO LATEX RISK : HAVE YOU EVER HAD ANY DIFFICULTY BREATHING OR HIVES AFTER EATING OR HANDLING ANY FRUITS, OR VEGETABLES; SUCH KIWI, BANANAS, STONE FRUITS, OR CHESTNUTSNO LATEX RISK : DO YOU HAVE A PREVIOUS PERSONAL HISTORY OF MORE THAN NINE SURGERIES, SPINA BIFIDA, OR REPEATED CATHERIZATIONS? NO LATEX RISK : ARE YOU FREQUENTLY EXPOSED TO LATEX PRODUCTS IN YOUR OCCUPATION?NO DATE ASKED : 08/03/2020 ALCOHOL USE: YES, SOMETIMES. ALCOHOL SCREENING DID YOU HAVE A DRINK CONTAINING ALCOHOL IN THE PAST YEAR?YES HOW OFTEN DID YOU HAVE SIX OR MORE DRINKS ON ONE OCCASION IN THE PAST YEAR?LESS THAN MONTHLY (1 POINT) HOW MANY DRINKS DID YOU HAVE ON A TYPICAL DAY WHEN YOU WERE DRINKING IN THE PAST YEAR?5 OR 6 (2 POINTS) HOW OFTEN DID YOU HAVE A DRINK CONTAINING ALCOHOL IN THE PAST YEAR?MONTHLY OR LESS (1 POINT) POINTS4 INTERPRETATIONPOSITIVE RECREATIONAL DRUG USE DRUG USE?NO CAFFEINE CAFFEINE USE?YES HOW OFTEN AND HOW MUCH? 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 DIET: REGULAR. EXERCISE: WALKS AND SWIMS AT Y 3 TIMES A WEEK. MARITAL STATUS: . - PFS REFERRAL NEEDED?NO CLERGY REFERRAL NEEDED?NO PUBLIC HEALTH REFERRAL NEEDED?NO WAS THE PROVIDER NOTIFIED OF ANY PERTINENT INFO?YES N/A HAS THE PATIENT BEEN EDUCATED REGARDING HIS/HER PLAN OF CARE?YES HAS THE PATIENT BEEN EDUCATED REGARDING PAIN, THE RISK FOR PAIN, THE IMPORTANCE OF EFFECTIVE PAIN MANAGEMENT, AND THE PAIN ASSESSMENT PROCESS?YES ADVANCE DIRECTIVE ADVANCE DIRECTIVE DISCUSSED WITH PATIENT:YES HAS HCP SON--HARSHA ROSALES [phone](C) VITAL SIGNS WT 255.6 LBS, HT 69 IN, BMI 37.74 INDEX, BP 129/78 MM HG, HR 79 /MIN, RR 18 /MIN, TEMP 97.0 F, OXYGEN SAT % 96%, SAFE IN ENV? (Y/N) YES, NA INITIALS AW 1039, REVIEWED BY: Claudia MCKEON RN. EXAMINATION GENERAL: THE PATIENT IS ALERT, ORIENTED TIMES THREE AND COOPERATIVE. LUNGS ARE CLEAR TO AUSCULTATION. HEART SHOWS REGULAR RHYTHM, NO MURMURS AND NO GALLOPS. ASSESSMENTS SPONDYLOSIS WITHOUT MYELOPATHY OR RADICULOPATHY, CERVICAL REGION - M47.812 (PRIMARY) TREATMENT SPONDYLOSIS WITHOUT MYELOPATHY OR RADICULOPATHY, CERVICAL REGION [facility] FACET BLOCK (PAIN)[id number] SALINE LOCKOCTAVIO MCKEON 08/04/2020 10:54:49 AM > 22 GAUGE SL INSERTED IN RIGHT AC ON FIRST ATTEMPT. SITE CLEAR, FLUSHING WITHOUT DIFFICULTY. OCTAVIO MCKEON 08/04/2020 12:25:25 PM > SL REMOVED, CATHETER TIP INTACT. SITE CLEAR. DSD PLACED OVER SITE. COMPLETION OF PROCEDURAL VISIT WHEN MEETS CRITERIAOCTAVIO MCKEON 08/04/2020 12:24:57 PM > CRITERIA MET. OTHERS NOTES: 08/03/2020 1145 PRE PROCEDURE PHONE CALL COMPLETED Carlos MARCELINO RN. PROCEDURES PAIN NURSING RECORD PROCEDURE IN ROOM 1116, PHYSICIAN IN ROOM 1147, START 1154, FINISH 1203, PHYSICIAN OUT OF ROOM 1204, OUT OF ROOM 1211, ECG NORMAL SINUS, PATIENT SHIELDED YES, SAFETY STRAP YES, PREP CHLOROPREP Claudia MCKEON RN, DRESSING TEGADERM DR. ZIMMERMAN LOC: OCTAVIO MCKEON 08/04/2020 11:55:06 AM > , 1. ALERT, ORIENTED RESP: OCTAVIO MCKEON 08/04/2020 11:55:25 AM > , 1. REGULAR, NO DYSPNEA COLOR: OCTAVIO MCKEON 08/04/2020 11:55:28 AM > , 1. PINK SKIN: OCTAVIO MCKEON 08/04/2020 11:55:53 AM > , 1. WARM, DRY POSITION: OCTAVIO MCKEON 08/04/2020 11:56:04 AM > , 3. LATERAL VITALS: OCTAVIO MCKEON 08/04/2020 11:18:32 AM > 126/75, 62, 16, 96% SYLOCTAVIO VELARDE L 08/04/2020 11:27:02 AM > 137/85, 66, 16, 97% SYLOCTAVIO VEALRDE 08/04/2020 11:41:36 AM > 142/82, 61, 16, 97% SYLOCTAVIO VELARDE L 08/04/2020 11:56:46 AM > 145/88, 62, 16, 98% OCTAVIO MCKEON 08/04/2020 12:05:50 PM > 150/93, 69, 16, 98% SYLOCTAVIO VELARDE 08/04/2020 12:19:29 PM > 139/86, 76, 16, 98% COMPLETION OF PROCEDURE APPOINTMENT: POST PAIN 0, DRESSING SITE DRY AND INTACT, IV DISCONTINUED, SITE CLEAR, CATHETER INTACT, GAIT STEADY, TEACHING COMPLETED, PATIENT ACKNOWLEDGES UNDERSTANDING YES, PROCEDURE APPOINTMENT COMPLETED AT 1225 BY: Claudia MCKEON RN PRE PROCEDURE DIAGNOSIS CERVICAL SPONDYLOSIS POST PROCEDURE DIAGNOSIS CERVICAL SPONDYLOSIS PROCEDURE RIGHT C3-C4 AND RIGHT C4-C5 DIAGNOSTIC CERVICAL FACET BLOCK NUMBER [address] BINU ZIMMERMAN GEAR AND SPLINE GRINDER NONE ANESTHESIA LOCAL PRE PROCEDURE NOTE THE PATIENT HAS HISTORY OF CHRONIC CERVICAL PAIN. I EVALUATED THE PATIENT AND REVIEWED THE CHART. I WENT OVER THE RISKS, ALTERNATIVES, AND BENEFITS ASSOCIATED WITH THIS PROCEDURE. THE PATIENT WOULD LIKE TO PROCEED AND GIVE CONSENT TO PERFORMED THE PROCEDURE. AGREED WITH THE PATIENT, WE ARE DOING THIS PROCEDURE TO DETERMINE IF THE PATIENT IS A CANDIDATE FOR A RADIOFREQUENCY ABLATION OF THE FACETS JOINTS. THE PATIENT DENIES UNEXPLAINABLE WEIGHT LOSS, FEVER, CHILLS, OR NEW CHANGES IN URINARY OR BOWEL CONTROL. THE PATIENT IS COVID-19 NEGATIVE DESCRIPTION OF PROCEDURE THE PATIENT WAS BROUGHT TO THE PROCEDURE ROOM AND PLACED IN THE LEFT LATERAL DECUBITUS POSITION. THE CERVICOTHORACIC AREA WAS CLEANED WITH CHLORAPREP SOLUTION AND DRAPED ASEPTICALLY. THE PROCEDURE WAS DONE UNDER STERILE CONDITIONS. A TIMEOUT WAS PERFORMED WHERE THE CONSENTED SITE WAS VERIFIED WITH EVERYONE IN THE ROOM. UNDER FLUOROSCOPIC GUIDANCE, TARGET POINTS WERE SELECTED JUST ABOVE THE MID AND LATERAL POINTS OF THE RIGHT ARTICULAR PILLARS OF RIGHT C3, THE MID AND LATERAL POINTS OF THE RIGHT ARTICULAR PILLARS OF RIGHT C4 AND RIGHT C5 VERTEBRAL BODIES. TARGET POINTS WERE SELECTED AFTER LATERAL ROTATION AND TILT OF THE MAGNIFIER OF THE C-ARM. I CONFIRMED AGAIN THE SITE OF TARGET. LIDOCAINE 0.5% WAS USED TO NUMB THE SKIN AND THE SUBCUTANEOUS TISSUE BELOW IT. SPINAL NEEDLES, 22-GAUGE, WERE ADVANCED UNDER FLUOROSCOPIC GUIDANCE AND FOLLOWING PATIENT FEEDBACK UNTIL THE TARGETS WERE TOUCHED. THE POSITION OF THE NEEDLES WAS VERIFIED WITH AP AND LATERAL VIEWS. AFTER PROPER POSITION OF THE NEEDLES WAS ACHIEVED, ISOVUE-M DYE 30%, 0.2 ML, WAS INJECTED SHOWING SPREAD OF THE DYE. THEN A SOLUTION OF 0.25 ML OF BUPIVACAINE 0.25% WAS INJECTED AT EACH SITE. THE MEDICATION WAS VERIFIED WITH THE NURSE. THERE WAS NO EVIDENCE OF BLOOD, PARESTHESIA OR CEREBROSPINAL FLUID DURING THE PROCEDURE. THE PATIENT WAS SENT TO THE RECOVERY ROOM. THE PATIENT WAS MOVING THE EXTREMITIES AND DOING WELL. THERE WERE NO COMPLICATIONS DURING THE PROCEDURE. ESTIMATED BLOOD LOSS WAS LESS THAN 5 ML. FLUOROSCOPY TIME WAS 1 MINUTE 55 SECONDS POST PROCEDURE NOTE THE PATIENT WILL DOCUMENT PAIN LEVEL AND RESPONSE TO THIS PROCEDURE PER PAIN DIARY. THE PATIENT WILL BE SEEN IN A FOLLOW UP IN THE NEXT FEW WEEKS. INSTRUCTIONS WERE GIVEN, QUESTIONS WERE ANSWERED, AND THE PATIENT EXPRESSED UNDERSTANDING AND AGREES WITH THE PLAN. I, PATRICK EARL, DOCUMENTED THE ABOVE INFORMATION ACTING A SCRIBE FOR DR. ZIMMERMAN. I HAVE REVIEWED THE ABOVE DOCUMENT, WRITTEN BY PATRICK EARL, PROCUREMENT PROFESSIONAL, AND I VERIFY THAT IT IS ACCURATE. PROCEDURE CODES [id number] INJ PARAVERT F JNT C/T 1 LEV, MODIFIERS: [place] [id number] INJ PARAVERT F JNT C/T 2 LEV, MODIFIERS: RT DISPOSITION & COMMUNICATION FOLLOW UP FOLLOW UP WITH REFRIGERATION OPERATOR (REASON: POST RIGHT DIAGNOSTIC CERVICAL FACET BLOCK C3-C4, C4-C5) ELECTRONICALLY SIGNED BY BINU ZIMMERMAN MD, MD ON 08/11/2020 AT 02:19 PM EDT DISCLAIMER : THIS IS A VISIT SUMMARY EXTRACTED FROM THE [employer] CHART. IT IS NOT A COPY OF THE [employer] PROGRESS NOTE. MTDD
== END ==
LOC: M PAIN 10:20
PROVIDERS: ATTEND Anesthesiology
DX: M47.812 Spondylosis without myelopathy or radiculopathy, cervical region (principal); K21.9 Gastro-esophageal reflux disease without esophagitis; E78.00 Pure hypercholesterolemia, unspecified; Z79.891 Long term (current) use of opiate analgesic; Z79.899 Other long term (current) drug therapy
CPT/HCPCS: 64490; 64491; Q9967

== ENCOUNTER → 2020-08-18 | Outpatient (CLI) | payer OTHER ==
[~2020-08-18] MED LIST changes: -BUPIVACAINE HCL 0.25% 30ML VIAL As Ordered ONE; -ISOVUE-M 300 61% 15ML VIAL As Ordered ONE; -LIDOCAINE 1% SDV 30ML VIAL As Ordered ONE
--- NOTE | 2020-08-20 03:25 | ECWPNPC ---
PATIENT NAME: OWEN ROSALES : 1960 GENDER: MALE VISIT DATE: 08/18/2020 DISCHARGE DATE: 08/18/20 1057 VISIT LOCKED DATE TIME: PHYSICIAN: CHRISTAL TRUONG RESOURCE: CHRISTAL TROUNG REASON FOR APPOINTMENT 1. POST DIAGNOSTIC CERVICAL FACET BLOCK # 2 C3-C4, C4-C5 HISTORY OF PRESENT ILLNESS GENERAL: -60-YEAR-OLD MALE IN FOR POST DIAGNOSTIC CERVICAL FACET BLOCK #2 FOLLOW-UP. PATIENT FEELS THE PROCEDURE WAS SUCCESSFUL OVERALL RATING HIS PAIN PREPROCEDURE AT AN 8 OUT OF 10 AND POSTPROCEDURE AT A 0 OUT OF 10 AT X6 HOURS. PATIENT RATES HIS PAIN CURRENTLY AT A 4 OUT OF 10 AND DESCRIBES IT ACHING, TENDER, AND SORE. 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 THE PATIENT WAS HURT IN A SECOND WORK RELATED INJURY ON 09/25/2000 WHILE WORKING FOR [employer] A PURCHASING ASSOCIATE WHEN HE WAS LIFTING HEAVY WIRES AND INJURED HIS NECK. FALL RISK SCREENING: SCREENING : NO FALLS REPORTED IN THE LAST YEAR. PAIN SCREENING: PATIENT HAS A COMPLAINT OF ACUTE OR CHRONIC PAIN :YES LOCATION OF PAIN:NECK RIGHT SIDE INTENSITY OF PAIN (SCALE OF 1 TO 10):4 WHAT DOES YOUR PAIN FEEL LIKE:ACHING, TENDER, SORE DURATION:CONTINOUS, CONSTANT, ALL DAY PAIN IS INCREASED BY:OTHERS DEPENDING ON WHAT HE DOING PAIN IS DECREASED BY:USE OF PAIN MEDICATIONS NURSING NOTE: -. PAIN CENTER INTAKE QUESTIONS: DO YOU HAVE A HISTORY OF MRSA? :NO DO YOU TAKE A BLOOD THINNERS? :NO DO YOU HAVE ANY BLEEDING DISORDERS? :NO ANY NEW NUMBNESS OR WEAKNESS IN YOUR LEGS OR ARMS? :NO ANY PACEMAKER,DEFIBRILLATOR, OR DORSAL COLUMN STIMULATOR? :NO DO YOU HAVE ANY RASHES OR OPEN SORES? :NO ARE YOU ALLERGIC TO IV DYE? :NO ARE YOU DIABETIC? :NO ANY NEW PROBLEMS WITH YOUR MEDICATIONS? :NO HAVE YOU RECEIVED A VACCINE IN THE PAST 30 DAYS? :NO DO YOU PLAN TO RECEIVE A VACCINE IN THE NEXT 21 DAYS? :YES IF SO WHAT VACCINE AND WHEN? MAYBE SHINGLES VACCINE DO YOU NEED ANY PRESCRIPTION? :NO DO YOU TAKE ANY IMMUNOSUPPRESSIVE MEDICATIONS? :NO IS THERE A CHANCE YOU COULD BE ? :NO ARE YOU BREAST FEEDING? :NO CURRENT MEDICATIONS TAKING ATORVASTATIN CALCIUM 80 MG TABLET 1 TABLET ORALLY ONCE A DAY TAKING FAMOTIDINE 40 MG TABLET 1 TABLET AT BEDTIME ORALLY ONCE A DAY TAKING GABAPENTIN 400 MG CAPSULE 1 CAPSULE ORALLY THREE TIMES A DAY TAKING GABAPENTIN 600 MG TABLET 1 CAPSULE ORALLY THREE TIMES A DAY, NOTES: 0900 TAKING LOVASTATIN 40 MG TABLET (PRIOR AUTH: RX REF#:[id number]) ORAL TAKING MORPHINE SULFATE ER 15 MG TABLET EXTENDED RELEASE 1 TABLET ORALLY AT BEDTIME MDD=1, NOTES: 08/03/200 TAKING MULTIVITAMINS TABLET 1 TABLET ORALLY ONCE A DAY TAKING OMEPRAZOLE 40 MG CAPSULE DELAYED RELEASE (PRIOR AUTH: RX REF#:[id number]) ORAL TAKING OXYCODONE HCL 5 MG TABLET 1 TABLET ORALLY EVERY 6-8 HRS PRN PAIN MDD=2, NOTES: COUPLE DAYS AGO TAKING TRAZODONE HCL 50 MG TABLET 1 -2TABLET AT BEDTIME NEEDED ORALLY AT BEDTIME TAKING VITAMIN D3 2000 UNIT CAPSULE 1 CAPSULE ORALLY ONCE A DAY NOT-TAKING TIZANIDINE HCL 4 MG TABLET 1 TABLET NEEDED ORALLY EVERY 6 HOURS NEEDED MDD3 NOT-TAKING GABAPENTIN 400 MG CAPSULE 1 CAPSULE ORALLY THREE TIMES A DAY NOT-TAKING GEMFIBROZIL 600 MG TABLET (PRIOR AUTH: RX REF#:[id number]) ORAL NOT-TAKING GEMFIBROZIL 600 MG TABLET 1 TABLET ORALLY DAILY NOT-TAKING LOVASTATIN 40 MG TABLET 2 TABLET ORALLY ONCE A DAY NOT-TAKING MIRALAX PACKET 1 PACKET MIXED WITH 8 OUNCES OF FLUID ORALLY ONCE A DAY NEEDED NOT-TAKING MIRALAX PACKET 1 PACKET MIXED WITH 8 OUNCES OF FLUID ORALLY ONCE A DAY NEEDED NOT-TAKING MORPHINE SULFATE ER 15 MG TABLET EXTENDED RELEASE 1 TABLET ORALLY Q HS MDD=1 NOT-TAKING MULTIVITAL [place] TABLET ORALLY DAILY NOT-TAKING OMEPRAZOLE 40 MG CAPSULE DELAYED RELEASE 1 CAPSULE ORALLY ONCE A DAY NOT-TAKING TRAZODONE HCL 50 MG TABLET 2 TABLET AT BEDTIME NEEDED ORALLY ONCE A DAY MEDICATION LIST REVIEWED AND RECONCILED WITH THE PATIENT PAST MEDICAL HISTORY REFLUX HIGH CHOLESTEROL CERVICALGIA BILATERAL OCCIPITAL NEURALGIA LOW BACK PAIN TINNITUS- RIGHT WARTS AND ON RIGHT FOOT ALLERGIES N.K.D.A. SOCIAL HISTORY GENERAL: TOBACCO USE ARE YOU A:NONSMOKER LATEX QUESTIONNAIRE LATEX ALLERGY : HAVE YOU EVER DEVELOPED ANY TYPE OF REACTION AFTER HANDLING LATEX PRODUCTS SUCH RUBBER GLOVES, CONDOMS, DIAPHRAGMS, BALLOONS, SOCKS, OR UNDERWEAR?NO LATEX ALLERGY : HAVE YOU EVER DEVELOPED ANY TYPE OF REACTION DURING OR AFTER DENTAL APPOINTMENT, VAGINAL/RECTAL EXAMINATION, SURGICAL PROCEDURE, OR ANY OTHER EXPOSURE?NO LATEX RISK : HAVE YOU EVER HAD ANY DIFFICULTY BREATHING OR HIVES AFTER EATING OR HANDLING ANY FRUITS, OR VEGETABLES; SUCH KIWI, BANANAS, STONE FRUITS, OR CHESTNUTSNO LATEX RISK : DO YOU HAVE A PREVIOUS PERSONAL HISTORY OF MORE THAN NINE SURGERIES, SPINA BIFIDA, OR REPEATED CATHERIZATIONS? NO LATEX RISK : ARE YOU FREQUENTLY EXPOSED TO LATEX PRODUCTS IN YOUR OCCUPATION?NO DATE ASKED : 08/18/2020 ALCOHOL USE: YES, SOMETIMES. ALCOHOL SCREENING DID YOU HAVE A DRINK CONTAINING ALCOHOL IN THE PAST YEAR?YES HOW OFTEN DID YOU HAVE SIX OR MORE DRINKS ON ONE OCCASION IN THE PAST YEAR?LESS THAN MONTHLY (1 POINT) HOW MANY DRINKS DID YOU HAVE ON A TYPICAL DAY WHEN YOU WERE DRINKING IN THE PAST YEAR?5 OR 6 (2 POINTS) HOW OFTEN DID YOU HAVE A DRINK CONTAINING ALCOHOL IN THE PAST YEAR?MONTHLY OR LESS (1 POINT) POINTS4 INTERPRETATIONPOSITIVE RECREATIONAL DRUG USE DRUG USE?NO CAFFEINE CAFFEINE USE?YES HOW OFTEN AND HOW MUCH? 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 DIET: REGULAR. EXERCISE: WALKS AND SWIMS AT Y 3 TIMES A WEEK. MARITAL STATUS: . - PFS REFERRAL NEEDED?NO CLERGY REFERRAL NEEDED?NO PUBLIC HEALTH REFERRAL NEEDED?NO WAS THE PROVIDER NOTIFIED OF ANY PERTINENT INFO?YES N/A HAS THE PATIENT BEEN EDUCATED REGARDING HIS/HER PLAN OF CARE?YES HAS THE PATIENT BEEN EDUCATED REGARDING PAIN, THE RISK FOR PAIN, THE IMPORTANCE OF EFFECTIVE PAIN MANAGEMENT, AND THE PAIN ASSESSMENT PROCESS?YES ADVANCE DIRECTIVE ADVANCE DIRECTIVE DISCUSSED WITH PATIENT:YES HAS HCP SON--HARSHA ROSALES [phone](C) REVIEW OF SYSTEMS CONSTITUTIONAL: ANY RECENT FEVER NO . CHILLS NO . WEIGHT CHANGE OF UNKNOWN REASONS NO . GASTROENTEROLOGY: NEW UNEXPLAINABLE CHANGES IN BOWEL CONTROL NO . CONSTIPATION NO . GENITOURINARY: ANY NEW CHANGE IN BLADDER CONTROL? NO . NEUROLOGY: NEW ONSET DIZZINESS OR NEUROLOGICAL CHANGES NOT MENTIONED NO . NEW NUMBNESS OR PAIN PATTERNS NOT MENTIONED AND PERTINENT TO TODAY'S VISIT NO . CARDIOLOGY: NEW CHEST PRESSURE NO . PATIENT DENIES NO . RESPIRATORY: UNEXPLAINABLE COUGH NO . NEW SHORTNESS OF BREATH NO . VITAL SIGNS WT 256 LBS, HT 69 IN, BMI 37.80 INDEX, BP 132/72 MM HG, HR 97 /MIN, RR 18 /MIN, TEMP 97.2 F, OXYGEN SAT % 95%, SAFE IN ENV? (Y/N) YES, NA INITIALS MN 10:14T.LEXI JACKSON. EXAMINATION GENERAL EXAMINATION: GENERALNO ACUTE DISTRESS, WELL NOURISHED AND HYDRATED. PSYCHAPPROPRIATE MOOD AND AFFECT . LUNGS:CLEAR TO AUSCULTATION BILATERALLY, NO WHEEZES, RHONCHI, RALES. HEART:NO MURMURS, REGULAR RATE AND RHYTHM. ASSESSMENTS OTHER CHRONIC PAIN - G89.29 (PRIMARY) SPONDYLOSIS WITHOUT MYELOPATHY OR RADICULOPATHY, CERVICAL REGION - M47.812, RISK: (NULL) TREATMENT OTHER CHRONIC PAIN PAIN PROCEDURE LOGDATE OF PROCEDURE1PROCEDURE:RIGHT DIAGNOSTIC CERVICAL FACET BLOCK #1 C3-C4,C4-U0WPOKQM OF PRE SEDATE0/0RESULT:PRE-8/10 POST 0/10 X 6 HRS SPONDYLOSIS WITHOUT MYELOPATHY OR RADICULOPATHY, CERVICAL REGION NOTES: 60-YEAR-OLD MALE IN FOR POST CERVICAL DIAGNOSTIC FACET BLOCK #2 FOLLOW-UP. GIVEN PRESENTING SYMPTOMS RECOMMEND RIGHT CERVICAL COOL RF C3-C4 C4-C5 WITH POSTPROCEDURAL FOLLOW-UP. PATIENT HAS EXPRESSED UNDERSTANDING OF AND WAS IN AGREEMENT WITH TREATMENT PLAN. GIVEN TIME TO ASK QUESTIONS AND EXPRESS CONCERNS. PROCEDURES PN WORKMANS' COMP OPINION IN YOUR OPINION, WAS THE INCIDENT THAT THE PATIENT DESCRIBED THE COMPETENT MEDICAL CAUSE OF THIS INJURY/ILLNESS? YES ARE THE PATIENT'S COMPLAINTS CONSISTENT WITH HIS/HER HISTORY OF THE INJURY/ILLNESS? YES IS THE PATIENT'S HISTORY OF THE INJURY/ILLNESS CONSISTENT WITH YOUR OBJECTIVE FINDING? YES WHAT IS THE PERCENTAGE OF TEMPORARY IMPAIRMENT? MODERATE TO MARKED = 66.7% . IS THE PATIENT WORKING? NO . DOCTOR ON SITE: BINU WILL MD , BINU WILL MD PROCEDURE CODES FA211 ESTABILISHED PATIENT [facility] FACILITY CHARGE DISPOSITION & COMMUNICATION FOLLOW UP POST PROCEDURE (REASON: RIGHT CERVICAL COOL RADIOFREQUENCY C3-C4,C4-C5) ELECTRONICALLY SIGNED BY FRANCHESKA GERARD ON 08/19/2020 AT 08:43 AM EDT DISCLAIMER : THIS IS A VISIT SUMMARY EXTRACTED FROM THE [employer] CHART. IT IS NOT A COPY OF THE [employer] PROGRESS NOTE. ANALILIA
== END ==
LOC: M PAIN 10:15
PROVIDERS: ATTEND Family Medicine
DX: G89.29 Other chronic pain (principal); M47.812 Spondylosis without myelopathy or radiculopathy, cervical region; K21.9 Gastro-esophageal reflux disease without esophagitis; Z79.891 Long term (current) use of opiate analgesic; Z79.899 Other long term (current) drug therapy

== ENCOUNTER → 2020-10-20 | Outpatient (CLI) | payer OTHER | LOC: M LABSMTC 09:42 | PROVIDERS: ATTEND Anesthesiology | DX: Z01.812 Encounter for preprocedural laboratory examination (principal); Z20.822 Contact with and (suspected) exposure to COVID-19 ==

== ENCOUNTER → 2020-10-25 | Outpatient (CLI) | payer OTHER ==
[~2020-10-25] MED LIST changes: +BUPIVACAINE HCL 0.25% 30ML VIAL As Ordered ONE; +ISOVUE-M 300 61% 15ML VIAL As Ordered ONE; +LIDOCAINE 1% SDV 30ML VIAL As Ordered ONE
--- NOTE | 2020-10-25 16:26 | REP ---
INDICATION: #2 RIGHT DIAGNOSTIC CERVICAL FACET. COMPARISON: None. TECHNIQUE: Intraoperative fluoroscopic imaging using portable C-arm technique. FINDINGS: Catheters overlying cervical facet joints. Total fluoroscopic time 1 minutes 53 seconds. IMPRESSION: Findings consistent with cervical facet block. <Electronically signed by Braeden Nevarez > 10/25/20 [id number]
--- NOTE | 2020-10-27 04:39 | ECWPNPC ---
PATIENT NAME: OWEN ROSALES : 1960 GENDER: MALE VISIT DATE: 10/25/2020 DISCHARGE DATE: 10/25/20 1506 VISIT LOCKED DATE TIME: PHYSICIAN: BINU ZIMMERMAN MD RESOURCE: BINU ZIMMERMAN MD REASON FOR APPOINTMENT 1. RIGHT DIAGNOSTIC CERVICAL FACET BLOCK C3-C4, C4-C5 #2 HISTORY OF PRESENT ILLNESS GENERAL: -. FALL RISK SCREENING: SCREENING : NO FALLS REPORTED IN THE LAST YEAR. PAIN SCREENING: PATIENT HAS A COMPLAINT OF ACUTE OR CHRONIC PAIN :YES LOCATION OF PAIN:HEAD, NECK, LEFT SHOULDER, RIGHT SHOULDER, OTHER: ARMS INTENSITY OF PAIN (SCALE OF 1 TO 10):7 WHAT DOES YOUR PAIN FEEL LIKE:ACHING, CONTINOUS, OTHER STIFFNESS DURATION:CONTINOUS, CONSTANT, ALL DAY PAIN IS INCREASED BY:ACTIVITIES, OTHERS TURNING HEAD PAIN IS DECREASED BY:USE OF PAIN MEDICATIONS, OTHERS REST, LAYING DOWN NURSING NOTE: -. PAIN CENTER INTAKE QUESTIONS: DO YOU HAVE A HISTORY OF MRSA? :NO DO YOU TAKE A BLOOD THINNERS? :NO DO YOU HAVE ANY BLEEDING DISORDERS? :NO ANY NEW NUMBNESS OR WEAKNESS IN YOUR LEGS OR ARMS? :NO ANY PACEMAKER,DEFIBRILLATOR, OR DORSAL COLUMN STIMULATOR? :NO DO YOU HAVE ANY RASHES OR OPEN SORES? :NO ARE YOU ALLERGIC TO IV DYE? :NO ARE YOU DIABETIC? :NO ANY NEW PROBLEMS WITH YOUR MEDICATIONS? :NO HAVE YOU RECEIVED A VACCINE IN THE PAST 30 DAYS? :YES IF SO WHAT VACCINE AND WHEN? 2ND COVID VACCINE - 10/07/20 DO YOU PLAN TO RECEIVE A VACCINE IN THE NEXT 21 DAYS? :NO DO YOU TAKE ANY IMMUNOSUPPRESSIVE MEDICATIONS? :NO ANY HISTORY OF SEIZURES? :NO ANY HISTORY OF CARDIAC ISSUES OR EVENTS? :NO DO YOU HAVE ANY KIDNEY OR LIVER DISEASE? :NO DO YOU HAVE SLEEP APNEA? :NO ANY RECENT HEAD INJURY? :NO DO YOU HAVE ANY NEW INFECTIONS? :NO IS THERE A CHANCE YOU COULD BE ? :NO ARE YOU BREAST FEEDING? :NO WHEN DID YOU LAST EAT? : -0600 TODAY WHEN DID YOU LAST DRINK? : -1000 TODAY WHAT DID YOU LAST DRINK? : -WATER NAME OF PERSON DRIVING YOU HOME? : ROSHAN DO YOU HAVE ANY OTHER QUESTIONS OR CONCERNS? : - CURRENT MEDICATIONS TAKING ATORVASTATIN CALCIUM 80 MG TABLET 1 TABLET ORALLY ONCE A DAY, NOTES: 10-25-2020 TAKING MULTIVITAMINS TABLET 1 TABLET ORALLY ONCE A DAY TAKING OMEPRAZOLE 40 MG CAPSULE DELAYED RELEASE (PRIOR AUTH: RX REF#:[id number]) ORAL TAKING VITAMIN D3 2000 UNIT CAPSULE 1 CAPSULE ORALLY ONCE A DAY TAKING GABAPENTIN 600 MG TABLET 1 CAPSULE ORALLY THREE TIMES A DAY TAKING MORPHINE SULFATE ER 15 MG TABLET EXTENDED RELEASE 1 TABLET ORALLY AT BEDTIME MDD=1, NOTES: 10-24-2020 TAKING OXYCODONE HCL 5 MG TABLET 1 TABLET ORALLY EVERY 6-8 HRS PRN PAIN MDD=2, NOTES: 10-24-2020 NOT-TAKING FAMOTIDINE 40 MG TABLET 1 TABLET AT BEDTIME ORALLY ONCE A DAY, NOTES: STOPPED TAKING NOT-TAKING GABAPENTIN 400 MG CAPSULE 1 CAPSULE ORALLY THREE TIMES A DAY NOT-TAKING LOVASTATIN 40 MG TABLET (PRIOR AUTH: RX REF#:[id number]) ORAL NOT-TAKING TRAZODONE HCL 50 MG TABLET 1 -2TABLET AT BEDTIME NEEDED ORALLY AT BEDTIME NOT-TAKING TIZANIDINE HCL 4 MG TABLET 1 TABLET NEEDED ORALLY EVERY 6 HOURS NEEDED MDD3 NOT-TAKING GABAPENTIN 400 MG CAPSULE 1 CAPSULE ORALLY THREE TIMES A DAY NOT-TAKING GEMFIBROZIL 600 MG TABLET (PRIOR AUTH: RX REF#:[id number]) ORAL NOT-TAKING GEMFIBROZIL 600 MG TABLET 1 TABLET ORALLY DAILY NOT-TAKING LOVASTATIN 40 MG TABLET 2 TABLET ORALLY ONCE A DAY NOT-TAKING MIRALAX PACKET 1 PACKET MIXED WITH 8 OUNCES OF FLUID ORALLY ONCE A DAY NEEDED NOT-TAKING MIRALAX PACKET 1 PACKET MIXED WITH 8 OUNCES OF FLUID ORALLY ONCE A DAY NEEDED NOT-TAKING MORPHINE SULFATE ER 15 MG TABLET EXTENDED RELEASE 1 TABLET ORALLY Q HS MDD=1 NOT-TAKING MULTIVITAL [place] TABLET ORALLY DAILY NOT-TAKING OMEPRAZOLE 40 MG CAPSULE DELAYED RELEASE 1 CAPSULE ORALLY ONCE A DAY NOT-TAKING TRAZODONE HCL 50 MG TABLET 2 TABLET AT BEDTIME NEEDED ORALLY ONCE A DAY MEDICATION LIST REVIEWED AND RECONCILED WITH THE PATIENT PAST MEDICAL HISTORY REFLUX HIGH CHOLESTEROL CERVICALGIA BILATERAL OCCIPITAL NEURALGIA LOW BACK PAIN TINNITUS- RIGHT WARTS AND ON RIGHT FOOT ALLERGIES N.K.D.A. SOCIAL HISTORY GENERAL: TOBACCO USE ARE YOU A:NONSMOKER LATEX QUESTIONNAIRE LATEX ALLERGY : HAVE YOU EVER DEVELOPED ANY TYPE OF REACTION AFTER HANDLING LATEX PRODUCTS SUCH RUBBER GLOVES, CONDOMS, DIAPHRAGMS, BALLOONS, SOCKS, OR UNDERWEAR?NO LATEX ALLERGY : HAVE YOU EVER DEVELOPED ANY TYPE OF REACTION DURING OR AFTER DENTAL APPOINTMENT, VAGINAL/RECTAL EXAMINATION, SURGICAL PROCEDURE, OR ANY OTHER EXPOSURE?NO LATEX RISK : HAVE YOU EVER HAD ANY DIFFICULTY BREATHING OR HIVES AFTER EATING OR HANDLING ANY FRUITS, OR VEGETABLES; SUCH KIWI, BANANAS, STONE FRUITS, OR CHESTNUTSNO LATEX RISK : DO YOU HAVE A PREVIOUS PERSONAL HISTORY OF MORE THAN NINE SURGERIES, SPINA BIFIDA, OR REPEATED CATHERIZATIONS? NO LATEX RISK : ARE YOU FREQUENTLY EXPOSED TO LATEX PRODUCTS IN YOUR OCCUPATION?NO DATE ASKED : 10/21/2020 ALCOHOL USE: YES, SOMETIMES. ALCOHOL SCREENING DID YOU HAVE A DRINK CONTAINING ALCOHOL IN THE PAST YEAR?YES HOW OFTEN DID YOU HAVE SIX OR MORE DRINKS ON ONE OCCASION IN THE PAST YEAR?LESS THAN MONTHLY (1 POINT) HOW MANY DRINKS DID YOU HAVE ON A TYPICAL DAY WHEN YOU WERE DRINKING IN THE PAST YEAR?5 OR 6 (2 POINTS) HOW OFTEN DID YOU HAVE A DRINK CONTAINING ALCOHOL IN THE PAST YEAR?MONTHLY OR LESS (1 POINT) POINTS4 INTERPRETATIONPOSITIVE RECREATIONAL DRUG USE DRUG USE?NO CAFFEINE CAFFEINE USE?YES HOW OFTEN AND HOW MUCH? 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 DIET: REGULAR. EXERCISE: WALKS AND SWIMS AT Y 3 TIMES A WEEK. MARITAL STATUS: . - PFS REFERRAL NEEDED?NO CLERGY REFERRAL NEEDED?NO PUBLIC HEALTH REFERRAL NEEDED?NO WAS THE PROVIDER NOTIFIED OF ANY PERTINENT INFO?YES N/A HAS THE PATIENT BEEN EDUCATED REGARDING HIS/HER PLAN OF CARE?YES HAS THE PATIENT BEEN EDUCATED REGARDING PAIN, THE RISK FOR PAIN, THE IMPORTANCE OF EFFECTIVE PAIN MANAGEMENT, AND THE PAIN ASSESSMENT PROCESS?YES ADVANCE DIRECTIVE ADVANCE DIRECTIVE DISCUSSED WITH PATIENT:YES HAS HCP SON--HARSHA ROSALES [phone](C) VITAL SIGNS WT 249.0 LBS, HT 69 IN, BMI 36.77 INDEX, BP 115/75 MM HG, HR 82 /MIN, RR 18 /MIN, TEMP 98.2 F, OXYGEN SAT % 96%, SAFE IN ENV? (Y/N) YES, NA INITIALS AW 1317, REVIEWED BY: KG. EXAMINATION GENERAL: THE PATIENT IS ALERT, ORIENTED TIMES THREE AND COOPERATIVE. LUNGS ARE CLEAR TO AUSCULTATION. HEART SHOWS REGULAR RHYTHM, NO MURMURS AND NO GALLOPS. ASSESSMENTS CERVICAL SPONDYLOSIS - M47.812 (PRIMARY) TREATMENT CERVICAL SPONDYLOSIS [facility] FACET BLOCK (PAIN)[id number] SALINE BONITA CHOI 10/25/2020 1:49:39 PM > 22 G LEFT AC 1ST ATTEMPT GEOVANNI ARGUELLO COMPLETION OF PROCEDURAL VISIT WHEN MEETS CRITERIABONITA ESTRADA 10/25/2020 3:09:25 PM > CRITERIA MET OTHERS NOTES: 10/21/20 1234 PAT COMPLETED. Claudia MCKEON RN . PROCEDURES PAIN NURSING RECORD PROCEDURE IN ROOM 1430, PHYSICIAN IN ROOM 1434, START 1446, FINISH 1450, PHYSICIAN OUT OF ROOM 1453, OUT OF ROOM 1459, ECG NORMAL SINUS, PATIENT SHIELDED YES, SAFETY STRAP YES, PREP CHLOROPREP, DRESSING TEGADERM DR. ZIMMERMAN LOC: 1. ALERT, ORIENTED RESP: 1. REGULAR, NO DYSPNEA COLOR: 1. PINK SKIN: 1. WARM, DRY POSITION: 3. LATERAL NOTES Madan ESTRADA RN COMPLETION OF PROCEDURE APPOINTMENT: POST PAIN 2, DRESSING SITE DRY AND INTACT, IV DISCONTINUED, SITE CLEAR, CATHETER INTACT, GAIT STEADY, TEACHING COMPLETED, PATIENT ACKNOWLEDGES UNDERSTANDING YES PAIN DIARY REVIEWED, PROCEDURE APPOINTMENT COMPLETED AT 1510 PN WORKMANS' COMP OPINION IN YOUR OPINION, WAS THE INCIDENT THAT THE PATIENT DESCRIBED THE COMPETENT MEDICAL CAUSE OF THIS INJURY/ILLNESS? YES ARE THE PATIENT'S COMPLAINTS CONSISTENT WITH HIS/HER HISTORY OF THE INJURY/ILLNESS? YES IS THE PATIENT'S HISTORY OF THE INJURY/ILLNESS CONSISTENT WITH YOUR OBJECTIVE FINDING? YES WHAT IS THE PERCENTAGE OF TEMPORARY IMPAIRMENT? MODERATE TO MARKED = 66.7% IS THE PATIENT WORKING? NO DOCTOR ON SITE: BINU WILL MD PRE PROCEDURE DIAGNOSIS CERVICAL SPONDYLOSIS POST PROCEDURE DIAGNOSIS CERVICAL SPONDYLOSIS PROCEDURE RIGHT C3-C4 AND RIGHT C4-C5 DIAGNOSTIC CERVICAL FACET BLOCK NUMBER [address] BINU ZIMMERMAN CENTRAL STORES ATTENDANT NONE ANESTHESIA LOCAL PRE PROCEDURE NOTE THE PATIENT HAS HISTORY OF CHRONIC CERVICAL PAIN. I EVALUATED THE PATIENT AND REVIEWED THE CHART. I WENT OVER THE RISKS, ALTERNATIVES, AND BENEFITS ASSOCIATED WITH THIS PROCEDURE. THE PATIENT WOULD LIKE TO PROCEED AND GIVE CONSENT TO PERFORMED THE PROCEDURE. AGREED WITH THE PATIENT, WE ARE DOING THIS PROCEDURE TO DETERMINE IF THE PATIENT IS A CANDIDATE FOR A RADIOFREQUENCY ABLATION OF THE FACETS JOINTS. THE PATIENT DENIES UNEXPLAINABLE WEIGHT LOSS, FEVER, CHILLS, OR NEW CHANGES IN URINARY OR BOWEL CONTROL. THE PATIENT IS COVID-19 NEGATIVE DESCRIPTION OF PROCEDURE THE PATIENT WAS BROUGHT TO THE PROCEDURE ROOM AND PLACED IN THE LEFT LATERAL DECUBITUS POSITION. THE CERVICOTHORACIC AREA WAS CLEANED WITH CHLORAPREP SOLUTION AND DRAPED ASEPTICALLY. THE PROCEDURE WAS DONE UNDER STERILE CONDITIONS. A TIMEOUT WAS PERFORMED WHERE THE CONSENTED SITE WAS VERIFIED WITH EVERYONE IN THE ROOM. UNDER FLUOROSCOPIC GUIDANCE, TARGET POINTS WERE SELECTED AT THE MID AND LATERAL POINTS OF THE RIGHT ARTICULAR PILLARS OF RIGHT C3, RIGHT C4 AND RIGHT C5 VERTEBRAL BODIES. TARGET POINTS WERE SELECTED AFTER LATERAL ROTATION AND TILT OF THE MAGNIFIER OF THE C-ARM. I CONFIRMED AGAIN THE SITE OF TARGET. LIDOCAINE 0.5% WAS USED TO NUMB THE SKIN AND THE SUBCUTANEOUS TISSUE BELOW IT. SPINAL NEEDLES, 22-GAUGE, WERE ADVANCED UNDER FLUOROSCOPIC GUIDANCE AND FOLLOWING PATIENT FEEDBACK UNTIL THE TARGETS WERE TOUCHED. THE POSITION OF THE NEEDLES WAS VERIFIED WITH AP AND LATERAL VIEWS. AFTER PROPER POSITION OF THE NEEDLES WAS ACHIEVED, ISOVUE-M DYE 30%, 0.2 ML, WAS INJECTED SHOWING SPREAD OF THE DYE. THEN A SOLUTION OF 0.25 ML OF BUPIVACAINE 0.25% WAS INJECTED AT EACH SITE. THE MEDICATION WAS VERIFIED WITH THE NURSE. THERE WAS NO EVIDENCE OF BLOOD, PARESTHESIA OR CEREBROSPINAL FLUID DURING THE PROCEDURE. THE PATIENT WAS SENT TO THE RECOVERY ROOM. THE PATIENT WAS MOVING THE EXTREMITIES AND DOING WELL. THERE WERE NO COMPLICATIONS DURING THE PROCEDURE. ESTIMATED BLOOD LOSS WAS LESS THAN 5 ML. FLUOROSCOPY TIME WAS 1 MINUTE 53 SECONDS POST PROCEDURE NOTE THE PATIENT WILL DOCUMENT PAIN LEVEL AND RESPONSE TO THIS PROCEDURE PER PAIN DIARY. THE PATIENT WILL BE SEEN IN A FOLLOW UP IN THE NEXT FEW WEEKS. INSTRUCTIONS WERE GIVEN, QUESTIONS WERE ANSWERED, AND THE PATIENT EXPRESSED UNDERSTANDING AND AGREES WITH THE PLAN. I, PATRICK EARL, DOCUMENTED THE ABOVE INFORMATION ACTING A SCRIBE FOR DR. ZIMMERMAN. I HAVE REVIEWED THE ABOVE DOCUMENT, WRITTEN BY PATRICK EARL, DERMATOLOGY TECHNICIAN, AND I VERIFY THAT IT IS ACCURATE. PROCEDURE CODES 15914 INJ PARAVERT F JNT C/T 1 LEV, MODIFIERS: [place] [id number] INJ PARAVERT F JNT C/T 2 LEV, MODIFIERS: RT DISPOSITION & COMMUNICATION FOLLOW UP FOLLOW UP WITH EMERGENCY ROOM CLINICIAN (REASON: POST RIGHT DIAGNSOTIC CERVICAL FACET BLOCK C4-C5, C5-C6) ELECTRONICALLY SIGNED BY BINU ZIMMERMAN MD, MD ON 10/26/2020 AT 02:13 PM EDT DISCLAIMER : THIS IS A VISIT SUMMARY EXTRACTED FROM THE [employer] CHART. IT IS NOT A COPY OF THE [employer] PROGRESS NOTE. MTDD
== END ==
LOC: M PAIN 13:00
PROVIDERS: ATTEND Anesthesiology
DX: M47.812 Spondylosis without myelopathy or radiculopathy, cervical region (principal); K21.9 Gastro-esophageal reflux disease without esophagitis; E78.00 Pure hypercholesterolemia, unspecified; M54.5 Low back pain; H93.11 Tinnitus, right ear; B07.9 Viral wart, unspecified; Z79.891 Long term (current) use of opiate analgesic; Z79.899 Other long term (current) drug therapy
CPT/HCPCS: 64490; 64491; Q9967

== ENCOUNTER → 2020-10-28 | Outpatient (CLI) | payer OTHER ==
[~2020-10-28] MED LIST changes: -BUPIVACAINE HCL 0.25% 30ML VIAL As Ordered ONE; -ISOVUE-M 300 61% 15ML VIAL As Ordered ONE; -LIDOCAINE 1% SDV 30ML VIAL As Ordered ONE
--- NOTE | 2020-10-29 23:20 | ECWPNPC ---
PATIENT NAME: OWEN ROSALES : 1960 GENDER: MALE VISIT DATE: 10/28/2020 DISCHARGE DATE: 10/28/20 1022 VISIT LOCKED DATE TIME: PHYSICIAN: CHRISTAL TRUONG RESOURCE: CHRISTAL TRUONG REASON FOR APPOINTMENT 1. POST RIGHT DIAGNOSTIC CERVICAL FACET BLOCK #2 C3-C4, C4-C5 HISTORY OF PRESENT ILLNESS GENERAL: HPI 60-YEAR-OLD MALE IN FOR POST RIGHT DIAGNOSTIC CERVICAL FACET BLOCK FOLLOW-UP. PATIENT FEELS THE PROCEDURE WAS SUCCESSFUL OVERALL RATING HIS PAIN PREPROCEDURE AT A 7 OUT OF 10 AND POST PROCEDURE AT A 0-2 OUT OF 10 X1 DAY. HE RATES HIS PAIN CURRENTLY AT A 3 OUT OF 10 AND DESCRIBES IT ACHING, AND CONTINUOUS. DOI: 09/05/1989. SECOND DOI: 09/25/2000. -. FALL RISK SCREENING: SCREENING : NO FALLS REPORTED IN THE LAST YEAR. PAIN SCREENING: PATIENT HAS A COMPLAINT OF ACUTE OR CHRONIC PAIN :YES LOCATION OF PAIN:NECK INTENSITY OF PAIN (SCALE OF 1 TO 10):3 WHAT DOES YOUR PAIN FEEL LIKE:ACHING, CONTINOUS, OTHER PULLING DURATION:CONTINOUS, CONSTANT, AWAKENS FROM SLEEP PAIN IS INCREASED BY:ACTIVITIES PAIN IS DECREASED BY:USE OF PAIN MEDICATIONS RELAXING NECK INTO PILLOW NURSING NOTE: -. PAIN CENTER INTAKE QUESTIONS: DO YOU HAVE A HISTORY OF MRSA? :NO DO YOU TAKE A BLOOD THINNERS? :NO DO YOU HAVE ANY BLEEDING DISORDERS? :NO ANY NEW NUMBNESS OR WEAKNESS IN YOUR LEGS OR ARMS? :NO ANY PACEMAKER,DEFIBRILLATOR, OR DORSAL COLUMN STIMULATOR? :NO DO YOU HAVE ANY RASHES OR OPEN SORES? :NO ARE YOU ALLERGIC TO IV DYE? :NO ARE YOU DIABETIC? :NO ANY NEW PROBLEMS WITH YOUR MEDICATIONS? :NO HAVE YOU RECEIVED A VACCINE IN THE PAST 30 DAYS? :NO DO YOU PLAN TO RECEIVE A VACCINE IN THE NEXT 21 DAYS? :YES IF SO WHAT VACCINE AND WHEN? MAYBE SHINGLES VACCINE DO YOU NEED ANY PRESCRIPTION? :NO DO YOU TAKE ANY IMMUNOSUPPRESSIVE MEDICATIONS? :NO IS THERE A CHANCE YOU COULD BE ? :NO ARE YOU BREAST FEEDING? :NO CURRENT MEDICATIONS TAKING ATORVASTATIN CALCIUM 80 MG TABLET 1 TABLET ORALLY ONCE A DAY, NOTES: 10-25-2020 TAKING MULTIVITAMINS TABLET 1 TABLET ORALLY ONCE A DAY TAKING OMEPRAZOLE 40 MG CAPSULE DELAYED RELEASE (PRIOR AUTH: RX REF#:[id number]) ORAL TAKING VITAMIN D3 2000 UNIT CAPSULE 1 CAPSULE ORALLY ONCE A DAY TAKING GABAPENTIN 600 MG TABLET 1 CAPSULE ORALLY THREE TIMES A DAY TAKING MORPHINE SULFATE ER 15 MG TABLET EXTENDED RELEASE 1 TABLET ORALLY AT BEDTIME MDD=1, NOTES: 10-24-2020 TAKING OXYCODONE HCL 5 MG TABLET 1 TABLET ORALLY EVERY 6-8 HRS PRN PAIN MDD=2, NOTES: 10-24-2020 TAKING GEMFIBROZIL 600 MG TABLET (PRIOR AUTH: RX REF#:[id number]) ORAL TAKING GEMFIBROZIL 600 MG TABLET 1 TABLET ORALLY DAILY TAKING MORPHINE SULFATE ER 15 MG TABLET EXTENDED RELEASE 1 TABLET ORALLY Q HS MDD=1 TAKING MULTIVITAL LAC VIEUX TABLET ORALLY DAILY TAKING OMEPRAZOLE 40 MG CAPSULE DELAYED RELEASE 1 CAPSULE ORALLY ONCE A DAY NOT-TAKING FAMOTIDINE 40 MG TABLET 1 TABLET AT BEDTIME ORALLY ONCE A DAY, NOTES: STOPPED TAKING NOT-TAKING GABAPENTIN 400 MG CAPSULE 1 CAPSULE ORALLY THREE TIMES A DAY NOT-TAKING LOVASTATIN 40 MG TABLET (PRIOR AUTH: RX REF#:[id number]) ORAL NOT-TAKING TRAZODONE HCL 50 MG TABLET 1 -2TABLET AT BEDTIME NEEDED ORALLY AT BEDTIME NOT-TAKING TIZANIDINE HCL 4 MG TABLET 1 TABLET NEEDED ORALLY EVERY 6 HOURS NEEDED MDD3 NOT-TAKING GABAPENTIN 400 MG CAPSULE 1 CAPSULE ORALLY THREE TIMES A DAY NOT-TAKING LOVASTATIN 40 MG TABLET 2 TABLET ORALLY ONCE A DAY NOT-TAKING MIRALAX PACKET 1 PACKET MIXED WITH 8 OUNCES OF FLUID ORALLY ONCE A DAY NEEDED NOT-TAKING MIRALAX PACKET 1 PACKET MIXED WITH 8 OUNCES OF FLUID ORALLY ONCE A DAY NEEDED NOT-TAKING TRAZODONE HCL 50 MG TABLET 2 TABLET AT BEDTIME NEEDED ORALLY ONCE A DAY MEDICATION LIST REVIEWED AND RECONCILED WITH THE PATIENT PAST MEDICAL HISTORY REFLUX HIGH CHOLESTEROL CERVICALGIA BILATERAL OCCIPITAL NEURALGIA LOW BACK PAIN TINNITUS- RIGHT WARTS AND ON RIGHT FOOT ALLERGIES N.K.D.A. SOCIAL HISTORY GENERAL: TOBACCO USE ARE YOU A:NONSMOKER LATEX QUESTIONNAIRE LATEX ALLERGY : HAVE YOU EVER DEVELOPED ANY TYPE OF REACTION AFTER HANDLING LATEX PRODUCTS SUCH RUBBER GLOVES, CONDOMS, DIAPHRAGMS, BALLOONS, SOCKS, OR UNDERWEAR?NO LATEX ALLERGY : HAVE YOU EVER DEVELOPED ANY TYPE OF REACTION DURING OR AFTER DENTAL APPOINTMENT, VAGINAL/RECTAL EXAMINATION, SURGICAL PROCEDURE, OR ANY OTHER EXPOSURE?NO LATEX RISK : HAVE YOU EVER HAD ANY DIFFICULTY BREATHING OR HIVES AFTER EATING OR HANDLING ANY FRUITS, OR VEGETABLES; SUCH KIWI, BANANAS, STONE FRUITS, OR CHESTNUTSNO LATEX RISK : DO YOU HAVE A PREVIOUS PERSONAL HISTORY OF MORE THAN NINE SURGERIES, SPINA BIFIDA, OR REPEATED CATHERIZATIONS? NO LATEX RISK : ARE YOU FREQUENTLY EXPOSED TO LATEX PRODUCTS IN YOUR OCCUPATION?NO DATE ASKED : 10/28/2020 ALCOHOL USE: YES, SOMETIMES. ALCOHOL SCREENING DID YOU HAVE A DRINK CONTAINING ALCOHOL IN THE PAST YEAR?YES HOW OFTEN DID YOU HAVE SIX OR MORE DRINKS ON ONE OCCASION IN THE PAST YEAR?LESS THAN MONTHLY (1 POINT) HOW MANY DRINKS DID YOU HAVE ON A TYPICAL DAY WHEN YOU WERE DRINKING IN THE PAST YEAR?5 OR 6 (2 POINTS) HOW OFTEN DID YOU HAVE A DRINK CONTAINING ALCOHOL IN THE PAST YEAR?MONTHLY OR LESS (1 POINT) POINTS4 INTERPRETATIONPOSITIVE RECREATIONAL DRUG USE DRUG USE?NO CAFFEINE CAFFEINE USE?YES HOW OFTEN AND HOW MUCH? 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 DIET: REGULAR. EXERCISE: WALKS AND SWIMS AT Y 3 TIMES A WEEK. MARITAL STATUS: . - PFS REFERRAL NEEDED?NO CLERGY REFERRAL NEEDED?NO PUBLIC HEALTH REFERRAL NEEDED?NO WAS THE PROVIDER NOTIFIED OF ANY PERTINENT INFO?YES N/A HAS THE PATIENT BEEN EDUCATED REGARDING HIS/HER PLAN OF CARE?YES HAS THE PATIENT BEEN EDUCATED REGARDING PAIN, THE RISK FOR PAIN, THE IMPORTANCE OF EFFECTIVE PAIN MANAGEMENT, AND THE PAIN ASSESSMENT PROCESS?YES ADVANCE DIRECTIVE ADVANCE DIRECTIVE DISCUSSED WITH PATIENT:YES HAS HCP SON--HARSHA ROSALES [phone]) REVIEW OF SYSTEMS CONSTITUTIONAL: ANY RECENT FEVER NO . CHILLS NO . WEIGHT CHANGE OF UNKNOWN REASONS NO . GASTROENTEROLOGY: NEW UNEXPLAINABLE CHANGES IN BOWEL CONTROL NO . CONSTIPATION NO . GENITOURINARY: ANY NEW CHANGE IN BLADDER CONTROL? NO . NEUROLOGY: NEW ONSET DIZZINESS OR NEUROLOGICAL CHANGES NOT MENTIONED NO . NEW NUMBNESS OR PAIN PATTERNS NOT MENTIONED AND PERTINENT TO TODAY'S VISIT NO . CARDIOLOGY: NEW CHEST PRESSURE NO . PATIENT DENIES NO . RESPIRATORY: UNEXPLAINABLE COUGH NO . NEW SHORTNESS OF BREATH NO . VITAL SIGNS WT 251.0 LBS, HT 69 IN, BMI 37.06 INDEX, BP 133/77 MM HG, HR 71 /MIN, RR 18 /MIN, TEMP 98.1 F, OXYGEN SAT % 98%, SAFE IN ENV? (Y/N) YES, NA INITIALS AW 0940, REVIEWED BY: GERMAN MOELLER MA. EXAMINATION GENERAL EXAMINATION: GENERALNO ACUTE DISTRESS, WELL NOURISHED AND HYDRATED. PSYCHAPPROPRIATE MOOD AND AFFECT . NECK:POINT TENDER ALONG CERVICAL SPINE, SURROUNDING SKIN SHOWS NO ERYTHEMA, ECCHYMOSIS, INCREASED WARMTH, AND/OR SKIN ERUPTIONS NOTED. PATIENT DOES ENDORSE INCREASED PAIN WITH FACET LOADING.. LUNGS:CLEAR TO AUSCULTATION BILATERALLY, NO WHEEZES, RHONCHI, RALES. HEART:NO MURMURS, REGULAR RATE AND RHYTHM. ASSESSMENTS SPONDYLOSIS WITHOUT MYELOPATHY OR RADICULOPATHY, CERVICAL REGION - M47.812 (PRIMARY) TREATMENT SPONDYLOSIS WITHOUT MYELOPATHY OR RADICULOPATHY, CERVICAL REGION NOTES: 60-YEAR-OLD MALE IN FOR POST CERVICAL DIAGNOSTIC FACET BLOCK. GIVEN PRESENTING SYMPTOMS AND RESULTS OF PHYSICAL EXAMINATION RECOMMEND RIGHT CERVICAL COOL RADIOFREQUENCY C3-C4 C4-C5 WITH POSTPROCEDURAL FOLLOW-UP. PATIENT HAS EXPRESSED UNDERSTANDING OF AND WAS IN AGREEMENT WITH TREATMENT PLAN. GIVEN TIME TO ASK QUESTIONS AND EXPRESS CONCERNS. [employer] REGISTRY REVIEWED AND DEMONSTRATES COMPLLIANCE. (REF # [id number] ) BRINGS IN MEDICATIONS WHICH IS APPROPRIATE FOR WHAT WAS DISPENSED. RECENT URINE TOXICOLOGY REVIEWED. NO UNAUTHORIZED MEDICATIONS. NO ILLICIT SUBSTANCES AND PRESCRIBED MEDICATIONS WERE PRESENT. CLINICAL NOTES: PREPROCEDURE AND PROCEDURE INFORMATION PRINTED AND PROVIDED TO PATIENT. PATIENT VERBALIZED AN UNDERSTANDING. ÓSCAR MOELLER MA. PROCEDURES PN WORKMANS' COMP OPINION IN YOUR OPINION, WAS THE INCIDENT THAT THE PATIENT DESCRIBED THE COMPETENT MEDICAL CAUSE OF THIS INJURY/ILLNESS? YES ARE THE PATIENT'S COMPLAINTS CONSISTENT WITH HIS/HER HISTORY OF THE INJURY/ILLNESS? YES IS THE PATIENT'S HISTORY OF THE INJURY/ILLNESS CONSISTENT WITH YOUR OBJECTIVE FINDING? YES WHAT IS THE PERCENTAGE OF TEMPORARY IMPAIRMENT? MODERATE TO MARKED = 66.7% IS THE PATIENT WORKING? NO DOCTOR ON SITE: BINU WILL MD PROCEDURE CODES FA211 ESTABILISHED PATIENT [facility] CHARGE DISPOSITION & COMMUNICATION FOLLOW UP POST PROCEDURE (REASON: RIGHT CERVICAL COOL RADIOFREQUENCY C3-C4 C4-C5) ELECTRONICALLY SIGNED BY FRANCHESKA GERARD ON 10/29/2020 AT 08:25 AM EDT DISCLAIMER : THIS IS A VISIT SUMMARY EXTRACTED FROM THE [employer] CHART. IT IS NOT A COPY OF THE [employer] PROGRESS NOTE. ANALILIA
== END ==
LOC: M PAIN 09:45
PROVIDERS: ATTEND Family Medicine
DX: M47.812 Spondylosis without myelopathy or radiculopathy, cervical region (principal); K21.9 Gastro-esophageal reflux disease without esophagitis; E78.00 Pure hypercholesterolemia, unspecified; M54.5 Low back pain; H93.11 Tinnitus, right ear; B07.9 Viral wart, unspecified; Z79.891 Long term (current) use of opiate analgesic; Z79.899 Other long term (current) drug therapy

== ENCOUNTER → 2020-12-16 | Outpatient (CLI) | payer OTHER | LOC: M LABSMTC 09:47 | PROVIDERS: ATTEND Anesthesiology | DX: Z01.812 Encounter for preprocedural laboratory examination (principal); Z11.52 Encounter for screening for COVID-19 ==

== ENCOUNTER → 2020-12-21 | Outpatient (CLI) | payer OTHER ==
[~2020-12-21] MED LIST changes: +BUPIVACAINE HCL 0.25% 30ML VIAL As Ordered ONE; +LIDOCAINE 1% SDV 30ML VIAL As Ordered ONE; +dexameTHASONE 10MG/1ML VIAL PRES.FREE (J1100 PER 1MG) As Ordered ONE; +diazePAM 5MG TABLET As Ordered ONE; +diphenhydrAMINE 25MG CAP As Ordered ONE; +oxyCODONE 5MG TAB As Ordered ONE
--- NOTE | 2020-12-22 08:13 | REP ---
INDICATION: RIGHT RF COOL C3-C4 C4 C5. COMPARISON: None. TECHNIQUE: Intraoperative fluoroscopic imaging using portable C-arm technique. FINDINGS: Multiple fluoroscopic images demonstrate catheters for radiofrequency cervical facet block. Total fluoroscopic time 97.2 seconds. IMPRESSION: Findings consistent with radiofrequency cervical facet block. <Electronically signed by Braeden Nevarez > 12/22/20 0829
== END ==
LOC: M PAIN 14:20
PROVIDERS: ATTEND Anesthesiology
DX: M47.812 Spondylosis without myelopathy or radiculopathy, cervical region (principal); K21.9 Gastro-esophageal reflux disease without esophagitis; E78.00 Pure hypercholesterolemia, unspecified; M54.2 Cervicalgia; M54.81 Occipital neuralgia; M54.5 Low back pain; H93.11 Tinnitus, right ear; B07.9 Viral wart, unspecified; Z79.891 Long term (current) use of opiate analgesic; Z79.899 Other long term (current) drug therapy
CPT/HCPCS: 64633; 64634; J1100

== ENCOUNTER → 2021-01-25 | Outpatient (CLI) | payer OTHER ==
[~2021-01-25] MED LIST changes: -BUPIVACAINE HCL 0.25% 30ML VIAL As Ordered ONE; -LIDOCAINE 1% SDV 30ML VIAL As Ordered ONE; -dexameTHASONE 10MG/1ML VIAL PRES.FREE (J1100 PER 1MG) As Ordered ONE; -diazePAM 5MG TABLET As Ordered ONE; -diphenhydrAMINE 25MG CAP As Ordered ONE; -oxyCODONE 5MG TAB As Ordered ONE
== END ==
LOC: M PAIN 08:30
PROVIDERS: ATTEND Anesthesiology
DX: M47.812 Spondylosis without myelopathy or radiculopathy, cervical region (principal); K21.9 Gastro-esophageal reflux disease without esophagitis; E78.00 Pure hypercholesterolemia, unspecified; M54.81 Occipital neuralgia; M54.5 Low back pain; Z79.891 Long term (current) use of opiate analgesic; Z79.899 Other long term (current) drug therapy; H93.11 Tinnitus, right ear

== ENCOUNTER → 2021-03-31 | Outpatient (CLI) | payer OTHER | LOC: M LABSMTC 09:31 | PROVIDERS: ATTEND Anesthesiology | DX: Z01.812 Encounter for preprocedural laboratory examination (principal); Z20.822 Contact with and (suspected) exposure to COVID-19 ==

== ENCOUNTER → 2021-04-05 | Outpatient (CLI) | payer OTHER ==
[~2021-04-05] MED LIST changes: +BUPIVACAINE HCL 0.25% 30ML VIAL As Ordered ONE; +ISOVUE-M 300 61% 15ML VIAL As Ordered ONE; +LIDOCAINE 1% SDV 30ML VIAL As Ordered ONE
== END ==
LOC: M PAIN 13:45
PROVIDERS: ATTEND Anesthesiology
DX: M47.812 Spondylosis without myelopathy or radiculopathy, cervical region (principal); K21.9 Gastro-esophageal reflux disease without esophagitis; E78.00 Pure hypercholesterolemia, unspecified; M54.2 Cervicalgia; M54.50 Low back pain, unspecified; Z79.891 Long term (current) use of opiate analgesic; Z79.899 Other long term (current) drug therapy
CPT/HCPCS: 64490; 64491; Q9967

== ENCOUNTER → 2021-04-20 | Outpatient (CLI) | payer OTHER ==
[~2021-04-20] MED LIST changes: -BUPIVACAINE HCL 0.25% 30ML VIAL As Ordered ONE; -ISOVUE-M 300 61% 15ML VIAL As Ordered ONE; -LIDOCAINE 1% SDV 30ML VIAL As Ordered ONE
== END ==
LOC: M PAIN 11:30
PROVIDERS: ATTEND Anesthesiology
DX: M47.812 Spondylosis without myelopathy or radiculopathy, cervical region (principal); K21.9 Gastro-esophageal reflux disease without esophagitis; E78.00 Pure hypercholesterolemia, unspecified; M54.2 Cervicalgia; M54.50 Low back pain, unspecified; H93.11 Tinnitus, right ear; Z79.891 Long term (current) use of opiate analgesic; Z79.899 Other long term (current) drug therapy

== ENCOUNTER → 2021-06-14 | Outpatient (CLI) | payer MEDICARE | LOC: M RAD 11:59 | PROVIDERS: ATTEND Pediatrics | DX: I65.23 Occlusion and stenosis of bilateral carotid arteries (principal); E78.5 Hyperlipidemia, unspecified; Z79.899 Other long term (current) drug therapy ==

== ENCOUNTER → 2021-09-14 | Outpatient (CLI) | payer MEDICARE | LOC: M WUC 11:34 | PROVIDERS: ATTEND Pediatrics | DX: M25.551 Pain in right hip (principal); M79.604 Pain in right leg; R05.3 Chronic cough; Z96.651 Presence of right artificial knee joint ==

== ENCOUNTER → 2021-09-17 | Outpatient (CLI) | payer OTHER, MEDICARE | LOC: M LABSMTC 10:08 | PROVIDERS: ATTEND Anesthesiology | DX: Z20.822 Contact with and (suspected) exposure to COVID-19 (principal) ==

== ENCOUNTER → 2021-09-21 | Outpatient (CLI) | payer OTHER ==
[~2021-09-21] MED LIST changes: +BUPIVACAINE HCL 0.25% 30ML VIAL As Ordered ONE; +LIDOCAINE 1% SDV 30ML VIAL As Ordered ONE; +dexameTHASONE 10MG/1ML VIAL PRES.FREE (J1100 PER 1MG) As Ordered ONE; +diazePAM 5MG TABLET As Ordered ONE; +diphenhydrAMINE 25MG CAP As Ordered ONE; +ePHEDrine SULFATE 25 MG/5 ML(5MG/ML) SYRINGE As Ordered ONE; +oxyCODONE 5MG TAB As Ordered ONE
== END ==
LOC: M PAIN 13:00
PROVIDERS: ATTEND Anesthesiology
DX: M47.812 Spondylosis without myelopathy or radiculopathy, cervical region (principal); K21.9 Gastro-esophageal reflux disease without esophagitis; Z96.651 Presence of right artificial knee joint; Z79.891 Long term (current) use of opiate analgesic; Z79.899 Other long term (current) drug therapy
CPT/HCPCS: 64633; 64634; J1100

== ENCOUNTER → 2021-09-27 | Outpatient (CLI) | payer OTHER ==
[~2021-09-27] MED LIST changes: -BUPIVACAINE HCL 0.25% 30ML VIAL As Ordered ONE; -LIDOCAINE 1% SDV 30ML VIAL As Ordered ONE; -dexameTHASONE 10MG/1ML VIAL PRES.FREE (J1100 PER 1MG) As Ordered ONE; -diazePAM 5MG TABLET As Ordered ONE; -diphenhydrAMINE 25MG CAP As Ordered ONE; -ePHEDrine SULFATE 25 MG/5 ML(5MG/ML) SYRINGE As Ordered ONE; -oxyCODONE 5MG TAB As Ordered ONE
== END ==
LOC: M PAIN 14:30
PROVIDERS: ATTEND Anesthesiology
DX: M54.2 Cervicalgia (principal); G89.29 Other chronic pain; K21.9 Gastro-esophageal reflux disease without esophagitis; Z96.651 Presence of right artificial knee joint; Z79.891 Long term (current) use of opiate analgesic; Z79.899 Other long term (current) drug therapy

== ENCOUNTER → 2021-10-05 | Outpatient (CLI) | payer OTHER | LOC: M PAIN 15:00 | PROVIDERS: ATTEND Anesthesiology | DX: M47.812 Spondylosis without myelopathy or radiculopathy, cervical region (principal); G89.29 Other chronic pain; Z96.651 Presence of right artificial knee joint; Z79.899 Other long term (current) drug therapy ==

== ENCOUNTER → 2021-11-23 | Outpatient (CLI) | payer OTHER | LOC: M PAIN 10:00 | PROVIDERS: ATTEND Anesthesiology | DX: M47.812 Spondylosis without myelopathy or radiculopathy, cervical region (principal); K21.9 Gastro-esophageal reflux disease without esophagitis; E78.00 Pure hypercholesterolemia, unspecified; M54.2 Cervicalgia; M54.81 Occipital neuralgia; M54.50 Low back pain, unspecified; H93.11 Tinnitus, right ear; G24.3 Spasmodic torticollis; B07.0 Plantar wart; Z79.891 Long term (current) use of opiate analgesic; Z79.899 Other long term (current) drug therapy ==

== ENCOUNTER → 2022-03-02 | Outpatient (CLI) | payer OTHER | LOC: M LABSMTC 11:10 | PROVIDERS: ATTEND Anesthesiology | DX: Z01.812 Encounter for preprocedural laboratory examination (principal); Z20.822 Contact with and (suspected) exposure to COVID-19 ==

== ENCOUNTER → 2022-03-07 | Outpatient (CLI) | payer OTHER ==
[~2022-03-07] MED LIST changes: +BUPIVACAINE HCL 0.25% 30ML VIAL As Ordered ONE; +ISOVUE-M 300 61% 15ML VIAL As Ordered ONE; +LIDOCAINE 1% SDV 30ML VIAL As Ordered ONE
== END ==
LOC: M PAIN 11:00
PROVIDERS: ATTEND Anesthesiology
DX: M47.812 Spondylosis without myelopathy or radiculopathy, cervical region (principal); G89.29 Other chronic pain; K21.9 Gastro-esophageal reflux disease without esophagitis; Z96.651 Presence of right artificial knee joint; Z79.891 Long term (current) use of opiate analgesic; Z79.899 Other long term (current) drug therapy

== ENCOUNTER → 2022-03-20 | Outpatient (CLI) | payer OTHER ==
[~2022-03-20] MED LIST changes: -BUPIVACAINE HCL 0.25% 30ML VIAL As Ordered ONE; -ISOVUE-M 300 61% 15ML VIAL As Ordered ONE; -LIDOCAINE 1% SDV 30ML VIAL As Ordered ONE
== END ==
LOC: M PAIN 13:30
PROVIDERS: ATTEND Anesthesiology
DX: G89.29 Other chronic pain (principal); M47.812 Spondylosis without myelopathy or radiculopathy, cervical region; M54.2 Cervicalgia; K21.9 Gastro-esophageal reflux disease without esophagitis; Z96.651 Presence of right artificial knee joint; Z79.891 Long term (current) use of opiate analgesic; Z79.899 Other long term (current) drug therapy

== ENCOUNTER → 2022-06-08 | Outpatient (CLI) | payer OTHER | LOC: M PAIN 09:45 | PROVIDERS: ATTEND Anesthesiology | DX: M96.1 Postlaminectomy syndrome, not elsewhere classified (principal); G89.29 Other chronic pain; M47.812 Spondylosis without myelopathy or radiculopathy, cervical region; K21.9 Gastro-esophageal reflux disease without esophagitis; E78.00 Pure hypercholesterolemia, unspecified; M54.2 Cervicalgia; M54.50 Low back pain, unspecified; H93.11 Tinnitus, right ear; B07.0 Plantar wart; G24.3 Spasmodic torticollis; Z79.891 Long term (current) use of opiate analgesic; Z79.899 Other long term (current) drug therapy; Z98.1 Arthrodesis status ==

== ENCOUNTER → 2022-06-14 | Outpatient (CLI) | payer OTHER | LOC: M PAIN 10:00 | PROVIDERS: ATTEND Anesthesiology | DX: M47.816 Spondylosis without myelopathy or radiculopathy, lumbar region (principal); M96.1 Postlaminectomy syndrome, not elsewhere classified; G89.29 Other chronic pain; M47.812 Spondylosis without myelopathy or radiculopathy, cervical region; K21.9 Gastro-esophageal reflux disease without esophagitis; E78.00 Pure hypercholesterolemia, unspecified; M54.2 Cervicalgia; M54.50 Low back pain, unspecified; H93.11 Tinnitus, right ear; B07.0 Plantar wart; G24.3 Spasmodic torticollis; Z79.891 Long term (current) use of opiate analgesic; Z79.899 Other long term (current) drug therapy; Z98.1 Arthrodesis status ==

== ENCOUNTER → 2022-07-17 | Outpatient (CLI) | payer OTHER | LOC: M RAD 15:19 | PROVIDERS: ATTEND Anesthesiology | DX: M47.816 Spondylosis without myelopathy or radiculopathy, lumbar region (principal); M51.26 Other intervertebral disc displacement, lumbar region ==

== ENCOUNTER → 2022-08-07 | Outpatient (CLI) | payer OTHER | LOC: M SOG 08:25 | PROVIDERS: ATTEND Orthopaedic Surgery | DX: M25.561 Pain in right knee (principal); Z96.651 Presence of right artificial knee joint ==

== ENCOUNTER → 2022-08-14 | Outpatient (CLI) | payer MEDICARE | LOC: M RAD 14:38 | PROVIDERS: ATTEND Physician Assistant Surgical | DX: M17.12 Unilateral primary osteoarthritis, left knee (principal); S80.02XA Contusion of left knee, initial encounter ==

== ENCOUNTER → 2022-08-15 | Outpatient (CLI) | payer OTHER | LOC: M PAIN 08:45 | PROVIDERS: ATTEND Nurse Practitioner Family | DX: M47.816 Spondylosis without myelopathy or radiculopathy, lumbar region (principal); M51.16 Intervertebral disc disorders with radiculopathy, lumbar region; G89.29 Other chronic pain; K21.9 Gastro-esophageal reflux disease without esophagitis; Z79.891 Long term (current) use of opiate analgesic; Z79.899 Other long term (current) drug therapy ==

== ENCOUNTER → 2022-08-22 | Outpatient (CLI) | payer OTHER ==
[~2022-08-22] MED LIST changes: +BUPIVACAINE HCL 0.25% 30ML VIAL As Ordered ONE; +LIDOCAINE 1% SDV 30ML VIAL As Ordered ONE; +diazePAM 5MG TABLET As Ordered ONE; +oxyCODONE 5MG TAB As Ordered ONE
== END ==
LOC: M PAIN 13:30
PROVIDERS: ATTEND Anesthesiology
DX: M47.812 Spondylosis without myelopathy or radiculopathy, cervical region (principal); G89.29 Other chronic pain
CPT/HCPCS: 64633; 64634; J1100; S0020

== ENCOUNTER → 2022-09-14 | Outpatient (CLI) | payer OTHER ==
[~2022-09-14] MED LIST changes: -BUPIVACAINE HCL 0.25% 30ML VIAL As Ordered ONE; -LIDOCAINE 1% SDV 30ML VIAL As Ordered ONE; -diazePAM 5MG TABLET As Ordered ONE; -oxyCODONE 5MG TAB As Ordered ONE
== END ==
LOC: M PAIN 09:45
PROVIDERS: ATTEND Nurse Practitioner Family
DX: M47.812 Spondylosis without myelopathy or radiculopathy, cervical region (principal); K21.9 Gastro-esophageal reflux disease without esophagitis; E78.00 Pure hypercholesterolemia, unspecified; M54.2 Cervicalgia; M54.50 Low back pain, unspecified; H93.11 Tinnitus, right ear; B07.0 Plantar wart; Z79.891 Long term (current) use of opiate analgesic; Z79.899 Other long term (current) drug therapy

== ENCOUNTER → 2022-09-28 | Outpatient (CLI) | payer MEDICARE ==
[2022-09-28 11:38] LABS: BASO # 0.1 10^3/uL (0.0-0.2); BASO % 1.3 % (0.0-1.0); EOS # 0.2 10^3/uL (0.0-0.5); EOS % 3.5 % (0.0-3.0); HEMATOCRIT 44.2 % (42.0-52.0); HEMOGLOBIN 14.2 g/dl (13.5-17.5); LYMPH # 1.4 10^3/uL (1.5-5.0); LYMPH % 23.2 % (24.0-44.0); MEAN CORPUSCULAR HEMOGLOBIN 27.7 pg (27.0-33.0); MEAN CORPUSCULAR HGB CONC 32.1 g/dl (32.0-36.5); MEAN CORPUSCULAR VOLUME 86.2 fl (80.0-96.0); MONO # 0.6 10^3/uL (0.0-0.8); MONO % 9.4 % (2.0-8.0); NEUTROPHILS # 3.9 10^3/uL (1.5-8.5); NEUTROPHILS % 62.1 % (36.0-66.0); PLATELET COUNT, AUTOMATED 272 10^3/uL (150-450); RED BLOOD COUNT 5.13 10^6/uL (4.30-6.10); WHITE BLOOD COUNT 6.2 10^3/uL (4.0-10.0)
[2022-09-28 11:51] LABS: ERYTHROCYTE SEDIMENTATION RATE 20 mm/hr (0-20)
== END ==
LOC: M LAB 10:07
PROVIDERS: ATTEND Orthopaedic Surgery
DX: Z96.651 Presence of right artificial knee joint (principal)

== ENCOUNTER → 2022-10-09 | Outpatient (CLI) | payer OTHER | LOC: M PAIN 11:15 | PROVIDERS: ATTEND Nurse Practitioner Family | DX: M79.18 Myalgia, other site (principal); M47.812 Spondylosis without myelopathy or radiculopathy, cervical region; K21.9 Gastro-esophageal reflux disease without esophagitis; E78.00 Pure hypercholesterolemia, unspecified; M54.2 Cervicalgia; M54.50 Low back pain, unspecified; H93.11 Tinnitus, right ear; B07.0 Plantar wart; G24.3 Spasmodic torticollis; Z79.891 Long term (current) use of opiate analgesic; Z79.899 Other long term (current) drug therapy ==

== ENCOUNTER → 2022-11-14 | Outpatient (CLI) | payer OTHER | LOC: M PAIN 09:30 | PROVIDERS: ATTEND Nurse Practitioner Family | DX: M47.816 Spondylosis without myelopathy or radiculopathy, lumbar region (principal); M54.50 Low back pain, unspecified; G89.29 Other chronic pain; K21.9 Gastro-esophageal reflux disease without esophagitis; E78.00 Pure hypercholesterolemia, unspecified; M54.2 Cervicalgia; H93.11 Tinnitus, right ear; G24.3 Spasmodic torticollis; Z79.891 Long term (current) use of opiate analgesic; Z79.899 Other long term (current) drug therapy ==

== ENCOUNTER → 2022-11-22 | Outpatient (REF) | payer MEDICARE ==
[2022-11-22 14:40] LABS: ALBUMIN 3.8 G/DL (3.2-5.2); ALKALINE PHOSPHATASE 79 U/L (46-116); ALT/SGPT 52 U/L (7.0-40); AST/SGOT 22 U/L (<34); BILIRUBIN,TOTAL 0.3 MG/DL (0.3-1.2); BLOOD UREA NITROGEN 22 MG/DL (9-23); CALCIUM LEVEL 9.8 MG/DL (8.3-10.6); CARBON DIOXIDE LEVEL 26 MMOL/L (20-31); CHLORIDE LEVEL 106 MMOL/L (98-107); CHOLESTEROL LEVEL 175 MG/DL (<200); CHOLESTEROL RISK RATIO 3.52 (<5); CREATININE FOR GFR 0.91 MG/DL (0.70-1.30); GLOMERULAR FILTRATION RATE > 60.0 (>49); GLUCOSE, FASTING 111 MG/DL (74-106); HDL CHOLESTEROL 49.6 MG/DL (>40); LDL CHOLESTEROL 88.2 MG/DL (<100); NON-HDL-C 125.4 MG/DL; POTASSIUM SERUM 4.5 MMOL/L (3.5-5.1); SODIUM LEVEL 141 MMOL/L (136-145); THYROID STIMULATING HORMONE 3.364 uIU/ML (0.55-4.78); TOTAL PROTEIN 6.6 G/DL (5.7-8.2); TRIGLYCERIDES LEVEL 186 MG/DL (<150)
== END ==
LOC: M LAB REF 12:19
PROVIDERS: ATTEND Pediatrics
DX: E78.5 Hyperlipidemia, unspecified (principal); Z12.5 Encounter for screening for malignant neoplasm of prostate
CPT/HCPCS: 80053; 80061; 84443; G0103

== ENCOUNTER → 2022-11-28 | Outpatient (CLI) | payer MEDICARE, SELFPAY | LOC: M RAD 09:54 | PROVIDERS: ATTEND Orthopaedic Surgery | DX: Z96.651 Presence of right artificial knee joint (principal) | CPT/HCPCS: 78315; A9503 ==

== ENCOUNTER → 2023-02-15 | Outpatient (CLI) | payer OTHER | LOC: M PAIN 09:30 | PROVIDERS: ATTEND Nurse Practitioner Family | DX: M47.816 Spondylosis without myelopathy or radiculopathy, lumbar region (principal); G89.29 Other chronic pain; E78.00 Pure hypercholesterolemia, unspecified; M54.2 Cervicalgia; M54.50 Low back pain, unspecified; Z79.891 Long term (current) use of opiate analgesic; Z79.899 Other long term (current) drug therapy ==

== ENCOUNTER → 2023-03-19 | Outpatient (CLI) | payer OTHER | LOC: M PAIN 11:45 | PROVIDERS: ATTEND Nurse Practitioner Family | DX: M47.816 Spondylosis without myelopathy or radiculopathy, lumbar region (principal); Z79.891 Long term (current) use of opiate analgesic; G89.29 Other chronic pain; K21.9 Gastro-esophageal reflux disease without esophagitis; E78.00 Pure hypercholesterolemia, unspecified; M54.2 Cervicalgia; M54.50 Low back pain, unspecified; M43.6 Torticollis; H93.11 Tinnitus, right ear; Z79.899 Other long term (current) drug therapy ==

== ENCOUNTER → 2023-04-09 | Outpatient (CLI) | payer MEDICARE, OTHER | LOC: M PLALAB 13:36 | PROVIDERS: ATTEND Orthopaedic Surgery | DX: M25.561 Pain in right knee (principal) ==

== ENCOUNTER → 2023-04-18 | Outpatient (CLI) | payer MEDICARE | LOC: M WUC 13:38 | PROVIDERS: ATTEND Nurse Practitioner Family | DX: J20.9 Acute bronchitis, unspecified (principal) ==

== ENCOUNTER → 2023-05-02 | Outpatient (CLI) | payer OTHER | LOC: M PAIN 09:30 | PROVIDERS: ATTEND Anesthesiology | DX: M47.812 Spondylosis without myelopathy or radiculopathy, cervical region (principal); M54.2 Cervicalgia; M54.50 Low back pain, unspecified; G24.3 Spasmodic torticollis; Z79.891 Long term (current) use of opiate analgesic; Z79.899 Other long term (current) drug therapy | CPT/HCPCS: 76000; G0463 ==

== ENCOUNTER → 2023-06-06 | Outpatient (CLI) | payer MEDICARE | LOC: M CARPUL 08:53 | PROVIDERS: ATTEND Pediatrics | DX: J98.01 Acute bronchospasm (principal) ==

== ENCOUNTER → 2023-06-08 | Outpatient (CLI) | payer MEDICARE | LOC: M WUC 11:53 | PROVIDERS: ATTEND Pediatrics | DX: R05.3 Chronic cough (principal); R07.89 Other chest pain ==

== ENCOUNTER → 2023-06-08 | Outpatient (CLI) | payer MEDICARE ==
[2023-06-08 14:35] LABS: BASO # 0.1 10^3/uL (0.0-0.2); BASO % 1.1 % (0.0-1.0); EOS # 0.3 10^3/uL (0.0-0.5); EOS % 4.5 % (0.0-3.0); HEMATOCRIT 47.5 % (42.0-52.0); HEMOGLOBIN 15.2 g/dl (13.5-17.5); LYMPH # 1.9 10^3/uL (1.5-5.0); LYMPH % 26.1 % (24.0-44.0); MEAN CORPUSCULAR HEMOGLOBIN 27.6 pg (27.0-33.0); MEAN CORPUSCULAR VOLUME 86.4 fl (80.0-96.0); MONO # 0.6 10^3/uL (0.0-0.8); NEUTROPHILS # 4.2 10^3/uL (1.5-8.5); PLATELET COUNT, AUTOMATED 271 10^3/uL (150-450); WHITE BLOOD COUNT 7.1 10^3/uL (4.0-10.0)
[2023-06-08 14:56] LABS: PERCENT SATURATION 31.7 % (19.7-50.0)
[2023-06-08 15:01] LABS: FERRITIN 287.2 NG/ML (10.5-307.3)
== END ==
LOC: M PLALAB 10:14
PROVIDERS: ATTEND Orthopaedic Surgery
DX: M25.561 Pain in right knee (principal); Z96.651 Presence of right artificial knee joint; R05.3 Chronic cough; R07.89 Other chest pain

== ENCOUNTER → 2023-06-14 | Outpatient (CLI) | payer MEDICARE ==
[2023-06-14 11:17] LABS: APPEARANCE, URINE CLEAR (CLEAR); BACTERIA, URINE AUTO NEGATIVE (NEGATIVE); BILIRUBIN, URINE AUTO NEGATIVE (NEGATIVE); BLOOD, URINE BLOOD NEGATIVE (NEGATIVE); COLOR, URINE YELLOW (YELLOW); GLUCOSE, URINE (UA) AUTO NEGATIVE (NEGATIVE); KETONE, URINE AUTO NEGATIVE (NEGATIVE); LEUKOCYTE ESTERASE, URINE AUTO NEGATIVE (NEGATIVE); MUCUS, URINE SMALL (NEGATIVE); NITRITE, URINE AUTO NEGATIVE (NEGATIVE); PROTEIN, URINE AUTO NEGATIVE (NEGATIVE); RBC, URINE AUTO 0 /HPF (0-3); SPECIFIC GRAVITY URINE AUTO 1.017 (1.002-1.035); SQUAMOUS EPITHELIAL CELL UR AU 0 /HPF (0-6); UROBILINOGEN, URINE AUTO 0.2 mg/dL (0.0-2.0); WBC, URINE AUTO 0 /HPF (0-3)
[2023-06-14 11:26] LABS: INR 0.94; PROTHROMBIN TIME 12.3 SECONDS (12.5-14.5)
[2023-06-14 11:27] LABS: PARTIAL THROMBOPLASTIN TIME 28.7 SECONDS (24.8-34.2)
[2023-06-14 12:39] LABS: ALKALINE PHOSPHATASE 74 U/L (46-116); ALT/SGPT 53 U/L (7.0-40); AST/SGOT 24 U/L (<34); BILIRUBIN,TOTAL 0.4 MG/DL (0.3-1.2); BLOOD UREA NITROGEN 17 MG/DL (9-23); CALCIUM LEVEL 9.3 MG/DL (8.3-10.6); CARBON DIOXIDE LEVEL 29 MMOL/L (20-31); CHLORIDE LEVEL 107 MMOL/L (98-107); CREATININE FOR GFR 0.91 MG/DL (0.70-1.30); GLOMERULAR FILTRATION RATE > 60.0 (>49); GLUCOSE, FASTING 103 MG/DL (74-106); POTASSIUM SERUM 4.3 MMOL/L (3.5-5.1); SODIUM LEVEL 142 MMOL/L (136-145); TOTAL PROTEIN 6.9 G/DL (5.7-8.2)
== END ==
LOC: M EKG 10:04
PROVIDERS: ATTEND Pediatrics
DX: Z01.818 Encounter for other preprocedural examination (principal); Z79.899 Other long term (current) drug therapy; M54.50 Low back pain, unspecified

== ENCOUNTER → 2023-06-19 | Outpatient (CLI) | payer OTHER | LOC: M PAIN 09:00 | PROVIDERS: ATTEND Nurse Practitioner Family | DX: M47.816 Spondylosis without myelopathy or radiculopathy, lumbar region (principal); Z79.891 Long term (current) use of opiate analgesic; K21.9 Gastro-esophageal reflux disease without esophagitis; G89.29 Other chronic pain; M54.50 Low back pain, unspecified; E78.00 Pure hypercholesterolemia, unspecified; M54.2 Cervicalgia; G24.3 Spasmodic torticollis; Z79.899 Other long term (current) drug therapy ==

== ENCOUNTER → 2023-07-24 | Outpatient (CLI) | payer OTHER ==
[~2023-07-24] MED LIST changes: +LIDOCAINE 1% SDV 30ML VIAL As Ordered ONE; +dexAMETHasone 10MG/1ML VIAL PRES.FREE As Ordered ONE; +diazePAM 5MG TABLET As Ordered ONE; +oxyCODONE 5MG TAB As Ordered ONE
== END ==
LOC: M PAIN 11:00
PROVIDERS: ATTEND Anesthesiology
DX: M47.812 Spondylosis without myelopathy or radiculopathy, cervical region (principal); K21.9 Gastro-esophageal reflux disease without esophagitis; E78.00 Pure hypercholesterolemia, unspecified; M54.2 Cervicalgia; M54.50 Low back pain, unspecified; G24.3 Spasmodic torticollis; Z79.891 Long term (current) use of opiate analgesic; Z79.899 Other long term (current) drug therapy
CPT/HCPCS: 64633; 64634; J0665; J1100

== ENCOUNTER → 2023-08-09 | Outpatient (CLI) | payer MEDICARE ==
[~2023-08-09] MED LIST changes: -LIDOCAINE 1% SDV 30ML VIAL As Ordered ONE; -dexAMETHasone 10MG/1ML VIAL PRES.FREE As Ordered ONE; -diazePAM 5MG TABLET As Ordered ONE; -oxyCODONE 5MG TAB As Ordered ONE
== END ==
LOC: M PLALAB 12:19
PROVIDERS: ATTEND Orthopaedic Surgery
DX: M25.561 Pain in right knee (principal); Z96.651 Presence of right artificial knee joint

== ENCOUNTER → 2023-08-27 | Outpatient (CLI) | payer OTHER | LOC: M PAIN 14:30 | PROVIDERS: ATTEND Nurse Practitioner Family | DX: M47.812 Spondylosis without myelopathy or radiculopathy, cervical region (principal); G89.29 Other chronic pain; K21.9 Gastro-esophageal reflux disease without esophagitis; E78.00 Pure hypercholesterolemia, unspecified; M54.2 Cervicalgia; M54.50 Low back pain, unspecified; G24.3 Spasmodic torticollis; Z79.891 Long term (current) use of opiate analgesic; Z79.899 Other long term (current) drug therapy ==

== ENCOUNTER → 2023-09-17 | Outpatient (CLI) | payer OTHER | LOC: M PAIN 09:00 | PROVIDERS: ATTEND Nurse Practitioner Family | DX: M47.816 Spondylosis without myelopathy or radiculopathy, lumbar region (principal); Z79.891 Long term (current) use of opiate analgesic; G89.29 Other chronic pain; K21.9 Gastro-esophageal reflux disease without esophagitis; E78.00 Pure hypercholesterolemia, unspecified; M54.2 Cervicalgia; G24.3 Spasmodic torticollis; M54.81 Occipital neuralgia; H93.11 Tinnitus, right ear; Z79.899 Other long term (current) drug therapy ==

== ENCOUNTER → 2023-10-29 | Outpatient (REF) | payer OTHER, MEDICARE ==
[2023-10-29 20:09] LABS: PSA SCREENING 0.66 NG/ML (< 4.00)
[2023-10-29 20:17] LABS: ALKALINE PHOSPHATASE 98 U/L (46-116); ALT/SGPT 72 U/L (7.0-40); AST/SGOT 32 U/L (<34); BILIRUBIN,DIRECT 0.1 MG/DL (<0.4); BILIRUBIN,TOTAL 0.4 MG/DL (0.3-1.2); BLOOD UREA NITROGEN 19 MG/DL (9-23); CALCIUM LEVEL 9.6 MG/DL (8.3-10.6); CARBON DIOXIDE LEVEL 24 MMOL/L (20-31); CHLORIDE LEVEL 107 MMOL/L (98-107); CHOLESTEROL LEVEL 202 MG/DL (<200); CHOLESTEROL RISK RATIO 4.05 (<5); CREATININE FOR GFR 0.81 MG/DL (0.70-1.30); GLOMERULAR FILTRATION RATE > 60.0 (>49); GLUCOSE, FASTING 93 MG/DL (74-106); HDL CHOLESTEROL 49.8 MG/DL (>40); LDL CHOLESTEROL 122.6 MG/DL (<100); NON-HDL-C 152.2 MG/DL; POTASSIUM SERUM 4.7 MMOL/L (3.5-5.1); SODIUM LEVEL 140 MMOL/L (136-145); TOTAL PROTEIN 6.9 G/DL (5.7-8.2); TRIGLYCERIDES LEVEL 148 MG/DL (<150)
== END ==
LOC: M LAB REF 16:39
PROVIDERS: ATTEND Pediatrics
DX: I10 Essential (primary) hypertension (principal); E78.5 Hyperlipidemia, unspecified; R74.01 Elevation of levels of liver transaminase levels; Z12.5 Encounter for screening for malignant neoplasm of prostate
CPT/HCPCS: 80048; 80061; 80076; G0103

== ENCOUNTER → 2023-11-26 | Outpatient (CLI) | payer OTHER | LOC: M PAIN 09:30 | PROVIDERS: ATTEND Nurse Practitioner Family | DX: M47.812 Spondylosis without myelopathy or radiculopathy, cervical region (principal); G89.29 Other chronic pain; M54.2 Cervicalgia; K21.9 Gastro-esophageal reflux disease without esophagitis; E78.00 Pure hypercholesterolemia, unspecified; M54.50 Low back pain, unspecified; H93.19 Tinnitus, unspecified ear; G24.3 Spasmodic torticollis; Z79.891 Long term (current) use of opiate analgesic; Z79.899 Other long term (current) drug therapy ==

== ENCOUNTER → 2023-12-18 | Outpatient (CLI) | payer OTHER ==
[~2023-12-18] MED LIST changes: +GABA-1490 PO; -GABA600T4 PO
== END ==
LOC: M PAIN 09:30
PROVIDERS: ATTEND Nurse Practitioner Family
DX: M51.16 Intervertebral disc disorders with radiculopathy, lumbar region (principal); G89.29 Other chronic pain; K21.9 Gastro-esophageal reflux disease without esophagitis; E78.00 Pure hypercholesterolemia, unspecified; M54.2 Cervicalgia; M54.81 Occipital neuralgia; G24.3 Spasmodic torticollis; H93.11 Tinnitus, right ear; Z79.891 Long term (current) use of opiate analgesic; Z79.899 Other long term (current) drug therapy

== ENCOUNTER → 2024-01-10 | Outpatient (CLI) | payer OTHER | LOC: M PAIN 10:00 | PROVIDERS: ATTEND Nurse Practitioner Family | DX: M51.16 Intervertebral disc disorders with radiculopathy, lumbar region (principal); G89.29 Other chronic pain; K21.9 Gastro-esophageal reflux disease without esophagitis; E78.00 Pure hypercholesterolemia, unspecified; M54.2 Cervicalgia; M54.81 Occipital neuralgia; G24.3 Spasmodic torticollis; Z79.891 Long term (current) use of opiate analgesic; Z79.899 Other long term (current) drug therapy ==

== ENCOUNTER → 2024-01-30 | Outpatient (CLI) | payer OTHER | LOC: M PAIN 09:15 | PROVIDERS: ATTEND Anesthesiology | DX: M47.812 Spondylosis without myelopathy or radiculopathy, cervical region (principal); M54.2 Cervicalgia; K21.9 Gastro-esophageal reflux disease without esophagitis; E78.00 Pure hypercholesterolemia, unspecified; M54.50 Low back pain, unspecified; G24.3 Spasmodic torticollis; Z79.891 Long term (current) use of opiate analgesic; Z79.899 Other long term (current) drug therapy | CPT/HCPCS: 76000; G0463 ==

== ENCOUNTER → 2024-02-11 | Outpatient (CLI) | payer OTHER | LOC: M WUC 09:41 | PROVIDERS: ATTEND Nurse Practitioner Family | DX: M19.042 Primary osteoarthritis, left hand (principal) ==

== ENCOUNTER → 2024-02-18 | Outpatient (CLI) | payer OTHER | LOC: M PAIN 09:30 | PROVIDERS: ATTEND Nurse Practitioner Family | DX: M48.07 Spinal stenosis, lumbosacral region (principal); M51.16 Intervertebral disc disorders with radiculopathy, lumbar region; G89.29 Other chronic pain; K21.9 Gastro-esophageal reflux disease without esophagitis; E78.00 Pure hypercholesterolemia, unspecified; M54.2 Cervicalgia; M54.81 Occipital neuralgia; G24.3 Spasmodic torticollis; H93.11 Tinnitus, right ear; Z79.891 Long term (current) use of opiate analgesic; Z79.899 Other long term (current) drug therapy ==

== ENCOUNTER → 2024-04-02 | Outpatient (REF) | payer OTHER ==
[2024-04-02 17:47] LABS: ALBUMIN 3.9 G/DL (3.2-5.2); BILIRUBIN,DIRECT 0.1 MG/DL (<0.4); BILIRUBIN,TOTAL 0.4 MG/DL (0.3-1.2); TOTAL PROTEIN 6.9 G/DL (5.7-8.2)
== END ==
LOC: M LAB REF 16:32
PROVIDERS: ATTEND Pediatrics
DX: K21.9 Gastro-esophageal reflux disease without esophagitis (principal); R74.01 Elevation of levels of liver transaminase levels

== ENCOUNTER → 2024-04-04 | Outpatient (REF) | payer OTHER | LOC: M LAB REF 11:49 | PROVIDERS: ATTEND Pediatrics | DX: K21.9 Gastro-esophageal reflux disease without esophagitis (principal) ==

== ENCOUNTER → 2024-04-11 | Outpatient (CLI) | payer OTHER ==
[~2024-04-11] MED LIST changes: +LIDOCAINE 1% SDV 30ML VIAL As Ordered ONE; +dexAMETHasone 10MG/1ML VIAL PRES.FREE As Ordered ONE; +diazePAM 5MG TABLET As Ordered ONE; +oxyCODONE 5MG TAB As Ordered ONE
== END ==
LOC: M PAIN 10:00
PROVIDERS: ATTEND Anesthesiology
DX: M47.812 Spondylosis without myelopathy or radiculopathy, cervical region (principal); G89.29 Other chronic pain; M54.2 Cervicalgia; M54.50 Low back pain, unspecified; K21.9 Gastro-esophageal reflux disease without esophagitis; E78.00 Pure hypercholesterolemia, unspecified; Z79.891 Long term (current) use of opiate analgesic; Z79.899 Other long term (current) drug therapy
CPT/HCPCS: 64633; J0665; J1100

== ENCOUNTER → 2024-05-06 | Outpatient (CLI) | payer OTHER ==
[~2024-05-06] MED LIST changes: +ISOVUE-M 300 61% 15ML VIAL As Ordered ONE
== END ==
LOC: M PAIN 10:00
PROVIDERS: ATTEND Anesthesiology
DX: M51.16 Intervertebral disc disorders with radiculopathy, lumbar region (principal); G89.29 Other chronic pain; K21.9 Gastro-esophageal reflux disease without esophagitis; E78.00 Pure hypercholesterolemia, unspecified; M54.2 Cervicalgia; M54.81 Occipital neuralgia
CPT/HCPCS: 62323; J1100; Q9967

== ENCOUNTER → 2024-05-16 | Outpatient (CLI) | payer OTHER ==
[~2024-05-16] MED LIST changes: -ISOVUE-M 300 61% 15ML VIAL As Ordered ONE; -LIDOCAINE 1% SDV 30ML VIAL As Ordered ONE; -dexAMETHasone 10MG/1ML VIAL PRES.FREE As Ordered ONE; -diazePAM 5MG TABLET As Ordered ONE; -oxyCODONE 5MG TAB As Ordered ONE
== END ==
LOC: M PAIN 10:45
PROVIDERS: ATTEND Nurse Practitioner Family
DX: M47.812 Spondylosis without myelopathy or radiculopathy, cervical region (principal); G89.29 Other chronic pain; M54.2 Cervicalgia; E78.00 Pure hypercholesterolemia, unspecified; K21.9 Gastro-esophageal reflux disease without esophagitis; M54.50 Low back pain, unspecified; Z79.1 Long term (current) use of non-steroidal anti-inflammatories (NSAID); Z79.891 Long term (current) use of opiate analgesic; Z79.899 Other long term (current) drug therapy

== ENCOUNTER → 2024-06-06 | Outpatient (CLI) | payer OTHER | LOC: M PAIN 11:00 | PROVIDERS: ATTEND Nurse Practitioner Family | DX: M51.16 Intervertebral disc disorders with radiculopathy, lumbar region (principal); G89.29 Other chronic pain; K21.9 Gastro-esophageal reflux disease without esophagitis; E78.00 Pure hypercholesterolemia, unspecified; Z79.1 Long term (current) use of non-steroidal anti-inflammatories (NSAID); Z79.891 Long term (current) use of opiate analgesic; Z79.899 Other long term (current) drug therapy ==

== ENCOUNTER → 2024-06-13 | Outpatient (CLI) | payer OTHER | LOC: M PAIN 13:00 | PROVIDERS: ATTEND Anesthesiology | DX: M47.812 Spondylosis without myelopathy or radiculopathy, cervical region (principal); G89.29 Other chronic pain; E78.00 Pure hypercholesterolemia, unspecified; M54.50 Low back pain, unspecified; K21.9 Gastro-esophageal reflux disease without esophagitis; Z79.891 Long term (current) use of opiate analgesic; Z79.899 Other long term (current) drug therapy ==

== ENCOUNTER → 2024-06-25 | Outpatient (CLI) | payer OTHER | LOC: M WUC 09:35 | PROVIDERS: ATTEND Physical Medicine & Rehabilitation | DX: M47.816 Spondylosis without myelopathy or radiculopathy, lumbar region (principal); M47.812 Spondylosis without myelopathy or radiculopathy, cervical region ==

== ENCOUNTER → 2024-06-25 | Outpatient (CLI) | payer OTHER | LOC: M PAIN 11:30 | PROVIDERS: ATTEND Anesthesiology | DX: M47.812 Spondylosis without myelopathy or radiculopathy, cervical region (principal); Z79.899 Other long term (current) drug therapy ==

== ENCOUNTER → 2024-07-01 | Outpatient (CLI) | payer MEDICARE | LOC: M CARPUL 10:18 | PROVIDERS: ATTEND Physician Assistant | DX: R05.9 Cough, unspecified (principal) ==

== ENCOUNTER 2024-07-22 09:58 | Day surgery (SDC) | payer MEDICARE ==
[~2024-07-22] VITALS: Ht 175.3 cm; Wt 110.8 kg
[~2024-07-22 09:58] MED LIST changes: +GABA-1172 PO; +MULTTAB61 PO; +OMEP40CA5 PO; +OXYC-517 PO; +ROSU40TA81 PO; +TELM1TAB37 PO; +VITA100093 PO
[2024-07-22] MEDS ORDERED: propofoL 500 MG/50 ML VIAL As Ordered ONE (10:53)
[2024-07-22] MEDS ORDERED: GLYCOPYRROLATE INJ 0.2 MG/ML 2 ML VIAL As Ordered ONE (10:54)
[2024-07-22] MEDS ORDERED: fentaNYL 100 MCG/2 ML INJECTION As Ordered ONE (10:54)
[2024-07-22] MEDS ORDERED: LIDOCAINE 2% 100MG/5ML SDV (FOR ANES.) As Ordered ONE (10:55)
[2024-07-22 13:00] VITALS: TEMP 98.2
[2024-07-22 13:30] VITALS: BP 116/57; O2SAT 96
== END 2024-07-22 13:32 | disposition home or self-care (01) ==
LOC: M OPP 09:58
PROVIDERS: ATTEND Internal Medicine Gastroenterology
DX: Z12.11 Encounter for screening for malignant neoplasm of colon (principal); K64.8 Other hemorrhoids; Z80.0 Family history of malignant neoplasm of digestive organs; K44.9 Diaphragmatic hernia without obstruction or gangrene; K31.7 Polyp of stomach and duodenum; R05.3 Chronic cough; K21.9 Gastro-esophageal reflux disease without esophagitis; R12 Heartburn; Z79.891 Long term (current) use of opiate analgesic; Z79.899 Other long term (current) drug therapy
CPT/HCPCS: 43251; 45378; 88305; J1596; J3010

== ENCOUNTER → 2024-07-31 | Outpatient (CLI) | payer MEDICARE ==
[~2024-07-31] MED LIST changes: +METHACHOLINE KIT (6 VIAL.NEB PREMIX) INH ONE
== END ==
LOC: M CARPUL 07:59
PROVIDERS: ATTEND Physician Assistant
DX: R05.9 Cough, unspecified (principal)
CPT/HCPCS: 94070; 95070; J7674

== ENCOUNTER → 2024-10-29 | Outpatient (REF) | payer MEDICARE ==
[~2024-10-29] MED LIST changes: -METHACHOLINE KIT (6 VIAL.NEB PREMIX) INH ONE
[2024-10-29 13:18] LABS: CREATININE, URINE 181.1 MG/DL; MALB URINE SIEMENS 4.0 MG/L; MAU/CREAT RATIO 2.2 MCG/MG (0.0-30.0)
[2024-10-29 15:15] LABS: PSA SCREENING 0.80 NG/ML (< 4.00)
[2024-10-29 15:16] LABS: PLATELET COUNT, AUTOMATED 324 10^3/uL (150-450)
[2024-10-29 15:17] LABS: ALT/SGPT 37 U/L (7.0-40); AST/SGOT 20 U/L (<34); CALCIUM LEVEL 9.4 MG/DL (8.3-10.6); CARBON DIOXIDE LEVEL 22 MMOL/L (20-31); CHLORIDE LEVEL 107 MMOL/L (98-107); CHOLESTEROL LEVEL 209 MG/DL (<200); CHOLESTEROL RISK RATIO 3.48 (<5); CREATININE FOR GFR 0.85 MG/DL (0.70-1.30); GLOMERULAR FILTRATION RATE > 90.0 (>49); LDL CHOLESTEROL 133.1 MG/DL (<100); NON-HDL-C 149.1 MG/DL; POTASSIUM SERUM 4.2 MMOL/L (3.5-5.1); SODIUM LEVEL 141 MMOL/L (136-145); TRIGLYCERIDES LEVEL 80 MG/DL (<150)
[2024-10-29 15:30] LABS: ESTIMATED AVERAGE GLUCOSE 111.0 MG/DL (60-110)
== END ==
LOC: M LAB REF 11:52
PROVIDERS: ATTEND Pediatrics
DX: I10 Essential (primary) hypertension (principal); Z12.5 Encounter for screening for malignant neoplasm of prostate; K21.9 Gastro-esophageal reflux disease without esophagitis; E66.812 Obesity, class 2; E78.5 Hyperlipidemia, unspecified; Z79.899 Other long term (current) drug therapy
CPT/HCPCS: 80053; 80061; 82043; 83036; 84443; 85027; G0103